=== PATIENT | male | born 1975 | race Two or more races ===

== ENCOUNTER → 2020-06-02 10:40 | Outpatient (BNVA) | payer OTHER, SELFPAY | PROVIDERS: Visit Provider Physician Assistant Medical | DX: K42.0 Umbilical hernia with obstruction, without gangrene (principal) | CPT/HCPCS: 99202 ==

== ENCOUNTER → 2020-06-16 15:07 | Outpatient (BNVA) | payer OTHER, SELFPAY | PROVIDERS: Visit Provider Surgery ==

== ENCOUNTER → 2020-06-23 09:59 | Outpatient (BNVA) | payer OTHER, SELFPAY | PROVIDERS: Visit Provider Surgery | DX: K42.9 Umbilical hernia without obstruction or gangrene (principal) | CPT/HCPCS: 99212 ==

== ENCOUNTER 2020-07-09 07:42 | Day surgery (SDC) | payer OTHER, SELFPAY ==
[2020-07-02 10:22] VITALS: BMI 41.3
--- NOTE | 2020-07-07 14:27 | HO.ANESPROP2 ---
HPI - Anesthesia Eval Consult details Narrative: 45yo M for Hernia Repair Umbilical with mesh PMFSH Active Problems Active Problems: All Active Problems (Updated 07/02/20 @ 10:22 by Ciarra Trinh) Umbilical hernia (Acute) Past Medical History Medical History (Updated 07/02/20 @ 10:22 by Ciarra Trinh) Heartburn PACHECO (obstructive sleep apnea) Sickle cell trait Umbilical hernia Surgical History Surgical History (Updated 07/02/20 @ 10:22 by Ciarra Trinh) History of hernia surgery History of ventral hernia repair Social History Social History Alcohol intake: current Alcohol intake frequency: holidays/special occasions only Patient Tobacco Use Status: Never used Tobacco Meds Allergies Allergy/AdvReac Type Severity Reaction Status Date / Time Penicillins [PENICILLINS] Allergy Severe ANAPHYLAXIS Verified 07/09/20 08:50 Exam Exam Date and Time: July 07, 2020 1427 Height,Weight and Vital Signs: Height 5 ft 9 in Weight 127.006 kg Assessment and Plan Assessment Anesthesia Assessment: Chart Reviewed
[2020-07-09] VITALS (7 sets, daily range): BP systolic 122–147; BP diastolic 80–100; PULSE 85–96; RESP 14–23; TEMP 36.8–37.3; O2SAT 92–100
[2020-07-09] MEDS: Lactated Ringers 1,000 ML 100 ML IVCONT (09:12)
[2020-07-09] MEDS: vancomycin HCL 1,000 MG in 0.9 % Sodium Chloride 250 ML 270 MG IV (09:12)
--- NOTE | 2020-07-09 09:57 | MHC.SHP ---
Pre-Procedural Eval Section B Chief Complaint: umbilical hernia without obstruction Allergies: Allergies Allergy/AdvReac Type Severity Reaction Status Date / Time Penicillins [PENICILLINS] Allergy Severe ANAPHYLAXIS Verified 07/09/20 08:50 Plan I have reviewed the history and physical and performed a pertinent physical examination on my patient. No changes have occurred unless specified.
--- NOTE | 2020-07-09 11:08 | W.PM.OPN ---
Operative Note Operative Note Date of Service: 07/09/20 Narrative: Preop diagnosis: Umbilical incisional hernia Postop diagnosis: The same Procedure: Repair of sickle incisional hernia with Ventralex mesh Surgeon: Karri Mullins MD Warehouse Operations Manager: None [age] year old male who had undergone laparotomy for an incarcerated supraumbilical hernia last September,. He had developed a hernia on the umbilicus. This had been increasing in size and he wanted to proceed with repair. He understood the technique of repair with mesh. He was aware of the risks, benefits, and alternatives. He was brought to the operating room placed supine on table under general anesthesia via laryngeal mask airway. The abdomen was prepped and draped in the usual sterile fashion. A surgical time-out was done. The patient received cefazolin 2 g IV preoperatively. The hernia was palpable on the area of umbilicus a little to the right. I made an incision longitudinally just adjacent to the umbilicus on this area to the right of the midline. This was made using a blade 15. This was carried down through the full-thickness of the skin and subcutaneous fat. I proceeded to then gently dissect through the subcutaneous fat until I was able to clearly visualize the hernia sac. I sharply dissected the hernia sac off of the rest of the subcutaneous fat and the umbilical dimple. The umbilicus was gently from this hernia and I proceeded to continue to dissect sharply all the way to the fascia. The patient had a lot of tissue surrounding the hernia tethering this to the fascial edge. I carefully dissected this with the Metzenbaum scissors as well as with electrocautery. I was able to eventually grasped 1 edge of the defect with Lexx clamp. We therefore were able to follow the fascial edge using this leading edge and gently the entire hernia contents from the fascial edge. I was able to then reduce this hernia and its contents. The hernia defect was about 2 cm in size. The distal margins appeared to be clear and there were no surrounding bowel loops. I reinforced this defect with a a small size Ventralex mesh. I flattened the mesh underneath the fascia and there was note of good overlap. I secured the Prolene straps of the mesh to the fascial layer with Prolene 2 sutures. I trimmed the Prolene straps flush on the fascial level. I closed the fascial defect with a [id number] Maxon 1 stitch. I reviewed the exit her a pair. I reapposed the thick subcutaneous layer with Dexon 3-0 interrupted sutures. Skin closure was achieved with Dexon 4-0 subcuticular stitch. The incision was infiltrated with Marcaine 0.5% for postop analgesia. Patient and dressings were applied The patient tolerated the procedure well. There were no complications noted. Initial and final counts of sponges and instruments were correct. Estimated blood loss was about 2 cc. The patient was extubated without difficulty and transferred to the recovery room with stable vital signs.
--- NOTE | 2020-07-09 11:16 | P.BOP_ITS ---
Brief Operative Note Date of Service: 07/09/20 Pre-op diagnosis: Umbilical incisional hernia Post-op diagnosis: same Procedure: Repair of umbilical incisional hernia with mesh Implants: Mesh Surgeon: Karri Mullins MD Was an De Icer Installer used for this Procedure?: No Estimated blood loss (mL): 2 Pathology: none sent Condition: stable Disposition: PACU
== END 2020-07-09 12:55 | disposition home or self-care (01) ==
PROVIDERS: PCP Nurse Practitioner Family; Visit Provider Surgery
PROC: (CPT 49585; principal; 2020-07-09 09:30)
DX: K42.9 Umbilical hernia without obstruction or gangrene (principal); D57.3 Sickle-cell trait; G47.33 Obstructive sleep apnea (adult) (pediatric); Z88.0 Allergy status to penicillin
CPT/HCPCS: 49585; C1781; J1100; J1885; J2250; J2405; J3010; J3370

== ENCOUNTER → 2020-07-21 14:38 | Outpatient (BNVA) | payer OTHER, SELFPAY | PROVIDERS: PCP Nurse Practitioner Family; Referring Provider Nurse Practitioner Family; Visit Provider Surgery | DX: Z48.815 Encounter for surgical aftercare following surgery on the digestive system (principal); Z87.19 Personal history of other diseases of the digestive system | CPT/HCPCS: 99212 ==

== ENCOUNTER 2022-04-18 09:31 | Emergency (ER) | payer OTHER, SELFPAY ==
--- NOTE | ~2022-04-18 | XR_ITS ---
EXAMINATION: CR X-RAY KNEE, TIBIA/FIBULA, ANKLE AND FOOT LEFT CLINICAL INFORMATION: Pain. COMPARISON: None TECHNIQUE: 2 views of the left knee, 2 views of the left tibia/fibula, 3 views of the left ankle and 3 views of the left foot were obtained. FINDINGS: There is no acute fracture or dislocation. No joint effusion is seen. The tibia and fibula are intact. The ankle joint and mortise are intact. There are small plantar and very small retrocalcaneal spurs. The tarsal bones are normally aligned. There is a mild hallux valgus deformity. The metatarsals and phalanges are intact. The soft tissues are unremarkable. XR/XR tibia fibula LT 2V IMPRESSION: 1. No acute abnormality in the left knee, tibia/fibula, ankle or foot. 2. Mild hallux valgus deformity. 3. Small degenerative calcaneal spurs.
--- NOTE | ~2022-04-18 | XR_ITS ---
EXAMINATION: CR X-RAY KNEE, TIBIA/FIBULA, ANKLE AND FOOT LEFT CLINICAL INFORMATION: Pain. COMPARISON: None TECHNIQUE: 2 views of the left knee, 2 views of the left tibia/fibula, 3 views of the left ankle and 3 views of the left foot were obtained. FINDINGS: There is no acute fracture or dislocation. No joint effusion is seen. The tibia and fibula are intact. The ankle joint and mortise are intact. There are small plantar and very small retrocalcaneal spurs. The tarsal bones are normally aligned. There is a mild hallux valgus deformity. The metatarsals and phalanges are intact. The soft tissues are unremarkable. XR/XR ankle LT min 3V IMPRESSION: 1. No acute abnormality in the left knee, tibia/fibula, ankle or foot. 2. Mild hallux valgus deformity. 3. Small degenerative calcaneal spurs.
--- NOTE | ~2022-04-18 | XR_ITS ---
EXAMINATION: CR X-RAY KNEE, TIBIA/FIBULA, ANKLE AND FOOT LEFT CLINICAL INFORMATION: Pain. COMPARISON: None TECHNIQUE: 2 views of the left knee, 2 views of the left tibia/fibula, 3 views of the left ankle and 3 views of the left foot were obtained. FINDINGS: There is no acute fracture or dislocation. No joint effusion is seen. The tibia and fibula are intact. The ankle joint and mortise are intact. There are small plantar and very small retrocalcaneal spurs. The tarsal bones are normally aligned. There is a mild hallux valgus deformity. The metatarsals and phalanges are intact. The soft tissues are unremarkable. XR/XR knee LT 4V IMPRESSION: 1. No acute abnormality in the left knee, tibia/fibula, ankle or foot. 2. Mild hallux valgus deformity. 3. Small degenerative calcaneal spurs.
--- NOTE | ~2022-04-18 | XR_ITS ---
EXAMINATION: CR X-RAY KNEE, TIBIA/FIBULA, ANKLE AND FOOT LEFT CLINICAL INFORMATION: Pain. COMPARISON: None TECHNIQUE: 2 views of the left knee, 2 views of the left tibia/fibula, 3 views of the left ankle and 3 views of the left foot were obtained. FINDINGS: There is no acute fracture or dislocation. No joint effusion is seen. The tibia and fibula are intact. The ankle joint and mortise are intact. There are small plantar and very small retrocalcaneal spurs. The tarsal bones are normally aligned. There is a mild hallux valgus deformity. The metatarsals and phalanges are intact. The soft tissues are unremarkable. XR/XR foot LT min 3V IMPRESSION: 1. No acute abnormality in the left knee, tibia/fibula, ankle or foot. 2. Mild hallux valgus deformity. 3. Small degenerative calcaneal spurs.
[2022-04-18 09:39] VITALS: BP 166/111; PULSE 100; RESP 16; TEMP 36.4; O2SAT 98; BMI 43.0
[2022-04-18 09:44] VITALS: BP 149/101
--- NOTE | 2022-04-18 10:21 | ED_ITS ---
HPI - Extremity Injury (Lower) General Chief Complaint: Extremity Injury, Lower Stated Complaint: Left whitman pain Time Seen by Provider: 04/18/22 10:05 Source: patient Mode of arrival: ambulatory Limitations: no limitations History of Present Illness HPI Narrative: Pt is a 47 y/o male with newer diagnosis of HTN, cc several months of lower left leg pain that feels like whitman splints. He states he was seen at the ID yesterday and they did an ultrasound to rule out DVT and recommended he be seen in the ED for further evaluation. He states the pain originally started with walking and relieved with rest, now has gotten progressively worse to the point he cannot stand on the leg for more than 1-5 mins without experiencing pain. He is morbidly obese and started walking regularly in 2020 after having hernia antonella shiraz and his walks are an hour to 90 minutes occasionally to work. He was starting to lose weight and now cannot be as active due to the pain. It is sharp on the anterior lower left leg and sometimes radiates laterally, stopping when at rest for a minute or two. Occasionally he has felt a brief cold patel to the shortly after resting. He denies sob or chest pain with exertion, fevers, chills, temperature difference in the extremities, swelling, redness, injury, falls, lower back pain, hip pain, ankle pain or foot pain. MD complaint: other (left leg pain ) Onset (ago): month(s) ( several ) Relieving factors: immobilization (wraps around calf) Exacerbating factors: weight bearing and movement Related Data Previous Rx's Medication Instructions Recorded ibuprofen 600 mg tablet 600 mg PO Q6H PRN pain #30 tabs 07/09/20 oxycodone-acetaminophen 5 mg-325 1 - 2 tab PO Q4-6H PRN pain #30 07/09/20 mg tablet (Percocet) tabs cyclobenzaprine 10 mg tablet 10 mg PO Q8H #14 tabs 04/18/22 naproxen 500 mg tablet 500 mg PO BID PRN pain #14 tabs 04/18/22 oxycodone 5 mg tablet 5 mg PO Q6H PRN pain #14 tabs 04/18/22 Allergies Allergy/AdvReac Type Severity Reaction Status Date / Time Penicillins [PENICILLINS] Allergy Severe ANAPHYLAXIS Verified 07/09/20 08:50 Review of Systems Review of Systems: Constitutional : No Weight loss, No Fever, No Chills, No Night Sweats, No Fatigue, No Malaise ENT/Mouth : No Hearing loss, No Ear Pain, No Nasal Congestion, No Sinus Pain, No Hoarseness, No sore throat, No Rhinorrhea, No Swallowing Difficulty Eyes: No Eye Pain, No Swelling, No Redness, No Foreign Body, No Discharge, No Vision Changes Cardiovascular : No Chest Pain, No SOB, No Dyspnea on Exertion, No Orthopnea, No Edema, No Palpitations Respiratory : No Cough, No Sputum, No Wheezing, No Smoke Exposure, No Dyspnea Gastrointestinal : No Nausea, No Vomiting, No Diarrhea, No Constipation, No abdominal Pain, No Hematochezia, No Melena Genitourinary : no irregular bleeding, No Dysuria, No Urinary Frequency, No Hematuria, No Urinary Incontinence, No Urgency, No Flank Pain, No Urinary Flow Changes, No Hesitancy Musculoskeletal : + left whitman pain, No joint pain, No Myalgias, No Joint Swelling Skin : No Skin Lesions, No rash Neuro : No Weakness, No Numbness, No Paresthesias, No Loss of Consciousness, No Dizziness, No Headache Psych : No Anxiety/Panic, No Depression, No SI/HI/AH/VH, No Social Issues, Heme/Lymph: No Bruising, No Bleeding,No Lymphadenopathy Endocrine : No Polyuria, No Polydipsia, No Temperature Intolerance Yes all other systems are reviewed and are negative [facility] Past Medical History Attestation statement: The following information was validated with the patient. Source: old records reviewed and nursing notes reviewed Medical History Heartburn PACHECO (obstructive sleep apnea) Sickle cell trait Umbilical hernia Surgical History History of hernia surgery History of ventral hernia repair Social History Social History Alcohol intake: current Alcohol intake frequency: holidays/special occasions only Patient Tobacco Use Status: Never used Tobacco Advance Directives: No Advance Directives Information Provided: Yes Physical Exam Vital Signs: Vital Signs: Last Vital Signs Temp 97.6 F 04/18/22 09:39 Pulse 100 04/18/22 09:39 Resp 16 04/18/22 09:39 BP 149/101 H 03/14/23 09:44 Pulse Ox 98 04/18/22 09:39 O2 Del Method 04/18/22 09:39 BMI result Body Mass Index 43.0 Vital signs reviewed. Blood pressure normal. Pulse normal. Respiration normal. Oxygen normal. Temperature normal. Appearance: Alert. Oriented X3. No acute distress. Head: Normal external exam. Normocephalic. Atraumatic. Eyes: PERRLA. EOMI. Conjunctiva and sclera normal. Eyelids normal. ENT: EAC normal. TM's Normal. Pharynx normal. Uvula midline. Moist mucous membranes. No lesions/ulcerations or masses noted on the tongue. Normal voice. No trismus noted. No drooling noted. No muffled voice noted. Neck: Normal inspection. Neck supple. FROM. No adenopathy. Thyroid Normal. No meningeal signs. CVS: Normal heart rate and rhythm. Heart sound normal. Pulses normal throughout. No murmurs/rales/gallops. Respiratory: No respiratory distress. Painless inspiration. Breath sounds normal. No wheezes/rales/rhonchi noted. Chest nontender. No accessory muscle usage noted or decreased air movement noted. Abdomen: Soft and nontender. Back: Full range of motion noted. Nontender. Skin: Skin warm and dry. Normal skin color. Normal skin turgor. No rashes/lesions/lacerations noted. Extremities: No lower extremity edema noted. patient with tenderness palpation to the anterior lateral aspect of the whitman. No rashes are noted. equal tem perature bilat, + distal pulses. No calf tenderness noted. Otherwise all other extremities exhibit normal range of motion nontender. Neuro: Oriented X 3. No motor deficit. No sensory deficit. Reflexes normal. Normal steady gait. No focal neuro deficits noted. CN's II-XII intact bilaterally? Vascular: + radial pulses. Normal cap refill. No cyanosis noted to upper extremity nails Medical Decision Making Medical Decision Making MDM Narrative: This 47 y/o male patient presents with whitman pain, suspicious for soft tissue injury or stress fracture of the tibia. Able to flex and extend proximal and distal joints without pain. Already had labs yesterday and a negative DVT study. Considered, but doubt, arterial thrombosis, septic arthritis, other acute unstable fracture, or significant neurovascular compromise, given history and exam No e/o compartment syndrome, septic arthritis, other acute fracture. Range of motion is normal. Plan: Will get plain films, if negative patient will be discharged with symptomatic treatment and instructions to follow-up with PCP/[facility] and orthopedic as needed. Pt has recent diagnosis of hypertension and was started on lisinopril one week ago. He has no evidence of ACS, denies SOB, chest pain, jaw pain, neck pain, back pain. He was hypertensive upon arrival and had not taken today's dose. Therefore patient was given his 5 mg prescribed lisinopril. Instructed to take his medications as prescribed. Independent Interpretation I performed an independent interpretation of an: Plain X-Ray (X-ray of left knee/lower leg and tibia/fibula reviewed by myself agree with radiologist's report) Radiology Impression Discussion of test interpretation with radiology: I have reviewed the radiologist's reading. Radiologist Impression: EXAMINATION: CR X-RAY KNEE, TIBIA/FIBULA, ANKLE AND FOOT LEFT CLINICAL INFORMATION: Pain.? COMPARISON: None? TECHNIQUE: 2 views of the left knee, 2 views of the left tibia/fibula, 3 views of the left ankle and 3 views of the left foot were obtained. FINDINGS: There is no acute fracture or dislocation. No joint effusion is seen. The tibia and fibula are intact. The ankle joint and mortise are intact. There are small plantar and very small retrocalcaneal spurs. The tarsal bones are normally aligned. There is a mild hallux valgus deformity. The metatarsals and phalanges are intact. The soft tissues are unremarkable. XR/XR tibia fibula LT 2V IMPRESSION: 1.? No acute abnormality in the left knee, tibia/fibula, ankle or foot. 2.? Mild hallux valgus deformity. 3.? Small degenerative calcaneal spurs. Prescription Management I considered prescription management with: Pain Medication Will DC home with pain medications and symptomatic treatment instructions return if any new or worsening symptoms follow up with primary care provider. Chronic Conditions Patient?s care impacted by: Hypertension Discharge Plan Discharge Clinical Impression: Pain in left whitman, Anterior whitman splints Patient Disposition: Home, Self-Care Instructions: Whitman Splints (ED) Prescriptions: New naproxen 500 mg tablet 500 mg PO BID PRN (Reason: pain) Qty: 14 0RF cyclobenzaprine 10 mg tablet 10 mg PO Q8H Qty: 14 0RF oxycodone 5 mg tablet 5 mg PO Q6H PRN (Reason: pain) Qty: 14 0RF Rx Instructions: Partial Fill upon patient request. No Action oxycodone-acetaminophen [Percocet] 5-325 mg tablet 1 - 2 tab PO Q4-6H PRN (Reason: pain) Qty: 30 0RF ibuprofen 600 mg tablet 600 mg PO Q6H PRN (Reason: pain) Qty: 30 0RF Referrals: [facility] [Provider Group] (Call to make a follow-up appointment as needed) Moreno Higginbotham OPERATIONAL COMMUNICATION CHIEF [Primary Care Provider] - 1 day Stand Alone Forms: Work/School Release
--- OUTSIDE RECORDS SUMMARY | 2022-04-18 10:36 | XMS_ITS | Encounter Summary ---
:1975 Author Organization Department [facility] Address [address] [place] [id number] Support Name Relationship Address Phone RIKA STILL Unavailable [address] [place] [address] TESSY RIKA Unavailable [address] Unavailable [place] [address] Selected Encounter This section includes the information on record at [place] for the Encounter. Date/Time Encounter Type Encounter Reason Provider Source Description Dec 05, 2021 Outpatient SLEEP MEDICINE ICD-10-CM G47.33 CURIOSO-UY,CY 07:22 AM Encounter Obstructive sleep NTHIA apnea (adult) (pediatric) with Provider Comments: Obstructive Sleep Apnea (Adult) (Pediatric) IHE Encounter Template Text not used by [place] Assessments - Encounter Diagnoses This section includes the primary and secondary diagnoses documented for the Encounter. Date/Time Primary/Secondary Diagnosis Name Provider Source Diagnosis Dec 05, 2021 PRIMARY Obstructive sleep CURIOSO-UY,JANA [facility] 07:33 AM apnea (adult) THIA (pediatric) Plan of Treatment: Future Appointments (+ 6 months) and Future Tests (+/- 45 days) The Plan of Treatment section includes future care activities for the patient from all [place] treatmentfacilities. This section includes future appointments and future orders which are active, pending orscheduled.Future Appointments This section includes appointments that were scheduled to occur 6 months from the date of the Encounter, up to a maximum of 20 appointments. The data comes from all [place] treatment facilities. Appointment Date/Time Appointment Type Appointment Facili ty Name Mar 24, 2022 11:30 AM AMBULATORY - MEDICINE [facility] Calvin M[facility]A [facility] Apr 17, 2022 10:30 AM AMBULATORY - NONE [facility] RADHA AMARO [facility] Advance Directives: All historical and current Section Date Range: From patient's date of to the date document was created. This section includes ALL of a patient's completed or amended [facility] Advance and Rescinded Directives. The entries below indicate that a directive exists for the patient, but an actual copy is not included with this document. The data comes from all [place] facilities. Date Advance Directives Provider Source Jan 26, 2020 ADVANCE DIRECTIVE DISCUSSION RIKA BIRD [facility] Encounter Notes: All associated encounter notes This section contains the clinical notes associated to the Encounter. Date/Time Encounter Note(s) Provider Source Dec 05, 2021 07:22 AM SLEEP MEDICINE CONSULT: MARNIE NAIR [facility] TITLE: SLEEP DISORDER E-CONSULT NOTE (WHA V) STANDARD TITLE: SLEEP MEDICINE CONSULT DATE OF NOTE: DEC 05, 2021@07:22 ENTRY DATE: DEC 05, 2021@07:22:42 AUTHOR: MARNIE NAIR COSIGNER: URGENCY: STATUS: COMPLETED Reason For Request: with severe PACHECO (AHI 51) was issued Apap 5 - [id number] in 2019. He changed his own settings to Apap 5.4 - 7cm and i s now having an AHI 33. He states he did this because he was getting air in his stomach and his nose was bleeding. His settings were changed to Apap 5 - 10 for now. REPLY: 2 weeks data of download data reviewed (see florence oates). Data showed slightly high residual AHI 8.4/hr bu t much improved from his baseline study (AHI 51/hr). I suggest to reset his APAP to 8-15 cm H20 with close clinical f/u and repeat download with new setting. Additional humidification and trial of nasal ayr or nasogel to aid with buccal/nasal dryness. No Delgado 11/20/2021 - 12/03/2021 : 1975 Age: 46 years [employer] Compliance Report Compliance Payor Standard Usage 11/20/2021 - 12/03/2021 Usage days 14/14 days (100%) >= 4 hours 9 days (64%) < 4 hours 5 days (36%) Usage hours 62 hours 41 minutes Average usage (total days) 4 hours 29 minutes Average usage (days used) 4 hours 29 minutes Median usage (days used) 5 hours 9 minutes Total used hours (value since last reset - 12/03) 1,768 hours [employer] 10 AutoSet Serial number [id number] Mode AutoSet Min Pressure 5 cmH2O Max Pressure 10 cmH2O EPR Fulltime EPR level 3 Response Standard Therapy Pressure - cmH2O Median: 7.9 95th percentile: 9. 5 Maximum: 9.8 Leaks - L/min Median: 11.4 95th percentile: 38.7 Maximum: 61.5 Events per hour AI: 5.5 HI: 2.9 AHI: 8.4 Apnea Index Central: 0.5 Obstructive: 4.2 Unknow n: 0.7 RERA Index 0.5 Jose-Foss respiration (average duration per night) 0 minutes (0%) Usage - hours Printed on 12/05/2021 - [employer] version 4 .38.0-3.0 Page 1 of 1 No Delgado 11/20/2021 - 12/03/2021 : 1975 Age: 46 years [employer] Therapy Report AirSense 10 AutoSet SN: [id number] Mode AutoSet Set EPR Fulltime, 3.0 Set Max Pressure 10.0 Set Min Pressure 5.0 No Delgado 11/20/2021 - 12/03/2021 : 1975 Age: 46 years [employer] Compliance Report Compliance Payor Standard Usage 11/20/2021 - 12/03/2021 Usage days 14/14 days (100%) >= 4 hours 9 days (64%) < 4 hours 5 days (36%) Usage hours 62 hours 41 minutes Average usage (total days) 4 hours 29 minutes Average usage (days used) 4 hours 29 minutes Median usage (days used) 5 hours 9 minutes Total used hours (value since last reset - 12/03) 1,768 hours [employer]Sense 10 AutoSet Serial number [id number] Mode AutoSet Min Pressure 5 cmH2O Max Pressure 10 cmH2O EPR Fulltime EPR level 3 Response Standard Therapy Pressure - cmH2O Median: 7.9 95th percentile: 9. 5 Maximum: 9.8 Leaks - L/min Median: 11.4 95th percentile: 38.7 Maximum: 61.5 Events per hour AI: 5.5 HI: 2.9 AHI: 8.4 Apnea Index Central: 0.5 Obstructive: 4.2 Unknow n: 0.7 RERA Index 0.5 Jose-Foss respiration (average durat ion per night) 0 minutes (0%) Usage - hours Printed on 12/05/2021 - [employer] version 4 .38.0-3.0 Page 1 of / MARNIE NAIR MD ATTENDING Signed: 12/05/2021 07:33
--- OUTSIDE RECORDS SUMMARY | 2022-04-18 10:36 | XMS_ITS | Continuity of Care Document ---
:1975 Author Organization [facility] Care Team Providers Name Role Phone [facility] Unavailable Unavailable Problems Combined list of problems from Department of Defense and Veterans Affairs facilities. It does not include entries that were removed or entered in error. Problem Status Onset Problem Type Date of Comments Source Date Resolution Sleep Apnea (SCT Active 07/11/19 Condition [facility] [id number][facility] [place] [facility] visit for: Inactive Condition DoD screening exam pulmonary tuberculosis Elevated blood Active Condition [facility] [place] [facility] problem Active Condition [facility] [place] [facility] HTN - Hypertension Active Condition V A [facility] (SCT [id number]) [facility] Pain of left lower Active Condition [facility] leg [place] [facility] Sickle cell trait Active Condition [facility] [place] [facility] Diagnosis: Active Diagnosis [facility] ICD-10-CM M79.662 [place] Pain in left lower H [facility] legwith Provider Comments: Pain of left lower leg (SNOMED CT [id number]) Diagnosis: Active Diagnosis [place] ICD-10-CM G47.30 Sleep apnea, unspecifiedwith Provider Comments: Sleep Apnea (SCT 10965760) Diagnosis: Active Diagnosis [place] ICD-10-CM G47.33 [facility] Obstructive sleep apnea (adult) (pediatric)with Provider Comments: Obstructive Sleep Apnea (Adult) (Pediatric) Medications Combined list of outpatient medications from Department of Defense and Veterans Affairs facilities. Medications provided include 1) outpatient medications from the last 15 months, and 2) patient-reported medications. Medication Details Route Status Patient Prescription Prescription Last Ordering Order Source Instructions Expires Number Dispense Provider Date Date LISINOPRIL TAKE ONE ORAL ACTIVE 03/25/2023 [id number] SULLIMarilou AN, 5MG TAB TABLET 3 RUDI Lyndsey 2022 CNTRL BY MOUTH W[facility]N ONCE [place] DAILY TO [facility] BLOOD PRESSURE Allergies, Adverse Reactions, Alerts Combined list of allergies from Department of Defense and Veterans Affairs facilities. It does not include entries that were removed or entered in error. Substance Category Reaction Severity Reaction Status Date Comments S ource type Reported BICILLIN C-R Drug active N orthampto allergy 0 n [facility] (disorder) PENICILLIN Propensity active [facility] to adverse 0 [place] reactions [place] to drug S [facility] (finding) PENICILLINS Drug active [place] allergy 8 [place] (disorder) Immunizations Combined list of available immunizations from the Department of Defense and Veterans Affairs facilities. Immunization Series Date Administered Site Reaction Lot CVX Drug St atus Comments Source Given By Number Code Frog Shaker INFLUENZA, complet Site: [place] INJECTABLE, 2019 ed Right CN TRL QUADRIVALENT, Deltoi d [facility] PRESERVATIVE [facility] TDAP complet Site: [place] 2019 ed Left [facility] Deltoid [place] [facility] tuberculin 1 Transcribed complet tuberculi DoD skin test; 2005 (TRS) ed n skin purified test; protein purified derivative protein solution, derivativ intradermal e solution, intraderm al Results Combined list of recent chemistry, hematology and other laboratory results from Department of Defense and Veterans Affairs, ranging from 15 months to all on record, depending upon the facility. Order Results Value Reference Date Interpretation Specimen Commen ts Source Name Range VITAMIN D 25-HYDROXYV 14 20 - 50 03/24 L Specimen T ype: SERUM [facility] (25-[place]) ITAMIN D3 No comment ent ered. WSTRN [MASS/VOLUM Ordering Pr ovider: RUDI HSUCHSIMON E] IN SERUM Report Rele ased Date/Time: Mar 24, 2022 11:53 AM TS HCS OR PLASMA Reporting Lab : [facility] [address] [facility] [address] Performing Lab: [facility] [address] [facility] [address] HEMOGLOBI HEMOGLOBIN 4.9 4.0 - 5.6 03/24 Specimen Type: BLOOD [place] CNTRL N A1C A1C/HEMOGLO /2023 Comment: Va lues obtained from A1C measurements can vary. For atypical A1C assays, a reported value of 7.0 could actually be between 6.72 and 7.28 if measured by a reference method. A reported value of WSTRN PANEL BIN.TOTAL 9.0 could actu ally be between 8.73 and 9.27. Ref: http://www.ngsp.org/CAPdata.asp [place] IN BLOOD BY Ordering Pr ovider: RUDI HSU [facility] HPLC Report Released Date/Time: Mar 24, 2022 11:53 AM Reporting Lab: [place] [facility] [place] [address] [address] Performing Lab: [place] CNTR WSTR[place] [address] [address] TSH THYROTROPIN 2.79 0.35 - 03/24 Specimen Typ e: SERUM [place] CN[facility] [UNITS/VOLU 5.00 No comment e ntered. WSTRN ME] IN Ordering Provid er: RUDI HSU SERUM OR Report Release d Date/Time: Mar 24, 2022 11:53 AM [facility] PLASMA Reporting Lab[facility] W[facility] [address] [address] Performing Lab: [facility] [address] BASIC UREA 16 7 - 25 03/24 Specimen Type: S ZAY [facility] METABOLIC NITROGEN /2022 No comment en tered. WSTRN PANEL [MASS/VOLUM Ordering Pr ovider: RUDI HSU (non-fast E] IN SERUM Report Re leased Date/Time: Mar 24, 2022 11:53 AM [facility] ing) OR PLASMA Reporting Lab : [place] [facility] [place] [address] [address] Performing Lab: [place] [facility] [address] [address] BASIC GLUCOSE 91 65 - 100 03/24 Specimen Type: SERUM [facility] METABOLIC [MASS/VOLUM /2022 No comment entered. WSTRN PANEL E] IN SERUM Ordering Pr ovider: RUDI HSU (non-fast OR PLASMA Report Rele ased Date/Time: Mar 24, 2022 11:53 AM TS [facility] ing) Reporting Lab: [place] CNTRL TRN [address] [address] Performing Lab: [facility] [address] BASIC SODIUM 140 135 - 145 03/24 Specimen Type: SERUM [facility] METABOLIC [MOLES/VOLU /2022 No comment entered. WSTRN PANEL ME] IN Ordering Provid er: RUDI HSU (non-fast SERUM OR Report Relea sed Date/Time: Mar 24, 2022 11:53 AM TS [facility] ing) PLASMA Reporting Lab: [facility] [address] [address] Per[facility]: [facility] [address] [address] BASIC POTASSIUM 4.1 3.5 - 5.0 03/24 Specimen Typ e: SERUM [facility] METABOLIC [MOLES/VOLU No comment entered. WSTRN PANEL ME] IN Ordering Provid er: RUDI HSU (non-fast SERUM OR Report Relea sed Date/Time: Mar 24, 2022 11:53 AM TS [facility] ing) PLASMA Reporting Lab: [facility] [address] [address] Performing Lab: [facility] [address] [address] BASIC CHLORIDE 107 100 - 110 03/24 Specimen Type : SERUM [facility] METABOLIC [MOLES/VOLU No comment entered. WSTRN PANEL ME] IN Ordering Provid er: RUDI HSU (non-fast SERUM OR Report Relea sed Date/Time: Mar 24, 2022 11:53 AM TS [facility] ing) PLASMA Reporting Lab: [facility] [address] [address] Performing Lab: [facility] [address] [address] BASIC CARBON 24 20 - 30 03/24 Specimen Type: S ZAY [facility] METABOLIC DIOXIDE, /2022 No comment en tered. WSTRN PANEL TOTAL Ordering Provid er: RUDI HSU (non-fast [MOLES/VOLU Report Re leased Date/Time: Mar 24, 2022 11:53 AM TS [facility] ing) ME] IN Reporting Lab: [facility] [place] [facility] SERUM OR [address] [facility] [address] PLASMA Performing Lab: [facility] [place] [facility] [address] [facility] [address] BASIC CREATININE 1.10 0.50 - 03/24 Specimen Type : SERUM [facility] METABOLIC [MASS/VOLUM 1.40 No comment entered. WSTRN PANEL E] IN SERUM Ordering Pr ovider: RUDI HSU (non-fast OR PLASMA Report Rele ased Date/Time: Mar 24, 2022 11:53 AM TS [facility] ing) Reporting Lab: [facility] [place] [facility] [address] [facility] [address] Performing Lab: [facility] [facility] [address] [facility] [address] BASIC GLOMERULAR 82 60 03/24 Specimen Type : SERUM [facility] METABOLIC FILTRATION /2022 No comment entered. WSTRN PANEL RATE/1.73 Ordering Prov ider: RUDI HSU (non-fast SQ Report Releas ed Date/Time: Mar 24, 2022 11:53 AM TS [facility] ing) Calvin.PREDICTED Reporting L ab: [facility] [facility] [VOLUME [address] [facility] [address] RATE/AREA] Performing L ab: [facility] [place] [facility] IN SERUM, [address] [facility] [address] PLASMA OR BLOOD BY CREATININE- BASED FORMULA (CKD-EPI) LIVER PROTEIN 7.9 6.0 - 8.3 03/24 Specimen Type: SERUM [facility] FUNCTION [MASS/VOLUM /2022 No comment entered. WSTRN E] IN SERUM Ordering Pr ovider: RUDI HSU OR PLASMA Report Releas ed Date/Time: Mar 24, 2022 11:53 AM TS [facility] Reporting Lab: [facility] [place] [facility] [address] [facility] [address] Performing Lab: [facility] [facility] [address] [facility] [address] LIVER ALBUMIN 4.0 3.5 - 5.0 03/24 Specimen Type: SERUM [facility] FUNCTION [MASS/VOLUM /2022 No comment entered. WSTRN E] IN SERUM Ordering Pr ovider: RUDI HSU OR PLASMA Report Releas ed Date/Time: Mar 24, 2022 11:53 AM [facility] Reporting Lab: [facility] [place] [facility] [address] [facility] [address] Performing Lab: [facility] [place] [facility] [address] [facility] [address] LIVER ALKALINE 79 40 - 150 03/24 Specimen Type: SERUM [facility] FUNCTION No comment entered. WSTRN [ENZYMATIC Ordering Pro vider: RUDI HSU ACTIVITY/VO Report Rele ased Date/Time: Mar 24, 2022 11:53 AM [facility] LUME] IN Reporting Lab: [facility] SERUM OR [address] [facility] [address] PLASMA Performing Lab: [facility] [facility] [address] [facility] [address] LIVER ASPARTATE 18 5 - 34 03/24 Specimen Type: SERUM [facility] FUNCTION AMINOTRANS No comment entered. WSTRN ERASE Ordering Provid er: RUDI HSU [ENZYMATIC Report Relea sed Date/Time: Mar 24, 2022 11:53 AM [facility] ACTIVITY/VO Reporting L ab: [facility] [facility] LUME] IN [address] [facility] [address] SERUM OR Performing Lab : [facility] [place] [facility] PLASMA [address] [facility] [address] LIVER ALANINE 28 6 - 55 03/24 Specimen Type: S ZAY [facility] FUNCTION AMINOTRANSF No comment entered. WSTRN ERASE Ordering Provid er: RUDI HSU [ENZYMATIC Report Relea sed Date/Time: Mar 24, 2022 11:53 AM TS HCS ACTIVITY/VO Reporting L ab: [facility] [place] [facility] LUME] IN [address] [facility] [address] SERUM OR Performing Lab : [facility] [place] [facility] PLASMA [address] [facility] [address] LIVER BILIRUBIN.T 0.7 0.2 - 1.2 03/24 Specimen T ype: SERUM [facility] FUNCTION OTAL /2022 No comment ente red. WSTRN [MASS/VOLUM Ordering Pr ovider: RUDI HSU E] IN SERUM Report Rele ased Date/Time: Mar 24, 2022 11:53 AM TS HCS OR PLASMA Reporting Lab : [facility] [place] [address] [address] Performing Lab: [place] [facility] [place] [address] [address] LIPID CHOLESTEROL 198 7 - 199 03/24 Specimen Typ e: SERUM [facility] PANEL, [MASS/VOLUM /2022 No comment e ntered. WSTRN NON E] IN SERUM Ordering Pr ovider: RUDI HSU FASTING OR PLASMA Report Releas ed Date/Time: Mar 24, 2022 11:53 AM TS HCS Reporting Lab: [facility] [place] [address] [address] Performing Lab: [facility] [address] [address] LIPID TRIGLYCERID 132 0 - 150 03/24 Specimen Typ e: SERUM [facility] PANEL, E /2022 No comment enter ed. WSTRN NON [MASS/VOLUM Ordering Pr ovider: RUDI HSU FASTING E] IN SERUM Report Rele ased Date/Time: Mar 24, 2022 11:53 AM TS HCS OR PLASMA Reporting Lab : [facility] [place] [address] [address] Performing Lab: [facility] [place] [address] [address] LIPID CHOLESTEROL 135 0 - 129 03/24 H Specimen Typ e: SERUM [facility] PANEL, IN LDL /2022 No comment enter ed. WSTRN NON [MASS/VOLUM Ordering Pr ovider: RUDI HSU FASTING E] IN SERUM Report Rele ased Date/Time: Mar 24, 2022 11:53 AM TS HCS OR PLASMA Reporting Lab : [facility] [place] [facility] BY [address] [facility] [address] CALCULATION Performing Lab: [facility] [place] [facility] [address] [place] [address] LIPID CHOLESTEROL 5.4 03/24 Specimen Typ e: SERUM [facility] PANEL, .TOTAL/CHOL /2022 No comment e ntered. WSTRN NON ESTEROL IN Ordering Pro vider: RUDI HSU FASTING HDL [MASS Report Releas ed Date/Time: Mar 24, 2022 11:53 AM TS HCS RATIO] IN Reporting Lab : [facility] [place] [facility] SERUM OR [address] [place] [address] PLASMA Performing Lab: [facility] [place] [address] [address] LIPID CHOLESTEROL 37 40 - 60 03/24 L Specimen Typ e: SERUM [facility] PANEL, IN HDL /2022 No comment enter ed. WSTRN NON [MASS/VOLUM Ordering Pr ovider: RUDI HSU FASTING E] IN SERUM Report Rele ased Date/Time: Mar 24, 2022 11:53 AM TS HCS OR PLASMA Reporting Lab : [facility] [place] [address] [address] Performing Lab: [facility] [place] [address] [address] CBC LEUKOCYTES 9.84 4.50 - 03/24 Specimen Type : BLOOD [facility] [#/VOLUME] 11. No comment en tered. WSTRN IN BLOOD BY Ordering Pr ovider: RUDI HUS AUTOMATED Report Releas ed Date/Time: Mar 24, 2022 11:53 AM TS [facility] COUNT Reporting Lab: [facility] [place] [address] [address] Performing Lab: [facility] [place] [facility] [address] [facility] [address] CBC ERYTHROCYTE 4.71 4.23 - 03/24 Specimen Typ e: BLOOD [facility] S 5.66 /2022 No comment enter ed. WSTRN [#/VOLUME] Ordering Pro vider: RUDI HSU IN BLOOD BY Report Rele ased Date/Time: Mar 24, 2022 11:53 AM TS [facility]CS AUTOMATED Reporting Lab : [facility] [place] [facility] COUNT [address] [facility] [address] Performing Lab: [facility] [place] [facility] [address] [facility] [address] CBC HEMOGLOBIN 14.3 12.8 - 17 03/24 Specimen Ty pe: BLOOD [facility] [MASS/VOLUM /2022 No comment e ntered. WSTRN E] IN BLOOD Ordering Pr ovider: RUDI HSU Report Released Date/Time: Mar 24, 2022 11:53 AM TS HCS Reporting Lab: [facility] [place] [facility] [address] [facility] [address] Performing Lab: [facility] [place] [facility] [address] [facility] [address] CBC HEMATOCRIT 42.9 39.2 - 03/24 Specimen Type : BLOOD [facility] [VOLUME 50.4 No comment enter ed. WSTRN FRACTION] Ordering Prov ider: RUDI HSU OF BLOOD BY Report Rele ased Date/Time: Mar 24, 2022 11:53 AM TS HCS AUTOMATED Reporting Lab : [facility] [place] [facility] COUNT [address] [facility] [address] Performing Lab: [facility] [place] [facility] [address] [facility] [address] CBC MCV 91.1 82 - 99 03/24 Specimen Type: B LOOD [facility] [ENTITIC No comment ente red. WSTRN VOLUME] BY Ordering Pro vider: RUDI HSU AUTOMATED Report Releas ed Date/Time: Mar 24, 2022 11:53 AM TS [facility] COUNT Reporting Lab: [facility] [place] [facility] [address] [facility] [address] Performing Lab: [facility] [place] [facility] [address] [facility] [address] CBC MCHC 33.3 30.8 - 03/24 Specimen Type: B LOOD [facility] [MASS/VOLUM 35.1 /2022 No comment e ntered. WSTRN E] BY Ordering Provid er: RUDI HSU AUTOMATED Report Releas ed Date/Time: Mar 24, 2022 11:53 AM TS [facility]CS COUNT Reporting Lab: [facility] [place] [facility] [address] [facility] [address] Performing Lab: [facility] [place] [facility] [address] [facility] [address] CBC PLATELETS 220 140 - 360 03/24 Specimen Typ e: BLOOD [facility] [#/VOLUME] /2022 No comment en tered. WSTRN IN BLOOD BY Ordering Pr ovider: RUDI HSU AUTOMATED Report Releas ed Date/Time: Mar 24, 2022 11:53 AM TS HCS COUNT Reporting Lab: [facility] [place] [facility] [address] [facility] [address] Performing Lab: [facility] [place] [facility] [address] [facility] [address] CBC ERYTHROCYTE 12.0 12.0 - 03/24 Specimen Typ e: BLOOD [facility] DISTRIBUTIO 16.0 No comment e ntered. WSTRN N WIDTH Ordering Provid er: RUDI HSU [RATIO] BY Report Relea sed Date/Time: Mar 24, 2022 11:53 AM TS HCS AUTOMATED Reporting Lab : [facility] [place] [facility] COUNT [address] [facility] [address] Performing Lab: [facility] [place] [facility] [address] [facility] [address] CBC MCH 30.4 26.2 - 03/24 Specimen Type: B LOOD [facility] [ENTITIC 32.6 No comment ente red. WSTRN MASS] BY Ordering Provi terell: HSU,RUDI J [place] AUTOMATED Report Releas ed Date/Time: Mar 24, 2022 11:53 AM TS [facility]CS COUNT Reporting Lab: [facility] [place] [facility] [address] [facility] [address] Performing Lab: [facility] [place] [facility] [address] [facility] [address] Vital Signs Combined list of inpatient and outpatient Vital Signs from Department of Defense and Veterans Affairs, ranging from 12 months to all on record, depending upon the facility. Vital Sign Value Date Comments Source PULSE OXIMETRY 99% 03/24/2022 11:22:37 [facility] [place] [facility] WEIGHT 292 03/24/2022 11:22:37 [facility] [place] [facility] BMI 42kg/m2 03/24/2022 11:22:37 [facility] [place] [facility] PAIN 7 03/24/2022 11:22:37 [facility] [place] [facility] HEIGHT 70 03/24/2022 11:22:37 [facility] [place] [facility] TEMPERATURE 98.7 03/24/2022 11:22:37 [facility] [place] [facility] PULSE 78 03/24/2022 11:22:37 [facility] [place] [facility] RESPIRATION 20 03/24/2022 11:22:37 [facility] [place] [facility] Encounters Combined list of: 1) Encounters from Department of Veterans Affairs facilities going back up to the last 18 months. 2) Encounters from the Department of Defense facilities going back up to 280 months. Location Location Encounter Encounter Reason Attending ADM DC Stat us Disposition Source Details Type Number For Provider Date Date Visit OUTPATIENT [id number] FACUNDO WISDOM, 10/26 Released w/o Chris SANDOVAL S /2005 Limitations [facility] or matt Mobley(S ubase Immuniz ations) Outpatient 49040-7.63 11/18 [facility] En[facility] [id number] [facility] [place] [facility] [facility] REPL WATER 22242-5.63 Diagnos KEVEN LATHAM 11/19 [facility] CHAMBER, [id number] is: N A CNTRL PAP DEV ICD-10- WSTRN CM [place] G47.30 [facility] Sleep H[facility] apnea, unspeci fied
with Provide r Comment s: Sleep Apnea ([facility] [id number] 6) POS AIRWAY 48302-6.63 Diagnos KEVEN LATHAM 11/18 [facility] PRESSURE [id number] is: N A CNTRL CPAP ICD-10- WSTRN CM [place] G47.30 [facility] Sleep [facility] apnea, unspeci fied
with Provide r Comment s: Sleep Apnea (SCT 4028304 6) Outpatient 27342-5.68 Diagnos CURIOSO-UY 12/05 [facility] Encounter [id number] is: ,MARNIE /2022 IC [place] ICD-10- HCS CM G47.33 Obstruc tive sleep apnea (adult) (pediat chad)
with Provide r Comment s: Obstruc tive Sleep Apnea (Adult) (Pediat chad) POS AIRWAY 33685-5.63 KEVEN Dale 12/06 [facility] PRESSURE [id number] is: N CNTRL CPAP ICD-10- WSTRN CM [place] G47.30 [facility]S Sleep HCS apnea, unspeci fied
with Provide r Comment s: Sleep Apnea ([facility] [id number] 6) COLLJ & 50099-6.63 KEVEN Dale 03/13 [facility] [id number] is: N IELD DATA EA 30 47 ICD-10- D CM G47.30 Sleep apnea, unspeci fied
with Provide r Comment s: Sleep Apnea (SCT 1418436 6) Outpatient 89670-7.63 JOHANNA, 03/13 [facility] Encounter [id number] [facility]OV[facility] [place] [facility] 12354-3.63 03/15 [facility] Encounter [id number] [facility] [place] [facility] [facility] [place] 91788-5.63 03/24 [facility] Encounter [id number] [facility] [place] [facility] [facility] OFFICE O/P 41835-3.63 Avi HSU,April 03/24 [facility] EST LOW [id number] is: INESSA Solorio CNTR L 20-29 MIN ICD-10- WSTRN CM [place] M79.662 SETS Pain in HCS left lower leg<br/ >with Provide r Comment s: Pain of left lower leg (SNOMED CT 3903366 [id number] 1) Outpatient 09512-6.63 04/17 [facility] Encounter [id number] [facility] [place] [facility] [facility] Procedures Combined list of: 1) Procedures from Department of Veterans Affairs facilities going back up to the last 18 months, not all [place] non-surgical procedures are included; 2) All procedures from the Department of Defense facilities. Procedure Procedure Type Code Date Perfomer Comments Sourc e Skin Test Anergy Skin Test Anergy 90508 10/26/2005 LORI WISDOM [facility] Tuberculin Tuberculin S Intradermal Intradermal SKIN TEST; 10/25/2005 [facility] TUBERCULOSIS, INTRADERMAL SKIN TEST; 10/23/2005 [facility] TUBERCULOSIS, INTRADERMAL Social History Combined list of available smoking, tobacco, and other social history [facility]. Social History Type Response Date Comment Source Tobacco smoking VA-TOBACCO FORMER 03/24/2022 [facility] status [facility] [place] [facility] History of tobacco VA-TOBACCO QUIT 15 03/24/2022 [facility] use YRS OR MORE [place] [facility] History of tobacco VA-TOBACCO FORMER 07/12/2020 [facility] C [facility] use [facility] [place] [facility] History of tobacco VA-TOBACCO QUIT 15 02/19/2019 [facility] use YRS OR MORE [place] [facility] This section is an [facility] empty social history section. Plan of Care List of future care activities from Department of Veterans Affairs facilities. Additional future care activities may be listed in the Assessment and Plan section. Date/Time Care Activity Care Activity Detail Facility 07/31/2022 AMBULATORY - MEDICINE AMBULATORY - MEDICINE [place] C [facility] [place] [facility] Advance Directives List of completed, amended, or rescinded Advance Directives on record at Department of Veterans Affairs facilities. An actual copy of the Directive is not included. Date Advance Directive Provider Source 01/26/2020 ADVANCE DIRECTIVE DISCUSSION RIKA BIRD
--- OUTSIDE RECORDS SUMMARY | 2022-04-18 10:36 | XMS_ITS | Encounter Summary ---
:1975 Author Organization [facility] rs Address [address] [place] [address] Support Name Relationship Address Phone RIKA STILL Unavailable [address] Unavailable BRIANNE ARCEO [address] TESSY RIKA Unavailable [address] Unavailable BRIANNE ARCEO [address] Selected Encounter This section includes the information on record at [place] for the Encounter. Date/Time Encounter Type Encounter Description Reason Provider Source Apr 17, 2022 10:53 Outpatient Encounter PRIMARY CARE/MEDICINE AM IHE Encounter Template Text not used by CO Plan of Treatment: Future Appointments (+ 6 months) and Future Tests (+/- 45 days) The Plan of Treatment section includes future care activities for the patient from all [place] treatmentfacilities. This section includes future appointments and future orders which are active, pending orscheduled.Future Appointments This section includes appointments that were scheduled to occur 6 months from the date of the Encounter, up to a maximum of 20 appointments. The data comes from all [place] treatment facilities. Appointment Date/Time Appointment Type Appointment Facili ty Name Jul 31, 2022 11:00 AM AMBULATORY - MEDICINE [facility] Lab Results: +/- 30 days of the encounter This section includes the Chemistry and Hematology Lab Results on record with CO for the patient. Radiology Reports and Pathology Reports are provided separately, in subsequent sections.Lab Results This section contains the Chemistry/Hematology Results that were resulted 30 days before or 30 daysafter the date of the Encounter. Date/Time Source Result Type Result - Unit Interpretation Reference Range Comment Mar 24, 2022 [facility] VITAMIN D (25-[place]) Specimen Type : SERUM 12:01 PM [facility] No comment enter ed. Ordering Provid er: RUDI HSU Report Released Date/Time: Mar 24, 2022 11:53 AM Reporting Lab: [place] [facility] [place] [facility] [address] [facility] [address] Performing Lab: [facility] [place] [facility] [address] [facility] [address] VITAMIN D (25-[place]) 14 L 20-50 Mar 24, 2022 [facility] HEMOGLOBIN A1C Specimen Type: BLOOD 12:01 PM [place] [facility] PANEL Comment: Values obtained from A1C measurements can vary. For atypical A1C assays, a reported value of 7.0 could actually be between 6.72 and 7.28 if measured by a reference method. A reported value of 9.0 could actual ly be between 8.73 and 9.27. Ref: http://www.ngsp.org/CAPdata.asp Ordering Provid er: RUDI HSU Report Released Date/Time: Mar 24, 2022 11:53 AM Reporting Lab: [facility] [place] [facility] [address] [facility] [address] Performing Lab: [facility] [place] [facility] [address] [facility] [address] HEMOGLOBIN A1C 4.9 4.0-5.6 Mar 24, 2022 12:01 PM [facility] [place] [facility] Specimen Type: SERUM H[facility] No comment enter ed. Ordering Provid er: RUDI HSU Report Released Date/Time: Mar 24, 2022 11:53 AM Reporting Lab: [facility] [place] [facility] [address] [facility] [address] Performing Lab: [place] [facility] [place] [facility] [address] [facility] [address] TSH 2.79 0.35-5.00 Mar 24, 2022 [facility] BASIC METABOLIC PANEL Specimen Type: SERUM 12:01 PM [place] [facility] (non-fasting) No comment enter ed. Ordering Provid er: RUDI HSU Report Released Date/Time: Mar 24, 2022 11:53 AM Reporting Lab: [facility] [place] [facility] [address] [facility] [address] Performing Lab: [facility]ET[facility] [place] [facility] [address] [facility] [address] UREA NITROGEN 16 7-25 GLUCOSE 91 65-100 SODIUM 140 135-145 POTASSIUM 4.1 3.5-5.0 CHLORIDE 107 100-110 CO2 24 20-30 CREATININE, Serum 1.10 0.50-1.40 eGFR(CKD-EPI 2020) 82 >60 Mar 24, 2022 12:01 [place] [facility] LIVER FUNCTION Specimen Typ e: SERUM PM [place] [facility] No comment enter ed. Ordering Provid er: RUDI HSU Report Released Date/Time: Mar 24, 2022 11:53 AM Reporting Lab: [facility] [address] [facility] [address] Performing Lab: [facility] [address] [facility] [address] PROTEIN,TOTAL 7.9 6.0-8.3 ALBUMIN 4.0 3.5-5.0 ALKALINE PHOSPHATASE 79 40-150 AST 18 5-34 ALT 28 <6-55 BILIRUBIN, TOTAL 0.7 0.2-1.2 Mar 24, 2022 [facility] WSTRN LIPID PANEL, NON Specimen Type: SERUM 12:01 PM [facility] FA[facility] No comment enter ed. Ordering Provid er: RUDI HSU Report Released Date/Time: Mar 24, 2022 11:53 AM Reporting Lab: [facility] MARY[facility]ETRN [facility] [address] [facility] [address] Performing Lab: [facility]TR[facility] [address] [facility] [address] CHOLESTEROL 198 <7-199 TRIGLYCERIDE 132 0-150 LDL calculated 135 H 0-129 CHOL/HDL 5.4 HDL CHOLESTEROL 37 L 40-60 Mar 24, 2022 12:01 PM CO [facility] [place] CBC Specimen Type: BLOOD HCS No comment enter ed. Ordering Provid er: RUDI HSU Report Released Date/Time: Mar 24, 2022 11:53 AM Reporting Lab: [facility] [place] [facility] [address] [facility] [address] Performing Lab: [place] [facility] [place] [facility] [address] [facility] [place] [address] WBC 9.84 4.50-11.00 RBC 4.71 4.23-5.66 HGB 14.3 12.8-17 HCT 42.9 39.2-50.4 MCV 91.1 82-99 MCHC 33.3 30.8-35.1 PLT 220 140-360 RDW-CV 12.0 12.0-16.0 MCH 30.4 26.2-32.6 Social History: Smoking Status (Most current) and Tobacco Use (All prior to encounter date) This section includes the most current, and the historical, smoking and tobacco-related health factors from the CO facility where the Encounter took place.Current Smoking Status This section includes the most current smoking, or tobacco-related health factor, from the [place] facility where the Encounter took place. Date/Time Current Smoking Status Comment Facility Mar 24, 2022 11:30 AM VA-TOBACCO FORMER [facility]ER [facility] [place] [facility] Tobacco Use History This section includes a history of the smoking, or tobacco- related health factors, that were collected on or before the date of the Encounter. The data comes from the [place] facility where the Encounter took place. Date/Time Smoking Status/Tobacco Use Comment [facility] Mar 24, 2022 11:30 AM VA-TOBACCO QUIT 15 YRS OR CO CN[facility] [place] [facility] Jul 12, 2020 08:00 AM VA-TOBACCO FORMER USER CO [facility] [place] [facility] Jul 12, 2020 08:00 AM VA-TOBACCO QUIT 15 YRS OR [facility] [place] [facility] Feb 19, 2019 08:26 AM VA-TOBACCO FORMER USER CO [facility] [place] [facility] Feb 19, 2019 08:26 AM VA-TOBACCO QUIT 15 YRS OR CO CNTRL [facility] [place] [facility] Advance Directives: All historical and current Section Date Range: From patient's date of to the date document was created. This section includes ALL of a patient's completed or amended VA Advance and Rescinded Directives. The entries below indicate that a directive exists for the patient, but an actual copy is not included with this document. The data comes from all CO facilities. Date Advance Directives Provider Source Jan 26, 2020 ADVANCE DIRECTIVE DISCUSSION RIKA BIRD [facility] Radiology Reports: +/- 30 days of the encounter Radiology Reports For cases when an order for radiology services may have been completed prior to the date of the Encounter, the report list includes the Radiology Reports that were completed up to 30 days before date of the Encounter. For cases when an order for radiology services may have been completed after the date of the Encounter, the report list also includes the Radiology Reports that were completed up to 30days after date of the Encounter. The data comes from all [place] treatment facilities. Date/Time Radiology Report Provider Source Apr 17, 2022 10:12 AM DUPLEX SCAN OF EXTREMITY VEIN, UNILATE RAL: ZACK SOLER JR [facility]ITALTRJoycelyn BURNETTTYLER [id number] -1975 [facility] Ex Date: APR 17, 2022@10:12 Req Phys: RUDI HSU Loc: CWM/NO/PAC T 7 (Req'g Loc) Img Loc: ULTRASOUND Service: Unknown (Case 46 COMPLETE) DUPLEX SCAN OF EXTREMITY VEIN , UN(US Detailed) CPT:83157 Proc Modifiers : LEFT Reason for Study: pain left leg Clinical History: pain Report Status: Verified Date Reported: APR 17, 2022 Date Verified: APR 17, 2022 Supervisor Print Line E-Sig:/ES/ZACK SOLER JR Report: Study: Left lower extremity DVT ultrasound. Comparison: None. Technique: Grayscale and color-flow sonography were used to evaluate the deep veins of the lower left extre mity. The visualized veins of the calf are evaluated. Findings: Normal color flow is identified in th e common femoral, superficial femoral and popliteal veins. No soniya p venous thrombosis is identified in the common femoral, superficial femoral, and popliteal veins. The visualized ca lf veins are patent and normal. No popliteal cyst is identif ied. Impression: No deep venous thrombosis. No popliteal cyst id entified. Primary Diagnostic Code: No immediate attention required Primary Interpreting Staff: ZACK SOLER JR, Radiologist (Supervisor Print Line) /EAD Encounter Notes: All associated encounter notes This section contains the clinical notes associated to the Encounter. Date/Time Encounter Note(s) Provider Source Apr 17, 2022 10:54 AM PHYSICIAN NOTE: YOLETTE JAVIER CO CNTRL W STRN LOCAL TITLE: [facility] ST[facility] TITLE: PHYSICIAN NOTE DATE OF NOTE: APR 17, 2022@10:54 ENTRY DATE: APR 17, 2022@10:54:05 AUTHOR: YOLETTE JAVIER EXP COSIGNER: URGENCY: STATUS: COMPLETED NOTE Has ADDENDA Patient Name: NO BURNETT VITALS: Patient temperature: 98.7 F [37.1 C] (03/24/2022 11:22) Blood pressure: 146/96 (03/24/2022 12:23) Patient height: 70 in [177.8 cm] (03/24/2022 11: 22) Patient weight: 292 lb [132.45 kg] (03/24/2022 1 1:22) Patient BMI: BMI: 42.0 Patient pulse: 78 (03/24/2022 11:22) Patient respiration: 20 (03/24/2022 11:22) Patient Pulse Oximetry: 99% (03/24/2022 11:22) Pain Ratin (03/24/2022 11:22) Active VA Medications: Active Outpatient Medicat ions (including Supplies): Active Outpatient Medications Status 1) LISINOPRIL 5MG TAB TAKE ONE TABLET BY MOUTH O NCE ACTIVE DAILY TO CONTROL BLOOD PRESSURE Remote Medications: No Active Remote Medications for this patient Please notify patient that his Doppler ultrasoun d negative for DVT /josé luis/ YOLETTE JAVIER MD STAFF PHYSICIAN Signed: 04/17/2022 10:54 Receipt Acknowledged By: 04/17/2022 14:28 /josé luis/ Liana DE JESUS RN C NL Primary Care RN 04/17/2022 ADDENDUM STATUS: COMPLETED Attempted to contact Vet. Left VM with RN direct ext. Will await return call. /boris DE JESUS RN CNL Primary Care RN Signed: 04/17/2022 14:28 04/18/2022 ADDENDUM STATUS: COMPLETED Talked with Vet who reports worsening pain in le ft lower leg despite negative DVT. Vet describes as intense throbbing pain whi ch turns to stabbing. Reports feeling of cold liquid running down leg. Due to increase in severity of symptoms recommend ED evaluation. Vet in [facility] nt. [place] act number provided. Vet will go to ED today. /es/ Liana Quinn MSN RN CNL Primary Care RN Signed: 04/18/2022 09:27
--- OUTSIDE RECORDS SUMMARY | 2022-04-18 10:37 | XMS_ITS | Encounter Summary ---
:1975 Author Organization [facility] rs Address [address] [place] [address] Support Name Relationship Address Phone TESSY RIKA Unavailable [address] Unavailable BRIANNE ARCEO TESSYRIKA Unavailable [address] Unavailable BRIANNE ARCEO [address] Selected Encounter This section includes the information on record at [place] for the Encounter. Date/Time Encounter Type Encounter Description Reason Provider Source Mar 24, 2022 08:01 Outpatient Encounter ADMIN PAT ACTIVTIES AM (MASNONCT) IHE Encounter Template Text not used by MA Plan of Treatment: Future Appointments (+ 6 months) and Future Tests (+/- 45 days) The Plan of Treatment section includes future care activities for the patient from all [place] treatmentfacilities. This section includes future appointments and future orders which are active, pending orscheduled.Future Appointments This section includes appointments that were scheduled to occur 6 months from the date of the Encounter, up to a maximum of 20 appointments. The data comes from all [place] treatment facilities. Appointment Date/Time Appointment Type Appointment Facili ty Name Apr 17, 2022 10:30 AM AMBULATORY - NONE [facility] Jul 31, 2022 11:00 AM [facility] Lab Results: +/- 30 days of the encounter This section includes the Chemistry and Hematology Lab Results on record with [place] for the patient. Radiology Reports and Pathology Reports are provided separately, in subsequent sections.Lab Results This section contains the Chemistry/Hematology Results that were resulted 30 days before or 30 daysafter the date of the Encounter. Date/Time Source Result Type Result - Unit Interpretation Reference Range Comment Mar 24, 2022 [facility] VITAMIN D (25-OH) Specimen Type : SERUM 12:01 PM [place] [facility] No comment enter ed. Ordering Provid er: RUDI HSU Report Released Date/Time: Mar 24, 2022 11:53 AM Reporting Lab: [facility] [place] [facility] [address] [facility] [address] Performing Lab: [place] [facility] [place] [facility] [address] [facility] [address] VITAMIN D (25-OH) 14 L 20-50 Mar 24, 2022 [facility] HEMOGLOBIN A1C Specimen Type: BLOOD 12:01 PM [place] [facility] PANEL Comment: Values obtained from A1C measurements can vary. For atypical A1C assays, a reported value of 7.0 could actually be between 6.72 and 7.28 if measured by a reference method. A reported value of 9.0 could actual ly be between 8.73 and 9.27. Ref: http://www.ngsp.org/CAPdata.asp Ordering Provid er: RUDI HSU Report Released Date/Time: Mar 24, 2022 11:53 AM Reporting Lab: [place] [facility] [place] [facility] [address] [facility] [address] Performing Lab: [place] [facility] [place] [facility] [address] [facility] [address] HEMOGLOBIN A1C 4.9 4.0-5.6 Mar 24, 2022 12:01 PM [facility] [place] [facility] Specimen Type: SERUM HCS No comment enter ed. Ordering Provid er: RUDI HSU Report Released Date/Time: Mar 24, 2022 11:53 AM Reporting Lab: [facility] [place] [facility] [address] [facility] [address] Performing Lab: [place] [facility] [place] [facility] [address] [facility] [address] TSH 2.79 0.35-5.00 Mar 24, 2022 [place] CN[facility] BASIC METABOLIC PANEL Specimen Type: SERUM 12:01 PM [place] [facility] (non-fasting) No comment enter ed. Ordering Provid er: RUDI HSU Report Released Date/Time: Mar 24, 2022 11:53 AM Reporting Lab: [facility] [place] [facility] [address] [facility] [address] Performing Lab: [facility] [place] [facility] [address] [facility] [address] UREA NITROGEN 16 7-25 GLUCOSE 91 65-100 SODIUM 140 135-145 POTASSIUM 4.1 3.5-5.0 CHLORIDE 107 100-110 CO2 24 20-30 CREATININE, Serum 1.10 0.50-1.40 eGFR(CKD-EPI 2020) 82 >60 Mar 24, 2022 12:01 [facility] LIVER FUNCTION Specimen Typ e: SERUM PM [place] [facility] No comment enter ed. Ordering Provid er: RUDI HSU Report Released Date/Time: Mar 24, 2022 11:53 AM Reporting Lab: [facility] [address] [facility] [address] Performing Lab: [facility] [address] [facility] [address] PROTEIN,TOTAL 7.9 6.0-8.3 ALBUMIN 4.0 3.5-5.0 ALKALINE PHOSPHATASE 79 40-150 AST 18 5-34 ALT 28 <6-55 BILIRUBIN, TOTAL 0.7 0.2-1.2 Mar 24, 2022 [place] CNTRL [facility] LIPID PANEL, NON Specimen Type: SERUM 12:01 PM [facility] No comment enter ed. Ordering Provid er: RUDI HSU Report Released Date/Time: Mar 24, 2022 11:53 AM Reporting Lab: [facility] [place] [facility] [address] [facility] [address] Performing Lab: [facility]ENTERTRN [facility] [address] [facility] [address] CHOLESTEROL 198 <7-199 TRIGLYCERIDE 132 0-150 LDL calculated 135 H 0-129 CHOL/HDL 5.4 HDL CHOLESTEROL 37 L 40-60 Mar 24, 2022 12:01 PM [place] [facility]L [facility] [place] CBC Specimen Type: BLOOD HCS No comment enter ed. Ordering Provid er: RUDI HSU Report Released Date/Time: Mar 24, 2022 11:53 AM Reporting Lab: [place] [facility] [place] [facility] [address] [facility] [address] Performing Lab: [place] [facility] [place] [facility] [address] [facility] [address] WBC 9.84 4.50-11.00 RBC 4.71 4.23-5.66 HGB 14.3 12.8-17 HCT 42.9 39.2-50.4 MCV 91.1 82-99 MCHC 33.3 30.8-35.1 PLT 220 140-360 RDW-CV 12.0 12.0-16.0 MCH 30.4 26.2-32.6 Vital Signs: All taken on the encounter date This section contains inpatient and outpatient Vital Signs collected on the date of the Encounter. Date/Time Temperature Pulse Blood Respiratory SP02 Pain Height Weight Wander dy Source Pressure Rate Mass Index Mar 24, 146/96 [place] 2022 12:23 mm[Hg] CNTRL PM [place] [facility] Mar 24, 148/108 [place] 2022 11:28 mm[Hg] CNTRL AM [place] [facility] Mar 24, 98.7 F 78 20 /min 99 % 7 70 in 292 lb 42 [place] 2022 11:22 /min CNTRL AM [place] [facility] Social History: Smoking Status (Most current) and Tobacco Use (All prior to encounter date) This section includes the most current, and the historical, smoking and tobacco-related health factors from the [place] facility where the Encounter took place.Current Smoking Status This section includes the most current smoking, or tobacco-related health factor, from the [place] facility where the Encounter took place. Date/Time Current Smoking Status Comment Facility Mar 24, 2022 11:30 AM VA-TOBACCO FORMER USER [place] CNTRL [place] [facility] Tobacco Use History This section includes a history of the smoking, or tobacco- related health factors, that were collected on or before the date of the Encounter. The data comes from the [place] facility where the Encounter took place. Date/Time Smoking Status/Tobacco Use Comment [facility] Mar 24, 2022 11:30 AM VA-TOBACCO QUIT 15 YRS OR [place] CNTRL [place] [facility] Jul 12, 2020 08:00 AM VA-TOBACCO FORMER USER [place] CNTRL [place] [facility] Jul 12, 2020 08:00 AM VA-TOBACCO QUIT 15 YRS OR VA CN[facility]L [place] [facility] Feb 19, 2019 08:26 AM VA-TOBACCO FORMER USER [place] [facility] [place] [facility] Feb 19, 2019 08:26 AM VA-TOBACCO QUIT 15 YRS OR VA CN[facility] [facility] Advance Directives: All historical and current Section Date Range: From patient's date of to the date document was created. This section includes ALL of a patient's completed or amended [place] Advance and Rescinded Directives. The entries below indicate that a directive exists for the patient, but an actual copy is not included with this document. The data comes from all [place] facilities. Date Advance Directives Provider Source Jan 26, 2020 ADVANCE DIRECTIVE DISCUSSION RIKA BIRD Radiology Reports: +/- 30 days of the [...] the Encounter. The data comes from all [place] treatment facilities. Date/Time Radiology Report Provider Source Apr 17, 2022 10:12 AM DUPLEX SCAN OF EXTREMITY VEIN, UNILATE RAL: ZACK SOLER JR [facility]TRN LEXTYLER [phone] -1975 [place] [facility] Exm Date: APR 17, 2022@10:12 Req Phys: RUDI HSU Loc: CWM/NO/PAC T 7 (Req'g Loc) Img Loc: ULTRASOUND Service: Unknown (Case 46 COMPLETE) DUPLEX SCAN OF EXTREMITY VEIN , UN(US Detailed) CPT:56394 Proc Modifiers : LEFT Reason for Study: pain left leg Clinical History: pain Report Status: Verified Date Reported: APR 17, 2022 Date Verified: APR 17, 2022 [employer] Advanced Operator Maintainer E-Sig:/ES/ZACK SOLER JR Report: Study: Left lower [...] Primary Interpreting Staff: ZACK SOLER JR, Radiologist ([employer] Advanced Operator Maintainer) /EAIgor Encounter Notes: All associated encounter notes This section contains the clinical notes associated to the Encounter. Date/Time Encounter Note(s) Provider Source Mar 24, 2022 08:01 AM ADMINISTRATIVE NOTE: TATYANA PÉREZ CN TRL WSTRN LOCAL TITLE: [facility]: SCHEDULING ADMINISTRATION [facility] STANDARD TITLE: ADMINISTRATIVE NOTE DATE OF NOTE: MAR 24, 2022@08:01 ENTRY DATE: MAR 24, 2022@08:01:51 AUTHOR: TATYANA PÉREZ EXP COSIGNER: URGENCY: STATUS: COMPLETED 's demographics and appointments verified . /josé luis/ TATYANA PÉREZ CCC LEAD MSA Signed: 03/24/2022 08:02
--- OUTSIDE RECORDS SUMMARY | 2022-04-18 10:37 | XMS_ITS | Encounter Summary ---
:1975 Author Organization [facility] rs Address [address] [place] [address] Support Name Relationship Address Phone KATERYNA STILLZ Unavailable [address] Unavailable BRIANNE ARCEO [address] TESSYRIKA Unavailable [address] Unavailable BRIANNE ARCEO [address] Selected Encounter This section includes the information on record at [place] for the Encounter. Date/Time Encounter Type Encounter Reason Provider Source Description Mar 13, 2022 10:49 Outpatient PRIMARY RUSLAN SPENCER AM Encounter CARE/MEDICINE A IHE Encounter Template Text not used by [...] 24, 2022 11:30 AM AMBULATORY - MEDICINE [facility] Calvin [facility] Apr 17, 2022 10:30 AM AMBULATORY - NONE [facility] Jul 31, 2022 11:00 AM AMBULATORY - MEDICINE [facility] Lab Results: +/- 30 days of [...] Interpretation Reference Range Comment Mar 24, 2022 [facility] VITAMIN D (25-OH) Specimen Type : SERUM 12:01 PM [place] [facility] No comment enter ed. Ordering Provid er: RUDI HIGGINBOTHAM Report Released Date/Time: Mar 24, 2022 11:53 AM Reporting Lab: [facility] [place] [facility] [address] [address] Performing Lab: [facility] [place] [facility] [address] [address] VITAMIN D (25-OH) 14 L 20-50 Mar 24, 2022 [facility] HEMOGLOBIN A1C Specimen Type: BLOOD 12:01 PM [facility] PANEL Comment: Values obtained from A1C measurements can vary. For atypical A1C assays, a reported value of 7.0 could actually be between 6.72 and 7.28 if measured by a reference method. A reported value of 9.0 could actual ly be between 8.73 and 9.27. Ref: http://www.ngsp.org/CAPdata.asp Ordering Provid er: RUDI HIGGINBOTHAM Report Released Date/Time: Mar 24, 2022 11:53 AM Reporting Lab: [facility] [place] [facility] [address] [address] Performing Lab: [facility] [place] [facility] [address] [address] HEMOGLOBIN A1C 4.9 4.0-5.6 Mar 24, 2022 12:01 PM [facility] [place] TSH Specimen Type: SERUM HCS No comment enter ed. Ordering Provid er: RUDI HIGGINBOTHAM Report Released Date/Time: Mar 24, 2022 11:53 AM Reporting Lab: [facility] [place] [facility] [address] [address] Performing Lab: [facility] [place] [facility] [address] [address] TSH 2.79 0.35-5.00 Mar 24, 2022 [facility] BASIC METABOLIC PANEL Specimen Type: SERUM 12:01 PM [place] [facility] (non-fasting) No comment enter ed. Ordering Provid er: RUDI HIGGINBOTHAM Report Released Date/Time: Mar 24, 2022 11:53 AM Reporting Lab: [place] [facility] [place] [facility] [address] [address] Performing Lab: [place] [facility] [place] [facility] [address] [address] UREA NITROGEN 16 7-25 GLUCOSE 91 65-100 SODIUM 140 135-145 POTASSIUM 4.1 3.5-5.0 CHLORIDE 107 100-110 CO2 24 20-30 CREATININE, Serum 1.10 0.50-1.40 eGFR(CKD-EPI 2020) 82 >60 Mar 24, 2022 12:01 [place] [facility] LIVER FUNCTION Specimen Typ e: SERUM PM [place] [facility] No comment enter ed. Ordering Provid er: RUDI HIGGINBOTHAM Report Released Date/Time: Mar 24, 2022 11:53 AM Reporting Lab: [facility] [place] [facility] [address] [address] Performing Lab: [facility] [place] [facility] [address] [address] PROTEIN,TOTAL 7.9 6.0-8.3 ALBUMIN 4.0 3.5-5.0 ALKALINE PHOSPHATASE 79 40-150 AST 18 5-34 ALT 28 <6-55 BILIRUBIN, TOTAL 0.7 0.2-1.2 Mar 24, 2022 [place] [facility] LIPID PANEL, NON Specimen Type: SERUM 12:01 PM [place] [facility] FASTING No comment enter ed. Ordering Provid er: RUDI HIGGINBOTHAM Report Released Date/Time: Mar 24, 2022 11:53 AM Reporting Lab: [facility] [place] [facility] [address] [address] Performing Lab: [place] [facility]TR [facility] [place] [facility] [address] [address] CHOLESTEROL 198 <7-199 TRIGLYCERIDE 132 0-150 LDL calculated 135 H 0-129 CHOL/HDL 5.4 HDL CHOLESTEROL 37 L 40-60 Mar 24, 2022 12:01 PM [place] [facility] [place] CBC Specimen Type: BLOOD HCS No comment enter ed. Ordering Provid er: RUDI HIGGINBOTHAM Report Released Date/Time: Mar 24, 2022 11:53 AM Reporting Lab: [facility]TRN [facility] [address] [address] Performing Lab: [facility]TRN [facility] [address] [address] WBC 9.84 4.50-11.00 RBC 4.71 4.23-5.66 HGB [...] place. Date/Time Current Smoking Status Comment Facility Jul 12, 2020 08:00 AM VA-TOBACCO FORMER USER [facility] Tobacco Use History This section includes a history of the smoking, or tobacco- related health factors, that were collected on or before the date of the Encounter. The data comes from the [place] facility where the Encounter took place. Date/Time Smoking Status/Tobacco Use Comment [facility] Jul 12, 2020 08:00 AM CO-TOBACCO QUIT 15 YRS OR CO [facility] [place] [facility] Feb 19, 2019 08:26 AM VA-TOBACCO FORMER USER [place] [facility]L [facility] [facility] Feb 19, 2019 08:26 AM VA-TOBACCO QUIT 15 YRS OR [place] [facility] [facility] Advance Directives: All historical and current [...] 26, 2020 ADVANCE DIRECTIVE DISCUSSION RIKA BIRD [facility] Encounter Notes: All associated encounter notes This section contains the clinical notes associated to the Encounter. Date/Time Encounter Note(s) Provider Source Mar 13, 2022 10:49 AM PRIMARY CARE SECURE MESSAGING: Calvin SPENCER SABRINA [place] [facility] LOCAL TITLE: PRIMARY CARE SECURE MESSAGING [facility] STANDARD TITLE: PRIMARY CARE SECURE MESSAGING DATE OF NOTE: MAR 13, 2022@10:49 ENTRY DATE: MAR 13, 2022@10:49:27 AUTHOR: LIANA SPENCER EXP COSIGNER: URGENCY: STATUS: COMPLETED PRIMARY CARE SECURE MESSAGING Has ADDENDA * ------Original Message Sent: 03/13/2022 10:31 AM ET From: NO BURNETT To: April HIGGINBOTHAM_PRIMARY CARE_[facility] Subject: General:Painful parsons splints Good morning Doctor Neftaly I am very sorry to bother you about this. For th e past few months I have had extremely painful parsons splints on my left leg. I am very concerned about this because I have tried icing it and stretching but it's not going away. I hope this isn't something that is forever bec ause I don't want it to affect my job. Just thinking about it is stressful. Any help/ad vice would be greatly appreciated. Very Respectfully No ------Original Message Sent: 03/13/2022 10:49 AM ET From: LIANA SPENCER To: NO BURNETT Subject: General:Painful parsons splints Good Morning Mr. Burnett, It appears you are overdue for a visit with Dr. Higginbotham, this would be a great topic to bring up in a visit with him. I w ill have Jimmy our [facility] contact you to schedule a visit. Respectfully, Liana Spencer RN /es/ Liana Spencer MSN RN CNL Primary Care RN Signed: 03/13/2022 10:49 Receipt Acknowledged By: 03/13/2022 11:33 /josé luis/ FERCHO LEWIS ADVANCED KELLY MACHINE OPERATOR 03/13/2022 ADDENDUM STATUS: COMPLETED spoke to and scheduled appointment. /josé luis/ FERCHO LEWIS ADVANCED KELLY MACHINE OPERATOR Signed: 03/13/2022 11:33
--- OUTSIDE RECORDS SUMMARY | 2022-04-18 10:37 | XMS_ITS | Encounter Summary ---
:1975 Author Organization Department [facility] rs Address [address] [place] [address] Support Name Relationship Address Phone TESSY RIKA Unavailable [address] Unavailable BRIANNE ARCEO [address] RIKA STILL Unavailable [address] Unavailable BRIANNE ARCEO [address] Selected Encounter This section includes the information on record at [place] for the Encounter. Date/Time Encounter Type Encounter Reason Provider Source Description Nov 18, 2021 POS AIRWAY TELEPHONE/MEDICIN ICD-10-CM G47.30 KEVEN LATHAM 11:07 AM PRESSURE CPAP E Sleep apnea, unspecified with Provider Comments: Sleep Apnea ([facility] [id number]) IHE Encounter Template Text not used by [place] Assessments - Encounter Diagnoses This section includes the primary and secondary diagnoses documented for the Encounter. Date/Time Primary/Secondary Diagnosis Name Provider Source Diagnosis Nov 18, 2021 PRIMARY Sleep apnea, JOSE LATHAM [facility] 11:07 AM unspecified [facility] Plan of Treatment: Future Appointments (+ 6 months) and Future Tests (+/- 45 days) The Plan of Treatment section includes future care activities for the patient from all [place] treatmentfacilities. This section includes future appointments and future orders which are active, pending orscheduled.Future Appointments This section includes appointments that were scheduled to occur 6 months from the date of the Encounter, up to a maximum of 20 appointments. The data comes from all [place] treatment facilities. Appointment Date/Time Appointment Type Appointment Facili ty Name Mar 24, 2022 11:30 AM AMBULATORY - MEDICINE [facility] Apr 17, 2022 10:30 AM AMBULATORY - NONE [facility] RAD[facility] Social History: Smoking Status (Most current) and Tobacco Use (All prior to encounter date) This section includes the most current, and the historical, smoking and tobacco-related health factors from the [place] facility where the Encounter took place.Current Smoking Status This section includes the most current smoking, or tobacco-related health factor, from the [place] facility where the Encounter took place. Date/Time Current Smoking Status Comment Facility Jul 12, 2020 08:00 AM VA-TOBACCO FORMER USER [facility] Tobacco Use History This section includes a history of the smoking, or tobacco- related health factors, that were collected on or before the date of the Encounter. The data comes from the [place] facility where the Encounter took place. Date/Time Smoking Status/Tobacco Use Comment [facility] Jul 12, 2020 08:00 AM VA-TOBACCO QUIT 15 YRS OR [place] [facility]L [facility] [facility] Feb 19, 2019 08:26 AM VA-TOBACCO FORMER USER [place] [facility] [place] [facility] Feb 19, 2019 08:26 AM VA-TOBACCO QUIT 15 YRS OR [place] [facility] [facility] Advance Directives: All historical and current Section Date Range: From patient's date of to the date document was created. This section includes ALL of a patient's completed or amended [place] Advance and Rescinded Directives. The entries below indicate that a directive exists for the patient, but an actual copy is not included with this document. The data comes from all [facility]. Date Advance Directives Provider Source Jan 26, 2020 ADVANCE DIRECTIVE DISCUSSION RIKA BIRD [facility] Encounter Notes: All associated encounter notes This section contains the clinical notes associated to the Encounter. Date/Time Encounter Note(s) Provider Source Nov 18, 2021 11:16 AM RESPIRATORY THERAPY NOTE: JOSE LATHAM LOCAL TITLE: RESPIRATORY THERAPY NOTE(BLANK) STANDARD TITLE: RESPIRATORY THERAPY NOTE DATE OF NOTE: NOV 18, 2021@11:16 ENTRY DATE: NOV 18, 2021@11:16:19 AUTHOR: JOSE LATHAM EXP COSIGNER: URGENCY: STATUS: COMPLETED Telephone Coding and Documentation: Diagnosis: Sleep Apnea Time spent with Patient via telephone: 30 minute s. [place] contacted for Cpap renewal and complianc e for cpap renewal and compliance and reviewed data. He changed his own settings to Apap 5.4 - 7cm and he is having an AHI 33. He states he did thi s because he was getting air in his stomach and his nose was bleeding. We cecile ked about possible consequences of severe sleep apnea if untreated. He agrees to begin using it again and his settings were changed to Apap 5 - [id number] and an Econsult will be sent to job boss. He will be followed in 2 weeks. [employer] COMPLIANCE [employer] Patient APAP compliance data reviewed via the [employer] program for the last 30 days. SETTINGS: Apap 5.4 - 7cmh20 TOTAL DAYS USED 32 DAYS USED > 4hrs 12 AVG USAGE 3hours AVG PRESSURE 7cmH20 LEAK 22 AHI: 33 Central 0 These results indicate [place] is not compliant. [place]'s APAP Prescription will be renewed for 1 year. If pt has any questions or concerns regarding Ap ap, he/she can contact Respiratory at [phone] extension [phone]. /es/ JOSE LATHAM, CREAM BEATER RESPIRATORY THERAPIST Signed: 11/18/2021 11:45
--- OUTSIDE RECORDS SUMMARY | 2022-04-18 10:37 | XMS_ITS | Encounter Summary ---
:1975 Author Organization [facility] Address [address] [place] [address] Support Name Relationship Address Phone RIKA STILL Unavailable [address] [place] [address] TESSY RIKA Unavailable [address] Unavailable [facility] [place] [address] Selected Encounter This section includes the information on record at [place] for the Encounter. Date/Time Encounter Type Encounter Reason Provider Source Description Mar 13, 2022 [employer] TELEPHONE/MEDICIN ICD-10-CM G47.30 JOSE BERNAL 10:13 AM DATA EA 30 D E Sleep apnea, unspecified with Provider Comments: Sleep Apnea ([facility] [id number]) IHE Encounter Template Text not used by [place] Assessments - Encounter Diagnoses This section includes the primary and secondary diagnoses documented for the Encounter. Date/Time Primary/Secondary Diagnosis Name Provider Source Diagnosis Mar 13, 2022 PRIMARY Sleep apnea, JOSE LATHAM [place] 10:13 AM unspecified Plan of Treatment: Future Appointments (+ 6 [...] 24, 2022 11:30 AM [facility] Apr 17, 2022 10:30 AM AMBULATORY - NONE [facility] GARCIA [facility] Jul 31, 2022 11:00 AM AM[facility]ULATORY - [facility]IC[facility] Simpson [facility] Lab Results: +/- 30 days [...] Interpretation Reference Range Comment Mar 24, 2022 [place] [facility] VITAMIN D (25-OH) Specimen Type : SERUM 12:01 PM [place] [facility] No comment enter ed. Ordering Provid er: RUDI HSU Report Released Date/Time: Mar 24, 2022 11:53 AM Reporting Lab: [place] [facility] [place] [facility] [address] [facility] [address] [address] Performing Lab: [facility] [place] [facility] [address] [facility] [address] VITAMIN D (25-OH) 14 L 20-50 Mar 24, 2022 [place] [facility] HEMOGLOBIN A1C Specimen Type: BLOOD 12:01 PM [place] [facility] PANEL Comment: Values obtained from [...] Lab: [place] [facility] [place] [facility] [address] [facility] [address] Performing Lab: [place] [facility] [place] [facility] [address] [facility] [address] HEMOGLOBIN A1C 4.9 4.0-5.6 Mar 24, 2022 12:01 PM [place] [facility] [place] TSH Specimen Type: SERUM [facility] No comment enter ed. Ordering Provid er: RUDI HSU Report Released Date/Time: Mar 24, 2022 11:53 AM Reporting Lab: [facility] [place] [facility] [address] [facility] [address] Performing Lab: [facility] [place] [facility] [address] [facility] [address] TSH 2.79 0.35-5.00 Mar 24, 2022 [place] [facility] BASIC METABOLIC PANEL Specimen Type: SERUM 12:01 PM [place] [facility] (non-fasting) No comment enter ed. Ordering Provid er: RUDI HSU Report Released Date/Time: Mar 24, 2022 11:53 AM Reporting Lab: [facility] [place] [facility] [address] [facility] [address] Performing Lab: [facility]MAR[facility] SYSTEM[facility] [place] [facility] [address] [facility] [address] UREA NITROGEN 16 7-25 GLUCOSE 91 65-100 SODIUM 140 135-145 POTASSIUM 4.1 3.5-5.0 CHLORIDE 107 100-110 CO2 24 20-30 CREATININE, Serum 1.10 0.50-1.40 eGFR(CKD-EPI 2020) 82 >60 Mar 24, 2022 12:01 [place] [facility] LIVER FUNCTION Specimen Typ e: SERUM PM [place] [facility] No comment enter ed. Ordering Provid er: RUDI HSU Report Released Date/Time: Mar 24, 2022 11:53 AM Reporting Lab: [facility] [address] [facility] [address] Performing Lab: [facility]ITAL[facility] [address] [facility] [address] PROTEIN,TOTAL 7.9 6.0-8.3 ALBUMIN 4.0 3.5-5.0 ALKALINE PHOSPHATASE 79 40-150 AST 18 5-34 ALT 28 <6-55 BILIRUBIN, TOTAL 0.7 0.2-1.2 Mar 24, 2022 [place] [facility] LIPID PANEL, NON Specimen Type: SERUM 12:01 PM [place] [facility] FASTING No comment enter ed. Ordering Provid er: RUDI HSU Report Released Date/Time: Mar 24, 2022 11:53 AM Reporting Lab: [facility]MAR[facility] SYSTEMTRN [facility]ITALUSETS [facility] [address] [facility] [address] Performing Lab: [facility]MAR[facility] SYSTEMTRN [facility] [address] [facility] [address] CHOLESTEROL 198 <7-199 TRIGLYCERIDE 132 0-150 LDL calculated 135 H 0-129 CHOL/HDL 5.4 HDL CHOLESTEROL 37 L 40-60 Mar 24, 2022 12:01 PM [place] SHARAD JENNIFERJoycelyn [facility] CBC Specimen Type: BLOOD HCS No comment enter ed. Ordering Provid er: RUDI HSU Report Released Date/Time: Mar 24, 2022 11:53 AM Reporting Lab: [facility] [address] [facility] [address] Performing Lab: [facility] [address] [facility] [address] WBC 9.84 4.50-11.00 RBC 4.71 4.23-5.66 HGB 14.3 12.8-17 HCT 42.9 39.2-50.4 MCV 91.1 82-99 MCHC 33.3 30.8-35.1 PLT 220 140-360 RDW-CV 12.0 12.0-16.0 MCH 30.4 26.2-32.6 Advance Directives: All historical and current Section [...] 26, 2020 ADVANCE DIRECTIVE DISCUSSION RIKA BIRD [facility] Encounter Notes: All associated encounter notes This section contains the clinical notes associated to the Encounter. Date/Time Encounter Note(s) Provider Source Mar 13, 2022 10:13 AM RESPIRATORY THERAPY NOTE: JOSE LATHAM [place] LOCAL TITLE: RESPIRATORY THERAPY NOTE(BLANK) STANDARD TITLE: RESPIRATORY THERAPY NOTE DATE OF NOTE: MAR 13, 2022@10:13 ENTRY DATE: MAR 13, 2022@10:13:36 AUTHOR: JOSE LATHAM EXP COSIGNER: URGENCY: STATUS: COMPLETED RESPIRATORY THERAPY NOTE(BLANK) Has ADDENDA Telephone Coding and Documentation: Diagnosis: Sleep Apnea Time spent with Patient via telephone: 15 minute s. [place] has complaint his cpap machine keep show ing he has a large leak. We reviewed instructions for proper application and adjustin the F30i full face mask. He does prefer this mask and he was ordere d new ones as well as other supplies. The [facility] aircraft pneudraulic systems mechanic recommended danya nge to 8 - [id number] was done in December but [place] changed his settings frandy k. He still has an AHI 9 with a very large leak but he feels he gets a good ni ghts sleep. [employer] COMPLIANCE PROGRAM Patient APAP compliance data reviewed via the [employer] program for the last 90 days. SETTINGS: Apap 5 - [id number] TOTAL DAYS USED 21 DAYS USED > 4hrs 16 AVG USAGE 5 hours AVG PRESSURE [id number] LEAK 40 AHI: 9 Central 0 These results indicate [place] is compliant. [place]'s APAP Prescription will be renewed for 1 year. If pt has any questions or concerns regarding Ap ap, he/she can contact Respiratory at [phone] extension [phone]. /es/ JOSE LATHAM CRT RESPIRATORY THERAPIST Signed: 03/13/2022 10:22 03/13/2022 ADDENDUM STATUS: COMPLETED [place] has complaint of parsons splints and woul d like to speak with his PCP about it. /es/ JOSE LATHAM CRT RESPIRATORY THERAPIST Signed: 03/13/2022 10:54 Receipt Acknowledged By: * AWAITING SIGNATURE * RUDI HSU
--- OUTSIDE RECORDS SUMMARY | 2022-04-18 10:37 | XMS_ITS | Encounter Summary ---
:1975 Author Organization Department [facility] rs Address [address] [place] [id number] Support Name Relationship Address Phone TESSY RIKA Unavailable [address] Unavailable BRIANNE ARCEO [address] RIKA STILL Unavailable [address] Unavailable BRIANNE [place] [address] Selected Encounter This section includes the information on record at [place] for the Encounter. Date/Time Encounter Type Encounter Reason Provider Source Description Dec 06, 2021 POS AIRWAY TELEPHONE/MEDICIN ICD-10-CM G47.30 KEVEN LATHAM 02:29 PM PRESSURE CPAP E Sleep apnea, unspecified with Provider Comments: Sleep Apnea ([facility] [id number]) IHE Encounter Template Text not used by [place] Assessments - Encounter Diagnoses This section includes the primary and secondary diagnoses documented for the Encounter. Date/Time Primary/Secondary Diagnosis Name Provider Source Diagnosis Dec 06, 2021 PRIMARY Sleep apnea, JOSE LATHAM [facility] 02:29 PM unspecified [facility] Plan of Treatment: Future Appointments (+ 6 months) and Future Tests (+/- 45 days) The Plan of Treatment section includes future care activities for the patient from all [place] treatmentfacilities. This section includes future appointments and future orders which are active, pending orscheduled.Future Appointments This section includes appointments that were scheduled to occur 6 months from the date of the Encounter, up to a maximum of 20 appointments. The data comes from all [place] treatment facilities. Appointment Date/Time Appointment Type Appointment Facili ty Name Mar 24, 2022 11:30 AM AMBULATORY - MEDICINE [facility] Apr 17, 2022 10:30 AM AMBULATORY - NONE [facility] Social History: Smoking Status (Most current) and Tobacco Use (All prior to encounter date) This section includes the most current, and the historical, smoking and tobacco-related health factors from the [place] facility where the Encounter took place.Current Smoking Status This section includes the most current smoking, or tobacco-related health factor, from the [place] facility where the Encounter took place. Date/Time Current Smoking Status Comment Facility Jul 12, 2020 08:00 AM VA-TOBACCO FORMER USER [place] [facility] Tobacco Use History This section includes a history of the smoking, or tobacco- related health factors, that were collected on or before the date of the Encounter. The data comes from the [place] facility where the Encounter took place. Date/Time Smoking Status/Tobacco Use Comment [facility] Jul 12, 2020 08:00 AM VA-TOBACCO QUIT 15 YRS OR [place] [facility] [place] [facility] Feb 19, 2019 08:26 AM VA-TOBACCO FORMER USER [place] [facility] [place] [facility] Feb 19, 2019 08:26 AM VA-TOBACCO QUIT 15 YRS OR [place] [facility] [place] [facility] Advance Directives: All historical and current Section Date Range: From patient's date of to the date document was created. This section includes ALL of a patient's completed or amended [place] Advance and Rescinded Directives. The entries below indicate that a directive exists for the patient, but an actual copy is not included with this document. The data comes from all [facility]. Date Advance Directives Provider Source Jan 26, 2020 ADVANCE DIRECTIVE DISCUSSION RIKA BIRD [facility] Encounter Notes: All associated encounter notes This section contains the clinical notes associated to the Encounter. Date/Time Encounter Note(s) Provider Source Dec 06, 2021 02:30 PM RESPIRATORY THERAPY NOTE: JOSE LATHAM LOCAL TITLE: RESPIRATORY THERAPY NOTE(BLANK) STANDARD TITLE: RESPIRATORY THERAPY NOTE DATE OF NOTE: DEC 06, 2021@14:30 ENTRY DATE: DEC 06, 2021@14:30:45 AUTHOR: JOES LATHAM EXP COSIGNER: URGENCY: STATUS: COMPLETED RESPIRATORY THERAPY NOTE(BLANK) Has ADDENDA [place], dx with sleep apnea , had complaint his stomach was feeling filled with air after cpap use so An Econsult was sent to lmonologist: [place] with severe PACHECO (AHI 51) was issued Apap 5 - [id number] in 2019. He changed his own settings [...] or nasogel to aid with buccal/nasal dryness. Settings will be reset as re commended and a follow up review will be done in two to three weeks. /josé luis/ JOSE LATHAM CRT RESPIRATORY THERAPIST Signed: 12/06/2021 14:37 12/19/2021 ADDENDUM STATUS: COMPLETED Data check since settings change of 8 - [id number]. His settings are now on Apap 5 - [id number] as he may have changed his settings again. [employer]PL[employer] Patient APAP compliance data reviewed via the [employer] program for the last 30 days. SETTINGS: Apap 5 - [id number] TOTAL DAYS USED 12 DAYS USED > 4hrs 10 AVG USAGE 5 hours AVG PRESSURE [id number] LEAK 35 AHI: 5.7 Central 0.4 These results indicate is compliant. [place]'s APAP Prescription will be renewed for 1 year. If pt has any questions or concerns regarding Ap ap, he/she can contact Respiratory at [phone] extension [phone]. /josé luis/ JOSE LATHAM CRT RESPIRATORY THERAPIST Signed: 12/19/2021 15:50
--- OUTSIDE RECORDS SUMMARY | 2022-04-18 10:37 | XMS_ITS ---
:1975 Author Organization Department [facility] rs Address [address] [place] [id number] Support Name Relationship Address Phone TESSY RIKA Unavailable [address] Unavailable BRIANNE ARCEO RIKA STILL Unavailable [address] [place] [address] Selected Encounter This section includes the information on record at OR for the Encounter. Date/Time Encounter Type Encounter Reason Provider Source Description Mar 24, 2022 OFFICE O/P EST PRIMARY ICD-10-CM STEPHANIE HIGGINBOTHAM 11:30 AM LOW 20-29 MIN CARE/MEDICINE M79.662 Pain AM J in left lower leg with Provider Comments: Pain of left lower leg (SNOMED CT [id number] 1) IHE Encounter Template Text not used by [facility] Assessments - Encounter Diagnoses This section includes the primary and secondary diagnoses documented for the Encounter. Date/Time Primary/Secondary Diagnosis Name Provider Source Diagnosis Mar 24, 2022 PRIMARY Pain in left lower HIGGINBOTHAM,WILL OR CNTR WSTRN 12:25 PM leg YOBANY J [place] [facility] Mar 24, 2022 SECONDARY Essential HIGGINBOTHAM,WILL OR CNTRL WSTRN 12:25 PM (primary) YOBANY J [place] [facility] hypertension Plan of Treatment: Future Appointments (+ 6 months) and Future Tests (+/- 45 days) The Plan of Treatment section includes future care activities for the patient from all OR treatmentfacilities. This section includes future appointments and future orders which are active, pending orscheduled.Future Appointments This section includes appointments that were scheduled to occur 6 months from the date of the Encounter, up to a maximum of 20 appointments. The data comes from all OR treatment facilities. Appointment Date/Time Appointment Type Appointment Facili ty Name Apr 17, 2022 10:30 AM AMBULATORY - NONE OR CNTRL [facility]N [facility] Jul 31, 2022 11:00 AM [facility] [place] [facility] Lab Results: +/- 30 days of the encounter This section includes the Chemistry and Hematology Lab Results on record with OR for the patient. Radiology Reports and Pathology Reports are provided separately, in subsequent sections.Lab Results This section contains the Chemistry/Hematology Results that were resulted 30 days before or 30 daysafter the date of the Encounter. Date/Time Source Result Type Result - Unit Interpretation Reference Range Comment Mar 24, 2022 OR CNTRL TRN VITAMIN D (25-OH) Specimen Type : SERUM 12:01 PM [place] [facility] No comment enter ed. Ordering Provid er: RUDI HIGGINBOTHAM Report Released Date/Time: Mar 24, 2022 11:53 AM Reporting Lab: [facility] [address] [facility] [address] Performing Lab: [facility] [address] [facility] [address] VITAMIN D (25-OH) 14 L 20-50 Mar 24, 2022 [facility] HEMOGLOBIN A1C Specimen Type: BLOOD 12:01 PM [facility] PANEL Comment: Values obtained from A1C measurements can vary. For atypical A1C assays, a reported value of 7.0 could actually be between 6.72 and 7.28 if measured by a reference method. A reported value of 9.0 could actual ly be between 8.73 and 9.27. Ref: http://www.ngsp.org/CAPdata.asp Ordering Provid er: RUDI HIGGINBOTHAM Report Released Date/Time: Mar 24, 2022 11:53 AM Reporting Lab: [facility] [place] [facility] [address] [facility] [address] Performing Lab: [facility] [address] [facility] [address] HEMOGLOBIN A1C 4.9 4.0-5.6 Mar 24, 2022 12:01 PM [facility] [place] TSH Specimen Type: SERUM [facility] No comment enter ed. Ordering Provid er: RUDI HIGGINBOTHAM Report Released Date/Time: Mar 24, 2022 11:53 AM Reporting Lab: [facility] [place] [facility] [address] [facility] [address] Performing Lab: OR CNTRL W[facility]N [place] [facility] [address] [facility] [address] TSH 2.79 0.35-5.00 Mar 24, 2022 OR CNTRL WSTRN BASIC METABOLIC PANEL Specimen Type: SERUM 12:01 PM [place] [facility] (non-fasting) No comment enter ed. Ordering Provid er: RUDI HIGGINBOTHAM Report Released Date/Time: Mar 24, 2022 11:53 AM Reporting Lab: [facility] [place] [facility] [address] [facility] [address] Performing Lab: [facility] TRN [place] [facility] [address] [facility] [address] UREA NITROGEN 16 7-25 GLUCOSE 91 65-100 SODIUM 140 135-145 POTASSIUM 4.1 3.5-5.0 CHLORIDE 107 100-110 CO2 24 20-30 CREATININE, Serum 1.10 0.50-1.40 eGFR(CKD-EPI 2020) 82 >60 Mar 24, 2022 12:01 [facility] LIVER FUNCTION Specimen Typ e: SERUM PM [place] [facility] No comment enter ed. Ordering Provid er: RUDI HIGGINBOTHAM Report Released Date/Time: Mar 24, 2022 11:53 AM Reporting Lab: [facility]ITALTR[facility] [place] [facility] [address] [facility] [address] Performing Lab: [facility]ITALTR[facility] [place] [facility] [address] [facility] [address] PROTEIN,TOTAL 7.9 6.0-8.3 ALBUMIN 4.0 3.5-5.0 ALKALINE PHOSPHATASE 79 40-150 AST 18 5-34 ALT 28 <6-55 BILIRUBIN, TOTAL 0.7 0.2-1.2 Mar 24, 2022 OR CNTRL WSTRN LIPID PANEL, NON Specimen Type: SERUM 12:01 PM [place] [facility] No comment enter ed. Ordering Provid er: RUDI HIGGINBOTHAM Report Released Date/Time: Mar 24, 2022 11:53 AM Reporting Lab: [facility]L [facility] [place] [facility] [address] [facility] [address] Performing Lab: OR CNTR WSTRN [place] [facility] [address] [facility] [address] CHOLESTEROL 198 <7-199 TRIGLYCERIDE 132 0-150 LDL calculated 135 H 0-129 CHOL/HDL 5.4 HDL CHOLESTEROL 37 L 40-60 Mar 24, 2022 12:01 PM OR CNTR WSTRN [place] CBC Specimen Type: BLOOD [facility] No comment enter ed. Ordering Provid er: RUDI HIGGINBOTHAM Report Released Date/Time: Mar 24, 2022 11:53 AM Reporting Lab: [place] CNTR [place]STRN [place] [facility] [address] [facility] [address] Performing Lab: [facility] [place] [facility] [address] [facility] [address] WBC 9.84 4.50-11.00 RBC 4.71 4.23-5.66 HGB [...] Pressure Rate Mass Index Mar 24, 146/96 2022 12:23 mm[Hg] CNTRL PM [place] [facility] Mar 24, 148/108 2022 11:28 mm[Hg] CNTRL AM [place] [facility] Mar 24, 98.7 F 78 20 /min 99 % 7 70 in 292 lb 42 2022 11:22 /min CNTRL AM [place] [facility] Social History: Smoking Status (Most current) and Tobacco Use (All prior to encounter date) This section includes the most current, and the historical, smoking and tobacco-related health factors from the OR facility where the Encounter took place.Current Smoking Status This section includes the most current smoking, or tobacco-related health factor, from the OR facility where the Encounter took place. Date/Time Current Smoking Status Comment Facility Mar 24, 2022 11:30 AM VA-TOBACCO FORMER USER OR CNTRL WSTRN [place] [facility] Tobacco Use History This section includes a history of the smoking, or tobacco- related health factors, that were collected on or before the date of the Encounter. The data comes from the OR facility where the Encounter took place. Date/Time Smoking Status/Tobacco Use Comment [facility] Mar 24, 2022 11:30 AM VA-TOBACCO QUIT 15 YRS OR OR CNTRL [place]STR[place] [facility] Jul 12, 2020 08:00 AM VA-TOBACCO FORMER USER OR CNTRL WSTR[place] [facility] Jul 12, 2020 08:00 AM VA-TOBACCO QUIT 15 YRS OR OR CNTRL [place] [facility] Feb 19, 2019 08:26 AM VA-TOBACCO FORMER USER OR CNTRL WSTRN [place] [facility] Feb 19, 2019 08:26 AM VA-TOBACCO QUIT 15 YRS OR OR CNTRL [place] [facility] Advance Directives: All historical and current Section Date Range: From patient's date of to the date document was created. This section includes ALL of a patient's completed or amended OR Advance and Rescinded Directives. The entries below indicate that a directive exists for the patient, but an actual copy is not included with this document. The data comes from all [facility]. Date Advance Directives Provider Source Jan 26, [...] the Encounter. The data comes from all OR treatment facilities. Date/Time Radiology Report Provider Source Apr 17, 2022 10:12 AM DUPLEX SCAN OF EXTREMITY VEIN, UNILATE RAL: ZACK SOLER [employer] [facility] [id number] [id number] Calvin CARRILLO [facility] Exm Date: APR 17, 2022@10:12 Req Phys: RUDI HIGGINBOTHAM Pat Loc: CWM/NO/PAC T 7 (Req'g Loc) Img Loc: ULTRASOUND Service: Unknown (Case [id number] COMPLETE) DUPLEX SCAN OF EXTREMITY VEIN , UN(US Detailed) CPT:39829 Proc Modifiers : LEFT Reason for Study: pain left leg Clinical History: pain Report Status: Verified Date Reported: APR 17, 2022 Date Verified: APR 17, 2022 Quality Assurance Intern E-Sig:/ES/ZACK SOLER JR Report: Study: Left lower [...] Primary Interpreting Staff: ZACK SOLER JR, Radiologist (Quality Assurance Intern) /EAD Encounter Notes: All associated encounter notes This section contains the clinical notes associated to the Encounter. Date/Time Encounter Note(s) Provider Source Mar 24, 2022 02:02 PRIMARY CARE NURSE PRACTITIONER OUTPATIE NT NOTE: RUDI HIGGINBOTHAM OR CNTRL WSTRN LOCAL TITLE: NURSE PRACTITIONER OUTPATIENT NOTE [facility] STANDARD TITLE: PRIMARY CARE NURSE PRACTITIONER OUTPATIENT NOTE DATE OF NOTE: MAR 24, 2022@14:02 ENTRY DATE: MAR 24, 2022@14:02:12 AUTHOR: RUDI HIGGINBOTHAM EXP COSIGNER: URGENCY: STATUS: COMPLETED [facility] [address] [place] [address] [facility] Toll Free Number Primary Care Telephone Assistance can be reached at extension [phone] [facility] scheduling can be reac hed at extension [phone] [facility] scheduling can be luis e ched at ext [phone] MAR 24, 2022 NO BURNETT [address], [address] Dear NO BURNETT, Thank you for coming in for your tests. Your rec ent test results are as follows: LAB CHEMISTRY & HEMATOLOGY Collection DT Specimen Test Name Result Units Re f Range 03/24/2022 12:01 BLOOD !! HEMOGLOBIN A1C 4.9 % 4 .0 - 5.6 03/24/2022 12:01 BLOOD WBC 9.84 K/cmm 4.50 - 11.00 RBC 4.71 M/cmm 4.23 - 5.66 HGB 14.3 g/dL 12.8 - 17 HCT 42.9 % 39.2 - 50.4 MCV 91.1 fl 82 - 99 MCH 30.4 pg 26.2 - 32.6 MCHC 33.3 g/dL 30.8 - 35.1 RDW-CV 12.0 % 12.0 - 16.0 PLT 220 K/cmm 140 - 360 03/24/2022 12:01 SERUM TSH 2.79 uIU/mL 0.35 - 5.00 CREATININE, Serum 1.10 mg/dL 0.50 - 1.40 VITAMIN D (25-OH) 14 L ng/mL 20 - 50 eGFR(CKD-EPI 2020 82 mL/min Ref: >=60 SODIUM 140 mmol/L 135 - 145 POTASSIUM 4.1 mmol/L 3.5 - 5.0 CHLORIDE 107 mmol/L 100 - 110 CO2 24 mEq/L 20 - 30 UREA NITROGEN 16 mg/dL 7 - 25 GLUCOSE 91 mg/dL 65 - 100 PROTEIN,TOTAL 7.9 g/dL 6.0 - 8.3 ALBUMIN 4.0 g/dL 3.5 - 5.0 ALK CAM[place] 79 U/L 40 - 150 AST 18 U/L 5 - 34 BILIRUBIN, TOTAL 0.7 mg/dL 0.2 - 1.2 CHOLESTEROL 198 mg/dL <7 - 199 TRIGLYCERIDE 132 mg/dL 0 - 150 LDL calculated 135 H mg/dL 0 - 129 CHOL/HDL 5.4 ALT 28 U/L <6 - 55 HDL CHOLESTEROL 37 L mg/dL 40 - 60 I have reviewed your results. You vitamin d leve l is low. I suggest a supplement. You can get this over the counter of through the VA. Thank you for allowing me to be a part of your [facility] care team. Please call if you have any questions or concern s. Sincerely, Dr. Rudi Higginbotham DNP, CERTIFIED MEDICAL TRANSCRIPTIONIST-BC, CNL Nurse Practitioner Primary Care PACT Meet /josé lius/ Rudi Higginbotham DNP, ESTUARDO-VINCE, CHARLAL Primary Care Nurse Practitioner Signed: 03/24/2022 14:03 Receipt Acknowledged By: * AWAITING SIGNATURE * LANDON SALAS Mar 24, 2022 11:56 PRIMARY CARE NURSE PRACTITIONER OUTPATIE NT NOTE: RUDI HIGGINBOTHAM OR CNTRL WSTRN [facility] TITLE: NURSE PRACTITIONER OUTPATIENT NOTE [place] [facility] STANDARD TITLE: PRIMARY CARE NURSE PRACTITIONER OUTPATIENT NOTE DATE OF NOTE: MAR 24, 2022@11:56 ENTRY DATE: MAR 24, 2022@11:56:20 AUTHOR: RUDI HIGGINBOTHAM EXP COSIGNER: URGENCY: STATUS: COMPLETED Chief complaint: 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 HPI: Pleasant male [place] h ere to follow up, last seen in 2019. His cc is pain in his left lower leg, onset about 4-5 mos ago. Does not recall any injury. Pain is intermittent triggered w/standing, resolves w ith rest. On exam, +CMS, negative Homans. There is some erythema, anterior left lower leg, no edema. He tells me the erythema is a r eaction to an icey patch, and that it is resolving. I will refer for u/s r/o dvt. If this is ok, i s uggested podiatry consult. Allergies: PENICILLIN The following VA and Non-VA meds were re conciled with patient. The patient was educated on the use of the medications including indication and side effects. Active and Recently Outpatient Medicatio ns (excluding Supplies): Pending Outpatient Medications Status 1) LISINOPRIL 5MG TAB TAKE ONE TABLET BY MOUTH O NCE PENDING DAILY TO CONTROL BLOOD PRESSURE eview of Systems: Constitutional: (-)for Fevers, chills, weakness, nights sweats On examination: 98.7 F [37.1 C] (03/24/2022 11:22)148/108 (03/24 11:28)78 (03/24/2022 11:22)20 (03/24/2022 11:22)7 (03/24/2022 11:22)B VA: 42.0292 lb [132.45 kg] (03/24/2022 11:22) is alert and oriented X3 Cardiovasc: 2plus carotids w ithout bruits, no JVD Heart Reguler rate and rhythm NL S1S2 no S3 or murmur Respiration: Normal respiratory effort, lungs cl ear ABD: Benign normal active bowel sounds no HSM no rebound or referred pain Assessment/plan: Active problems - Computerized Problem List is t he source for the followin HTN - Hypertension (SCT [id number]) - + fam his tory. discussed lsinopril, educated on use. I will send him a BP ma jackelinee for home monitoring. Labs today. 2. Sleep Apnea (SCT [id number]) - uses cpap 3. Lower left leg pain - see above Review of medial record = 5mins Time spent with Patient including shared decisio n making = 20mins Post visit documentation = 5mins Total time = 30 mins Follow up visit in July. Shirley lives in [facility] and is considering xfering care to [facility]. Alert to PACT RN - Labs as necessary to address clinical status. HTN Assess for Elevated BP>=140/90: Repeat blood pressure: 146/96 The patient's medication regimen was adjusted t o improve blood pressure control. Medication Reconciliation: Outpatient: Has the patient been taking medications as docu mented in the EMLR? YES: The patient has been taking medications as documented in the EMLR. Essential Medication List for Review used to co mplete this medication reconciliation. INCLUDED IN THIS LIST: Alphabetical list of act francois outpatient prescriptions dispensed from this VA (local) an d dispensed from another VA or DoD facility (remote) as well as inpatien t orders (local, pending and active), local clinic medications, locally documented non-VA medications, and local prescriptions that have or been discontinued in the past 90 days. - All changes in medications, including all non -VA/Herbal/OTC medications were entered into CPRS. - If there were any medications the patient cesar uld no longer take, they were discontinued. - The patient/caregiver was instructed to updat e this list, discard old lists, and take this list to the next appointme nt, whether with a VA or non-VA provider. Sexual Orientation: The patient thinks of their sexual orientation as: Straight or Heterosexual /es/ Rudi Higginbotham DNP, CERTIFIED MEDICAL TRANSCRIPTIONIST-BC, CNL Primary Care Nurse Practitioner Signed: 03/24/2022 12:24 Mar 24, 2022 11:25 PREVENTIVE MEDICINE NURSING NOTE: JACOB CLEANING CNTRL WSTRN AM LOCAL TITLE: CLINICAL REMINDERS/NURSING [place] [facility] STANDARD TITLE: PREVENTIVE MEDICINE NURSING NOTE DATE OF NOTE: MAR 24, 2022@11:25 ENTRY DATE: MAR 24, 2022@11:26:02 AUTHOR: JACOB CLEANING EXP COSIGNER: URGENCY: STATUS: COMPLETED Advance Directive Screen: Patient does not have a completed advance direc tive on file at any facility, VA or outside. S/he is not interested in completing one at this time. The patient received education about Advance Di rectives and written notification of his/her rights. Suicide Screen: C-SSRS Screening [place]-Suicide Severity Rating Scale (C-SSRS Screener) 1. Over the past month, have you wished you wer e or wished you could go to sleep and not wake up? No 2. Over the past month, have you had any actual thoughts of killing yourself? No 3. Over the past month, have you been thinking about how you might do this? Response not required due to responses to other questions. 4. Over the past month, have you had these thou ghts and had some intention of acting on them? Response not required due to responses to other questions. 5. Over the past month, have you started to wor k out or worked out the details of how to kill yourself? Response not required due to responses to other questions. 6. If yes, at any time in the past month did yo u intend to carry out this plan? Response not required due to responses to other questions. 7. In your lifetime, have you ever done anythin g, started to do anything, or prepared to do anything to end you r life (for example, collected pills, obtained a gun, gave away valu mick, went to the roof but didn't jump)? No 8. If YES, was this within the past 3 months? Response not required due to responses to other questions. Depression Screening: Perform PHQ-2 A PHQ-2 screen was performed. The score was 0 w hich is a negative screen for depression. Over the past two weeks, how often have you bee n bothered by the following problems? 1. Little interest or pleasure in doing things Not at all 2. Feeling down, depressed, or hopeless Not at all Homelessness/Food Insecurity Screen: In the past 2 months, have you been living in s table housing that you own, rent, or stay in as part of a household? Y es - Living in stable housing. Are you worried or concerned that in the next 2 months you may NOT have stable housing that you own, rent, or stay in a s part of a household? No - Not worried about housing near future The [place] reports the following: Within the past 12 months, you worried whether your food would run out before you got money to buy more. Never true Within the past 12 months, the food you bought just didn't last and you didn't have money to get more. Never true Relationship Health & Safety Screen: Screening is not completed at this time due to: Other: Reason: Marriage is going very well Tobacco Use Screening: The patient is a former tobacco user. The patient quit fifteen or more years ago. Alcohol Use Screen (AUDIT-C): Alcohol Screen: SCREEN FOR ALCOHOL (AUDIT-C) An alcohol screening test (AUDIT-C) was negativ e (score=0). 1. How often did you have a drink containing al cohol in the past year? Never 2. How many drinks containing alcohol did you h ave on a typical day when you were drinking in the past year? Response not required due to responses to other questions. 3. How often did you have six or more drinks on one occasion in the past year? Response not required due to responses to other questions. /es/ Jacob Cleaning Health Team Foreman CLIENT DEVELOPMENT CONSULTANT,PRIMARY CARE Signed: 03/24/2022 11:29
--- OUTSIDE RECORDS SUMMARY | 2022-04-18 10:37 | XMS_ITS ---
:1975 Author Organization [facility] rs Address [address] [place] [address] Support Name Relationship Address Phone KATERYNA STILLZ Unavailable [address] Unavailable BRIANNE ARCEO [address] TESSY RIKA Unavailable [address] Unavailable BRIANNE ARCEO [id number] Selected Encounter This section includes the information on record at [place] for the Encounter. Date/Time Encounter Type Encounter Description Reason Provider Source Mar 15, 2022 02:00 Outpatient Encounter PRIMARY CARE/MEDICINE PM IHE Encounter Template Text not used by [place] Plan of Treatment: Future Appointments (+ 6 [...] 24, 2022 11:30 AM [facility] Apr 17, 2022 10:30 AM AMBULATORY - NONE [place] [facility] Jul 31, 2022 11:00 AM [facility] Lab Results: +/- 30 days of the encounter This section includes the Chemistry and Hematology Lab Results on record with [place] for the patient. Radiology Reports and Pathology [...] Lab: [facility] [place] [facility] [address] [facility] [address] Performing Lab: [facility] [place] [facility] [address] [facility] [address] VITAMIN D (25-OH) 14 L 20-50 Mar 24, 2022 [facility] HEMOGLOBIN A1C Specimen Type: BLOOD [...] Mar 24, 2022 11:53 AM Reporting Lab: [facility] [place] [facility] [address] [facility] [address] Performing Lab: [facility] [place] [facility] [address] [facility] [address] HEMOGLOBIN A1C 4.9 4.0-5.6 Mar 24, 2022 12:01 PM [facility] [place] TSH Specimen Type: SERUM HCS No comment enter ed. Ordering Provid er: RUDI HSU Report Released Date/Time: Mar 24, 2022 11:53 AM Reporting Lab: [facility] [place] [facility] [address] [facility] [address] Performing Lab: [facility] [place] [facility] [address] [facility] [address] TSH 2.79 0.35-5.00 Mar 24, 2022 [facility] BASIC METABOLIC PANEL Specimen Type: SERUM 12:01 PM [place] [facility] (non-fasting) No comment enter ed. Ordering Provid er: RUDI HSU Report Released Date/Time: Mar 24, 2022 11:53 AM Reporting Lab: [facility] [place] [facility] [address] [facility] [address] Performing Lab: [facility] [place] [facility] [address] [facility] [address] UREA NITROGEN 16 7-25 GLUCOSE 91 65-100 SODIUM 140 135-145 POTASSIUM 4.1 3.5-5.0 CHLORIDE 107 100-110 CO2 24 20-30 CREATININE, Serum 1.10 0.50-1.40 eGFR(CKD-EPI 2020) 82 >60 Mar 24, 2022 12:01 [facility] LIVER FUNCTION Specimen Typ e: SERUM PM [place] [facility] No comment enter ed. Ordering Provid er: RUDI HSU Report Released Date/Time: Mar 24, 2022 11:53 AM Reporting Lab: [facility] [address] [facility] [address] Performing Lab: [facility] [address] [facility] [address] PROTEIN,TOTAL 7.9 6.0-8.3 ALBUMIN 4.0 3.5-5.0 ALKALINE PHOSPHATASE 79 40-150 AST 18 5-34 ALT 28 <6-55 BILIRUBIN, TOTAL 0.7 0.2-1.2 Mar 24, 2022 [facility] LIPID PANEL, NON Specimen Type: SERUM 12:01 PM [place] [facility] FASTING No comment enter ed. Ordering Provid er: RUDI HSU Report Released Date/Time: Mar 24, 2022 11:53 AM Reporting Lab: [facility] [place] [facility] [address] [facility] [address] Performing Lab: [facility] [place] [facility] [address] [facility] [address] CHOLESTEROL 198 <7-199 TRIGLYCERIDE 132 0-150 LDL calculated 135 H 0-129 CHOL/HDL 5.4 HDL CHOLESTEROL 37 L 40-60 Mar 24, 2022 12:01 PM [facility] [place] CBC Specimen Type: BLOOD H[facility] No comment enter ed. Ordering Provid er: RUDI HSU Report Released Date/Time: Mar 24, 2022 11:53 AM Reporting Lab: [facility] [place] [facility] [address] [facility] [address] Performing Lab: [facility] [place] [facility] [address] [facility] [address] WBC 9.84 4.50-11.00 RBC 4.71 4.23-5.66 HGB [...] 12, 2020 08:00 AM VA-TOBACCO [facility] [place] [facility] Tobacco Use History This section includes a history of the smoking, or tobacco- related health factors, that were collected on or before the date of the Encounter. The data comes from the [place] facility where the Encounter took place. Date/Time Smoking Status/Tobacco Use Comment [facility] Jul 12, 2020 08:00 AM VA-TOBACCO QUIT 15 YRS OR [facility] [place] [facility] Feb 19, 2019 08:26 AM VA-TOBACCO FORMER USER [facility] [place] [facility] Feb 19, 2019 08:26 AM VA-TOBACCO QUIT 15 YRS OR [facility] [place] [facility] Advance Directives: All historical and current Section Date Range: From patient's date of to the date document was created. This section includes ALL of a patient's completed or amended VA Advance and Rescinded Directives. The entries below indicate that a directive exists for the patient, but an actual copy is not included with this document. The data comes from all [place] facilities. Date Advance Directives Provider Source Jan 26, 2020 ADVANCE DIRECTIVE DISCUSSION RIKA BIRD Encounter Notes: All associated encounter notes This section contains the clinical notes associated to the Encounter. Date/Time Encounter Note(s) Provider Source Mar 15, 2022 02:04 PM NURSING NOTE: JACOB CLEANING [facility] LOCAL TITLE: NURSING/TELEPHONE HCS STANDARD TITLE: NURSING NOTE DATE OF NOTE: MAR 15, 2022@14:04 ENTRY DATE: MAR 15, 2022@14:04:24 AUTHOR: JACOB CLEANING EXP COSIGNER: URGENCY: STATUS: COMPLETED vet was called, a message was left on the answer ing machine, inform vet he has an appt with PCP on 03-24@1130,also labs have been ordered,any questions vet mayuse the call back # from message. /josé luis/ Jacob Celaning, Health Dedicated Local Truck Driver MID TEACHER,PRIMARY CARE Signed: 03/15/2022 14:05
== END 2022-04-18 12:04 | disposition home or self-care (01) ==
PROVIDERS: Emergency Provider Emergency Medicine; PCP Nurse Practitioner Family
DX: M79.662 Pain in left lower leg (principal); S86.892A Other injury of other muscle(s) and tendon(s) at lower leg level, left leg, initial encounter; X58.XXXA Exposure to other specified factors, initial encounter; E66.9 Obesity, unspecified; Z68.41 Body mass index [BMI] 40.0-44.9, adult; Y93.9 Activity, unspecified; Y92.9 Unspecified place or not applicable; Y99.9 Unspecified external cause status
CPT/HCPCS: 73564; 73590; 73610; 73630; 99282; 99283

== ENCOUNTER → 2022-05-15 09:35 | Outpatient (BNVA) | payer OTHER, SELFPAY | PROVIDERS: PCP Nurse Practitioner Family; Visit Provider Physician Assistant | DX: S86.892A Other injury of other muscle(s) and tendon(s) at lower leg level, left leg, initial encounter (principal); M89.8X6 Other specified disorders of bone, lower leg | CPT/HCPCS: 99202 ==

== ENCOUNTER 2022-06-09 08:18 | Outpatient (REF) | payer OTHER, SELFPAY ==
--- NOTE | ~2022-06-09 | MR_ITS ---
EXAMINATION: MR LOWER LEG WITHOUT CONTRAST, LEFT CLINICAL INFORMATION: Left lower leg pain. COMPARISON: Left tibia/fibular radiographs dated 04/18/2022. TECHNIQUE: Multisequence MR imaging of the left lower leg was obtained without contrast on a high-field strength scanner. FINDINGS: BONE: Minimally increased T2 signal along the periphery of the proximal tibial diaphysis with minimal adjacent increased T2 signal within the marrow cavity. Findings could represent a grade 1/2 stress reaction as per Fredericson's classification system. No additional abnormal marrow signal. No concerning lytic or blastic osseous lesion. MUSCLES/TENDONS: Intact. SOFT TISSUES: Minimal lateral subcutaneous edema at the lower leg. No soft tissue mass or fluid collection. MR/MR lower leg LT wo con IMPRESSION: 1. Minimally increased T2 signal along the periphery of the proximal tibial diaphysis with minimal adjacent increased T2 signal within the marrow cavity. Findings could represent a grade 1/2 stress reaction as per Fredericson's classification system. 2. Minimal lateral subcutaneous edema.
== END 2022-06-09 08:19 | disposition home or self-care (01) ==
LOC: HO.MRI 08:18
PROVIDERS: Visit Provider Physician Assistant
DX: M89.8X6 Other specified disorders of bone, lower leg (principal); S86.892A Other injury of other muscle(s) and tendon(s) at lower leg level, left leg, initial encounter; X58.XXXA Exposure to other specified factors, initial encounter; Y93.9 Activity, unspecified; Y92.9 Unspecified place or not applicable; Y99.9 Unspecified external cause status
CPT/HCPCS: 73718

== ENCOUNTER → 2022-07-14 12:44 | Outpatient (BNVA) | payer OTHER, SELFPAY | PROVIDERS: PCP Nurse Practitioner Family; Visit Provider Physician Assistant | DX: S86.892A Other injury of other muscle(s) and tendon(s) at lower leg level, left leg, initial encounter (principal) | CPT/HCPCS: 99212 ==

== ENCOUNTER 2022-08-25 08:08 | Outpatient (AMB) | payer OTHER, SELFPAY ==
[2022-08-25 08:21] VITALS: BMI 43.0
--- NOTE | 2022-08-25 08:21 | A.OFFVIS_ITS ---
Intake Vital Signs 08/25/22 08:21 Height 5 ft 9 in Weight 291 lb BMI 43.0 Intake Visit Reasons: OV- Lt tibia/whitman splint Intake Note: Tom dhillon 47 year old male presents today for a follow up of left tibia/whitman splint. Patient reports little improvement, continues to have pain with activity and occasionally at rest. He has not started PT due to his pain. Allergies Penicillins [PENICILLINS] Allergy (Severe, Verified 08/25/22 08:27) ANAPHYLAXIS HPI OV- Lt tibia/whitman splint HPI Details 47-year-old male who returns to the office today for a follow-up of left whitman splint. He states he has mild improvement but he does have pain with activity and occasionally when at rest. He has not yet started with physical therapy due to his pain. [facility] Medical History Heartburn PACHECO (obstructive sleep apnea) Sickle cell trait Umbilical hernia Surgical History History of hernia surgery History of ventral hernia repair Social History Alcohol intake: current Alcohol intake frequency: holidays/special occasions only Patient Tobacco Use Status: Never used Tobacco Current occupational status: employed Current occupation: [employer]/ right hand Review of Systems Const All systems reviewed & are unremarkable except as noted in HPI and below Physical Exam Vital Signs: BMI result Body Mass Index 43.0 Const General: cooperative, healthy appearing, comfortable, no acute distress, well developed and alert Orientation/consciousness: patient oriented x3 HEENT Head: Yes normal to inspection, Yes normocephalic and Yes atraumatic Eyes General: appearance normal, both eyes and all related structures Resp Effort & Inspection: normal respiratory effort and able to speak in complete sentences Cardio Rate: regular rate Peripheral pulses: Peripheral pulses 2+ throughout GI Palpation (GI): Soft to palpation Skin Lesions: no lesions Rashes: no rashes Neuro General: patient oriented x3 Extrem Other: Left whitman normal to inspection. He has tenderness over the anterior distal 3rd of tibia and along the anterior tibialis. Mild discomfort with plantar flexion and dorsi flexion. Full ankle ROM without pain. NVI. Assessment & Plan Assessment & Plan (1) Whitman splint of left lower extremity: Code(s): S86.892A - Other injury of other muscle(s) and tendon(s) at lower leg level, left leg, initial encounter Plan Since he continues to have some discomfort with ambulation while wearing the boot, he will remain out of work. I did put another referral to physical therapy and he is going to call them to get these exercises to help with his recovery. If he has any questions or concerns, patient will contact the office, otherwise follow-up in 8 weeks for reevaluation and he will remain out of work till then. Patient Instructions: Scribed for Jesu Yeung PA-C, by Severiano Macias biomedical manager, on 08/25/2022 at 8:45 AM LESLI. Jesu Warren PA-C, have personally reviewed and agree with the information entered by the scribe. Coding Level of Care Code Est Pt Level 3 (51078) Diagnoses Whitman splint of left lower extremity S86.892A
== END 2022-08-25 09:31 | disposition home or self-care (01) ==
PROVIDERS: PCP Nurse Practitioner Family; Visit Provider Physician Assistant
DX: S86.892A Other injury of other muscle(s) and tendon(s) at lower leg level, left leg, initial encounter (principal)
CPT/HCPCS: 99213

== ENCOUNTER → 2022-08-25 08:08 | Outpatient (BNVA) | payer OTHER, SELFPAY | PROVIDERS: PCP Nurse Practitioner Family; Visit Provider Physician Assistant | DX: S86.892A Other injury of other muscle(s) and tendon(s) at lower leg level, left leg, initial encounter (principal) | CPT/HCPCS: 99212 ==

== ENCOUNTER 2022-10-19 09:04 | Outpatient (AMB) | payer OTHER, SELFPAY ==
--- NOTE | 2022-10-19 09:22 | A.OFFVIS_ITS ---
Intake Vital Signs 10/19/22 09:26 Height 5 ft 9 in Weight 291 lb BMI 43.0 Intake Visit Reasons: ov- left tibia'whitman splint Intake Note: Tom a 47 year old male who presents today for a follow up of left tibia whitman splint. Patient reports that he has been attending PT twice a week that has helped a lot. He remains out of work and would like to discuss work status. Allergies Penicillins [PENICILLINS] Allergy (Severe, Verified 10/19/22 09:27) ANAPHYLAXIS HPI ov- left tibia'whitman splint HPI Details 47-year-old male who returns to the [facility] today for a follow-up of left tibia whitman splint. He states he has improvement in his pain since his last visit. He continues to attend physical therapy twice a week with benefits but he does experience a dull pain after 30 minutes of therapy. He is still out of work and would like to discuss his work status. [facility] Medical History Heartburn PACHECO (obstructive sleep apnea) Sickle cell trait Umbilical hernia Surgical History History of ventral hernia repair History of hernia surgery Social History Alcohol intake: current Alcohol intake frequency: holidays/special occasions only Patient Tobacco Use Status: Never used Tobacco Current occupational status: employed Current occupation: [employer]/ right hand Review of Systems Const All systems reviewed & are unremarkable except as noted in HPI and below Physical Exam Vital Signs: BMI result Body Mass Index 43.0 Const General: cooperative, healthy appearing, comfortable, no acute distress, well developed and alert Orientation/consciousness: patient oriented x3 HEENT Head: Yes normal to inspection, Yes normocephalic and Yes atraumatic Eyes General: appearance normal, both eyes and all related structures Resp Effort & Inspection: normal respiratory effort and able to speak in complete sentences Cardio Rate: regular rate Peripheral pulses: Peripheral pulses 2+ throughout GI Palpation (GI): Soft to palpation Skin Lesions: no lesions Rashes: no rashes Neuro General: patient oriented x3 Extrem Other: Left whitman normal to inspection. He has no tenderness over the anterior distal 3rd of tibia and along the anterior tibialis. Mild discomfort with plantar flexion and dorsi flexion. Full ankle ROM without pain. NVI. Assessment & Plan Assessment & Plan (1) Whitman splint of left lower extremity: Code(s): S86.892A - Other injury of other muscle(s) and tendon(s) at lower leg level, left leg, initial encounter Qualifiers: Encounter type: subsequent encounter Qualified Code(s): S86.892D - O ther injury of other muscle(s) and tendon(s) at lower leg level, left leg, subsequent encounter Plan He is going to continue working on his home exercises and he will return to work on 10/23 without restrictions. Patient Instructions: Scribed for Jesu Yeung PA-C, by Severiano Macias director of medical services, on 10/19/2022 at 9:45 AM EST. IJesu PA-C, have personally reviewed and agree with the information entered by the scribe. Coding Level of Care Code Est Pt Level 3 (50430) Diagnoses Left medial tibial stress syndrome, subsequent encounter S86.892D Encounter type: subsequent encounter
[2022-10-19 09:26] VITALS: BMI 43.0
== END 2022-10-19 09:57 | disposition home or self-care (01) ==
PROVIDERS: PCP Family Medicine; Visit Provider Physician Assistant
DX: S86.892D Other injury of other muscle(s) and tendon(s) at lower leg level, left leg, subsequent encounter (principal)
CPT/HCPCS: 99213

== ENCOUNTER → 2022-10-19 09:04 | Outpatient (BNVA) | payer OTHER, SELFPAY | PROVIDERS: PCP Family Medicine; Visit Provider Physician Assistant | DX: S86.892D Other injury of other muscle(s) and tendon(s) at lower leg level, left leg, subsequent encounter (principal) | CPT/HCPCS: 99212 ==

== ENCOUNTER 2023-12-20 12:00 | Emergency (ER) | payer OTHER, SELFPAY ==
--- NOTE | ~2023-12-20 | CT_ITS ---
EXAMINATION: CT ABDOMEN AND PELVIS WITH CONTRAST CLINICAL INFORMATION: Small bowel obstruction COMPARISON: KUB 12/20/2023 TECHNIQUE: Multidetector volumetric imaging was performed from the superior aspect of the liver through the pubic symphysis with intravenous contrast. A total of 85 mL of Omnipaque 350 was utilized for the study. Sagittal and coronal reformatted images were obtained on the technologist's workstation. This CT examination was performed using dose optimization techniques as appropriate, variously including the following: *Automated exposure control *Adjustment of mA and/or kV according to patient size (this includes techniques or standardized protocols for targeted exams where dose is matched to indication/reason for exam; i.e. extremities or head) *Use of iterative reconstruction technique DLP: 1019 mGy-cm FINDINGS: LUNG BASES: The visualized lung bases are unremarkable. PERITONEUM: Free intraperitoneal air is present GASTROINTESTINAL TRACT: There is an obstructing inguinal hernia present containing a single loop of small bowel. The entering loop is markedly dilated measuring at least 7 cm in diameter with associated pneumatosis. The small bowel proximal to this is also dilated with pneumatosis. The exiting bowel is nondilated with decompression of small bowel after the hernia. The colon is unremarkable and decompressed. The appendix is normal. ABDOMINAL WALL: Obstructing umbilical hernia as described above. No other hernias are seen. LIVER, GALLBLADDER, AND BILIARY TREE: The liver is normal in size, shape, and attenuation. 2 tiny air bubbles are seen just beneath the right hemidiaphragm at the periphery of the liver likely representing portal venous gas. No concerning solid focal hepatic lesion or biliary ductal dilatation is present. The gallbladder is unremarkable with no evidence of radiopaque gallstones, gallbladder wall thickening, or obvious pericholecystic inflammatory changes. PANCREAS: Unremarkable. SPLEEN: Unremarkable. ADRENAL GLANDS: Unremarkable. KIDNEYS AND URETERS: The kidneys are normal in size, shape, and attenuation. 2 hypodensities are present the left kidney the largest at the lower pole measuring water density consistent with a benign cyst (3:47). The other tiny lesion is likely a cyst as well (3:36). No further follow up or imaging needed. No hydronephrosis, hydroureter, or calculi seen. No perinephric stranding. BLADDER: Unremarkable. LYMPH NODES: Normal. VASCULAR: No aortic aneurysm. IVC normal in caliber. Portal venous gas is present PELVIC VISCERA: The prostate and seminal vesicles are unremarkable. No free intraperitoneal fluid OSSEOUS STRUCTURES: Unremarkable. Degenerative changes at L5-S1. CT/CT abdomen pelvis w IV con IMPRESSION: 1. Obstructing umbilical hernia containing a single loop of small bowel with associated pneumatosis and portal venous gas. 2. Incidental note made of benign left renal cysts and degenerative changes at L5-S1. Fleischner guidelines were followed. This critical result was discussed with Pricilla Colorado. MELVIN at 6:34 PM on the day of the exam and it was ascertained that the content and urgency of the report was understood at the time of direct communication. Electronically signed by: Mynor Berrios MD 12/20/2023 06:43 PM [facility]ES[facility] GAONA
--- NOTE | ~2023-12-20 | XR_ITS ---
EXAMINATION: XR ABDOMEN KUB CLINICAL INDICATION: Constipation. COMPARISON: None available. TECHNIQUE: AP view of the abdomen. FINDINGS: Gas filled prominent proximal small bowel loops in the left upper quadrant abdomen. The large intestine is not distended. XR/XR KUB IMPRESSION: Concerning ileus versus partial/intermittent small bowel obstruction. Electronically signed by: Keyur Zuluaga MD 12/20/2023 03:05 PM EST
--- NOTE | 2023-12-20 12:24 | ED.ABDPAIN ---
HPI - Abdominal Pain General Chief Complaint: Abdominal Pain Stated Complaint: abd pain-constipation Time Seen by Provider: 12/20/23 15:48 Source: patient Limitations: no limitations History of Present Illness ED Provider: Juliet Colorado PA-C HPI narrative: 48-year-old male with a history of morbid obesity, s/p umbilical hernia repair x3, the 1[place], the subsequent 2 hernia repairs occurred at [facility] July [address] Mullins, hypertension, presents with the abdominal pain x4 days. Pain is diffuse, unable to describe. Associated abdominal distention and constipation. Denies nausea, vomiting or inability to pass flatus. Related Data Home Medications ?Medication ?Instructions ?Recorded ?Confirmed lisinopril 10 mg tablet 10 mg PO DAILY 10/19/22 Allergies Allergy/AdvReac Type Severity Reaction Status Date / Time Penicillins [PENICILLINS] Allergy Severe ANAPHYLAXIS Verified 12/20/23 12:26 Review of Systems Review of Systems Yes all other systems are reviewed and are negative Constitutional: Denies fatigue and Denies fever(s) Cardiovascular: Denies chest pain and Denies dyspnea Respiratory: Denies dyspnea Gastrointestinal: Reports abdominal pain, Reports constipation, Denies nausea and Denies vomiting Endocrine: Denies fatigue PMFSH Past Medical History Attestation statement: The following information was validated with the patient. Medical History Heartburn PACHECO (obstructive sleep apnea) Sickle cell trait Umbilical hernia Surgical History History of ventral hernia repair History of hernia surgery Social History Social History Alcohol intake: current Alcohol intake frequency: holidays/special occasions only Patient Tobacco Use Status: Never used Tobacco Smoked in Last 30 Days: No Use of substances other than those prescribed or required for medical reasons: No Advance Directives: No Advance Directives Information Provided: Yes Current occupational status: employed Current occupation: [employer]/ right hand Physical Exam ED Vital Signs: Vital Signs - 24 hr 12/20/23 12:25 12/20/23 19:04 Temperature 97.4 F 97.9 F Pulse Rate 90 68 Respiratory Rate 20 16 Blood Pressure 142/91 H 149/94 H Pulse Oximetry 95 97 Oxygen Delivery Method Room Air Room Air BMI result Body Mass Index 41.3 Const Other: Alert, overall well in appearance Orientation/consciousness: patient oriented x3 Resp Other: Nonlabored respirations Cardio Other: Normal peripheral perfusion GI Other: Abdomen is soft, distended, obese, mild tenderness across central abdomen. I can palpate the umbilical hernia it is soft, reducible, I can also palpate bowel gas within the hernia, the patient is not guarding, there are no peritoneal signs. Skin Other: Warm dry no rash Neuro General: patient oriented x3, no focal motor deficits and CN's II-XI intact bilaterally Psych Other: Calm cooperative Course Course Course Narrative: This is a Rapid Medical Exam performed in triage by Chantal Castaneda PA-C. Full HPI, ROS and PE to be performed by primary ED provider. 48yo M presenting to the ED c/o trapped gas and constipation x last BM on Sunday. Was seen at , had XR that showed constipation & took Mag Citate w/ some relief. +decreased appetite x mos. Admits started Ozempic about 3 weeks ago prior to symptoms starting however stopped PE: Abdomen is soft, nontender Plan: labs, UA Consultations Consultation #1: paged Dr. Jalloh, he declines the case, he states the complexity of the patient's current surgical situation is not appropriate for [facility], he feels he requires a higher level of care, I will reach out to [facility]. Adding a lactic acid and starting empiric antibiotics Time: 18:38 Consultation #2: paged Dr. Mullins, he is the patient's surgeon, he also declines, he states I should be deferring to the on-call provider; to note Dr. Mullins is on-call for the vascular surgery today. Time: 19:09 Medical Decision Making Medical Decision Making MDM Narrative: 48-year-old male with a history of morbid obesity, s/p umbilical hernia repair x3, the 1st surgical [place], the subsequent 2 hernia repairs occurred at [facility] July [address] Mullins, hypertension, presents with the abdominal pain x4 days. Pain is diffuse, unable to describe. Associated abdominal distention and constipation. Denies nausea, vomiting or inability to pass flatus. Problem: Age, obesity, known hernia History: Per patient I have considered the following differential diagnoses: Bowel obstruction, incarcerated hernia, strangulated hernia, constipation, fecal impaction Plan: Patient is assessment began from triage, a screening KUB was obtained, there was concern for ileus versus early bowel obstruction. We will obtain a CT scan with oral contrast. The patient declines pain medication at this time, we will start IV fluid hydration. I have independently reviewed the following tests: labs: No leukocytosis, not anemic, no electrolyte abnormality, lactate 0.7 KUB: XR/XR KUB IMPRESSION: Concerning ileus versus partial/intermittent small bowel obstruction. Electronically signed by: Keyur Zuluaga MD 12/20/2023 03:[address] abd pelvis: CT/CT abdomen pelvis w IV con IMPRESSION: 1. Obstructing umbilical hernia containing a single loop of small bowel with associated pneumatosis and portal venous gas. 2. Incidental note made of benign left renal cysts and degenerative changes at L5-S1. Fleischner guidelines were followed. This critical result was discussed with Pricilla CHARLES at 6:34 PM on the day of the exam and it was ascertained that the content and urgency of the report was understood at the time of direct communication. Electronically signed by: Mynor Berrios MD 12/20/2023 06:43 PM EST RP Lab Data 12/20/23 13:17 12/20/23 13:17 Labs: Lab Results 12/20/23 12/20/23 Range/Units 13:17 18:32 WBC 8.3 (4.8-10.8) X10*3/uL RBC 4.50 L (4.60-5.80) X10*6/uL Hgb 14.0 (14.0-18.0) g/dl Hct 41.0 L (42.0-52.0) % MCV 91.1 (80.0-98.0) fL MCH 31.1 (27.0-33.0) pg MCHC 34.1 (31.0-36.0) g/dl RDW 12.7 (11.0-16.0) % Plt Count 217 (160-400) X10*3/uL MPV 10.9 (9.4-12.4) fL Immature Gran % (Auto) 0.4 (0.0-0.4) % Neut % (Auto) 65.2 (45-73) % Lymph % (Auto) 18.8 L (20-40) % [place] % (Auto) 10.5 (2-11) % Eos % (Auto) 4.5 H (0-4) % Baso % (Auto) 0.6 (0-2) % Lymph # (Auto) 1.6 (1.2-4.9) X10*3/uL [place] # (Auto) 0.9 (0.1-1.2) X10*3/uL Eos # (Auto) 0.4 (0.0-0.4) X10*3/uL Baso # (Auto) 0.1 (0.0-0.2) X10*3/uL Abs Immat Gran (auto) 0.03 (0.00-0.03) X10*3/uL Absolute Neuts (auto) 5.4 (2.0-8.3) x10*3/uL Absolute Nucleated RBC 0.000 (0.0-0.012) X10*3/uL Nucleated RBC % (auto) 0.0 (0.0-0.2) /100WBC Sodium 140 (135-145) mmol/L Potassium 4.0 (3.3-5.1) mmol/L Chloride 107 (96-108) mmol/L Carbon Dioxide 26 (22-29) mmol/L Anion Gap 11 L (12-20) BUN 14 (9-16) mg/dL Creatinine 1.11 (0.5-1.4) mg/dL Estim Creat Clear Calc 104.9 Estimated GFR > 60 Random Glucose 112 (60-115) mg/dL Lactic Acid 0.7 (0.5-2.0) mmol/L Calcium 8.4 (8.4-10.2) mg/dL Magnesium 2.0 (1.6-2.6) mg/dL Total Bilirubin 0.8 (0.0-1.0) mg/dL Direct Bilirubin 0.2 (0.0-0.5) mg/dL AST 31 (5-37) U/L ALT 39 (0-40) U/L Alkaline Phosphatase 95 (39-117) U/L Total Protein 7.6 (6.5-8.0) g/dL Albumin 3.9 (3.5-5.0) g/dL Lipase 14 (8-78) U/L Urine Color Yellow Urine Appearance Clear Urine pH 7.5 (5.0-9.0) Ur Specific [place] 1.015 (1.005-1.025) Urine Protein Negative (Neg-Trace) mg/dL Urine Glucose (UA) Negative (Negative) mg/dL Urine Ketones Negative (Negative) mg/dL Urine Blood Negative (Negative) Urine Nitrite Negative (Negative) Ur Leukocyte Esterase Negative (Negative) Medications Administered Generic Name Dose Route Start Last Admin Trade Name Freq PRN Reason Stop Dose Admin Metronidazole 500 mg in 100 mls @ 100 mls/hr 12/20/23 19:16 12/20/23 19:19 Flagyl IV 12/20/23 20:15 100 mls/hr ONCE ONE Administration Discontinued Medications Generic Name Dose Route Start Last Admin Trade Name Freq PRN Reason Stop Dose Admin Diatrizoate Meglum/Diatrizoate Sod 30 ml 12/20/23 18:11 12/20/23 18:11 Diatrizoate Meglumine, Sodium 30 Ml Solution PO 12/20/23 18:12 30 ml ONCE ONE Administration Sodium Chloride 1,000 mls @ 999 mls/hr 12/20/23 16:00 12/20/23 18:13 Ns IV 12/20/23 17:00 Infused .Q1H1M MIKE Infusion Iohexol 100 ml 12/20/23 18:10 12/20/23 18:11 Iohexol 350 Mg/Ml 100 Ml Infus..Btl IV 12/20/23 18:11 85 ml ONCE ONE Administration Morphine Sulfate 8 mg 12/20/23 15:49 12/20/23 16:13 Morphine Sulfate 10 Mg/Ml Cartridge IVPUSH 12/20/23 15:50 Not Given ONCE ONE Protocol Ondansetron HCl 4 mg 12/20/23 15:49 12/20/23 16:41 Ondansetron Hcl 4 Mg/2 Ml Vial IVPUSH 12/20/23 15:50 4 mg ONCE ONE Administration Discharge Plan Discharge Clinical Impression: Bowel obstruction, Pneumatosis of intestines Patient Disposition: Xfer Other Prescriptions: No Action lisinopril 10 mg tablet 10 mg PO DAILY Print Language: Yoruba
[2023-12-20 12:25] VITALS: BP 142/91; PULSE 90; RESP 20; TEMP 36.3; O2SAT 95; BMI 41.3
[2023-12-20 13:30] LABS: MANUAL DIFF FLAG NO
[2023-12-20 13:33] LABS: Basophils Absolute Auto 0.1 X10*3/uL (0.0-0.2); Basophils Percent Auto 0.6 % (0-2); Eosinophils Absolute Auto 0.4 X10*3/uL (0.0-0.4); Eosinophils Percent Auto 4.5 % (0-4); Imm Gran Abs Auto 0.03 X10*3/uL (0.00-0.03); Imm Gran Pct Auto 0.4 % (0.0-0.4); Lymphocytes Absolute Auto 1.6 X10*3/uL (1.2-4.9); Lymphocytes Percent Auto 18.8 % (20-40); Mean Corpuscular HGB Conc 34.1 g/dl (31.0-36.0); Mean Corpuscular Hemoglobin 31.1 pg (27.0-33.0); Mean Corpuscular Volume 91.1 fL (80.0-98.0); Mean Platelet Volume 10.9 fL (9.4-12.4); Monocytes Absolute Auto 0.9 X10*3/uL (0.1-1.2); Monocytes Percent Auto 10.5 % (2-11); Neutrophils Absolute Auto 5.4 x10*3/uL (2.0-8.3); Neutrophils Percent Auto 65.2 % (45-73); Platelet Count 217 X10*3/uL (160-400); Red Cell Distribution Width 12.7 % (11.0-16.0); White Blood Count 8.3 X10*3/uL (4.8-10.8)
[2023-12-20 13:37] LABS: Appearance Urine Clear; Color Urine Yellow; Glucose Urine UA Negative (Negative); Leukocyte Esterase Urine Negative (Negative); Nitrite Urine Negative (Negative); PH 7.5 (5.0-9.0); Specific Gravity - Urine 1.015 (1.005-1.025); Urine Blood Negative (Negative); Urine Ketones Negative (Negative); Urine Protein Negative (Neg-Trace)
[2023-12-20 13:49] LABS: Albumin Level 3.9 g/dL (3.5-5.0); Alkaline Phosphatase 95 U/L (39-117); Anion Gap 11 (12-20); Aspartate Amino Transferase 31 U/L (5-37); Bilirubin Direct 0.2 mg/dL (0.0-0.5); Bilirubin Total 0.8 mg/dL (0.0-1.0); Blood Urea Nitrogen 14 mg/dL (9-16); Calcium 8.4 mg/dL (8.4-10.2); Carbon Dioxide 26 mmol/L (22-29); Chloride 107 mmol/L (96-108); Creatinine Clr Calc Pharmacy 104.9; Estimated Glomerular Filt Rate > 60; Glucose Random 112 mg/dL (60-115); Lipase 14 U/L (8-78); Sodium 140 mmol/L (135-145); Total Protein 7.6 g/dL (6.5-8.0)
[2023-12-20 14:01] LABS: Alanine Aminotransferase 39 U/L (0-40)
--- NOTE | 2023-12-20 16:10 | PC.NURSE ---
Unable to obtain IV access. Another RN attempting at this time.
[2023-12-20] MEDS: ondansetron HCL 4 MG/2 ML VIAL IVPUSH (16:41)
[2023-12-20] MEDS: 0.9 % Sodium Chloride 1,000 ML 999 ML IV (16:41)
[2023-12-20] MEDS: iohexoL 350 MG/ML 100 ML INFUS..BTL IV (18:11)
[2023-12-20] MEDS: Diatrizoate Meglumine, Sodium 30 ML SOLUTION PO (18:11)
[2023-12-20 19:00] LABS: Lactic Acid 0.7 mmol/L (0.5-2.0)
[2023-12-20 19:04] VITALS: BP 149/94; PULSE 68; RESP 16; TEMP 36.6; O2SAT 97
--- NOTE | 2023-12-20 19:17 | PC.NURSE ---
Ordered antibiotics state in administration instructions to be given only 60 minutes prior to OR. MELVIN Rajan notified. PA states to hold off and she will change orders.
[2023-12-20] MEDS: metroNIDAZOLE/NS 500 MG/100 ML PIGGYBACK 100 MG IV (19:19)
[2023-12-20] MEDS: levoFLOXacin/D5W 750 MG/150 ML PIGGYBACK 100 MG IV (19:54)
[2023-12-20 20:11] VITALS: BP 125/90; PULSE 71; RESP 16; TEMP 36.4; O2SAT 97
[2023-12-20 20:28] VITALS: BP 125/90; PULSE 71; RESP 16; TEMP 36.4; O2SAT 97
== END 2023-12-20 20:34 | disposition other institution (70) ==
PROVIDERS: Physician Assistant; Physician Assistant Medical; Emergency Provider Emergency Medicine
DX: K56.609 Unspecified intestinal obstruction, unspecified as to partial versus complete obstruction (principal); K59.00 Constipation, unspecified; K63.89 Other specified diseases of intestine; R10.2 Pelvic and perineal pain; R11.0 Nausea; Z79.899 Other long term (current) drug therapy
CPT/HCPCS: 36415; 74018; 74177; 80048; 80076; 81003; 83605; 83690; 83735; 85025; 96361; 96374; 96375; 99285; J1836; J1956; J2405; Q9967

== ENCOUNTER → 2023-12-20 12:28 | Outpatient (BNV) | payer OTHER, SELFPAY | PROVIDERS: Emergency Provider Emergency Medicine; Visit Provider Radiology Diagnostic Radiology | DX: K59.00 Constipation, unspecified (principal) | CPT/HCPCS: 74018 ==

== ENCOUNTER 2024-01-24 11:41 | Outpatient (AMB) | payer OTHER, SELFPAY ==
--- OUTSIDE RECORDS SUMMARY | 2024-01-24 11:42 | XMS_ITS | Encounter Summary ---
Author Name [facility] [place] [facility] Address [address] [place] [address] Care Team Providers Care Project Management Professional Name Role Phone RENNY PEREZ Primary Care Provider Unavailabl e Selected Encounter This section includes the information on record at [place] for the Encounter. Date/Time Encounter Type Encounter Description Reason Pro vider Source 2023 09:30 AM Outpatient Encounter PRIMARY CARE/MEDICINE E Encounter Template Text not used by [place] Plan of Treatment: Future Appointments (+ 6 months) and Future Tests (+/- 45 days) The Plan of Treatment section includes future care activities for the patient from all [place] treatmentfacilities. This section includes future appointments and future orders which are active, pending or scheduled. Future Appointments This section includes appointments that were scheduled to occur 6 months from the date of the Encounter, up to a maximum of 20 appointments. The data comes from all [place] treatment facilities. Appointment Date/Time Appointment Type Appointme nt Facility Name Apr 17, 2023 09:30 AM AMBULATORY - MED[facility]INE [facility] Apr 19, 2023 09:00 AM AMBULATORY - NONE [facility] Apr 24, 2023 10:00 AM AMBULATORY - PSYCHIATRY [facility] Apr 26, 2023 09:00 AM AMBULATORY - NONE [facility] May 01, 2023 09:00 AM AM[facility]ORY [facility] May 03, 2023 09:00 AM AMBULATORY - NONE [facility] May 08, 2023 11:00 AM AMBULATORY - PSYCHIATRY [facility] May 10, 2023 09:00 AM AMBULATORY - NONE [facility] May 22, 2023 09:30 AM AMBULATORY - MEDICINE [facility] May 24, 2023 09:00 AM AMBULATORY - NONE [facility] Jun 04, 2023 09:30 AM [facility]ORY - MEDICINE [facility] June 07, 2023 09:00 AM AMBULATORY - NONE [facility] June 13, 2023 10:00 AM [facility] [place] [facility] June 14, 2023 09:00 AM AMBULATORY - NONE [facility] June 21, 2023 09:00 AM AMBULATORY - NONE [facility] June 28, 2023 09:00 AM AMBULATORY - NONE [facility] Jul 19, 2023 09:00 AM AMBULATORY - NONE [facility] Jul 26, 2023 09:00 AM AMBULATORY - NONE [facility] Aug 02, 2023 09:00 AM AMBULATORY - NONE [facility] Sep 03, 2023 09:00 [facility] Advance Directives: All historical and current Section Date Range: From patient's date of to the date document was created. This section includes ALL of a patient's completed or amended [place] Advance and Rescinded Directives. The entries below indicate that a directive exists for the patient, but an actual copy is not included with this document. The data comes from all [place] facilities. Date Advance Directives Provider Source Jan 26, 2020 ADVANCE DIRECTIVE DISCUSSION RIKA BIRD Encounter Notes: All associated encounter notes This section contains the clinical notes associated to the Encounter. Date/Time Encounter Note(s) Provider Source Mar 01, 2023 01:08 PM ADMINISTRATIVE NOT E: LOCAL TITLE: ADMINISTRATIVE NOTE STANDARD TITLE: ADMINISTRATIVE NOTE DATE OF NOTE: MAR 01, 2023@13:08 ENTRY DATE: MAR 01, 2023@13:08:34 AUTHOR: GREY MCFARLANE EXP COSIGNER: URGENCY: STATUS: COMPLETED This is a reminder call for your upcoming PCP appt with SAVAGE KEYES and the need for a lab appointment for bloodwork prior to your upcoming appt. Fasting blood work NON fasting blood work (X)NO BLOODWORK needed for appt Bloodwork already completed Action taken: [X] Called , left voice message Feb [ ] Called , unable to leave voice mail [ ] Spoke to /career development coordinator to remind them of upcoming appt/bloodwork Upcoming Appointments: 2023 09:30 CWM/SO/PACT 2 /es/ GREY PICKERING Signed: 03/01/2023 13:08 GREY MCFARLANE MIMS
--- OUTSIDE RECORDS SUMMARY | 2024-01-24 11:42 | XMS_ITS | Encounter Summary ---
Author Name [facility] Organization [facility] Address [address] [place] [id number] Care Team Providers Care Aircraft Armorer Name Role Phone RENNY PEREZ Primary Care Provider Unavailabl e Selected Encounter This section includes the information on record at [place] for the Encounter. Date/Time Encounter Type Encounter Description Reason Pro vider Source 2023 09:24 AM Outpatient Encounter PRIMARY CARE/MEDICINE I[facility] Encounter Template Text not used by [place] Plan of Treatment: Future Appointments (+ 6 months) and Future Tests (+/- 45 days) The Plan of Treatment section includes future care activities for the patient from all [place] treatmentfacilities. This section includes future appointments and future orders which are active, pending or scheduled. Future Appointments This section includes appointments that were scheduled to occur 6 months from the date of the Encounter, up to a maximum of 20 appointments. The data comes from all [place] treatment facilities. Appointment Date/Time Appointment Type Appointme nt Facility Name Apr 17, 2023 09:30 AM AMBULATORY - MEDICINE [facility] Apr 19, 2023 09:00 AM AMBULATORY - NONE [facility] Apr 24, 2023 10:00 AM AMBULATORY - PSYCHIATRY [facility] Apr 26, 2023 09:00 AM AMBULATORY - NONE [facility] May 01, 2023 09:00 AM AMBULATORY - PS[facility]CHIATRY [facility] May 03, 2023 09:00 AM AMBULATORY - NONE [facility] May 08, 2023 11:00 AM AMBULATORY - PSYCHIATRY [facility] May 10, 2023 09:00 AM AMBULATORY - NONE [facility] May 22, 2023 09:30 AM AMBULATORY - MEDICINE [facility] May 24, 2023 09:00 AM AMBULATORY - NONE [facility] Jun 04, 2023 09:30 AM [facility]ORY - MEDICINE [facility] June 07, 2023 09:00 AM AMBULATORY - NONE [facility] June 13, 2023 10:00 AM [facility] June 14, 2023 09:00 AM [...] 03, 2023 09:00 AM [facility] - [facility]IC[facility] Social History: Smoking Status (Most current) and Tobacco Use (All prior to encounter date) This section includes the most current, and the historical, smoking and tobacco- related health factors from the [place] facility where the Encounter took place. Current Smoking Status This section includes the most current smoking, or tobacco-related health factor, from the [place] facility where the Encounter took place. Date/Time Current Smoking Status Comment Lewis wise 2023 09:24 AM VA-TOBACCO NEVER USED [place] [facility] Tobacco Use History This section includes a history of the smoking, or tobacco-related health factors, that were collected on or before the date of the Encounter. The data comes from the [place] facility where the Encounter took place. Date/Time Smoking Status/Tobacco Use Comment F acility Mar 24, 2022 11:30 AM VA-TOBACCO FORMER USER [facility] Mar 24, 2022 11:30 AM VA-TOBACCO QUIT 15 YRS OR MORE [facility] Jul 12, 2020 08:00 AM VA-TOBACCO FORMER USER [facility] Jul 12, 2020 08:00 AM VA-TOBACCO QUIT 15 YRS OR MORE [facility] Feb 19, 2019 08:26 AM VA-TOBACCO FORMER USER [facility] Feb 19, 2019 08:26 AM VA-TOBACCO QUIT 15 YRS OR MORE [facility] Advance Directives: All historical and current Section Date Range: From patient's date of to the date document was created. This section includes ALL of a patient's completed or amended VA Advance and Rescinded Directives. The entries below indicate that a directive exists for the patient, but an actual copy is not included with this document. The data comes from all [place] facilities. Date Advance Directives Provider Source Jan 26, 2020 ADVANCE DIRECTIVE DISCUSSION RIKA BIRDFIELD Encounter Notes: All associated encounter notes This section contains the clinical notes associated to the Encounter. Date/Time Encounter Note(s) Provider Source 2023 09:24 AM TELEHEALTH NOTE: LOCAL TITLE: [place] [facility] CONNE[facility] PRIMARY CARE STANDARD TITLE: TELEHEALTH NOTE DATE OF NOTE: 2023@09:24 ENTRY DATE: 2023@09:24:50 AUTHOR: KRISTIN SMALL COSIGNER: URGENCY: STATUS: COMPLETED [facility] Connect (VVC) Standard Documentation VVC Clinician Resources Only: E911 (Emergency Call Relay Center): [phone] National [facility] Crisis Line - 988 then press #1. [facility] Suicide Coordinator - [phone], Ext. [phone]; Back-up Ext. [phone] [place] Police, Afshan CLARK - [phone] Introduction: Visit is being conducted by [place] [employer] [facility]. [place] identified with 2 identifiers: [X] Full Name [X] Date of [ ] VA ID Card Emergency Plan: [place] confirmed and/or provided the following information in case of emergency or technology failure. PATIENT PHONE - PHONE NUMBER [CELLULAR] - Is patient phone number correct, if not, enter below: 's phone number: [phone] [address] 's present location and address for appointment: [address] [place] [address] [place]'s emergency contact name and phone number: n/a [place] reported that location is private and safe: Yes Informed Consent: informed of the risks and benefits of Telehealth video care. has the right to refuse video services. If refuses video visit, a migu-st-maff visit will be scheduled. verbalized consent for this video visit: Yes [place] provided consent for any other persons present for visit: Yes If yes, who and relationship to patient: Secure visit: Visit was locked for security and privacy:Yes Vital Signs Visualized during video visit: Additional comment: Tobacco Pack Year History: Patient never smoked cigarettes or smoked FEWER THAN 100 cigarettes/lifetime Suicide Screen: C-SSRS Screening [place] Suicide Severity Rating Scale (C-SSRS) screener 1. Over the past month, have you wished you were or wished you could go to sleep and not wake up? No 2. Over the past month, have you had any actual thoughts of killing yourself? No 3. Over the past month, have you been thinking about how you might do this? Response not required due to responses to other questions. 4. Over the past month, have you had these thoughts and had some intention of acting on them? Response not required due to responses to other questions. 5. Over the past month, have you started to work out or worked out the details of how to kill yourself? Response not required due to responses to other questions. 6. If yes, at any time in the past month did you intend to carry out this plan? Response not required due to responses to other questions. 7. In your lifetime, have you ever done anything, started to do anything, or prepared to do anything to end your life (for example, collected pills, obtained a gun, gave away valuables, went to the roof but didn't jump)? No 8. If YES, was this within the past 3 months? Response not required due to responses to other questions. Depression Screening: Perform PHQ-2 A PHQ-2 screen was performed. The score was 0 which is a negative screen for depression. Over the past two weeks, how often have you been bothered by the following problems? 1. Little interest or pleasure in doing things Not at all 2. Feeling down, depressed, or hopeless Not at all Hepatitis B Serology/Immunization: see orders Tobacco Use Screening: The patient has never used tobacco. Influenza Immunization: Virtual/Telehealth Visit - Patient educated on the need for receiving influenza immunization either at [facility] or outside facility. Alcohol Use Screen (AUDIT-C): Alcohol Screen: SCREEN FOR ALCOHOL (AUDIT-C) An alcohol screening test (AUDIT-C) was negative (score=0). 1. How often did you have a drink containing alcohol in the past year? Consider a drink to be a 12 ounce can or bottle of regular beer, 8 ounces of malt liquor, a 5 ounce glass of table wine, or a 1.5 ounce shot of liquor (like scotch, gin, or vodka). Never 2. How many drinks containing alcohol did you have on a typical day when you were drinking in the past year? Response not required due to responses to other questions. 3. How often did you have six or more drinks on one occasion in the past year? Response not required due to responses to other questions. COVID-19 Immunization: Virtual/Telehealth Visit - Patient educated on the need for receiving COVID-19 (SARS-CoV-2) immunization either at [facility] or outside facility. Herpes Zoster (Shingles) Vaccine: Virtual/Telehealth Visit - Patient educated on the need for receiving Herpes Zoster (Shingles) immunization either at [facility] or outside facility. Sexual Orientation: The patient thinks of their sexual orientation as: Straight or Heterosexual /josé luis/ KRISTIN SMALL LPN LPN Signed: 2023 09:36 KRISTIN SMALLFIELD
--- OUTSIDE RECORDS SUMMARY | 2024-01-24 11:42 | XMS_ITS | Encounter Summary ---
Author Name [facility] Organization [facility] Address [address] [place] [address] Care Team Providers Care Jewel Hole Cornerer Name Role Phone RENNY PEREZ Primary Care Provider Unavailabl e Selected Encounter This section includes the information on record at [place] for the Encounter. Date/Time Encounter Type Encounter Description Reason Pro vider Source IHE Encounter Template Text not used by [place] Advance Directives: All historical and current Section [...]
--- OUTSIDE RECORDS SUMMARY | 2024-01-24 11:42 | XMS_ITS | Continuity of Care Document ---
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 ) obesity due to excess calorie s
LEIA PABON ADELINE R 06/06 [facility] TH V IVNTJ GRP EA ADDL [id number] [id number] Diagnos is: ICD-10- CM E66.01 Morbid (severe ) obesity due to excess calorie s
LEIA PABON ADELINE R 06/13 [facility] [place] [facility] BEHAVE COUNS 2-10 [id number] [id number] Diagnos is: ICD-10- CM E66.01 Morbid (severe ) obesity due to excess calorie s
MARTÍN SANDERSON ALYSA 06/20 [facility] [place] [facility] BEHAVE COUNS 2-10 [id number] [id number] 51 Diagnos is: ICD-10- CM E66.01 Morbid (severe ) obesity due to excess calorie s
COOPER ACOSTA GINNY 06/27 [facility] [place] [facility] HL[facility] V IVNTJ GRP 1ST 30 [id number] [id number] 53 Diagnos is: ICD-10- CM E66.01 Morbid (severe ) obesity due to excess calorie s
LEIA PABON R 07/18 [facility] [place] [facility] BEHAVE COUNS 2-10 [id number] [id number] Diagnos is: ICD-10- CM E66.01 Morbid (severe ) obesity due to excess calorie s
COOPER ACOSTA GINNY 07/25 [facility] HLTH BHV IVNTJ GRP EA ADDL [id number] [id number] Diagnos is: ICD-10- CM E66.9 Obesity , unspeci fied
LEIA PABON R 08/01 [facility] Outpatient Encounter [id number] 1.09/02 [facility] [place] [facility] OFFICE O/P EST MOD 30 MIN [id number] [id number] Diagnos is: ICD-10- CM I10 Essenti al (primar y) hyperte nsion<b r/> CRISTOFER PEREZ A 09/02 [facility] ELECTROCAR DIOGRAM REPORT [id number] Diagnos is: ICD-10- CM Z13.6 Encount er for screeni ng for cardiov ascular disorde rs
Calvin HELLER 09/02 [facility] Outpatient Encounter [id number] 09/09 [facility] [place] MTMS BY PHARM ADDL 15 MIN [id number] [id number] Diagnos is: ICD-10- CM E66.9 Obesity , unspeci fied
JULIA GARCIA IE 10/21 [place] [facility] QNHP OL DIG ASSMT&MGMT 12-25 [id number] [id number] Diagnos is: ICD-10- CM E66.9 Obesity , unspeci fied
AMBREEN,ALB ERT BRITTANEY 10/21 [facility] ([facility] [place] [facility] Outpatient Encounter [id number] 1.10/21 [facility] [place] [place] OFF/OP EST JUNE X REQ PHY/QHP [id number] [id number] Diagnos is: ICD-10- CM Z23 [facility] er for immuniz ation<b r/> FRED MICHEL 10/22 [facility] IELD [facility] MTMS BY PHARM ADDL 15 MIN 01562-9.63 1BY. 18 Diagnos is: ICD-10- CM E66.9 Obesity , unspeci fied
JOSE,JULIA IE 11/[place] [facility] [place] [facility] Outpatient Encounter [id number] 12/03 [facility] [place] [facility] [place] [facility] Outpatient Encounter [id number] 12/13 [facility] [facility] Procedures Combined list of: 1) Procedures from Department of Veterans Affairs facilities going back up to thelast 18 months, not all [place] non-surgical procedures are included; 2) All procedures from the Department of Defense facilities. Procedure Procedure Type Code Date Perfomer Comments Sourc e Skin Test Anergy Tuberculin Intradermal Skin Test Anergy Tuberculin Intradermal 26050 10/26/2005 LORI WISDOM DoD SKIN TEST; TUBERCULOSIS, INTRADERMAL 10/25/2005 [facility] SKIN TEST; TUBERCULOSIS, INTRADERMAL 10/23/2005 DoD Social History Combined list of available smoking, tobacco, and other social history from Department of Defense and Veterans Affairs facilities. Social History Type Response Date Comment Sourc e Tobacco smoking status [facility] VA-TOBACCO NEVER USED 2023 [facility] History of tobacco use AR-TOBACCO FORMER USER 03/24/2022 [facility] History of tobacco use AR-TOBACCO QUIT 15 YRS OR MORE 07[facility]12[facility] History of tobacco use AR-TOBACCO QUIT 15 YRS OR MORE 02/19/2019 [facility] This section is an empty social history section. [facility] Plan of Care List of future care activities from Department of Veterans Affairs facilities. Additional future care activities may be listed in the Assessment and Plan section. Date/Time Care Activity Care Activity Detail Facili ty 01/24/2024 AMBULATORY - MEDICINE AMBULATORY - MEDICI [facility] 02/07/2024 AMBULATORY - MEDICINE AM[facility]ULATORY - MEDICI [facility] Advance Directives List of completed, amended, or rescinded Advance Directives on record at Department of Veterans [facility] facilities. An actual copy of the Directive is not included. Date Advance Directive Provider Source 01/26/2020 [facility] DIRECTIVE DISCUSSION RIKA BIRD
--- NOTE | 2024-01-24 11:44 | A.OFFVIS_ITS ---
Vital Signs 3 01/24/24 11:47 Height 5 ft 9 in Weight 279 lb 15.793 oz BMI 41.3 BP 132/83 Blood Pressure Location Lt brachial Position Sitting Pulse 85 Intake Visit Reasons: Happy consult Intake Note: Patient in office today for colonoscopy screening. CC: Patient reports he had a hernia repair surgery last month at [facility]. He has never had a colonoscopy done. Denies other GI symptoms today. Educational Technology Coordinator Required: No Accompanied by: Self / Same As Patient Allergies Penicillins [PENICILLINS] Allergy (Severe, Verified 01/24/24 11:50) ANAPHYLAXIS HPI HPI Happy consult: Details: 48-year-old male here for preprocedural meeting to discuss a screening colonoscopy. He is referred by the [facility]. PMX PACHECO Sickle cell trait Hypertension * SURGICAL HISTORY Ventral hernia repair * ALLERGIES Penicillin * [employer] LABS: Laboratory Tests 12/20/23 13:17 WBC 8.3 Hgb 14.0 Hct 41.0 L MCV 91.1 MCH 31.1 Plt Count 217 Estimated GFR > 60 Total Bilirubin 0.8 Direct Bilirubin 0.2 AST 31 ALT 39 Alkaline Phosphatase 95 TODAY'S VISIT This is his first colonoscopy. He had a severe episode of obstipation after being on Wegovy and had to be rushed to surgery at [facility] r/t this and possible mesh adhesions s/o hernia repair. The mesh was removed. He obviously went of of Wegovy. There are no prior problems with anesthesia or sedation. He denies any cardiac or respiratory problems. No ID problems There is no known FHX of CRC or polyps. [facility] Medical History (Updated 01/24/24 @ 11:56 by SHARON Irving) Heartburn PACHECO (obstructive sleep apnea) Sickle cell trait Umbilical hernia Surgical History History of ventral hernia repair History of hernia surgery Social History Alcohol intake: current Alcohol intake frequency: holidays/special occasions only Patient Tobacco Use Status: Never used Tobacco Current occupational status: employed Current occupation: [employer]/ right hand Review of Systems Const Denies fatigue, Denies fever(s), Denies night sweats, Denies poor appetite and Denies weight loss ENT Reports Normal hearing present, Denies dental pain, Denies dysphagia, Denies hearing loss, Denies mouth pain, Denies odynophagia, Denies throat swelling, Denies tongue swelling and Reports other (Dentition adequate) Card Reports no additional complaints Resp Reports no additional complaints GI Details: Denies abdominal pain, Denies melena, Denies bloating, Denies hematochezia, Denies constipation, Denies GI cramping, Denies dysphagia, Denies excessive flatus, Denies early satiety, Denies heartburn, Denies diarrhea, Denies nausea, Denies odynophagia, Denies vomiting and Denies hematemesis Skin/Breast Denies pruritus, Denies lesions, Denies rash and Denies jaundice Neuro Reports Normal hearing present and Denies Abnormal speech present Endo Denies fatigue Aller/Immun Denies throat swelling and Denies tongue swelling Physical Exam Vital Signs: Last Vital Signs Pulse 85 01/24/24 11:47 BP 132/83 01/24/24 11:47 BMI result Body Mass Index 41.3 Const General: cooperative, no acute distress, well developed and well groomed Nutritional Appearance: well nourished and obese Orientation/consciousness: oriented to person, oriented to place and oriented to time Limitations: No language barrier HEENT Head: Yes normocephalic and Yes atraumatic Eyes General: appearance normal, both eyes and all related structures Pupils: Equal, round and reactive pupils present Neck Neck: Yes normal visual inspection and Yes no lymphadenopathy Thyroid: Thyroid normal Resp Effort & Inspection: normal respiratory effort and able to speak in complete sentences Auscultation: clear to auscultation bilaterally Cardio Rate: regular rate Rhythm: regular rhythm Heart sounds: Normal, physiologic split S2 sound present Peripheral pulses: radial pulses present and posterior tibial pulses present GI Inspection: No distended, Yes Abdominal panniculus present, Yes obesity and Yes scar Palpation (GI): Soft to palpation, nontender, no guarding, not rigid and No hepatosplenomegaly present Percussion: Yes normal to percussion Auscultation: normal bowel sounds Rectal Exam - Male: Yes deferred Abdomen image: 2 1. surgical scars 2. 3. Skin General skin exam: no rashes or lesions noted, turgor normal, skin not dry, no jaundice, No spider nevi and no striae Rashes: no rashes Nails: normal Neuro General: oriented to person, oriented to place and oriented to time Cranial nerves: Yes Equal, round and reactive pupils present and Yes Normal hearing present Speech: No Abnormal speech present Extrem General: Yes normal to inspection, No clubbing, No cyanosis and No edema Psych Appearance: grossly normal and well kempt Mental Status: mental status grossly normal Speech and movement: Normal speech and movement present Affect: normal affect Attitude: cooperative Thought process: Normal thought process present and not confabulating Thought content: Normal thought content present Insight: Good insight present (Psych) Judgement: Good judgement present (Psych) Assessment & Plan Assessment & Plan (1) Pre-op examination: Code(s): Z01.818 - Encounter for other preprocedural examination Category: Medical (2) PACHECO (obstructive sleep apnea): Comment: 2020- tested Code(s): G47.33 - Obstructive sleep apnea (adult) (pediatric) Category: Medical Plan This is his first colonoscopy. He had a severe episode of obstipation after being on Wegovy and had to be rushed to surgery at [facility] r/t this and possible mesh adhesions s/o hernia repair. The mesh was removed. He obviously went of of Wegovy. There are no prior problems with anesthesia or sedation. He denies any cardiac or respiratory problems. He has a PACHECO that is well controlled. No ID problems There is no known FHX of CRC or polyps. Orders: Orders 2 Colonoscopy - GI Use Only Today Z01.818 - Encounter for other preprocedural examination Medications: New 2 bisacodyl (Dulcolax (bisacodyl)) 10 mg (2 x 5 mg) PO BEDTIME 4 tabs 0RF 2 days Coding Level of Care Code New Pt Level 3 (38820) Diagnoses Pre-op examination Z01.818 PACHECO (obstructive sleep apnea) G47.33
--- OUTSIDE RECORDS SUMMARY | 2024-01-24 11:44 | XMS_ITS | Encounter Summary ---
Author Name [facility] [place] Address [address] [place] [address] Care Team Providers Care Garbage Collection Supervisor Name Role Phone RENNY PEREZ Primary Care Provider Unavailabl e Selected Encounter This section includes the information on record at [place] for the Encounter. Date/Time Encounter Type Encounter Description Reason Pro vider Source Apr 06, 2023 10:31 AM Outpatient Encounter PRIMARY CARE/MEDICINE IHE Encounter Template Text not used by [place] [...] 17, 2023 09:30 AM AMBULATORY - MEDICINE [facility] Apr 19, 2023 09:00 AM AMBULATORY - NONE [facility] Apr 24, 2023 10:00 AM AMBULATORY - PSYCHIATRY [facility] Apr 26, 2023 09:00 AM AMBULATORY - NONE [facility] May 01, 2023 09:00 AM AMBULATORY - PSYCHIATRY [facility] May 03, 2023 09:00 AM AMBULATORY - NONE [facility] May 08, 2023 11:00 AM AMBULATORY - PS[facility]CHIATRY [facility] May 10, 2023 09:00 AM AMBULATORY - NONE [facility] May 22, 2023 09:30 AM AMBULATORY - MEDICINE [facility] May 24, 2023 09:00 AM AMBULATORY - NONE [facility] Jun 04, 2023 09:30 AM AMBULATORY - MEDICINE [facility] June 07, 2023 09:00 AM AMBULATORY - NONE [facility] June 13, 2023 10:00 AM AMBULATORY - PSYCHIATRY [facility] June 14, 2023 09:00 AM AMBULATORY - [...] 2023 09:00 AM AM[facility]ULATORY - MEDICINE [facility] Lab Results: +/- 30 days of the encounter This section includes the Chemistry and Hematology Lab Results on record with [place] for the patient. Radiology Reports and Pathology Reports are provided separately, in subsequent sections. Lab Results This section contains the Chemistry/Hematology Results that were resulted 30 days before or 30 daysafter the date of the Encounter. Date/Time Source Result Type Result - Unit Interpretation Reference Range Comment Apr 10, 2023 08:10 AM [facility] HEPATITIS B SURFACE ANTIBODY (HBsAb)-WH Specimen Type: SERUM No comment entered. Ordering Provider: SAVAGE KEYES Report Released Date/Time: 2023 10:10 AM Reporting Lab: [address] [address] Performing Lab: [address] [address] HBsAb Non Reactive Non Reactive Apr 10, 2023 08:10 AM [facility] LIPID PANEL, NON FASTING Specimen Type: SERUM No comment entered. Ordering Provider: SAVAGE KEYSE Report Released Date/Time: 2023 10:10 AM Reporting Lab: [address] [address] Performing Lab: [facility] [address] [address] CHOLESTEROL 191 mg/dL TRIGLYCERIDE 136 mg/dL 0-150 LDL calculated 130 mg/dL H 0-129 CHOL/HDL 5.6 HDL CHOLESTEROL 34 mg/dL L 40-60 Apr 10, 2023 08:10 AM [place] TSH Specimen Type: SERUM No comment entered. Ordering Provider: SAVAGE KEYES Report Released Date/Time: 2023 10:10 AM Reporting Lab: [facility] [address] [address] Performing Lab: [facility] [address] [address] TSH 1.38 u[IU]/mL 0.35-5.00 Apr 10, 2023 08:10 AM [facility] HEMOGLOBIN A1C PANEL Specimen Type: BLOOD Comment: Values obtained from A1C measurements can vary. For atypical A1C assays, a reported value of 7.0 could actually be between 6.72 and 7.28 if measured by a reference method. A reported value of 9.0 could actually be between 8.73 and 9.27. Ref: http://www.ngs p.org/CAPdata. asp Ordering Provider: SAVAGE KEYES Report Released Date/Time: 2023 10:10 AM Reporting Lab: [facility] [address] [address] Performing Lab: [address] [address] HEMOGLOBIN A1C 5.0 4.0-5.6 Apr 10, 2023 08:10 AM [place] VITAMIN D (25-OH) Specimen Type: SERUM No comment entered. Ordering Provider: SAVAGE KEYES Report Released Date/Time: 2023 10:10 AM Reporting Lab: [facility] [address] [address] Performing Lab: [address] [address] VITAMIN D (25-OH) 21 ng/mL 20-50 Apr 10, 2023 08:10 AM [facility] CBC Specimen Type: BLOOD No comment entered. Ordering Provider: SAVAGE KEYES Report Released Date/Time: 2023 10:10 AM Reporting Lab: [facility] [address] [facility] [address] Performing Lab: [address] [address] WBC 7.74 10*3/uL 4.50-11.00 RBC 4.53 10*6/uL 4.23-5.66 HGB 13.8 g/dL 12.8-17 HCT 41.2 39.2-50.4 MCV 90.9 fL 82-99 MCHC 33.5 g/dL 30.8-35.1 PLT 221 10*3/uL 140-360 RDW-CV 12.1 12.0-16.0 MCH 30.5 pg 26.2-32.6 Apr 10, 2023 08:10 AM [place] LIVER FUNCTION Specimen Type: SERUM No comment entered. Ordering Provider: SAVAGE KEYES Report Released Date/Time: 2023 10:10 AM Reporting Lab: [address] [address] Performing Lab: [address] [address] PROTEIN,TOTAL 7.5 g/dL 6.0-8.3 ALBUMIN 3.8 g/dL 3.5-5.0 ALKALINE PHOSPHATASE 70 U/L 40-150 AST 15 U/L 5-34 ALT 18 U/L BILIRUBIN, TOTAL 0.6 mg/dL 0.2-1.2 Apr 10, 2023 08:10 AM [place] PSA Specimen Type: SERUM No comment entered. Ordering Provider: SAVAGE KEYES Report Released Date/Time: 2023 10:19 AM Reporting Lab: [facility] [address] [address] Performing Lab: [address] [address] PSA 0.83 ng/mL 0.00-4.00 Apr 10, 2023 08:10 AM [place] BASIC METABOLIC PANEL (non-fasting) Spe cimen Type: SERUM No comment entered. Ordering Provider: SAVAGE KEYES Report Released Date/Time: 2023 10:10 AM Reporting Lab: [facility] [address] [facility] [address] Performing Lab: [place] [facility] [address] [facility] [address] UREA NITROGEN 17 mg/dL 7-25 GLUCOSE 84 mg/dL 65-100 SODIUM 137 mmol/L 135-145 POTASSIUM 4.1 mmol/L 3.5-5.0 CHLORIDE 104 mmol/L 100-110 CO2 24 meq/L 20-30 CREATININE, Serum 1.15 mg/dL 0.50-1.40 eGFR(CKD-EPI 2020) 78 mL/min >60 Social History: Smoking Status (Most current) and Tobacco Use (All prior to encounter date) This section includes the most current, and the historical, smoking and tobacco- related health factors from the [place] facility where the Encounter took place. Current Smoking Status This section includes the most current smoking, or tobacco-related health factor, from the [place] facility where the Encounter took place. Date/Time Current Smoking Status Comment Lewis wise 2023 09:24 AM VA-TOBACCO NEVER USED [facility] Tobacco Use History This section includes a history of the smoking, or tobacco-related health factors, that were collected on or before the date of the Encounter. The data comes from the [place] facility where the Encounter took place. Date/Time Smoking Status/Tobacco Use Comment F acility Mar 24, 2022 11:30 AM VA-TOBACCO FORMER USER [place] [facility] [place] [facility] Mar 24, 2022 11:30 AM VA-TOBACCO QUIT 15 YRS OR MORE [facility] [place] [facility] Jul 12, 2020 08:00 AM VA-TOBACCO FORMER USER [place] [facility] [place] [facility] Jul 12, 2020 08:00 AM VA-TOBACCO QUIT 15 YRS OR MORE [facility] [place] [facility] Feb 19, 2019 08:26 AM VA-TOBACCO FORMER USER [place] [facility] [place] [facility] Feb 19, 2019 08:26 AM VA-TOBACCO QUIT [address]RS OR [address] [facility] Advance Directives: All historical [...] 26, 2020 ADVANCE DIRECTIVE DISCUSSION RIKA BIRD [place] Encounter Notes: All associated encounter notes This section contains the clinical notes associated to the Encounter. Date/Time Encounter Note(s) Provider Source Apr 06, 2023 10:40 AM PRIMARY CARE SECUR E MESSAGING: LOCAL TITLE: PRIMARY CARE SECURE MESSAGING STANDARD TITLE: PRIMARY CARE SECURE MESSAGING DATE OF NOTE: APR 06, 2023@10:40 ENTRY DATE: APR 06, 2023@10:40:52 AUTHOR: GREY MCFARLANE EXP COSIGNER: URGENCY: STATUS: COMPLETED ------Original Message -------- Sent: 04/06/2023 10:40 AM ET From: GREY MCFARLANE To: NO DELGADO Subject: Appointment:Blood work, blood pressure Good morning Mr. Delgado, The orders for bloodwork are in the computer. Appts at the lab are not required. The lab is open from 730 am to 1430 pm Sun thru Sunday. You can come in when it is convenient for you. I did just send you a letter to call the office, so when you receive it just disregard it. You need to schedule a nurse visit anytime after you get your labs done. You can just go to the senior front end web developer after your labs and someone can schedule for you. Dr. Keyes wants you to schedule a follow up to see her the end of May, beginning of June. Please feel free to reach out to me if you have any questions. Have a nice weekend Chad / Children'S Minister /josé luis/ GREY PICKERING Signed: 04/06/2023 10:40 Receipt Acknowledged By: 04/13/2023 12:21 /es/ KRISTIN SMALL LPN LPN 04/06/2023 11:04 /es/ Michelle Stiles RN Registered Nurse (RN) for SUHAIL [place]Y [place] [facility] Apr 06, 2023 10:31 AM PRIMARY CARE SECUR E MESSAGING: [facility] TITLE: PRIMARY CARE SECURE MESSAGING STANDARD TITLE: PRIMARY CARE SECURE MESSAGING DATE OF NOTE: APR 06, 2023@10:31 ENTRY DATE: APR 06, 2023@10:31:01 AUTHOR: GREY MCFARLANE EXP COSIGNER: URGENCY: STATUS: COMPLETED ------Original Message -------- Sent: 04/06/2023 10:21 AM ET From: NO DELGADO To: Marilou KEYES_PRIMARY CARE_[facility] Subject: Appointment:Blood work, blood pressure I am sorry. I was under the impression that I was supposed to wait for someone to call me for the blood work. Between that and stress with my wifes immigration stuff and a bunch of extremely stressful things happening I completely forgot to use the secure messaging. My apologies. I tried calling back the person that called me but nobody is picking up so I'm using this as an alternative to reach out to make an appointment. /josé luis/ GREY MCFARLANE AMSA Signed: 04/06/2023 10:31 Receipt Acknowledged By: 04/13/2023 12:19 /es/ KRISTIN SMALL LPN LPN 04/06/2023 11:04 /es/ Michelle Stiles RN Registered Nurse (RN) for GREY LANDEROS [facility]
--- OUTSIDE RECORDS SUMMARY | 2024-01-24 11:44 | XMS_ITS | Encounter Summary ---
Author Name [place] Address [address] [place] [address] Care Team Providers Care Waiter/Waitress Bar Name Role Phone RENNY PEREZ Primary Care Provider Unavailabl e Selected Encounter This section includes the information on record at [place] for the Encounter. Date/Time Encounter Type Encounter Description Reason Pro vider Source Apr 05, 2023 03:17 PM Outpatient Encounter PRIMARY CARE/MEDICINE IHE Encounter Template Text not used by [place] Plan of Treatment: Future Appointments (+ 6 months) and Future Tests (+/- 45 days) The Plan of Treatment section includes future care activities for the patient from all [place] treatmentfacilities. This section includes future appointments and future orders which are active, pending or scheduled. Future Appointments This section includes appointments that were scheduled to occur 6 months from the date of the Encounter, up to a maximum of 20 appointments. The data comes from all [place] treatment facilities. Appointment Date/Time Appointment Type Appointme nt Facility Name Apr 17, 2023 09:30 AM AMBULATORY - MEDICINE [facility] Apr 19, 2023 09:00 AM AMBULATORY - NONE [facility] Apr 24, 2023 10:00 AM AMBULATORY - PSYCHIATRY [facility] Apr 26, 2023 09:00 AM AMBULATORY - NONE [facility] May 01, 2023 09:00 AM AMBULATORY - PS[facility]CHIATRY [facility] May 03, 2023 09:00 AM AMBULATORY - NONE [facility] May 08, 2023 11:00 AM AMBULATORY - PSYCHIATRY [facility] May 10, 2023 09:00 AM AMBULATORY - NONE [facility] May 22, 2023 09:30 AM AMBULATORY - MEDICINE [facility] May 24, 2023 09:00 AM AMBULATORY - NONE [facility] Jun 04, 2023 09:30 AM AMBULATORY - MEDICINE [facility] June 07, 2023 09:00 AM AMBULATORY - NONE [facility] June 13, 2023 10:00 AM [facility] June 14, 2023 09:00 AM AMBULATORY - [...] 2023 09:00 AM [facility]ULATORY [facility] Lab Results: +/- 30 days of the encounter This section includes the Chemistry and Hematology Lab Results on record with [place] for the patient. Radiology Reports and Pathology Reports are provided separately, in subsequent sections. Lab Results This section contains the Chemistry/Hematology Results that were resulted 30 days before or 30 daysafter the date of the Encounter. Date/Time Source Result Type Result - Unit Interpretation Reference Range Comment Apr 10, 2023 08:10 AM [place] HEPATITIS B SURFACE ANTIBODY (HBsAb)-[facility] Specimen Type: SERUM No comment entered. Ordering Provider: SAVAGE KEYES Report Released Date/Time: 2023 10:10 AM Reporting Lab: [facility] [address] [address] Performing Lab: [address] [address] HBsAb Non Reactive Non Reactive Apr 10, 2023 08:10 AM [place] TSH Specimen Type: SERUM No comment entered. Ordering Provider: SAVAGE KEYES Report Released Date/Time: 2023 10:10 AM Reporting Lab: [address] [address] Performing Lab: [address] [place] [address] TSH 1.38 u[IU]/mL 0.35-5.00 Apr 10, 2023 08:10 AM [place] LIPID PANEL, NON FASTING Specimen Type: SERUM No comment entered. Ordering Provider: SAVAGE KEYES Report Released Date/Time: 2023 10:10 AM Reporting Lab: [address] [address] Performing Lab: [address] [address] CHOLESTEROL 191 mg/dL TRIGLYCERIDE 136 mg/dL 0-150 LDL calculated 130 mg/dL H 0-129 CHOL/HDL 5.6 HDL CHOLESTEROL 34 mg/dL L 40-60 Apr 10, 2023 08:10 AM [place] VITAMIN D (25-OH) Specimen Type: SERUM No comment entered. Ordering Provider: SAVAGE KEYES Report Released Date/Time: 2023 10:10 AM Reporting Lab: [address] [address] Performing Lab: [address] [address] VITAMIN D (25-OH) 21 ng/mL 20-50 Apr 10, 2023 08:10 AM [place] HEMOGLOBIN A1C PANEL Specimen Type: BLOOD Comment: [...] Released Date/Time: 2023 10:10 AM Reporting Lab: [address] [address] Performing Lab: [place] [id number] HEMOGLOBIN A1C 5.0 4.0-5.6 Apr 10, 2023 08:10 AM [place] LIVER FUNCTION Specimen Type: SERUM No comment entered. Ordering Provider: SAVAGE KEYES Report Released Date/Time: 2023 10:10 AM Reporting Lab: [address] [address] Performing Lab: [address] [address] PROTEIN,TOTAL 7.5 g/dL 6.0-8.3 ALBUMIN 3.8 g/dL 3.5-5.0 ALKALINE PHOSPHATASE 70 U/L 40-150 AST 15 U/L 5-34 ALT 18 U/L BILIRUBIN, TOTAL 0.6 mg/dL 0.2-1.2 Apr 10, 2023 08:10 AM [place] CBC Specimen Type: BLOOD No comment entered. Ordering Provider: SAVAGE KEYES Report Released Date/Time: 2023 10:10 AM Reporting Lab: [address] [address] Performing Lab: [address] [address] WBC 7.74 10*3/uL 4.50-11.00 RBC 4.53 10*6/uL 4.23-5.66 HGB 13.8 g/dL 12.8-17 HCT 41.2 39.2-50.4 MCV 90.9 fL 82-99 MCHC 33.5 g/dL 30.8-35.1 PLT 221 10*3/uL 140-360 RDW-CV 12.1 12.0-16.0 MCH 30.5 pg 26.2-32.6 Apr 10, 2023 08:10 AM [facility] PSA Specimen Type: SERUM No comment entered. Ordering Provider: SAVAGE KEYES Report Released Date/Time: 2023 10:19 AM Reporting Lab: [address] [address] Performing Lab: [address] [address] PSA 0.83 ng/mL 0.00-4.00 Apr 10, 2023 08:10 AM [place] BASIC METABOLIC PANEL (non-fasting) Spe cimen Type: SERUM No comment entered. Ordering Provider: SAVAGE KEYES Report Released Date/Time: 2023 10:10 AM Reporting [facility]: [facility] [address] [facility] [address] Performing Lab: [place] [facility] [address] [facility] [address] UREA NITROGEN 17 mg/dL 7-25 GLUCOSE 84 [...] and tobacco- related health factors from the [place] facility where the Encounter took place. Current Smoking Status This section includes the most current smoking, or tobacco-related health factor, from the [place] facility where the Encounter took place. Date/Time Current Smoking Status Comment Lewis ity 2023 09:24 AM VA-TOBACCO NEVER USED [facility] Tobacco Use History This section includes a history of the smoking, or tobacco-related health factors, that were collected on or before the date of the Encounter. The data comes from the [place] facility where the Encounter took place. Date/Time Smoking Status/Tobacco Use Comment F acility Mar 24, 2022 11:30 AM VA-TOBACCO FORMER USER [place] [facility] [place] [facility] Mar 24, 2022 11:30 AM VA-TOBACCO QUIT 15 YRS OR MORE [place] [facility] [place] [facility] Jul 12, 2020 08:00 AM VA-TOBACCO FORMER USER [place] [facility] [place] [facility] Jul 12, 2020 08:00 AM VA-TOBACCO QUIT 15 YRS OR MORE [place] [facility] [place] [facility] Feb 19, 2019 08:26 AM VA-TOBACCO FORMER USER [place] [facility] [place] [facility] Feb 19, 2019 08:26 AM VA-TOBACCO QUIT 15 YRS OR MORE [facility] Advance Directives: All historical and current Section Date Range: From patient's date of to the date document was created. This section includes ALL of a patient's completed or amended [place] Advance and Rescinded Directives. The entries below indicate that a directive exists for the patient, but an actual copy is not included with this document. The data comes from all [place] facilities. Date Advance Directives Provider Source Jan 26, 2020 ADVANCE DIRECTIVE DISCUSSION RIKA BIRD [place] Encounter Notes: All associated encounter notes This section contains the clinical notes associated to the Encounter. Date/Time Encounter Note(s) Provider Source Apr 05, 2023 03:19 PM LETTERS: LOCAL TITLE: PATIENT LETTER (T) STANDARD TITLE: LETTERS DATE OF NOTE: APR 05, 2023@15:19 ENTRY DATE: APR 05, 2023@15:19:56 AUTHOR: GREY MCFARLANE COSIGNER: URGENCY: STATUS: COMPLETED [facility] Toll Free Number Primary Care Telephone Assistance can be reached at extension [phone] [facility] scheduling can be reached at extension [phone] [facility] scheduling can be reached at ext [phone] [place] [address], [address] Date: 04/05/2023 Dear Kimball: LEX Thank you for choosing [facility] as your primary choice for health care. As a partner in your health care, we are attempting to contact you because we have been unsuccessful in reaching you by phone. WE ARE ATTEMPTING TO REACH YOU TO SCHEDULE A NURSING APPOINTMENT SOON, AND A FOLLOW UP WITH YOUR PROVIDER FOR THE END OF MAY. We want to assure you that we are doing everything possible to schedule veterans for their appointments. Please call us at [phone] to speak with a staff member who can assist you with SCHEDULING your appointment. Thank you for your service and we look forward to hearing from you soon. Sincerely; [facility] staff Primary Care Provider : SAVAGE KEYES M.D. [address] [place] [address] [phone] Sincerely, Your Primary Care Team [facility] [address] [address] [place] [address] [phone] [facility] [address] [place] [address] [place] [address] [phone] [facility] [address] [facility] [place] [address] [place] [address] GREY MCFARLANE JERONIMO Apr 05, 2023 03:17 PM ADMINISTRATIVE NOT E: LOCAL TITLE: ADMINISTRATIVE NOTE STANDARD TITLE: ADMINISTRATIVE NOTE DATE OF NOTE: APR 05, 2023@15:17 ENTRY DATE: APR 05, 2023@15:17:56 AUTHOR: GREY MCFARLANE EXP COSIGNER: URGENCY: STATUS: COMPLETED AMSA unable to reach the . Left message on voicemail to contact PC. Per RTC's, needs to schedule a nurse visit now, and a follow up with the Provider for the end of May. Letter sent to the . /josé luis/ GREY PICKERING Signed: 04/05/2023 15:19 GREY MCFARLANE JERONIMO
--- OUTSIDE RECORDS SUMMARY | 2024-01-24 11:45 | XMS_ITS | Encounter Summary ---
Author Name [facility] [place] [facility] [place] [facility] [place] Address [address] [place] [id number] Care Team Providers Care Cellar Supervisor Name Role Phone RENNY PEREZ Primary Care Provider Dung e Selected Encounter This section includes the information on record at [place] for the Encounter. Date/Time Encounter Type Encounter Description Reason Provider Source Apr 26, 2023 09:00 AM GROUP BEHAVE COUNS 2-10 WEIGHT MGMT & MOVE! PROG - GRP ICD-10-CM E66.01 Morbid (severe) obesity due to excess calories JUAN M ACOSTA Encounter Template Text not used by [place] Assessments - Encounter Diagnoses This section includes the primary and secondary diagnoses documented for the Encounter. Date/Time Primary/Secondary Diagnosis Diagnosis Name Provider Source Apr 27, 2023 02:30 PM PRIMARY Morbid (severe) obesity due to excess calories JUAN M ACOSTA CBELDER Apr 27, 2023 02:30 PM SECONDARY Body mass index [BMI] 40.0-44.9, adult JUAN M ACOSTA CBELDER Plan of Treatment: Future Appointments (+ 6 months) and Future Tests (+/- 45 days) The Plan of Treatment section includes future care activities for the patient from all [place] treatmentfacilities. This section includes future appointments and future orders which are active, pending or scheduled. Future Appointments This section includes appointments that were scheduled to occur 6 months from the date of the Encounter, up to a maximum of 20 appointments. The data comes from all [place] treatment facilities. Appointment Date/Time Appointment Type Appointme nt Facility Name May 01, 2023 09:00 AM AMBULATORY - PS[facility]ATRY [facility] May 03, 2023 09:00 AM AMBULATORY - NONE [facility] May 08, 2023 11:00 AM AMBULATORY - PSYCHIATRY [facility] May 10, 2023 09:00 AM AMBULATORY - NONE [facility] May 22, 2023 09:30 AM [facility] May 24, 2023 09:00 AM AMBULATORY - NONE [facility] Jun 04, 2023 09:30 AM [facility] June 07, 2023 09:00 AM AMBULATORY - NONE [facility] June 13, 2023 10:00 [facility] June 14, 2023 09:00 AM [...] 2023 09:00 AM [facility] Oct 22, 2023 10:00 AM [facility] Oct 23, 2023 09:30 AM [facility] Lab Results: +/- 30 days of the encounter This section includes the Chemistry and Hematology Lab Results on record with [place] for the patient. Radiology Reports and Pathology Reports are provided separately, in subsequent sections. Lab Results This section contains the Chemistry/Hematology Results that were resulted 30 days before or 30 daysafter the date of the Encounter. Date/Time Source Result Type Result - Unit Interpretation Reference Range Comment Apr 10, 2023 08:10 AM [place] HEPATITIS B SURFACE ANTIBODY (HBsAb)- Specimen Type: SERUM No comment entered. Ordering Provider: SAVAGE KEYES Report Released Date/Time: 2023 10:10 AM Reporting Lab: [facility] [address] [address] Performing Lab: [facility] [place] [address] HBsAb Non Reactive Non Reactive Apr 10, 2023 08:10 AM [place] TSH Specimen Type: SERUM No comment entered. Ordering Provider: SAVAGE KEYES Report Released Date/Time: 2023 10:10 AM Reporting Lab: [address] [address] Performing Lab: [address] [address] TSH 1.38 u[IU]/mL 0.35-5.00 Apr 10, 2023 08:10 AM [place] LIPID PANEL, NON FASTING Specimen Type: SERUM No comment entered. Ordering Provider: SAVAGE KEYES Report Released Date/Time: 2023 10:10 AM Reporting Lab: [address] [address] Performing Lab: [address] [address] CHOLESTEROL 191 mg/dL TRIGLYCERIDE 136 mg/dL 0-150 LDL calculated 130 mg/dL H 0-129 CHOL/HDL 5.6 HDL CHOLESTEROL 34 mg/dL L 40-60 Apr 10, 2023 08:10 AM [place] HEMOGLOBIN A1C PANEL Specimen Type: BLOOD Comment: [...] Released Date/Time: 2023 10:10 AM Reporting Lab: [address] [address] Performing Lab: [address] [address] HEMOGLOBIN A1C 5.0 4.0-5.6 Apr 10, 2023 08:10 AM [place] VITAMIN D (25-OH) Specimen Type: SERUM No comment entered. Ordering Provider: SAVAGE KEYES Report Released Date/Time: 2023 10:10 AM Reporting Lab: [facility] [address] [address] Performing Lab: [address] [address] VITAMIN D (25-OH) 21 ng/mL 20-50 Apr 10, 2023 08:10 AM [place] LIVER FUNCTION Specimen Type: SERUM No comment entered. Ordering Provider: SAVAGE KEYES Report Released Date/Time: 2023 10:10 AM Reporting Lab: [facility] [address] [address] Performing Lab: [address] [address] PROTEIN,TOTAL 7.5 g/dL 6.0-8.3 ALBUMIN 3.8 g/dL 3.5-5.0 ALKALINE PHOSPHATASE 70 U/L 40-150 AST 15 U/L 5-34 ALT 18 U/L BILIRUBIN, TOTAL 0.6 mg/dL 0.2-1.2 Apr 10, 2023 08:10 AM [place] CBC Specimen Type: BLOOD No comment entered. Ordering Provider: SAVAGE KEYES Report Released Date/Time: 2023 10:10 AM Reporting Lab: [place] SHARAD NANCY [address] [address] Performing Lab: [facility] [address] [address] WBC 7.74 10*3/uL 4.50-11.00 RBC 4.53 10*6/uL 4.23-5.66 HGB 13.8 g/dL 12.8-17 HCT 41.2 39.2-50.4 MCV 90.9 fL 82-99 MCHC 33.5 g/dL 30.8-35.1 PLT 221 10*3/uL 140-360 RDW-CV 12.1 12.0-16.0 MCH 30.5 pg 26.2-32.6 Apr 10, 2023 08:10 AM [place] PSA Specimen Type: SERUM No comment entered. Ordering Provider: SAVAGE KEYES Report Released Date/Time: 2023 10:19 AM Reporting Lab: [facility] [address] [address] Performing Lab: [facility] [address] [facility] [address] PSA 0.83 ng/mL 0.00-4.00 Apr 10, 2023 08:10 AM [place] BASIC METABOLIC PANEL (non-fasting) Spe cimen Type: SERUM No comment entered. Ordering Provider: SAVAGE KEYES Report Released Date/Time: 2023 10:10 AM Reporting Lab: [facility] [address] [address] Performing Lab: [address] [address] UREA NITROGEN 17 mg/dL 7-25 GLUCOSE 84 mg/dL 65-100 SODIUM 137 mmol/L 135-145 POTASSIUM 4.1 mmol/L 3.5-5.0 CHLORIDE 104 mmol/L 100-110 CO2 24 meq/L 20-30 CREATININE, Serum 1.15 mg/dL 0.50-1.40 eGFR(CKD-EPI 2020) 78 mL/min >60 Vital Signs: All taken on the encounter date This section contains inpatient and outpatient Vital Signs collected on the date of the Encounter. Date/Time Temperature Pulse Blood Pressure Respiratory Rate SP02 Pain Height Weight Body Mass Index Source Apr 26, 2023 09:00 AM 290.7 [facility] Advance Directives: All historical and current Section Date Range: From patient's date of to the date document was created. This section includes ALL of a patient's completed or amended [place] Advance and Rescinded Directives. The entries below indicate that a directive exists for the patient, but an actual copy is not included with this document. The data comes from all [place] facilities. Date Advance Directives Provider Source Jan 26, 2020 ADVANCE DIRECTIVE DISCUSSION RIKA BIRD [place] Encounter Notes: All associated encounter notes This section contains the clinical notes associated to the Encounter. Date/Time Encounter Note(s) Provider Source Apr 26, 2023 09:00 AM MOVE NOTE: LOCAL TITLE: WEIGHT MANAGEMENT/MOVE! OUTPATIENT GROUP NOTE STANDARD TITLE: MOVE NOTE DATE OF NOTE: APR 26, 2023@09:00 ENTRY DATE: APR 27, 2023@15:01:45 AUTHOR: KARLA,FRED GINNY EXP COSIGNER: URGENCY: STATUS: COMPLETED Veterans participated in MOVE! Group Counseling via [facility] on: 04/26/2023 The [place] was provided with information on [facility] and has given verbal consent to use group [facility] services for their healthcare. The copy of the Group Telehealth Agreement has been mailed to the [place]. The 's location/emergency contact number were confirmed. The Emergency Call Relay Center (E911) was available. The visit was locked for security and privacy. identified with 2 identifiers: [x] Full Name [x] Address Veterans attended the 60-minute MOVE! group session on this date via [facility] or by phone. MOVE! is a program designed to provide education about weight management skills to overweight and obese veterans. Group members submitted their stated weights to the group facilitators. The group facilitators began the session by reviewing the previous weeks topic (Orientation). Participants were asked to share their respective progress toward achieving their respective goals and to share their experiences with keeping a food and physical activity log over the past week. Positive feedback was given to the Veterans for their efforts. Session #2 (Tracking What You Do) was then conducted using the MOVE! Workbook and additional handouts. Education was provided on Stoplight foods. Intake of Red light foods (foods high in fat/sugar and low in nutrients) were discouraged, Yellow light foods were encouraged in moderation and Green light foods (foods low in calories but high in nutrients) were highly encouraged. The importance of self- monitoring or tracking dietary intake and physical activity throughout the MOVE! Program was covered. The MOVE! Food and Physical Activity Log was reviewed, and Veterans learned how to complete the various sections. Finally, the use of rewards to celebrate successes was discussed. The objective accomplished at todays session were: 1. Describe the purpose of tracking. 2. Assist Veterans in tracking what they eat and drink. 3. Assist Veterans in tracking their activity. 4. Introduce basic dietary recommendations for weight loss and health Additional Materials Provided by Mail Prior to Class: Stoplight (Red, Yellow, Green Light) Foods Participants were asked to set one healthy eating and physical activity goal to work on this week, continue recording weight daily, to log all food and beverages consumed daily, and to also log all physical activities daily. They were instructed to continue to bring their completed Food and Physical Activity Logs to every session. The next [facility] MOVE! group meeting will be held on 05/03/2023. Today's Weight: 290.7 lb Weight Loss of -1.0 lb from last visit Dx: Morbid Obesity E66.01, Z68.41 /es/ FRED ACOSTA, RD, LDN Staff Dietitian Signed: 04/27/2023 15:08 Receipt Acknowledged By: 04/27/2023 15:17 /es/ NATI PABON, PHD PSYCHOLOGIST KARLA,FRED [facility]
--- OUTSIDE RECORDS SUMMARY | 2024-01-24 11:45 | XMS_ITS | Encounter Summary ---
Author Name [facility] [place] [facility] [place] Address [address] [place] [id number] Care Team Providers Care Culinary Director Name Role Phone RENNY PEREZ Primary Care Provider Unavailabl e Selected Encounter This section includes the information on record at [place] for the Encounter. Date/Time Encounter Type Encounter Description Reason Provider Source May 22, 2023 09:30 AM OFF/OP EST JUNE X REQ PHY/QHP PRIMARY CARE/MEDICINE ICD-10-CM Z23 Encounter for immunization COOPER MICHEL Encounter Template Text not used by [place] Assessments - Encounter Diagnoses This section includes the primary and secondary diagnoses documented for the Encounter. Date/Time Primary/Secondary Diagnosis Diagnosis Name Provider Source May 22, 2023 09:30 AM PRIMARY Encounter for immunization MARY MICHEL Plan of Treatment: Future Appointments (+ 6 [...] [place] treatment facilities. Appointment Date/Time Appointment Type Appointme nt Facility Name May 24, 2023 09:00 AM AMBULATORY - NONE [facility] Jun 04, 2023 09:30 AM [facility] June 07, 2023 09:00 AM [facility]ATORY - NONE [facility] June 13, 2023 10:00 AM [facility] [place] [facility] June 14, 2023 09:00 AM [...] 2023 09:00 AM [facility]IC[facility] [place] Oct 22, 2023 10:00 AM [facility] [place] [facility] Oct 23, 2023 09:30 AM [facility] Immunizations: All administered on the encounter date This section contains immunizations associated to the Encounter. Immunization Series Date Issued Reaction Comments ZOSTER RECOMBINANT 1 May 22, 2023 HEP B, ADULT 2 May 22, 2023 Advance Directives: All historical and current Section [...] the Encounter. Date/Time Encounter Note(s) Provider Source May 22, 2023 09:25 AM PREVENTIVE MEDICIN E NURSING NOTE: LOCAL TITLE: CLINICAL REMINDERS/NURSING STANDARD TITLE: PREVENTIVE MEDICINE NURSING NOTE DATE OF NOTE: MAY 22, 2023@09:25 ENTRY DATE: MAY 22, 2023@09:25:37 AUTHOR: ROXANNE MICHEL EXP COSIGNER: URGENCY: STATUS: COMPLETED Hepatitis B Immunization: Hepatitis B vaccine (3 dose or 4 dose series) Administered: HEP B, ADULT Date Administered: May 22, 2023 09:26 Series: Series 2 Insurance Representative: [employer] Lot: [id number] Exp Date: Jan 13, 2025 [facility]: [phone] Admin Route/Site: INTRAMUSCULAR/LEFT DELTOID Dosage: 1mL Vaccine Information Statement(s): HEPATITIS B VACCINE VIS June 16, 2022 ([place]AN) Order By: Policy Administered By: Roxanne Michel Vaccine Information Sheet (VIS) was given to the patient/caregiver, education regarding adverse reactions was discussed, as well as barriers to learning, if any, were acknowledged. COVID-19 Immunization: Refused Moderna Monovalent COVID-19 vaccine Immunization: COVID-19 (MODERNA), MRNA, LNP-S, PF, 50 MCG/0.5 ML (AGES 12+ YEARS) Refusal Reason: PATIENT DECISION Patient refuses all immunization(s) in the COVID-19 group Date Documented: 05/22/23 09:29 Herpes Zoster (Shingles) Vaccine: Administered: ZOSTER RECOMBINANT Date Administered: May 22, 2023 09:29 Series: Series 1 Insurance Representative: [employer] Lot: [id number] Exp Date: May 23, 2025 [facility]: [phone] Admin Route/Site: INTRAMUSCULAR/LEFT DELTOID Dosage: 0.5mL Vaccine Information Statement(s): RECOMBINANT ZOSTER VACCINE VIS Mar 11, 2021 ([place]AN) Order By: Policy Administered By: Roxanne Michel Vaccine Information Sheet (VIS) was given to the patient/caregiver, education regarding adverse reactions was discussed, as well as barriers to learning, if any, were acknowledged. /josé luis/ ROXANNE MICHEL RN REGISTERED NURSE Signed: 05/22/2023 09:30 ROXANNE MICHEL LIBBY
--- OUTSIDE RECORDS SUMMARY | 2024-01-24 11:45 | XMS_ITS | Encounter Summary ---
Author Name [facility] Address [address] [place] [address] Care Team Providers Care Dam Attendant Name Role Phone RENNY PEREZ Primary Care Provider Unavailabl e Selected Encounter This section includes the information on record at [place] for the Encounter. Date/Time Encounter Type Encounter Description Reason Provider Source May 01, 2023 09:00 AM PSYTX W PT 30 MINUTES PCMHI INDIV ICD-10-CM F43.23 Adjustment disorder with mixed anxiety and depressed mood PRISCILLA SANTOS Octavio Encounter Template Text not used by [place] Assessments - Encounter Diagnoses This section includes the primary and secondary diagnoses documented for the Encounter. Date/Time Primary/Secondary Diagnosis Diagnosis Name Provider Source May 01, 2023 02:06 PM PRIMARY Adjustment disorder with mixed anxiety and depressed mood PRISCILLA SANTOS JERONIMO Plan of Treatment: Future Appointments (+ 6 [...] [place] treatment facilities. Appointment Date/Time Appointment Type Appointme nt Facility Name May 03, 2023 09:00 AM AMBULATORY - NONE [facility] May 08, 2023 11:00 AM AMBULATORY - PSYCHIATRY [facility] May 10, 2023 09:00 AM AMBULATORY - NONE [facility] May 22, 2023 09:30 AM AMBULATORY - MEDICINE [facility] May 24, 2023 09:00 AM AMBULATORY - NONE [facility] Jun 04, 2023 09:30 AM [facility]ORY - [facility]ICINE [facility] June 07, 2023 09:00 AM AMBULATORY - NONE [facility] June 13, 2023 10:00 AM [facility] June 14, 2023 09:00 AM AMBULATORY [...] 2023 09:00 AM AMBULATORY - MEDICINE [facility] Oct 22, 2023 10:00 AM [facility] Oct 23, 2023 09:30 AM AMBULATORY - MEDICINE [facility] Lab Results: +/- 30 days of [...] Range Comment Apr 10, 2023 08:10 AM [facility] HEPATITIS B SURFACE ANTIBODY (HBsAb)-WH Specimen Type: SERUM No comment entered. Ordering Provider: SAVAGE KEYES Report Released Date/Time: 2023 10:10 AM Reporting Lab: [facility] [address] [facility] [address] Performing Lab: [address] [address] HBsAb Non Reactive Non Reactive Apr 10, 2023 08:10 AM [facility] TSH Specimen Type: SERUM No comment entered. Ordering Provider: SAVAGE KEYES Report Released Date/Time: 2023 10:10 AM Reporting [facility]: [facility] [address] [facility] [address] Performing Lab: [facility] [address] TSH 1.38 u[IU]/mL 0.35-5.00 Apr 10, 2023 08:10 AM [facility] LIPID PANEL, NON FASTING Specimen Type: SERUM No comment entered. Ordering Provider: SAVAGE KEYES Report Released Date/Time: 2023 10:10 AM Reporting [facility] [address] [address] Performing Lab: [address] [address] CHOLESTEROL 191 mg/dL TRIGLYCERIDE 136 mg/dL 0-150 LDL calculated 130 mg/dL H 0-129 CHOL/HDL 5.6 HDL CHOLESTEROL 34 mg/dL L 40-60 Apr 10, 2023 08:10 AM [facility] HEMOGLOBIN A1C PANEL Specimen Type: BLOOD Comment: [...] Released Date/Time: 2023 10:10 AM Reporting Lab: [address] [address] Performing Lab: [address] [address] HEMOGLOBIN A1C 5.0 4.0-5.6 Apr 10, 2023 08:10 AM [facility] VITAMIN D (25-OH) Specimen Type: SERUM No comment entered. Ordering Provider: SAVAGE KEYES Report Released Date/Time: 2023 10:10 AM Reporting [facility] [address] [address] Performing Lab: [address] [address] VITAMIN D (25-OH) 21 ng/mL 20-50 Apr 10, 2023 08:10 AM [facility] LIVER FUNCTION Specimen Type: SERUM No comment entered. Ordering Provider: SAVAGE KEYES Report Released Date/Time: 2023 10:10 AM Reporting Lab: [address] [address] Performing Lab: [address] [address] PROTEIN,TOTAL 7.5 g/dL 6.0-8.3 ALBUMIN 3.8 g/dL 3.5-5.0 ALKALINE PHOSPHATASE 70 U/L 40-150 AST 15 U/L 5-34 ALT 18 U/L BILIRUBIN, TOTAL 0.6 mg/dL 0.2-1.2 Apr 10, 2023 08:10 AM [facility] CBC Specimen Type: BLOOD No comment entered. Ordering Provider: SAVAGE KEYES Report Released Date/Time: 2023 10:10 AM Reporting Lab: [address] [address] Performing Lab: [address] [address] WBC 7.74 10*3/uL 4.50-11.00 RBC 4.53 10*6/uL 4.23-5.66 HGB 13.8 g/dL 12.8-17 HCT 41.2 39.2-50.4 MCV 90.9 fL 82-99 MCHC 33.5 g/dL 30.8-35.1 PLT 221 10*3/uL 140-360 RDW-CV 12.1 12.0-16.0 MCH 30.5 pg 26.2-32.6 Apr 10, 2023 08:10 AM [facility] PSA Specimen Type: SERUM No comment entered. Ordering Provider: SAVAGE KEYES Report Released Date/Time: 2023 10:19 AM Reporting Lab: [address] [address] Performing Lab: [address] [address] PSA 0.83 ng/mL 0.00-4.00 Apr 10, 2023 08:10 AM [facility] BASIC METABOLIC PANEL (non-fasting) Spe cimen Type: SERUM No comment entered. Ordering Provider: SAVAGE KEYES Report Released Date/Time: 2023 10:10 AM Reporting Lab: [facility] [address] [facility] [address] Performing Lab: [facility] [address] [facility] [address] UREA NITROGEN 17 mg/dL 7-25 GLUCOSE 84 mg/dL 65-100 SODIUM 137 mmol/L 135-145 POTASSIUM 4.1 mmol/L 3.5-5.0 CHLORIDE 104 mmol/L 100-110 CO2 24 meq/L 20-30 CREATININE, Serum 1.15 mg/dL 0.50-1.40 eGFR(CKD-EPI 2020) 78 mL/min >60 Advance Directives: All historical and current Section Date Range: From patient's date of to the date document was created. This section includes ALL of a patient's completed or amended [place] Advance and Rescinded Directives. The entries below indicate that a directive exists for the patient, but an actual copy is not included with this document. The data comes from all [place] facilities. Date Advance Directives Provider Source Jan 26, 2020 ADVANCE DIRECTIVE DISCUSSION RIKA BIRD [facility] Encounter Notes: All associated encounter notes This section contains the clinical notes associated to the Encounter. Date/Time Encounter Note(s) Provider Source May 01, 2023 09:00 AM TELEHEALTH NOTE: LOCAL TITLE: [place] VIDEO CONNECT [facility] NOTE STANDARD TITLE: TELEHEALTH NOTE DATE OF NOTE: MAY 01, 2023@09:00 ENTRY DATE: MAY 01, 2023@14:03:56 AUTHOR: PRISCILLA SANTOS EXP COSIGNER: URGENCY: STATUS: COMPLETED VISIT DURATION: 30 min VISIT TYPE: Individual, VVC, follow-up visit PCP: SAVAGE KEYES DIAGNOSIS: Adjustment disorder with mixed anxiety and depressed mood REASON FOR FOLLOW UP: Adjustment and coping VET'S STATEMENT OF GOAL AND CONCERNS: The reports that his is on track to move from [facility] to the in June. The [place] expresses feeling down and empty and he is unsure why. He expresses hope that he will be less depressed once his joins him in the [place]. In planning her travel, he finds himself considering the worst that could happen and trying to finds solutions, i.e. meeting her at another airport to accompany her on the flight to [place]. The reports that since previous visit, he has been remembering more traumatic memories from his childhood with his mother. INTERVENTION: Provided empathy, reflective listening, solution-focused interventions Undersigned responded to 's request for a letter in support of having an Emotional Support Animal so he can have his cat in his apartment (rules changed under the [employer]). Undersigned explained that after reviewing the [place] policy, I would be unable to write such a letter because the [place] does not currently have a documented disability. He expressed understanding. DIAGNOSTIC IMPRESSIONS/PLAN: [place] is a 48-year-old man referred by his PCP to [facility] psychologist for depression. The has been living with the stress of living separately from his for the past 4 years. He will be reuniting with her when she moves from [facility] in June 2023. He also has a history of childhood trauma that he wishes to address in therapy. Community care consult for psychotherapy is pending. Providing bridge visits in [facility] to facilitate positive coping and adjustment. CURRENT IMPRESSION OF LETHALITY RISK / PLAN FOR RISK MANAGEMENT: [place] presents at low risk of harm to self or others at this time. INTERDICIPLINARY TREATMENT PLANNING INVOLVING: PACT PLAN FOR FOLLOW-UP: Return to [facility] in 1 week, VVC. VA Video Connect ([facility]) Standard Documentation [facility] Clinician Resources Only: E911 (Emergency Call Relay Center): [phone] National Veterans Crisis Line - 988 then press #1. EDUARDO Suicide Coordinator [phone], Ext. [phone]; Back-up Ext. [phone] [place] Police, Afshan CLARK [phone] Introduction: Visit is being conducted by [facility]. [place] identified with 2 identifiers: [X] Full Name [X] Date of [ ] VA ID Card Emergency Plan: confirmed and/or provided the following information in case of emergency or technology failure. PATIENT PHONE - PHONE NUMBER [CELLULAR] - Is patient phone number correct, if not, enter below: 's phone number: [place] [facility] [address], [address] [place]'s present location and address for appointment: Home address [place]'s emergency contact name and phone number: None provided reported that location is private and safe: Yes Informed Consent: informed of the risks and benefits of Telehealth video care. [place] has the right to refuse video services. If refuses video visit, a [id number] visit will be scheduled. verbalized consent for this video visit: Yes provided consent for any other persons present for visit: No If yes, who and relationship to patient: Secure visit: Visit was locked for security and privacy:Yes /josé luis/ PRISCILLA SANTOS PSYD CLINICAL PSYCHOLOGIST Signed: 05/10/2023 12:25 PRISCILLA SANTOS
--- OUTSIDE RECORDS SUMMARY | 2024-01-24 11:45 | XMS_ITS ---
Author Name [facility] [place] Organization [place] Address [address] [place] [address] Care Team Providers Care Cooler Servicer Name Role Phone RENNY PEREZ Primary Care Provider Unavailabl e Selected Encounter This section includes the information on record at [place] for the Encounter. Date/Time Encounter Type Encounter Description Reason Pro vider Source May 15, 2023 11:27 AM [facility] En[facility] Template Text not used by [place] Plan of Treatment: Future Appointments (+ 6 months) and Future Tests (+/- 45 days) The Plan of Treatment section includes future care activities for the patient from all [place] treatmentfacilities. This section includes future appointments and future orders which are active, pending or scheduled. Future Appointments This section includes appointments that were scheduled to occur 6 months from the date of the Encounter, up to a maximum of 20 appointments. The data comes from all [place] treatment facilities. Appointment Date/Time Appointment Type Appointme nt Facility Name May 22, 2023 09:30 AM AMBULATORY - MEDICINE [facility] May 24, 2023 09:00 AM AMBULATORY - NONE [facility] Jun 04, 2023 09:30 AM AMBULATORY - MEDICINE [facility] June 07, 2023 09:00 AM AMBULATORY - NONE [facility] June 13, 2023 10:00 AM [facility] June 14, 2023 09:00 AM AMBULATORY [...] - MEDICINE [facility] [place] [facility] Oct 23, 2023 09:30 AM AMBULATORY - MEDICINE [facility] [place] [facility] Social History: Smoking Status (Most current) and Tobacco Use (All prior to encounter date) This section includes the most current, and the historical, smoking and tobacco- related health factors from the [place] facility where the Encounter took place. Current Smoking Status This section includes the most current smoking, or tobacco-related health factor, from the [place] facility where the Encounter took place. Date/Time Current Smoking Status Comment Facil ity 2023 09:24 AM VA-TOBACCO NEVER USED [place] [facility] [place] [facility] Tobacco Use History This section includes a history of the smoking, or tobacco-related health factors, that were collected on or before the date of the Encounter. The data comes from the [place] facility where the Encounter took place. Date/Time Smoking Status/Tobacco Use Comment F acility Mar 24, 2022 11:30 AM VA-TOBACCO FORMER USER [facility] [place] [facility] Mar 24, 2022 11:30 AM VA-TOBACCO QUIT 15 YRS OR MORE [facility] [place] [facility] Jul 12, 2020 08:00 AM VA-TOBACCO FORMER USER [facility] [place] [facility] Jul 12, 2020 08:00 AM VA-TOBACCO QUIT 15 YRS OR MORE [facility] [place] [facility] Feb 19, 2019 08:26 AM VA-TOBACCO FORMER USER [facility] [place] [facility] Feb 19, 2019 08:26 AM VA-TOBACCO QUIT 15 YRS OR MORE [facility] [place] [facility] Advance Directives: All historical and current Section Date Range: From patient's date of to the date document was created. This section includes ALL of a patient's completed or amended [place] Advance and Rescinded Directives. The entries below indicate that a directive exists for the patient, but an actual copy is not included with this document. The data comes from all [place] facilities. Date Advance Directives Provider Source Jan 26, 2020 ADVANCE DIRECTIVE DISCUSSION RIKA BIRD LIVON[place] Encounter Notes: All associated encounter notes This section contains the clinical notes associated to the Encounter. Date/Time Encounter Note(s) Provider Source May 15, 2023 11:29 AM LETTERS: LOCAL TITLE: PATIENT LETTER (T) STANDARD TITLE: LETTERS DATE OF NOTE: MAY 15, 2023@11:29 ENTRY DATE: MAY 15, 2023@11:29:33 AUTHOR: GREY MCFARLANE COSIGNER: URGENCY: STATUS: COMPLETED [facility] Toll Free Number Primary Care Telephone Assistance can be reached at extension [phone] [facility] scheduling can be reached at extension [phone] [facility] scheduling can be reached at ext [phone] [place] [address], [address] Date: 05/15/2023 Dear [place]: LEX Thank you for choosing [facility] as your primary choice for health care. As a partner in your health care, we are attempting to contact you because we have been unsuccessful in reaching you by phone. WE ARE ATTEMPTING TO REACH YOU TO RESCHEDULE YOUR APPOINTMENT THAT WAS CANCELLED BY THE CLINIC. We want to assure you that we are doing everything possible to schedule veterans for their appointments. Please call us at [phone] to speak with a staff member who can assist you with RESCHEDULING your appointment. Thank you for your service and we look forward to hearing from you soon. Sincerely; The [facility] staff Primary Care Provider : PRISCILLA SANTOS [address] [place] [address] [phone] Dear , Sincerely, Your Primary Care Team [facility] [address] [address] [place] [address] [facility] [address] [place] [address] [place] [address] [facility] [address] [facility] [place] [address] [place] [address] GREY MCFARLANE May 15, 2023 11:27 AM ADMINISTRATIVE NOT E: LOCAL TITLE: ADMINISTRATIVE NOTE STANDARD TITLE: ADMINISTRATIVE NOTE DATE OF NOTE: MAY 15, 2023@11:27 ENTRY DATE: MAY 15, 2023@11:28 AUTHOR: GREY MCFARLANE EXP COSIGNER: URGENCY: STATUS: COMPLETED AMSA unable to reach the [place]. Left message on voicemail to contact PC to reschedule appointment from 05/15/23 that was cancelled by the clinic. Letter sent to the . /josé luis/ GREY MCFARLANE AMSA Signed: 05/15/2023 11:28 GREY MCFARLANE
--- OUTSIDE RECORDS SUMMARY | 2024-01-24 11:45 | XMS_ITS | Encounter Summary ---
Author Name [facility] [place] [place] Organization [place] Address [address] [place] [address] Care Team Providers Care Student Affairs Dean Name Role Phone RENNY PEREZ Primary Care Provider Dung e Selected Encounter This section includes the information on record at [place] for the Encounter. Date/Time Encounter Type Encounter Description Reason Provider Source May 10, 2023 09:00 AM GROUP BEHAVE COUNS 2-10 WEIGHT MGMT & MOVE! PROG - GRP ICD-10-CM E66.01 Morbid (severe) obesity due to excess calories JUAN M ACOSTA Encounter Template Text not used by [place] Assessments - Encounter Diagnoses This section includes the primary and secondary diagnoses documented for the Encounter. Date/Time Primary/Secondary Diagnosis Diagnosis Name Provider Source May 14, 2023 06:44 AM PRIMARY Morbid (severe) obesity due to excess calories JUAN M ACOSTA CBELDER May 14, 2023 06:44 AM SECONDARY Body mass index [BMI] 40.0-44.9, adult JUAN M ACOSTA CBELDER Plan of Treatment: Future Appointments (+ 6 months) and Future Tests (+/- 45 days) The Plan of Treatment section includes future care activities for the patient from all [place] treatmentfacilities. This section includes future appointments and future orders which are active, pending or scheduled. Future Appointments This section includes appointments that were scheduled to occur 6 months from the date of the Encounter, up to a maximum of 20 appointments. The data comes from all [place] treatment facilities. Appointment Date/Time Appointment Type Appointme nt Facility Name May 22, 2023 09:30 AM AMBULATORY - MEDICINE [facility] May 24, 2023 09:00 AM AMBULATORY - NONE [facility] Jun 04, 2023 09:30 AM AMBULATORY - MEDICINE [facility] June 07, 2023 09:00 AM [facility]ATORY - NONE [facility] June 13, 2023 10:00 AM AMBULATORY - PS[facility]IAT[facility] [place] [facility] June 14, 2023 09:00 AM [...] 2023 09:00 AM AM[facility]ULATORY - MEDICINE [facility] Oct 22, 2023 10:00 AM AMBULATORY - MEDICINE [facility] [place] [facility] Oct 23, 2023 09:30 AM AMBULATORY - MEDICINE [facility] [place] [facility] Vital Signs: All taken on the encounter date This section contains inpatient and outpatient Vital Signs collected on the date of the Encounter. Date/Time Temperature Pulse Blood Pressure Respiratory Rate SP02 Pain Height Weight Body Mass Index Source May 10, 2023 09:00 AM 285.7 41 [facility] Advance Directives: All historical and current Section Date Range: From patient's date of to the date document was created. This section includes ALL of a patient's completed or amended [place] Advance and Rescinded Directives. The entries below indicate that a directive exists for the patient, but an actual copy is not included with this document. The data comes from all [place] facilities. Date Advance Directives Provider Source Jan 26, 2020 ADVANCE DIRECTIVE DISCUSSION RIKA BIRD Encounter Notes: All associated encounter notes This section contains the clinical notes associated to the Encounter. Date/Time Encounter Note(s) Provider Source May 10, 2023 09:00 AM MOVE NOTE: LOCAL TITLE: WEIGHT MANAGEMENT/MOVE! OUTPATIENT GROUP NOTE STANDARD TITLE: MOVE NOTE DATE OF NOTE: MAY 10, 2023@09:00 ENTRY DATE: MAY 14, 2023@09:23:18 AUTHOR: FRED ACOSTA EXP COSIGNER: URGENCY: STATUS: COMPLETED Veterans participated in MOVE! Group Counseling via [facility] on: 05/10/2023 The [place] was provided with information on [facility] and has given verbal consent to use group [facility] services for their healthcare. The copy of the Group Telehealth Agreement has been mailed to the [place]. The [place]'s location/emergency contact number were confirmed. The Emergency Call Relay Center ([phone]) was available. The visit was locked for security and privacy. identified with 2 identifiers: [x] Full Name [x] Address Veterans attended the 60-minute MOVE! group session on this date via [facility] or by phone. MOVE! is a program designed to provide education about weight management skills to overweight and obese veterans. Veterans submitted their stated weights to staff. The group facilitators began the session by reviewing the previous weeks topic (Tip the Balance). Participants were asked to share their respective progress toward achieving their respective goals and to share their experiences with keeping a food and physical activity log over the past week. Positive feedback was given to the Veterans for their efforts. Session #4 (Eat Wisely) was then conducted using the MOVE! Workbook. Facilitators explained the basics of healthy eating and portion control. Veterans were educated on how to create a healthy using workbook examples. The healthy plate food groups were reviewed with examples of foods that Veterans should get more of and foods to limit. Veterans learned some common serving sizes and the recommended servings of each food group based on the USDA Healthy [place]-Style Eating Pattern. The objectives accomplished at todays session were: 1. Demonstrated how to create a healthy plate. 2. Discussed the items in each food group. 3. Demonstrated common serving sizes. Participants were asked to set one healthy eating and physical activity goal to work on this week, continue recording weight daily, to log all food and beverages consumed daily, and to also log all physical activities daily. They were instructed to have their completed Food and Physical Activity Logs available every session. Total veterans in group: [address] [facility] MOVE! group meeting will be held on 05/17/23 Today's Weight: 285.7 lb Weight Loss of -1.3 lb from last visit Dx: Morbid Obesity E66.01, Z68.41 /es/ FRED ACOSTA, RD, LDN Staff Dietitian Signed: 05/14/2023 09:[address] [facility]
--- OUTSIDE RECORDS SUMMARY | 2024-01-24 11:45 | XMS_ITS | Encounter Summary ---
Author Name [facility] [place] [facility] [place] Address [address] [place] [address] Care Team Providers Care Theology Professor Name Role Phone RENNY PEREZ Primary Care Provider Unavailabl e Selected Encounter This section includes the information on record at [place] for the Encounter. Date/Time Encounter Type Encounter Description Reason Provider Source Sep 03, 2023 09:32 AM ELECTROCARDIOGRAM REPORT EKG ICD-10-CM Z13.6 Encounter for screening for cardiovascular disorders [place] MARYAM HELLER Encounter Template Text not used by [place] Assessments - Encounter Diagnoses This section includes the primary and secondary diagnoses documented for the Encounter. Date/Time Primary/Secondary Diagnosis Diagnosis Name Provider Source Sep 04, 2023 11:06 AM PRIMARY Encounter for screening for cardiovascular disorders CHRISTOPH GANDHI [facility] Plan of Treatment: Future Appointments (+ 6 months) and Future Tests (+/- 45 days) The Plan of Treatment section includes future care activities for the patient from all [place] treatmentfacilities. This section includes future appointments and future orders which are active, pending or scheduled. Future Appointments This section includes appointments that were scheduled to occur 6 months from the date of the Encounter, up to a maximum of 20 appointments. The data comes from all [place] treatment facilities. Appointment Date/Time Appointment Type Appointme nt Facility Name Oct 22, 2023 10:00 AM [place] [facility] [place] [facility] Oct 23, 2023 09:30 AM [place] [facility] [place] [facility] Nov 26, 2023 10:00 AM [place] [facility] [place] [facility] Jan 24, 2024 12:00 PM AMBULATORY - MEDICINE [facility] Feb 07, 2024 08:30 AM AMBULATORY - MEDICINE [facility] Active, Pending, and Scheduled Orders This section includes a listing of several types of active, pending, and scheduled orders, including clinic medications orders, diagnostic test orders, procedure orders and consult orders; where the start date of the order is 45 days before the date of the Encounter or 45 days after the date of theEncounter. The data comes from all [place] treatment facilities. Test Date/Time Test Type Test Details Facility Name Aug 20, 2023 12:00 AM Laboratory - Chemi stry Order VITAMIN D (25-OH) BLOOD (SST-SERUM) [facility] Sep 03, 2023 09:31 AM Consult Order COMMUNITY CARE-COLONOSCOPY Cons Migratory Game Bird Biologist's Choice TROY Advance Directives: All historical and current Section Date Range: From patient's date of to the date document was created. This section includes ALL of a patient's completed or amended [place] Advance and Rescinded Directives. The entries below indicate that a directive exists for the patient, but an actual copy is not included with this document. The data comes from all [place] facilities. Date Advance Directives Provider Source Jan 26, 2020 ADVANCE DIRECTIVE DISCUSSION RIKA BIRD [place] Encounter Notes: All associated encounter notes This section contains the clinical notes associated to the Encounter. Date/Time Encounter Note(s) Provider Source Sep 04, 2023 11:05 AM CARDIOLOGY PROCEDU RE NOTE: LOCAL TITLE: EKG OUTPATIENT RESULT STANDARD TITLE: CARDIOLOGY PROCEDURE NOTE DATE OF NOTE: SEP 04, 2023@11:05 ENTRY DATE: SEP 04, 2023@11:05:49 AUTHOR: CHRISTOPH GANDHI EXP COSIGNER: URGENCY: STATUS: COMPLETED An EKG was done on: Aug Please see [facility] for the EKG result. /josé luis/ CHRISTOPH GANDHI FINE ARTIST Signed: 09/04/2023 11:06 CHRISTOPH GANDHI [facility]
--- OUTSIDE RECORDS SUMMARY | 2024-01-24 11:45 | XMS_ITS | Encounter Summary ---
Author Name [facility] [place] [facility] [place] Address [address] [place] [id number] Care Team Providers Care Project Production Engineer Name Role Phone RENNY PEREZ Primary Care Provider Unavailabl e Selected Encounter This section includes the information on record at [place] for the Encounter. Date/Time Encounter Type Encounter Description Reason Provider Source May 08, 2023 11:00 AM PSYTX W PT 30 MINUTES PCMHI INDIV ICD-10-CM F43.23 Adjustment disorder with mixed anxiety and depressed mood PRISCILLA SANTOS Octavio Encounter Template Text not used by [place] Assessments - Encounter Diagnoses This section includes the primary and secondary diagnoses documented for the Encounter. Date/Time Primary/Secondary Diagnosis Diagnosis Name Provider Source May 14, 2023 08:46 AM PRIMARY Adjustment disorder with mixed anxiety and [...] Appointment Type Appointme nt Facility Name May 10, 2023 09:00 AM [facility]ATORY - NONE [facility] May 22, 2023 09:30 AM [facility] MEDICINE [facility] May 24, 2023 09:00 AM AMBULATORY - NONE [facility] Jun 04, 2023 09:30 AM AM[facility]ORY - MEDICINE [facility] [place] June 07, 2023 09:00 AM [facility]ORY - NONE [facility] June 13, 2023 10:00 AM AMBULATORY - PS[place]ATRY [facility] [place] [facility] June 14, 2023 09:00 AM AMBULATORY [...] 22, 2023 10:00 AM AM[place]ULATORY [place]ICINE [place] [facility] [place] [facility] Oct 23, 2023 09:30 AM [facility] Lab Results: +/- 30 days [...] Range Comment Apr 10, 2023 08:10 AM [facility] HEPATITIS B SURFACE ANTIBODY (HBsAb)-WH Specimen Type: SERUM No comment entered. Ordering Provider: SAVAGE KEYES Report Released Date/Time: 2023 10:10 AM Reporting Lab: [address] [address] Performing Lab: [address] [address] HBsAb Non Reactive Non Reactive Apr 10, 2023 08:10 AM [facility] LIPID PANEL, NON FASTING Specimen Type: SERUM No comment entered. Ordering Provider: SAVAGE KEYES Report Released Date/Time: 2023 10:10 AM Reporting Lab: [address] [address] Performing Lab: [facility] [address] [facility] [address] CHOLESTEROL 191 mg/dL TRIGLYCERIDE 136 mg/dL 0-150 LDL calculated 130 mg/dL H 0-129 CHOL/HDL 5.6 HDL CHOLESTEROL 34 mg/dL L 40-60 Apr 10, 2023 08:10 AM [facility] TSH Specimen Type: SERUM No comment entered. Ordering Provider: SAVAGE KEYES Report Released Date/Time: 2023 10:10 AM Reporting Lab: [facility] [address] [facility] [address] Performing Lab: [address] [address] TSH 1.38 u[IU]/mL 0.35-5.00 Apr 10, 2023 08:10 AM [facility] HEMOGLOBIN A1C PANEL Specimen Type: BLOOD Comment: [...] Released Date/Time: 2023 10:10 AM Reporting Lab: [address] [address] Performing Lab: [address] [address] HEMOGLOBIN A1C 5.0 4.0-5.6 Apr 10, 2023 08:10 AM [facility] VITAMIN D (25-OH) Specimen Type: SERUM No comment entered. Ordering Provider: SAVAGE KEYES Report Released Date/Time: 2023 10:10 AM Reporting Lab: [address] [address] Performing Lab: [address] [address] VITAMIN D (25-OH) 21 ng/mL 20-50 Apr 10, 2023 08:10 AM [facility] LIVER FUNCTION Specimen Type: SERUM No comment entered. Ordering Provider: SAVAGE KEYES Report Released Date/Time: 2023 10:10 AM Reporting Lab: [address] [address] Performing Lab: [address] [address] PROTEIN,TOTAL 7.5 g/dL 6.0-8.3 ALBUMIN 3.8 g/dL 3.5-5.0 ALKALINE PHOSPHATASE 70 U/L 40-150 AST 15 U/L 5-34 ALT 18 U/L BILIRUBIN, TOTAL 0.6 mg/dL 0.2-1.2 Apr 10, 2023 08:10 AM [facility] CBC Specimen Type: BLOOD No comment entered. Ordering Provider: SAVAGE KEYES Report Released Date/Time: 2023 10:10 AM Reporting Lab: [address] [address] Performing Lab: [address] [address] WBC 7.74 10*3/uL 4.50-11.00 RBC 4.53 10*6/uL 4.23-5.66 HGB 13.8 g/dL 12.8-17 HCT 41.2 39.2-50.4 MCV 90.9 fL 82-99 MCHC 33.5 g/dL 30.8-35.1 PLT 221 10*3/uL 140-360 RDW-CV 12.1 12.0-16.0 MCH 30.5 pg 26.2-32.6 Apr 10, 2023 08:10 AM [facility] PSA Specimen Type: SERUM No comment entered. Ordering Provider: SAVAGE KEYES Report Released Date/Time: 2023 10:19 AM Reporting Lab: [address] [address] Performing Lab: [address] [address] PSA 0.83 ng/mL 0.00-4.00 Apr 10, 2023 08:10 AM [facility] BASIC METABOLIC PANEL (non-fasting) Spe cimen Type: SERUM No comment entered. Ordering Provider: SAVAGE KEYES Report Released Date/Time: 2023 10:10 AM Reporting Lab: [facility] [address] [facility] [address] Performing Lab: [facility] [address] [facility] [address] UREA NITROGEN 17 mg/dL 7-25 GLUCOSE 84 [...] Encounter. Date/Time Encounter Note(s) Provider Source May 08, 2023 11:00 AM TELEHEALTH NOTE: LOCAL TITLE: [place] VIDEO CONNECT PCMHI NOTE STANDARD TITLE: TELEHEALTH NOTE DATE OF NOTE: MAY 08, 2023@11:00 ENTRY DATE: MAY 09, 2023@08:30:16 AUTHOR: PRISCILLA SANTOS EXP COSIGNER: URGENCY: STATUS: COMPLETED VISIT DURATION: 30 min VISIT TYPE: Individual, [id number], follow-up visit PCP: DR. KEYES DIAGNOSIS: Adjustment disorder with mixed anxiety and depressed mood REASON FOR FOLLOW UP: Stress and adjustment VET'S STATEMENT OF GOAL AND CONCERNS: The reports he has a new problem with falling asleep. He states he was off from work this weekend and was up for 36 hours straight. He felt tired but his mind was clear. He slept approximately 4 hours on Sunday. The reports his father has a history of severe insomnia and he is concerned it may be hereditary. The reports he is doing okay overall. He tried the 5 senses exercise discussed at previous visit. He states he has not been overthinking things and that grounding himself has helped him problem solve with his about her travel. His primary source of anxiety at this point is their cat's travel from [place] to the [place] on an airplane. INTERVENTION: Probled solved insomnia. Encouraged [place] not to over-think the impact of poor sleep over one weekend and to view it as an anomaly to his typically pattern. Reviewed progress with mindfulness exercise Emotional support provided Solution focused interventions DIAGNOSTIC IMPRESSIONS/PLAN: is a 48-year-old man referred by his PCP to [facility] psychologist for depression. The [place] has been living with the stress of living separately from his for the past 4 years. He will be reuniting with her when she moves from [place] in June 2023. He also has a history of childhood trauma that he wishes to address in therapy. The [place] is progressing in therapy and reports benefit from mindfulness exercise. Community care consult for psychotherapy is pending. Providing bridge visits in [facility] to facilitate positive coping and adjustment. CURRENT IMPRESSION OF LETHALITY RISK / PLAN FOR RISK MANAGEMENT: [place] presents at low risk of harm to self or others at this time. INTERDICIPLINARY TREATMENT PLANNING INVOLVING: PACT PLAN FOR FOLLOW-UP: Return to [facility] in 1 week, [facility]. [place] obopay Connect ([facility]) Standard Documentation [facility] Clinician Resources Only: E911 (Emergency Call Relay Center): [phone] National Veterans Crisis Line - 988 then press #1. EDUARDO Suicide Coordinator [phone], Ext. [phone]; Back-up Ext. [phone] [place] Police, Afshan CLARK [phone] Introduction: Visit is being conducted by [employer]. [place] identified with 2 identifiers: [X] Full Name [X] Date of [ ] VA ID Card Emergency Plan: confirmed and/or provided the following information in case of emergency or technology failure. PATIENT PHONE - PHONE NUMBER [CELLULAR] - Is patient phone number correct, if not, enter below: [place]'s phone number: NO BURNETT [address], [address] [place]'s present location and address for appointment: Home address [place]'s emergency contact name and phone number: None provided reported that location is private and safe: Yes Informed Consent: informed of the risks and benefits of Telehealth video care. [place] has the right to refuse video services. If refuses video visit, a [id number] visit will be scheduled. verbalized consent for this video visit: Yes provided consent for any other persons present for visit: No If yes, who and relationship to patient: Secure visit: Visit was locked for security and privacy:Yes /josé luis/ PRISCILLA SANTOS PSYD CLINICAL PSYCHOLOGIST Signed: 05/14/2023 08:46 PRISCILLA SANTOS
--- OUTSIDE RECORDS SUMMARY | 2024-01-24 11:45 | XMS_ITS | Encounter Summary ---
Author Name [facility] [place] [place] [facility] [place] Organization [facility] [place] Address [address] [place] [id number] Care Team Providers Care Button Cutter Name Role Phone RENNY PEREZ Primary Care Provider Dung e Selected Encounter This section includes the information on record at [place] for the Encounter. Date/Time Encounter Type Encounter Description Reason Provider Source May 03, 2023 09:00 AM GROUP BEHAVE COUNS 2-10 WEIGHT MGMT & MOVE! PROG - GRP ICD-10-CM E66.01 Morbid (severe) obesity due to excess calories JUAN M ACOSTA Encounter Template Text not used by [place] Assessments - Encounter Diagnoses This section includes the primary and secondary diagnoses documented for the Encounter. Date/Time Primary/Secondary Diagnosis Diagnosis Name Provider Source May 06, 2023 12:17 AM PRIMARY Morbid (severe) obesity due to excess calories JUAN M ACOSTA CBELDER May 06, 2023 12:17 AM SECONDARY Body mass index [BMI] 40.0-44.9, adult JUAN M ACOSTA CBELDER Plan of Treatment: Future Appointments (+ 6 months) and Future Tests (+/- 45 days) The Plan of Treatment section includes future care activities for the patient from all [place] treatmentfacilities. This section includes future appointments and future orders which are active, pending or scheduled. Future Appointments This section includes appointments that were scheduled to occur 6 months from the date of the Encounter, up to a maximum of 20 appointments. The data comes from all [place] treatment facilities. Appointment Date/Time Appointment Type Appointme nt Facility Name May 08, 2023 11:00 AM AMBULATORY - PS[facility]CH[facility]ATRY [facility] May 10, 2023 09:00 AM AMBULATORY - NONE [facility] May 22, 2023 09:30 AM [facility]IC[facility] May 24, 2023 09:00 AM AMBULATORY - NONE [facility] Jun 04, 2023 09:30 AM AMBULATORY - MEDICINE [facility] June 07, 2023 09:00 AM AM[facility]ATORY - NONE [facility] June 13, 2023 10:00 AM [facility] June 14, 2023 09:00 AM AMBULATORY - [...] 22, 2023 10:00 AM AMBULATORY - MEDICINE [place] [facility] Oct 23, 2023 09:30 AM [facility] Lab Results: +/- 30 days of the encounter This section includes the Chemistry and Hematology Lab Results on record with [place] for the patient. Radiology Reports and Pathology Reports are provided separately, in subsequent sections. Lab Results This section contains the Chemistry/Hematology Results that were resulted 30 days before or 30 daysafter the date of the Encounter. Date/Time Source Result Type Result - Unit Interpretation Reference Range Comment Apr 10, 2023 08:10 AM [facility] HEPATITIS B SURFACE ANTIBODY (HBsAb)-WH Specimen Type: SERUM No comment entered. Ordering Provider: SAVAGE KEYES Report Released Date/Time: 2023 10:10 AM Reporting Lab: [facility] [address] [facility] [address] Performing Lab: [address] [address] HBsAb Non Reactive Non Reactive Apr 10, 2023 08:10 AM [facility] TSH Specimen Type: SERUM No comment entered. Ordering Provider: SAVAGE KEYES Report Released Date/Time: 2023 10:10 AM Reporting Lab: [address] [address] Performing Lab: [address] [address] TSH 1.38 u[IU]/mL 0.35-5.00 Apr 10, 2023 08:10 AM [facility] LIPID PANEL, NON FASTING Specimen Type: SERUM No comment entered. Ordering Provider: SAVAGE KEYES Report Released Date/Time: 2023 10:10 AM Reporting Lab: [address] [address] Performing Lab: [address] [address] CHOLESTEROL 191 mg/dL TRIGLYCERIDE 136 mg/dL 0-150 LDL calculated 130 mg/dL H 0-129 CHOL/HDL 5.6 HDL CHOLESTEROL 34 mg/dL L 40-60 Apr 10, 2023 08:10 AM [facility] HEMOGLOBIN A1C PANEL Specimen Type: BLOOD Comment: [...] Released Date/Time: 2023 10:10 AM Reporting Lab: [address] [address] Performing Lab: [address] [address] HEMOGLOBIN A1C 5.0 4.0-5.6 Apr 10, 2023 08:10 AM [facility] VITAMIN D (25-OH) Specimen Type: SERUM No comment entered. Ordering Provider: SAVAGE KEYES Report Released Date/Time: 2023 10:10 AM Reporting Lab: [address] [address] Performing Lab: [address] [address] VITAMIN D (25-OH) 21 ng/mL 20-50 Apr 10, 2023 08:10 AM [place] LIVER FUNCTION Specimen Type: SERUM No comment entered. Ordering Provider: SAVAGE KEYES Report Released Date/Time: 2023 10:10 AM Reporting Lab: [address] [address] Performing Lab: [address] [address] PROTEIN,TOTAL 7.5 g/dL 6.0-8.3 ALBUMIN 3.8 g/dL 3.5-5.0 ALKALINE PHOSPHATASE 70 U/L 40-150 AST 15 U/L 5-34 ALT 18 U/L BILIRUBIN, TOTAL 0.6 mg/dL 0.2-1.2 Apr 10, 2023 08:10 AM [place] CBC Specimen Type: BLOOD No comment entered. Ordering Provider: SAVAGE KEYES Report Released Date/Time: 2023 10:10 AM Reporting Lab: [address] [address] Performing Lab: [address] [address] WBC 7.74 10*3/uL 4.50-11.00 RBC 4.53 10*6/uL 4.23-5.66 HGB 13.8 g/dL 12.8-17 HCT 41.2 39.2-50.4 MCV 90.9 fL 82-99 MCHC 33.5 g/dL 30.8-35.1 PLT 221 10*3/uL 140-360 RDW-CV 12.1 12.0-16.0 MCH 30.5 pg 26.2-32.6 Apr 10, 2023 08:10 AM [place] PSA Specimen Type: SERUM No comment entered. Ordering Provider: SAVAGE KEYES Report Released Date/Time: 2023 10:19 AM Reporting Lab: [address] [address] Performing Lab: [facility] [address] [address] PSA 0.83 ng/mL 0.00-4.00 Apr 10, 2023 08:10 AM [place] BASIC METABOLIC PANEL (non-fasting) Spe cimen Type: SERUM No comment entered. Ordering Provider: SAVAGE KEYES Report Released Date/Time: 2023 10:10 AM Reporting Lab: [address] [address] Performing Lab: [address] [address] UREA NITROGEN 17 mg/dL 7-25 GLUCOSE 84 [...] Height Weight Body Mass Index Source May 03, 2023 09:00 AM [facility] Advance Directives: All historical and current Section Date Range: From patient's date of to the date document was created. This section includes ALL of a patient's completed or amended [place] Advance and Rescinded Directives. The entries below indicate that a directive exists for the patient, but an actual copy is not included with this document. The data comes from all [place] facilities. Date Advance Directives Provider Source Jan 26, 2020 ADVANCE DIRECTIVE DISCUSSION RIKA BIRD [place] Encounter Notes: All associated encounter notes This section contains the clinical notes associated to the Encounter. Date/Time Encounter Note(s) Provider Source May 03, 2023 09:00 AM MOVE NOTE: LOCAL TITLE: WEIGHT MANAGEMENT/MOVE! OUTPATIENT GROUP NOTE STANDARD TITLE: MOVE NOTE DATE OF NOTE: MAY 03, 2023@09:00 ENTRY DATE: MAY 06, 2023@00:25:54 AUTHOR: FRED ACOSTA COSIGNER: URGENCY: STATUS: COMPLETED Veterans participated in MOVE! Group Counseling via [facility] on: 05/03/23 The was provided with information on [facility] and has given verbal consent to use group [facility] services for their healthcare. The copy of the Group Telehealth Agreement has been mailed to the [place]. The 's location/emergency contact number were confirmed. The Emergency Call Relay Center (E911) was available. The visit was locked for security and privacy. identified with 2 identifiers: [x] Full Name [x] Address Veterans attended the 60-minute MOVE! group session on this date via [facility] or over the phone. MOVE! is a program designed to provide education about weight management skills to overweight and obese veterans. Group members submitted their stated weights to staff. The group facilitators began the session by reviewing the previous weeks topic (Tracking What You Do). Participants were asked to share their respective progress toward achieving their respective goals and to share their experiences with keeping a food and physical activity log over the past week. Positive feedback was given to the Veterans for their efforts. Session #3 (Tip the Balance) was then conducted using the MOVE! Workbook. Facilitators explained the energy/caloric balance and how it is related to weight control. Veterans learned about creating an energy deficit to achieve weight loss and identify a daily caloric consumption target. Strategies were provided on how to consume fewer calories and burn more calories to achieve the recommended daily 500 calorie energy deficit. Stop light food handouts were review again during this session. Objectives Achieved at Todays Session: 1. Described the link between calories and weight. 2. Helped Veterans identify their eating patterns. 3. Demonstrated how Veterans can burn more calories than they take in. Participants were asked to continue recording weight daily, to log all food and beverages consumed daily, and to also log all physical activities daily. They were instructed to continue to have their completed Food and Physical Activity Logs available every session. The next [facility] MOVE! group meeting will be held on 05/10/23 Today's Weight: 287 lb Weight Loss of -3.7 lb from last visit Dx: Morbid Obesity E66.01, Z68.41 /es/ FRED ACOSTA RD, LDN Staff Dietitian Signed: 05/06/2023 00:32 Receipt Acknowledged By: 05/07/2023 16:53 /es/ NATI PABON, PHD PSYCHOLOGIST FRED ACOSTAALON [facility]
--- OUTSIDE RECORDS SUMMARY | 2024-01-24 11:45 | XMS_ITS | Encounter Summary ---
Author Name [facility] [place] Organization [facility] Address [address] [place] [id number] Care Team Providers Care Lamination Technician Name Role Phone RENNY PEREZ Primary Care Provider Unavailabl e Selected Encounter This section includes the information on record at [place] for the Encounter. Date/Time Encounter Type Encounter Description Reason Provider Source May 24, 2023 09:00 AM [facility] IVNTJ GRP EA ADDL WEIGHT MGMT & MOVE! PROG - GRP ICD-10-CM E66.01 Morbid (severe) obesity due to excess calories NATI PABON Octavio Encounter Template Text not used by [place] Assessments - Encounter Diagnoses This section includes the primary and secondary diagnoses documented for the Encounter. Date/Time Primary/Secondary Diagnosis Diagnosis Name Provider Source May 25, 2023 01:26 PM PRIMARY Morbid (severe) obesity due to excess calories NATI PABON [facility] Plan of Treatment: Future Appointments (+ 6 months) and Future Tests (+/- 45 days) The Plan of Treatment section includes future care activities for the patient from all [place] treatmentfacilities. This section includes future appointments and future orders which are active, pending or scheduled. Future Appointments This section includes appointments that were scheduled to occur 6 months from the date of the Encounter, up to a maximum of 20 appointments. The data comes from all [place] treatment facilities. Appointment Date/Time Appointment Type Appointme nt Facility Name Jun 04, 2023 09:30 AM AMBULATORY - MEDICINE [facility] June 07, 2023 09:00 AM AMB[facility]ATORY - NONE [facility] June 13, 2023 10:00 AM [facility] June 14, 2023 09:00 AM [...] - MEDICINE [facility] [place] [facility] Oct 23, 2023 09:30 AM [facility]UL[facility] [place] [facility] Vital Signs: All taken on the encounter date This section contains inpatient and outpatient Vital Signs collected on the date of the Encounter. Date/Time Temperature Pulse Blood Pressure Respiratory Rate SP02 Pain Height Weight Body Mass Index Source May 24, 2023 09:00 AM 286.6 41 [facility] Advance Directives: All historical and current Section Date Range: From patient's date of to the date document was created. This section includes ALL of a patient's completed or amended [place] Advance and Rescinded Directives. The entries below indicate that a directive exists for the patient, but an actual copy is not included with this document. The data comes from all [place] facilities. Date Advance Directives Provider Source Jan 26, 2020 ADVANCE DIRECTIVE DISCUSSION RIKA BIRD Encounter Notes: All associated encounter notes This section contains the clinical notes associated to the Encounter. Date/Time Encounter Note(s) Provider Source May 24, 2023 09:00 AM MOVE NOTE: LOCAL TITLE: WEIGHT MANAGEMENT/MOVE! OUTPATIENT GROUP NOTE STANDARD TITLE: MOVE NOTE DATE OF NOTE: MAY 24, 2023@09:00 ENTRY DATE: MAY 25, 2023@13:18:09 AUTHOR: NATI PABON COSIGNER: URGENCY: STATUS: COMPLETED Veterans participated in MOVE! Group Counseling via [facility] on: 05/24/23 The was provided with information on [facility] and has given verbal consent to use group [facility]VC services for their healthcare. The copy of the Group Telehealth Agreement has been mailed to the [place]. The [place]'s location/emergency contact number were confirmed. The Emergency Call Relay Center (E911) was available. The visit was locked for security and privacy. identified with 2 identifiers: [x] Full Name [x] Address Veterans attended the 60-minute MOVE! group session on this date via [facility] or by phone. MOVE! is a program designed to provide education about weight management skills to overweight and obese veterans. Veterans submitted their stated weights to staff. The group facilitators began the session by reviewing the previous weeks topic (Get Fit For Life). Participants were asked to share their respective progress toward achieving their respective goals and to share their experiences with keeping a food and physical activity log over the past week. Positive feedback was given to the Veterans for their efforts. Session #6 (Take Charge of Your Weight) was then conducted using the MOVE! Workbook. Facilitators discussed how thoughts, feelings, and behavior work together to help or hinder weight-loss progress. Veterans recognized their unhelpful thoughts and learned steps to rethink them. Finally, participants were encouraged to explore how their emotions may be influencing unhealthy behaviors like overeating and inactivity. The objectives accomplished at todays session were: 1. Discussed the relationship between thoughts, feelings, and behavior. 2. Helped Veterans recognize unhelpful thoughts and how to rethink them. 3. Discussed how feelings (both physical and emotional) influence eating. Participants were asked to set one healthy eating and physical activity goal to work on this week, continue recording weight daily, to log all food and beverages consumed daily, and to also log all physical activities daily. They were instructed to continue to bring their completed Food and Physical Activity Logs to every session. The next [facility] MOVE! group meeting will be held on 05/31/23 . Individual data: Today's Weight: 286 lb Weight Gain of + .3 lb from last visit Dx: Morbid Obesity E66.01, Z68.41 /es/ NATI PABON, PHD PSYCHOLOGIST Signed: 05/25/2023 13:54 Receipt Acknowledged By: 05/25/2023 15:24 /es/ FRED ACOSTA, RD, LDN Staff Dietitian NATI PABON [facility]
--- OUTSIDE RECORDS SUMMARY | 2024-01-24 11:45 | XMS_ITS | Encounter Summary ---
Author Name [facility] [place] ([place] Organization [facility] [place] Address [address] [place] [id number] Care Team Providers Care Consumer Affairs Specialist Name Role Phone RENNY PEREZ Primary Care Provider Unavailabl e Selected Encounter This section includes the information on record at [place] for the Encounter. Date/Time Encounter Type Encounter Description Reason Provider Source Jun 04, 2023 09:30 AM OFFICE O/P EST MOD 30 MIN PRIMARY CARE/MEDICINE ICD-10-CM E55.9 Vitamin D deficiency, unspecified SAVAGE KEYES Octavio Encounter Template Text not used by [place] Assessments - Encounter Diagnoses This section includes the primary and secondary diagnoses documented for the Encounter. Date/Time Primary/Secondary Diagnosis Diagnosis Name Provider Source Jun 04, 2023 12:02 PM PRIMARY Vitamin D deficiency, unspecified SAVAGE KEYES JERONIMO Jun 04, 2023 12:02 PM SECONDARY Essential (primary) hypertension SAVAGE KEYES JERONIMO Jun 04, 2023 12:02 PM SECONDARY Hyperlipidemia, unspecified KEYESSAVAGE GODFREY JERONIMO Jun 04, 2023 12:02 PM SECONDARY Obesity, unspecified KEYESSAVAGE SULPHUR Jun 04, 2023 12:02 PM SECONDARY Sleep apnea, unspecified SAVAGE KEYES Plan of Treatment: Future Appointments (+ 6 months) and Future Tests (+/- 45 days) The Plan of Treatment section includes future care activities for the patient from all [facility] treatment[facility]ilities. This section includes future appointments and future orders which are active, pending or scheduled. Future Appointments This section includes appointments that were scheduled to occur 6 months from the date of the Encounter, up to a maximum of 20 appointments. The data comes from all [place] treatment facilities. Appointment Date/Time Appointment Type Appointme nt Facility Name June 07, 2023 09:00 AM AMBULATORY - NONE [facility] June 13, 2023 10:00 AM AMBULATORY - [facility]RY [facility] [place] [facility] June 14, 2023 09:00 AM AMBULATORY [...] 22, 2023 10:00 AM AMBULATORY - MEDICINE [facility] [place] [facility] Oct 23, 2023 09:30 AM [facility] [place] [facility] Nov 26, 2023 10:00 AM AMBULATORY - MEDICINE [facility] [place] [facility] Vital Signs: All taken on the encounter date This section contains inpatient and outpatient Vital Signs collected on the date of the Encounter. Date/Time Temperature Pulse Blood Pressure Respiratory Rate SP02 Pain Height Weight Body Mass Index Source Jun 04, 2023 09:30 AM 143/97 [facility] Jun 04, 2023 09:28 AM 98 87 143/97 17 95 0 70 [phone] 41 [facility] Advance Directives: All historical and current Section Date Range: From patient's date of to the date document was created. This section includes ALL of a patient's completed or amended [place] Advance and Rescinded Directives. The entries below indicate that a directive exists for the patient, but an actual copy is not included with this document. The data comes from all [place] facilities. Date Advance Directives Provider Source Jan 26, 2020 ADVANCE DIRECTIVE DISCUSSION RIKA BIRD [place]UL[place]UR Encounter Notes: All associated encounter notes This section contains the clinical notes associated to the Encounter. Date/Time Encounter Note(s) Provider Source Jun 04, 2023 09:55 AM PHYSICIAN NOTE: LOCAL TITLE: MD NOTE STANDARD TITLE: PHYSICIAN NOTE DATE OF NOTE: JUN 04, 2023@09:55 ENTRY DATE: JUN 04, 2023@09:55:18 AUTHOR: SAVAGE KEYES COSIGNER: URGENCY: STATUS: COMPLETED PRIMARY CARE VISIT NO BURNET[place], is a 48 yo RACE UNKNOWN MALE TYPE OF VISIT: Face to face CHART REVIEWED, PATIENT EXAMINED. HPI: will coming July from [facility] BP machine potentially broken reviewing bp's here show persistantly elevated denies cardiopulm sx doing MOVE! has lost weight going to the gym cholesterol okay currently PACHECO - using CPAP nightly Most Recent labs reviewed and all medications were reconciled during this visit. Service Connection/Rated Disabilities: Service Connected Disabilities with % Eligibility: NSC VERIFIED SOCIAL HISTORY: MARITAL STATUS - , will be coming from [facility] Tobacco use/history - nonsmoker Alcohol use/history - rare Drug use/history - HISTORY: PERIOD OF SERVICE - [employer] FROM Apr TO Oct COMBAT SERVICE INDICATED: No VITAL SIGNS: Temperature 98 F [36.7 C] (06/04/2023 09:28) Blood Pressure 143/97 (06/04/2023 09:30) Pulse 87 (06/04/2023 09:28) Respiration 17 (06/04/2023 09:28) Pain 0 (06/04/2023 09:28) BMI BMI: 41.3 Weight 287 lb [130.18 kg] (06/04/2023 09:28) Pulse Oximetry 95% (06/04/2023 09:28) ASSISTIVE DEVICES: REVIEW OF SYSTEMS: All systems are reviewed and are otherwise negative, unless specified in the HPI. PHYSICAL EXAMINATION: General: Well-appearing, in no obvious distress. Mental Status: Alert and oriented x 3. Head: Normocephalic, atraumatic. Eyes: PERRL. EOMI. Anicteric sclerae. ENT: Moist oral mucosa. dentition Neck: Supple. FROM. No JVD. No LAD. No bruit. Thyroid unremarkable. Lungs: CTAB. Normal chest excursion. Eupneic respirations. CV: Heart tones S1, S2. RRR. No M/G/R. No peripheral edema GI: Abdomen is soft and nontender. No palpable mass or organomegaly. Ext: No cyanosis or clubbing. No gross deformities. Neuro: CN II through XII grossly intact. Normal speech. Normal gait. Integument: Skin warm and dry. No rashes or lesions on visible areas. Psych: Normal mood and affect. Normal judgment. Cooperative with exam, follows commands. ALLERGIES: [facility] PREVENTIVE MEDICINE GOALS Info Only: VA Video Connect Capable DUE NOW Medication Reconciliation DUE NOW HTN Assess for Elevated BP>=140/90 DUE NOW ASSESSMENT/PLAN: Active problems - Computerized Problem List is the source for the followin. Vitamin D Deficiency ([facility] [id number])- start daily vitamin d rx recheck lab in 3 months 2. Hyperlipidemia ([facility] [id number])- currently controlled with diet Cholesterol currently controlled with a Cardiac Risk score 6.5%. Lifestyle modifications (diet/exercise/tobacco cessation,etc.),continue to work on these. 3. Sickle cell trait-stable 4. HTN - Hypertension ([facility] [id number])- Not controlled Increase Lisinopril to 20mg daily educated today regarding goal BP with comorbidities like DM, CAD, etc. [place] instructed to Contact office if BP persistantly > 140/90. HOME BP check nursing visit to check home bp machine may need to decrease Lisinopril dose of wt loss continues 5. Obesity: congrats on wt loss and MOVE! program continue wt loss monitor BP, may need to adjust med 6. Sleep Apnea ([facility] [id number])-continue CPAP Total time I spent on this visit was 30 minutes and included a review of chart, labs, notes, physical exam and discussion/education of patient. LAB ORDERS FOR NEXT VISIT: NURSING: PLEASE ORDER APPROPRIATE CHRONIC DISEASE LAB ORDERS FOLLOW UP: Return to clinic as noted below and/or sooner PRN UPCOMING APPOINTMENTS: 10/18/2023 09:30 CWM/SO/PACT 2 NURSE All medications were reconciled during this visit. No barriers noted; patient understands and agrees to current treatment plan. If patient has any questions, concerns or changes in current health status he/she will call or come in to the [facility]. PACT TEAM INSTRUCTIONS: Medication Reconciliation: Outpatient: Has the patient been taking medications as documented in the EMLR? YES: The patient has been taking medications as documented in the EMLR. Essential Medication List for Review used to complete this medication reconciliation. INCLUDED IN THIS LIST: Alphabetical list of active outpatient prescriptions dispensed from this [place] (local) and dispensed from another [place] or [facility] facility (remote) as well as inpatient orders (local, pending and active), local clinic medications, locally documented non-VA medications, and local prescriptions that have or been discontinued in the past 90 days. - All changes in medications, including all non-VA/Herbal/OTC medications were entered into CPRS. - If there were any medications the patient should no longer take, they were discontinued. - The patient/caregiver was instructed to update this list, discard old lists, and take this list to the next appointment, whether with a VA or non-VA provider. HTN Assess for Elevated BP>=140/90: The patient's medication regimen was adjusted to improve blood pressure control. Comment: Lisinopril increased to 20mg /es/ SAVAGE KEYES MD PHYSICIAN Signed: 06/04/2023 12:02 SAAVGE KEYES Jun 04, 2023 09:29 AM PREVENTIVE MEDICIN E NURSING NOTE: LOCAL TITLE: CLINICAL REMINDERS/NURSING STANDARD TITLE: PREVENTIVE MEDICINE NURSING NOTE DATE OF NOTE: JUN 04, 2023@09:29 ENTRY DATE: JUN 04, 2023@09:29:08 AUTHOR: KHOI MORENO EXP COSIGNER: URGENCY: STATUS: COMPLETED BMI>30/>24.99 High Risk: At this visit, the health risks of obesity were reviewed and discussed with the , and the benefits of a weight management treatment program, such as MOVE! was discussed and offered to the [place]. is already participating in or prefers referral to another weight management treatment program outside of this [facility]. The MeD Rec will be completed by the PCP. HTN Assess for Elevated BP>=140/90: Repeat blood pressure: 143/97 /es/ KHOI MORENO LPN LICENSED PRACTICAL NURSE Signed: 06/04/2023 09:30 KHOI MORENO SULPHUR May 29, 2023 03:02 PM ADMINISTRATIVE NOT E: LOCAL TITLE: ADMINISTRATIVE NOTE STANDARD TITLE: ADMINISTRATIVE NOTE DATE OF NOTE: MAY 29, 2023@15:02 ENTRY DATE: MAY 29, 2023@15:02:17 AUTHOR: GREY MCFARLANE EXP COSIGNER: URGENCY: STATUS: COMPLETED [facility] [address] [place] [id number] [phone] * NO BURNETT [address] [place] [id number] Date: MAY 29, 2023 re: This is a reminder of your upcoming PCP appt with SAVAGE KEYES. Appointment Date: May@09:30 Appointment Type: In-person visit Fasting blood work NON fasting blood work LM ON VOICEMAIL TO CONFIRM APPT Sincerely, Office Staff for: SAVAGE KEYES Primary Care Provider [facility] [address] [place] [phone] T [phone] F [phone] Upcoming Appointments: 06/04/2023 09:30 CWM/SO/PACT 2 10/18/2023 09:30 CWM/SO/PACT 2 NURSE APPOINTMENT ABBREVIATION SCHULTZ (SPOPC OR SO = [facility]) (GOPC OR GO = [address]) (NHM or NO = [facility]) (VVC - Video Call) (Tel-X Telephone Visit) (TH - Telehealth) /josé luis/ GREY PICKERING Signed: 05/29/2023 15:04 GREY MCFARLANE
--- OUTSIDE RECORDS SUMMARY | 2024-01-24 11:45 | XMS_ITS | Encounter Summary ---
Author Name [facility] [place] [facility] [place] [facility] [place] Address [address] [place] [id number] Care Team Providers Care Healthcare Project Manager Name Role Phone RENNY PEREZ Primary Care Provider Unavailabl e Selected Encounter This section includes the information on record at [place] for the Encounter. Date/Time Encounter Type Encounter Description Reason Provider Source Apr 17, 2023 09:30 AM OFF/OP EST JUNE X REQ PHY/QHP PRIMARY CARE/MEDICINE ICD-10-CM I10 Essential (primary) hypertension Anthony PAZ Octavio Encounter Template Text not used by [place] Assessments - Encounter Diagnoses This section includes the primary and secondary diagnoses documented for the Encounter. Date/Time Primary/Secondary Diagnosis Diagnosis Name Provider Source Apr 17, 2023 10:32 AM PRIMARY Essential (primary) hypertension [facility] Apr 17, 2023 10:32 AM SECONDARY Encounter for immunization [facility] Plan of Treatment: Future Appointments (+ 6 months) and Future Tests (+/- 45 days) The Plan of Treatment section includes future care activities for the patient from all [place] treatmentfacilities. This section includes future appointments and future orders which are active, pending or scheduled. Future Appointments This section includes appointments that were scheduled to occur 6 months from the date of the Encounter, up to a maximum of 20 appointments. The data comes from all [place] treatment facilities. Appointment Date/Time Appointment Type Appointme nt Facility Name Apr 19, 2023 09:00 AM [facility]ONE [facility] Apr 24, 2023 10:00 AM AMBULATORY - PS[facility]CHIATRY [facility] Apr 26, 2023 09:00 AM [facility]ORY - NONE [facility] May 01, 2023 09:00 AM AMBULATORY - PSYCHIATRY [facility] May 03, 2023 09:00 AM AMBULATORY - NONE [facility] May 08, 2023 11:00 AM AMBULATORY - PSYCHIATRY [facility] May 10, 2023 09:00 AM [facility]ATORY - NONE [facility] May 22, 2023 09:30 AM [facility] May 24, 2023 09:00 AM AMBULATORY - NONE [facility] Jun 04, 2023 09:30 AM [facility] June 07, 2023 09:00 AM [facility]ATORY - NONE [facility] June 13, 2023 10:00 AM AMBULATORY - PS[facility]ATRY [facility] June 14, 2023 09:00 AM [...] 03, 2023 09:00 AM [facility] Lab Results: +/- 30 days of the encounter This section includes the Chemistry and Hematology Lab Results on record with [place] for the patient. Radiology Reports and Pathology Reports are provided separately, in subsequent sections. Lab Results This section contains the Chemistry/Hematology Results that were resulted 30 days before or 30 daysafter the date of the Encounter. Date/Time Source Result Type Result - Unit Interpretation Reference Range Comment Apr 10, 2023 08:10 AM [place] HEPATITIS B SURFACE ANTIBODY (HBsAb)- Specimen Type: SERUM No comment entered. Ordering Provider: SAVAGE KEYES Report Released Date/Time: 2023 10:10 AM Reporting Lab: [facility] [address] [facility] [address] Performing Lab: [address] [address] HBsAb Non Reactive Non Reactive Apr 10, 2023 08:10 AM [place] TSH Specimen Type: SERUM No comment entered. Ordering Provider: SAVAGE KEYES Report Released Date/Time: 2023 10:10 AM Reporting Lab: [address] [address] Performing Lab: [address] [address] TSH 1.38 u[IU]/mL 0.35-5.00 Apr 10, 2023 08:10 AM [place] LIPID PANEL, NON FASTING Specimen Type: SERUM No comment entered. Ordering Provider: SAVAGE KEYES Report Released Date/Time: 2023 10:10 AM Reporting Lab: [address] [address] Performing Lab: [address] [address] CHOLESTEROL 191 mg/dL TRIGLYCERIDE 136 mg/dL 0-150 LDL calculated 130 mg/dL H 0-129 CHOL/HDL 5.6 HDL CHOLESTEROL 34 mg/dL L 40-60 Apr 10, 2023 08:10 AM [place] HEMOGLOBIN A1C PANEL Specimen Type: BLOOD Comment: [...] Released Date/Time: 2023 10:10 AM Reporting Lab: [address] [address] Performing Lab: [address] [address] HEMOGLOBIN A1C 5.0 4.0-5.6 Apr 10, 2023 08:10 AM [place] VITAMIN D (25-OH) Specimen Type: SERUM No comment entered. Ordering Provider: SAVAGE KEYES Report Released Date/Time: 2023 10:10 AM Reporting Lab: [facility] [address] [address] Performing Lab: [address] [address] VITAMIN D (25-OH) 21 ng/mL 20-50 Apr 10, 2023 08:10 AM [place] CBC Specimen Type: BLOOD No comment entered. Ordering Provider: SAVAGE KEYES Report Released Date/Time: 2023 10:10 AM Reporting Lab: [address] [address] Performing Lab: [address] [address] WBC 7.74 10*3/uL 4.50-11.00 RBC 4.53 10*6/uL 4.23-5.66 HGB 13.8 g/dL 12.8-17 HCT 41.2 39.2-50.4 MCV 90.9 fL 82-99 MCHC 33.5 g/dL 30.8-35.1 PLT 221 10*3/uL 140-360 RDW-CV 12.1 12.0-16.0 MCH 30.5 pg 26.2-32.6 Apr 10, 2023 08:10 AM [place] LIVER FUNCTION Specimen Type: SERUM No comment entered. Ordering Provider: SAVAGE KEYES Report Released Date/Time: 2023 10:10 AM Reporting Lab: [address] [address] Performing Lab: [address] [address] PROTEIN,TOTAL 7.5 g/dL 6.0-8.3 ALBUMIN 3.8 g/dL 3.5-5.0 ALKALINE PHOSPHATASE 70 U/L 40-150 AST 15 U/L 5-34 ALT 18 U/L BILIRUBIN, TOTAL 0.6 mg/dL 0.2-1.2 Apr 10, 2023 08:10 AM [place] PSA Specimen Type: SERUM No comment entered. Ordering Provider: SAVAGE KEYES Report Released Date/Time: 2023 10:19 AM Reporting Lab: [address] [address] [facility] [address] [facility] [address] PSA 0.83 ng/mL 0.00-4.00 Apr 10, 2023 08:10 AM [place] BASIC METABOLIC PANEL (non-fasting) Spe cimen Type: SERUM No comment entered. Ordering Provider: SAVAGE KEYES Report Released Date/Time: 2023 10:10 AM Reporting Lab: [facility] [address] [facility] [address] Performing Lab: [address] [address] UREA NITROGEN 17 mg/dL 7-25 GLUCOSE 84 [...] Height Weight Body Mass Index Source Apr 17, 2023 09:30 AM 72 110/80 97 [place] Apr 17, 2023 09:00 AM 79 120/90 95 293 42 [facility] [place] Immunizations: All administered on the encounter date This section contains immunizations associated to the Encounter. Immunization Series Date Issued Reaction Comments HEP B, ADULT 1 Apr 17, 2023 INFLUENZA, INJECTABLE, QUADR IVALENT, PRESERVATIVE FREE Apr 17, 2023 Advance Directives: All historical and current Section Date Range: From patient's date of to the date document was created. This section includes ALL of a patient's completed or amended [place] Advance and Rescinded Directives. The entries below indicate that a directive exists for the patient, but an actual copy is not included with this document. The data comes from all [place] facilities. Date Advance Directives Provider Source Jan 26, 2020 ADVANCE DIRECTIVE DISCUSSION RIKA BIRD [place] Encounter Notes: All associated encounter notes This section contains the clinical notes associated to the Encounter. Date/Time Encounter Note(s) Provider Source Apr 17, 2023 10:32 AM PREVENTIVE MEDICIN E NURSING NOTE: LOCAL TITLE: CLINICAL REMINDERS/NURSING STANDARD TITLE: PREVENTIVE MEDICINE NURSING NOTE DATE OF NOTE: APR 17, 2023@10:32 ENTRY DATE: APR 17, 2023@10:33:06 AUTHOR: MYNOR PAZ EXP COSIGNER: URGENCY: STATUS: COMPLETED Hepatitis B Serology/Immunization: Hepatitis B vaccine (3 dose or 4 dose series) Administered: HEP B, ADULT Date Administered: Apr 17, 2023 09:30 Series: Series 1 Medical Record Librarian: Netcipia Lot: [id number] Exp Date: Jan 13, 2025 ND: [id number] Admin Route/Site: INTRAMUSCULAR/RIGHT DELTOID Dosage: 1 mL Vaccine Information Statement(s): HEPATITIS B VACCINE VIS June 16, 2022 (NIUEAN) Order By: Policy Administered By: Mynor Paz Vaccine Information Sheet (VIS) was given to the patient/caregiver, education regarding adverse reactions was discussed, as well as barriers to learning, if any, were acknowledged. Influenza Immunization: The patient was given the influenza VIS which lists the benefits and side effects of the vaccine and which reviews the risks of not receiving the flu vaccine. The VIS was reviewed with the patient and they were given an opportunity to ask questions. The patient was provided education on how to decrease the risk of influenza infection including social distancing and use of good hand hygiene. The patient denied any prior severe reaction to the flu vaccine or its components. The patient gave verbal consent to receive the vaccine. Influenza, Quadrivalent preservative free (Fluzone - syringe) Administered: INFLUENZA, INJECTABLE, QUADRIVALENT, PRESERVATIVE FREE Date Administered: Apr 17, 2023 09:30 Medical Record Librarian: SANOFI PASTEUR Lot: [id number] Exp Date: Aug 05, 2023 ND: [id number] Admin Route/Site: INTRAMUSCULAR/LEFT DELTOID Dosage: 0.5mL Vaccine Information Statement(s): INFLUENZA(FLU) VACC(INACTIVATED OR RECOMBINANT)VIS Sep 10, 2020 (NIUEAN) Order By: Policy Administered By: Mynor Paz Homelessness/Food Insecurity Screen: In the past 2 months, have you been living in stable housing that you own, rent, or stay in as part of a household? Yes - Living in stable housing. Are you worried or concerned that in the next 2 months you may NOT have stable housing that you own, rent, or stay in as part of a household? No - Not worried about housing near future The reports the following: Within the past 12 months, you worried whether your food would run out before you got money to buy more. Never true Within the past 12 months, the food you bought just didn't last and you didn't have money to get more. Never true Advance Directive Screen MH AD: Patient has an up-to-date Advance Directive at an outside, non-va facility and was asked to forward a copy to his/her clinician. RHS Screen: RHS Screen Session Format: Face to Face Environmental Check Upon inquiry, the individual reports that the environment is safe to proceed. Informed Consent to Screen and Document The individual consents to proceed with screening. The individual consents to documentation of responses. PRIMARY SCREEN: In the past 12 months, how often did a current or former intimate partner (e.g., boyfriend, girlfriend, , , sexual partner): 1. Scream or curse at you Never 2. Insult or talk down to you Never 3. Threaten you with harm Never 4. Physically hurt you Never 5. Force or pressure you to have sexual contact against your will, or when you were unable to say no Never ?? The HITS tool (items 1-4 above) is [place] copyright protected by Juliocesar Solorzano MD, and the user has full rights to use it throughout the [place] system. PRIMARY SCREEN RESULT: The Primary Screen is NEGATIVE. The individual answered never to all forms of IPV above (i.e., answered never to all 5 items) The individual accepts education and/or resources: Other: EDUCATION: The individual indicated readiness to learn. Education offered during this session as noted above. The individual indicated understanding by asking relevant questions and making appropriate comments. No barriers to learning were observed or identified. COVID-19 Immunization: Refused Moderna Monovalent COVID-19 vaccine Immunization: COVID-19 (MODERNA), MRNA, LNP-S, PF, 50 MCG/0.5 ML (AGES 12+ YEARS) Refusal Reason: PATIENT DECISION Patient refuses all immunization(s) in the COVID-19 group Date Documented: 04/17/23 10:46 Other reminders deferred for next visist. /josé luis/ MYNOR PAZ RN REGISTERED NURSE Signed: 04/17/2023 10:48 MYNOR PAZ Apr 17, 2023 10:00 AM NURSING NOTE: LOCAL TITLE: PRIMARY CARE NURSE NOTE STANDARD TITLE: NURSING NOTE DATE OF NOTE: APR 17, 2023@10:00 ENTRY DATE: APR 17, 2023@10:00:23 AUTHOR: MYNOR PAZ EXP COSIGNER: URGENCY: STATUS: COMPLETED Patient identity was verified using two identifiers, per [place] Policy: Full Name, Full SSN NO BURNETT is a 48 year old who presents to the clinic for BP Check per SAVAGE KEYES for diagnosis of: Hypertension Visit Type: Scheduled Patient Education: Does patient require Patient Education Teaching Assessment? No Patient Education provided? Yes Learner: Patient Readiness to Learn: Patient is receptive to learning Teaching Method: Explanation, Handouts Learner's Response to Education: Able to explain education in own words Blood Pressure Check: S: Evaluation of blood pressure O: Blood Pressure Readings BP monitor reading #1 Systolic/diastolic: 120/90, Pulse: 79 BP monitor reading #2, after resting for 30 minutes: Systolic/diastolic: 110/80, Pulse: 72 Home BP monitor readings: did not present any home BP readings at this visit. Abnormal Blood Pressure Symptom Review: Patient reports: Lightheadedness: No Dizziness: No Recent Fall: No Chest Pain: No SOB: No Vision Changes: No Headache: No Edema: No Cough: No Other: A: Blood Pressure Medication Review: Changes since last appointment? No Patient-reported adherence to regimen? Yes BP medicine taken today? 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 Active and Recently Outpatient Medications (including Supplies): Active Outpatient Medications Status ========= 1) LISINOPRIL 10MG TAB TAKE ONE TABLET BY MOUTH ONCE ACTIVE DAILY TO CONTROL BLOOD PRESSURE Nursing reviewed medications and no changes at this time. Comments: Knowledge Assessment: fair. states BP monitor gives him an error message whenever he tries to use the machine. was advised to bring his Home BP monitor with cuff with him to his next PCP visit. Will re-educate at that time. Patient received education on the following topics today: HTN/Stroke & his personal risk factors Diet: low salt diet Alcohol Intake: Discussed. denies alcohol intake. Tobacco: Discussed. denies smoking. Exercise: Discussed. states he is more active. Other habits: Life style modifications encouraged: Reduce sodium intake Barriers to learning: None If other, list here: Strategy/motivation for lifestyle change: is currently enrolled in the Move program. Referral to [facility] peer partner: No Patient verbalized understanding: Yes Patient agreed with plan: Yes PCP notified: No P: Return to clinic/ Return to PCP clinic Clinician plan: advised to continue to take Lisinopril 10 mg daily as prescribed. will return to the clinic for a PCP appointment on 05/22/23. Time spent spent in patient care and education 45 - 60 minutes. /josé luis/ MYNOR PAZ RN REGISTERED NURSE Signed: 04/17/2023 10:32 MYNOR PAZ
--- OUTSIDE RECORDS SUMMARY | 2024-01-24 11:45 | XMS_ITS | Encounter Summary ---
Author Name [facility] [place] [facility] [place] Organization [facility] [place] Address [address] [place] [address] Care Team Providers Care Bale Breaker Operator Name Role Phone RENNY PEREZ Primary Care Provider Dung e Selected Encounter This section includes the information on record at [place] for the Encounter. Date/Time Encounter Type Encounter Description Reason Provider Source Apr 19, 2023 09:00 AM GROUP BEHAVE COUNS 2-10 WEIGHT MGMT & MOVE! PROG - GRP ICD-10-CM E66.01 Morbid (severe) obesity due to excess calories JUAN M ACOSTA Encounter Template Text not used by [place] Assessments - Encounter Diagnoses This section includes the primary and secondary diagnoses documented for the Encounter. Date/Time Primary/Secondary Diagnosis Diagnosis Name Provider Source Apr 20, 2023 03:08 PM PRIMARY Morbid (severe) obesity due to excess calories JUAN M ACOSTA CBELDER Apr 20, 2023 03:08 PM SECONDARY Body mass index [BMI] 40.0-44.9, [...] Appointment Type Appointme nt Facility Name Apr 24, 2023 10:00 AM AMBULATORY - [facility]IATRY [facility] Apr 26, 2023 09:00 AM AMBULATORY - NONE [facility] May 01, 2023 09:00 AM AMBULATORY - PS[facility]IATRY [facility] May 03, 2023 09:00 AM AMB[facility]ATORY - NONE [facility] May 08, 2023 11:00 AM AMBULATORY - [facility]IATRY [facility] May 10, 2023 09:00 AM [facility]ATORY - NONE [facility] May 22, 2023 09:30 AM [facility] May 24, 2023 09:00 AM AMB[facility]ATORY - NONE [facility] Jun 04, 2023 09:30 AM [facility] June 07, 2023 09:00 AM [facility]ATORY - NONE [facility] June 13, 2023 10:00 AM AMBULATORY - PSYCHIATRY [facility] June 14, 2023 09:00 AM AMBULATORY [...] 03, 2023 09:00 [facility] Lab Results: +/- 30 days of [...] Range Comment Apr 10, 2023 08:10 AM [place] HEPATITIS B SURFACE ANTIBODY (HBsAb)- Specimen Type: SERUM No comment entered. Ordering Provider: SAVAGE KEYES Report Released Date/Time: 2023 10:10 AM Reporting Lab: [facility] [address] [facility] [address] Performing Lab: [address] [address] HBsAb Non Reactive Non Reactive Apr 10, 2023 08:10 AM [place] TSH Specimen Type: SERUM No comment entered. Ordering Provider: SAVAGE KEYES Report Released Date/Time: 2023 10:10 AM Reporting Lab: [address] [address] Performing Lab: [address] [address] TSH 1.38 u[IU]/mL 0.35-5.00 Apr 10, 2023 08:10 AM [place] LIPID PANEL, NON FASTING Specimen Type: SERUM No comment entered. Ordering Provider: SAVAGE KEYES Report Released Date/Time: 2023 10:10 AM Reporting Lab: [address] [address] Performing Lab: [address] [address] CHOLESTEROL 191 mg/dL TRIGLYCERIDE 136 mg/dL 0-150 LDL calculated 130 mg/dL H 0-129 CHOL/HDL 5.6 HDL CHOLESTEROL 34 mg/dL L 40-60 Apr 10, 2023 08:10 AM [place] HEMOGLOBIN A1C PANEL Specimen Type: BLOOD Comment: [...] Date/Time: 2023 10:10 AM Reporting Lab: [address] [address] Performing Lab: [address] [address] HEMOGLOBIN A1C 5.0 4.0-5.6 Apr 10, 2023 08:10 AM [place] VITAMIN D (25-OH) Specimen Type: SERUM No comment entered. Ordering Provider: SAVAGE KEYES Report Released Date/Time: 2023 10:10 AM Reporting Lab: [facility] [address] Performing Lab: [address] [address] VITAMIN D (25-OH) 21 ng/mL 20-50 Apr 10, 2023 08:10 AM [place] LIVER FUNCTION Specimen Type: SERUM No comment entered. Ordering Provider: SAVAGE KEYES Report Released Date/Time: 2023 10:10 AM Reporting Lab: [address] [address] Performing Lab: [address] [address] PROTEIN,TOTAL 7.5 g/dL 6.0-8.3 ALBUMIN 3.8 g/dL 3.5-5.0 ALKALINE PHOSPHATASE 70 U/L 40-150 AST 15 U/L 5-34 ALT 18 U/L BILIRUBIN, TOTAL 0.6 mg/dL 0.2-1.2 Apr 10, 2023 08:10 AM [place] CBC Specimen Type: BLOOD No comment entered. Ordering Provider: SAVAGE KEYES Report Released Date/Time: 2023 10:10 AM Reporting Lab: [address] [address] Performing Lab: [address] [address] WBC 7.74 10*3/uL 4.50-11.00 RBC 4.53 10*6/uL 4.23-5.66 HGB 13.8 g/dL 12.8-17 HCT 41.2 39.2-50.4 MCV 90.9 fL 82-99 MCHC 33.5 g/dL 30.8-35.1 PLT 221 10*3/uL 140-360 RDW-CV 12.1 12.0-16.0 MCH 30.5 pg 26.2-32.6 Apr 10, 2023 08:10 AM [place] PSA Specimen Type: SERUM No comment entered. Ordering Provider: SAVAGE KEYES Report Released Date/Time: 2023 10:19 AM Reporting Lab: [address] [address] Performing Lab: [facility] [address] [facility] [address] PSA 0.83 ng/mL 0.00-4.00 Apr 10, 2023 08:10 AM [place] BASIC METABOLIC PANEL (non-fasting) Spe cimen Type: SERUM No comment entered. Ordering Provider: SAVAGE KEYES Report Released Date/Time: 2023 10:10 AM Reporting Lab: [facility] [address] [facility] [address] Performing Lab: [facility] [address] [facility] [address] UREA NITROGEN 17 mg/dL 7-25 GLUCOSE 84 [...] Height Weight Body Mass Index Source Apr 19, 2023 09:00 AM 291.7 42 [facility] Advance Directives: All [...] 26, 2020 ADVANCE DIRECTIVE DISCUSSION RIKA BIRD [place] Encounter Notes: All associated encounter notes This section contains the clinical notes associated to the Encounter. Date/Time Encounter Note(s) Provider Source Apr 19, 2023 09:00 AM MOVE CONSULT: LOCAL TITLE: CONSULT REPORT/MOVE! STANDARD TITLE: MOVE CONSULT DATE OF NOTE: APR 19, 2023@09:00 ENTRY DATE: APR 20, 2023@16:26:35 AUTHOR: FRED ACOSTA COSIGNER: URGENCY: STATUS: COMPLETED Veterans participated in MOVE! Group Counseling via [facility] on: 04/19/23 The [place] was provided with information on [facility] and has given verbal consent to use group [facility] services for their healthcare. The copy of the Group Telehealth Agreement has been mailed to the . The [place]'s location/emergency contact number were confirmed. The Emergency Call Relay Center ([phone]) was available. The visit was locked for security and privacy. [place] identified with 2 identifiers: [x] Full Name [x] Address Veterans attended the first 60-minute MOVE! group session on this date via [facility] or by phone. MOVE! is a program designed to provide education about weight management skills to overweight and obese veterans. Group members submitted their stated weighted to group facilitators. It was explained that the weights are collected for demonstrating patterns to each individual over time. Group facilitators then introduced themselves. Session #1 (Welcome to MOVE!) was conducted at today's MOVE! group meeting using the MOVE! Workbook. The group facilitators explained the MOVE! Program along with the program guidelines, reviewed motivation and reasons for weight loss, and explored ambivalence for change using Motivational Interviewing techniques. Steps to behavior change were reviewed along with the keys to weight management success. Finally, the importance of goal setting was explained, and opportunities were provided to set program goals. The objectives accomplished at today's session were: 1. Discussed motivation and reasons for losing weight. 2. Described the behavior-change process. 3. Assisted Veterans in setting weight-loss goals. The group participants were provided with the MOVE! [place] Workbook by mail prior to today's session and were instructed to have it available during each subsequent [facility] MOVE! group meeting. The MOVE! Food and Physical Activity Log was also mailed to the prior to today's session. Participants were asked to begin recording weight daily, to log all food and beverages consumed daily, and to also log all physical activities daily. They were instructed to have their Food and Physical Activity Log to available during each session. Additional Materials Provided by mail: MOVE Participant Guidelines handout My Weight Sheet Chart [facility] Group Consent The next [facility] MOVE! group meeting will be held on 04/25 Weight: 291.7 lb Dx: Morbid Obesity E66.01, Z68.41 /es/ FRED ACOSTA RD, LDN Staff Dietitian Signed: 04/20/2023 16:27 [facility]
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
--- OUTSIDE RECORDS SUMMARY | 2024-01-24 11:46 | XMS_ITS | Encounter Summary ---
Author Name [facility] [place] [place] Organization [facility] [place] Address [address] [place] [address] Care Team Providers Care Entry Level Marketing Representative Name Role Phone RENNY PEREZ Primary Care Provider Unavailabl e Selected Encounter This section includes the information on record at [place] for the Encounter. Date/Time Encounter Type Encounter Description Reason Provider Source June 07, 2023 09:00 AM [facility] GRP EA ADDL WEIGHT MGMT & MOVE! PROG - GRP ICD-10-CM E66.01 Morbid (severe) obesity due to excess calories NATI PABON Octavio Encounter Template Text not used by [place] Assessments - Encounter Diagnoses This section includes the primary and secondary diagnoses documented for the Encounter. Date/Time Primary/Secondary Diagnosis Diagnosis Name Provider Source June 07, 2023 12:06 PM PRIMARY Morbid (severe) obesity due to excess calories NAT[facility] PABON [facility] Plan of Treatment: Future Appointments (+ 6 months) and Future Tests (+/- 45 days) The Plan of Treatment section includes future care activities for the patient from all [place] treatmentfacilities. This section includes future appointments and future orders which are active, pending or scheduled. Future Appointments This section includes appointments that were scheduled to occur 6 months from the date of the Encounter, up to a maximum of 20 appointments. The data comes from all [place] treatment facilities. Appointment Date/Time Appointment Type Appointme nt Facility Name June 13, 2023 10:00 AM AMBULATORY [facility] June 14, 2023 09:00 AM [...] 22, 2023 10:00 AM AM[place]ULATORY [place] MEDICINE [place] [facility] [place] [facility] Oct 23, 2023 09:30 AM AMBULATORY - MEDICINE [place] [facility] [place] [facility] Nov 26, 2023 10:00 AM AMBULATORY - MEDICINE [facility] Advance Directives: All historical and current Section Date Range: From patient's date of to the date document was created. This section includes ALL of a patient's completed or amended [place] Advance and Rescinded Directives. The entries below indicate that a directive exists for the patient, but an actual copy is not included with this document. The data comes from all [place] facilities. Date Advance Directives Provider Source Jan 26, 2020 ADVANCE DIRECTIVE DISCUSSION RIKA BIRD Encounter Notes: All associated encounter notes This section contains the clinical notes associated to the Encounter. Date/Time Encounter Note(s) Provider Source June 07, 2023 09:00 AM MOVE NOTE: LOCAL TITLE: WEIGHT MANAGEMENT/MOVE! OUTPATIENT GROUP NOTE STANDARD TITLE: MOVE NOTE DATE OF NOTE: JUNE 07, 2023@09:00 ENTRY DATE: JUNE 07, 2023@11:55:12 AUTHOR: NATI PABON COSIGNER: URGENCY: STATUS: COMPLETED Veterans participated in MOVE! Group Counseling via VVC on: 06/07/23. The was provided with information on VVC and has given verbal consent to use group VVC services for their healthcare. The copy of the Group Telehealth Agreement has been mailed to the . The [place]'s location/emergency contact number were confirmed. The Emergency Call Relay Center (E911) was available. The visit was locked for security and privacy. [place] identified with 2 identifiers: [x] Full Name [x] Address Veterans attended the 60-minute MOVE! group session on this date via [facility] or by phone. MOVE! is a program designed to provide education about weight management skills to overweight and obese veterans. Veterans submitted their stated weights to staff. The group facilitators began the session by reviewing the previous weeks topic (Menu Planning, Shopping, and Cooking). Participants were asked to share their respective progress toward achieving their respective goals and to share their experiences with keeping a food and physical activity log over the past week. Positive feedback was given to the Veterans for their efforts. Session #8 (Managing Weight-Loss Challenges) was then conducted using the MOVE! Workbook. Facilitators discussed common weight management challenges participants may encounter. Steps to problem solving weight management challenges were reviewed and applied to [place]-specific situations. Finally, challenges related to weight plateaus were discussed with strategies to overcome them. The objectives accomplished at todays session were: 1. Reviewed common weight-loss challenges. 2. Outlined the steps to problem solving. 3. Discussed what a plateau is and how to manage one. Participants were asked to set one healthy eating and physical activity goal to work on this week, continue recording weight daily, to log all food and beverages consumed daily, and to also log all physical activities daily. They were instructed to continue to bring their completed Food and Physical Activity Logs to every session. The next [facility] MOVE! group meeting will be held on: 06/14/23 Individual data: Today's Weight: 281 lb Weight Loss of -5.0 lb from last visit Dx: Morbid Obesity E66.01, Z68.41 /es/ NATI PABON, PHD PSYCHOLOGIST Signed: 06/07/2023 12:23 Receipt Acknowledged By: 06/18/2023 12:26 /es/ FRED ACOSTA RD, LDN Staff Dietitian NATI PABON OC
--- OUTSIDE RECORDS SUMMARY | 2024-01-24 11:46 | XMS_ITS | Encounter Summary ---
Author Name [facility] [place] Organization [place] Address [address] [place] [id number] Care Team Providers Care Voice Pathologist Name Role Phone RENNY PEREZ Primary Care Provider Unavailabl e Selected Encounter This section includes the information on record at [place] for the Encounter. Date/Time Encounter Type Encounter Description Reason Provider Source June 14, 2023 09:00 AM [facility] IVNTJ GRP EA ADDL WEIGHT MGMT & MOVE! PROG - GRP ICD-10-CM E66.01 Morbid (severe) obesity due to excess calories NATI PABON Octavio Encounter Template Text not used by [place] Assessments - Encounter Diagnoses This section includes the primary and secondary diagnoses documented for the Encounter. Date/Time Primary/Secondary Diagnosis Diagnosis Name Provider Source June 15, 2023 09:11 AM PRIMARY Morbid (severe) obesity due to [...] Appointment Type Appointme nt Facility Name June 21, 2023 09:00 AM AMBULATORY - [...] MEDICINE [facility] [place] [facility] Oct 23, 2023 09:30 AM AMBULATORY - MEDICINE [facility] [place] [facility] Nov 26, 2023 10:00 AM AMBULATORY - MEDICINE [place] [facility] [place] [facility] Vital Signs: All taken on the encounter date This section contains inpatient and outpatient Vital Signs collected on the date of the Encounter. Date/Time Temperature Pulse Blood Pressure Respiratory Rate SP02 Pain Height Weight Body Mass Index Source June 14, 2023 09:46 AM 281.5 40 [facility] Advance Directives: All historical and current Section Date Range: From patient's date of to the date document was created. This section includes ALL of a patient's completed or amended [place] Advance and Rescinded Directives. The entries below [...] Encounter. Date/Time Encounter Note(s) Provider Source June 14, 2023 09:00 AM MOVE NOTE: LOCAL TITLE: WEIGHT MANAGEMENT/MOVE! OUTPATIENT GROUP NOTE STANDARD TITLE: MOVE NOTE DATE OF NOTE: JUNE 14, 2023@09:00 ENTRY DATE: JUNE 15, 2023@08:59:38 AUTHOR: NATI PABON COSIGNER: URGENCY: STATUS: COMPLETED Veterans participated in MOVE! Group Counseling via VVC on: 06/14/23 The was provided with information on VVC and has given verbal consent to use group VVC services for their healthcare. The copy of the Group Telehealth Agreement has been mailed to the [place]. The [place]'s location/emergency contact number were confirmed. The Emergency Call Relay Center (E911) was available. The visit was locked for security and privacy. identified with 2 identifiers: [x] Full Name [x] Address [X] Veterans attended the 60-minute MOVE! group session on this date via [facility] or by phone. MOVE! is a program designed to provide education about weight management skills to overweight and obese veterans. Veterans submitted their stated weights to staff. The group facilitators began the session by reviewing the previous weeks topic (Managing Weight-Loss Challenges). Participants were asked to share their respective progress toward achieving their respective goals and to share their experiences with keeping a food and physical activity log over the past week. Positive feedback was given to the Veterans for their efforts. Session #10 (Conquer Triggers and Cues) was then conducted using the MOVE! Workbook. Facilitators discussed how triggers and cues may be associated with certain responses that can become problem habits like overeating and inactivity. Veterans identified their personal triggers, and healthy ways to respond to triggers and cues were provided. The difference between hunger and cravings was explained, and strategies to manage cravings was discussed. Finally, Veterans were taught how to manage their environmental cues to set themselves up for success. The objectives accomplished at todays session were: 1. Assisted Veterans with identifying their cues and triggers. 2. Reviewed ways Veterans can manage their environments. 3. Assisted Veterans with developing ways to change cues and habits by breaking the chain. Participants were asked to set one healthy eating and physical activity goal to work on this week, continue recording weight daily, to log all food and beverages consumed daily, and to also log all physical activities daily. They were instructed to continue to bring their completed Food and Physical Activity Logs to every session. The next [facility] MOVE! group meeting will be held on 06/21/23. Individual data: Today's Weight: 281.5 lb Weight Gain of + .5 lb from last visit Dx: Morbid Obesity E66.01, Z68.41 /es/ NATI PABON, PHD PSYCHOLOGIST Signed: 06/15/2023 09:28 Receipt Acknowledged By: 06/18/2023 12:27 /josé luis/ FRED ACOSTA RD, LDN Staff Dietitian NATI PABON OC
[2024-01-24 11:47] VITALS: BP 132/83; PULSE 85; BMI 41.3
--- OUTSIDE RECORDS SUMMARY | 2024-01-24 11:47 | XMS_ITS | Encounter Summary ---
Author Name [facility] [place] [facility] [place] Organization [place] Address [address] [place] [id number] Care Team Providers Care Form Tamper Name Role Phone RENNY PEREZ Primary Care Provider Dung e Selected Encounter This section includes the information on record at [place] for the Encounter. Date/Time Encounter Type Encounter Description Reason Provider Source June 28, 2023 09:00 AM GROUP BEHAVE COUNS 2-10 WEIGHT MGMT & MOVE! PROG - GRP ICD-10-CM E66.01 Morbid (severe) obesity due to excess calories JUAN M ACOSTA Encounter Template Text not used by [place] Assessments - Encounter Diagnoses This section includes the primary and secondary diagnoses documented for the Encounter. Date/Time Primary/Secondary Diagnosis Diagnosis Name Provider Source June 28, 2023 02:23 PM PRIMARY Morbid (severe) obesity due to excess calories JUAN M ACOSTA CBELDER June 28, 2023 02:23 PM SECONDARY Body mass index [BMI] 40.0-44.9, adult JUAN M ACOSTA CBELDER Plan of Treatment: Future Appointments (+ 6 months) and Future Tests (+/- 45 days) The Plan of Treatment section includes future care activities for the patient from all [place] treatmentfacilities. This section includes future appointments and future orders which are active, pending or scheduled. Future Appointments This section includes appointments that were scheduled to occur 6 months from the date of the Encounter, up to a maximum of 20 appointments. The data comes from all [place] treatment facilities. Appointment Date/Time Appointment Type Appointme nt Facility Name Jul 19, 2023 09:00 AM AMBULATORY - [...] [facility]ICINE [facility] Vital Signs: All taken on the encounter date This section contains inpatient and outpatient Vital Signs collected on the date of the Encounter. Date/Time Temperature Pulse Blood Pressure Respiratory Rate SP02 Pain Height Weight Body Mass Index Source June 28, 2023 02:45 PM 280.5 40 [facility] Advance Directives: All historical and current Section Date Range: From patient's date of to the date document was created. This section includes ALL of a patient's completed or amended [place] Advance and Rescinded Directives. The entries below indicate that a directive exists for the patient, but an actual copy is not included with this document. The data comes from all [place] facilities. Date Advance Directives Provider Source Jan 26, 2020 ADVANCE DIRECTIVE DISCUSSION RIKA BIRD Encounter Notes: All associated encounter notes This section contains the clinical notes associated to the Encounter. Date/Time Encounter Note(s) Provider Source June 28, 2023 09:00 AM MOVE NOTE: LOCAL TITLE: WEIGHT MANAGEMENT/MOVE! OUTPATIENT GROUP NOTE STANDARD TITLE: MOVE NOTE DATE OF NOTE: JUNE 28, 2023@09:00 ENTRY DATE: JUNE 28, 2023@14:23:34 AUTHOR: FRED ACOSTA COSIGNER: URGENCY: STATUS: COMPLETED Veterans participated in MOVE! Group Counseling via VVC on: 06/28/2023 Number of veterans present: 7 veterans, 1 collateral The [facility] was provided with information on VVC and has given verbal consent to use group VVC services for their healthcare. The copy of the Group Telehealth Agreement has been mailed to the . The [place]'s location/emergency contact number were confirmed. The Emergency [facility] (E911) was available. The visit was locked for security and privacy. identified with 2 identifiers: [x] Full Name [x] Address Veterans attended the 60-minute MOVE! group session on this date via [facility] or by phone. MOVE! is a program designed to provide education about weight management skills to overweight and obese veterans. Veterans submitted their stated weights to staff. The group facilitators began the session by reviewing the previous weeks topic (Conquer Triggers and Cues). Participants were asked to share their respective progress toward achieving their respective goals and to share their experiences with keeping a food and physical activity log over the past week. Positive feedback was given to the Veterans for their efforts. Session #11 (Finesse Your Food) was then conducted using the MOVE! Workbook. Facilitators discussed the importance of macronutrients (carbohydrates, protein, and fat) in a healthful diet, along with each macronutrients role in their body. The topic of fiber, how it relates to satiety, and fiber-rich food sources was discussed. Recipe substitutions, snack options and seasoning suggestions were provided. Finally, the use of fad diets for long-term weight management was discouraged. The objectives accomplished at todays session were: 1. Helped Veterans recognize and understand the three macronutrients in a healthy diet. 2. Identified at least one healthy substitution to improve food choices. 3. Helped Veterans learn how to recognize a fad diet. Participants were asked to set one healthy eating and physical activity goal to work on this week, continue recording weight daily, to log all food and beverages consumed daily, and to also log all physical activities daily. They were instructed to continue to bring their completed Food and Physical Activity Logs to every session. The next [facility] MOVE! group meeting will be held on 07/05/23 Today's Weight: 280.5 lb Weight Loss of -1.3 lb from last visit Dx: Morbid Obesity E66.01, Z68.41 /es/ FRED ACOSTA, RD, LDN Staff Dietitian Signed: 06/28/2023 14:31 Receipt Acknowledged By: 06/29/2023 08:35 /es/ NATI PABON, PHD PSYCHOLOGIST KARLA,[facility]
--- OUTSIDE RECORDS SUMMARY | 2024-01-24 11:47 | XMS_ITS | Encounter Summary ---
Author Name [facility] [place] [facility] [place] Organization [place] Address [address] [place] [address] Care Team Providers Care Boiler Plant Operator Name Role Phone RENNY PEREZ Primary Care Provider Unavailabl e Selected Encounter This section includes the information on record at [place] for the Encounter. Date/Time Encounter Type Encounter Description Reason Pro vider Source Sep 10, 2023 10:44 AM Outpatient Encounter PRIMARY CARE/MEDICINE IHE Encounter Template Text not used by [place] Plan of Treatment: Future Appointments (+ 6 months) and Future Tests (+/- 45 days) The Plan of Treatment section includes future care activities for the patient from all [place] treatmentfacilities. This section includes future appointments and future orders which are active, pending or scheduled. Future Appointments This section includes appointments that were scheduled to occur 6 months from the date of the Encounter, up to a maximum of 20 appointments. The data comes from all [place] treatment facilities. Appointment Date/Time Appointment Type Appointme nt Facility Name Oct 22, 2023 10:00 AM AMBULATORY - [place]ICINE [place] [facility] [place] [facility] Oct 23, 2023 09:30 AM AMBULATORY - MEDICINE [place] [facility] [place] [facility] Nov 26, 2023 10:00 AM AMBULATORY - MEDICINE [place] [facility] [place] [facility] Jan 24, 2024 12:00 PM AMBULATORY - MEDICINE [place] [facility] [place] [facility] Feb 07, 2024 08:30 AM AMBULATORY - MEDICINE [facility] Active, Pending, and Scheduled Orders This section includes a listing of several types of active, pending, and scheduled orders, including clinic medications orders, diagnostic test orders, procedure orders and consult orders; where the start date of the order is 45 days before the date of the Encounter or 45 days after the date of theEncounter. The data comes from all [place] treatment facilities. Test Date/Time Test Type Test Details Facility Name Aug 20, 2023 12:00 AM Laboratory - Chemi stry Order VITAMIN D (25-OH) BLOOD (SST-SERUM) [facility] Sep 03, 2023 09:31 AM Consult Order COMMUNITY CARE-COLONOSCOPY Cons Diversional Therapist[facility] Social History: Smoking Status (Most current) and Tobacco Use (All prior to encounter date) This section includes the most current, and the historical, smoking and tobacco- related health factors from the [place] facility where the Encounter took place. Current Smoking Status This section includes the most current smoking, or tobacco-related health factor, from the [place] facility where the Encounter took place. Date/Time Current Smoking Status Comment Lewis wise 2023 09:24 AM VA-TOBACCO [facility]ED [facility] Tobacco Use History This section includes a history of the smoking, or tobacco-related health factors, that were collected on or before the date of the Encounter. The data comes from the [place] facility where the Encounter took place. Date/Time Smoking Status/Tobacco Use Comment F acility Mar 24, 2022 11:30 AM VA-TOBACCO FORMER USER [place] [facility] [place] [facility] Mar 24, 2022 11:30 AM VA-TOBACCO QUIT 15 YRS OR MORE [place] [facility] [place] [facility] Jul 12, 2020 08:00 AM VA-TOBACCO FORMER USER [place] [facility] [place] [facility] Jul 12, 2020 08:00 AM VA-TOBACCO QUIT 15 YRS OR MORE [facility] [place] [facility] Feb 19, 2019 08:26 AM VA-TOBACCO FORMER USER [place] [facility] [place] [facility] Feb 19, 2019 08:26 AM VA-TOBACCO QUIT 15 YRS OR MORE [facility] [place] [facility] Advance Directives: All historical and current Section Date Range: From patient's date of to the date document was created. This section includes ALL of a patient's completed or amended [place] Advance and Rescinded Directives. The entries below indicate that a directive exists for the patient, but an actual copy is not included with this document. The data comes from all [place] facilities. Date Advance Directives Provider Source Jan 26, 2020 ADVANCE DIRECTIVE DISCUSSION RIKA BIRD [place] Encounter Notes: All associated encounter notes This section contains the clinical notes associated to the Encounter. Date/Time Encounter Note(s) Provider Source Sep 10, 2023 10:44 AM LETTERS: LOCAL TITLE: PATIENT LETTER (B) STANDARD TITLE: LETTERS DATE OF NOTE: SEP 10, 2023@10:44 ENTRY DATE: SEP 10, 2023@10:44:46 AUTHOR: MAXINE COLLINS EXP COSIGNER: URGENCY: STATUS: COMPLETED NO [place] [address] [place] [id number] Date: SEP 10, 2023 Dear [facility]: Our goal at the [facility] is to provide you with quality medical care. This is a reminder of your appointment scheduled with our Clinical Pharmacist, Francia Spann on: Appointment Date: Oct @ 10:00 Appointment Type: VA video connect If you have any further questions or would like more information regarding [place] health care benefits, please call toll free at [phone]),visit the [place] website at www.[place].gov[place]health[place]its, or contact your local [place] Medical Center. Below please find a listing of ALL of your upcoming appointments. Thank you for your service to our nation, and we look forward to hearing from you soon. Sincerely, MAXINE COLLINS - ADVANCE IMMIGRATION SERVICES OFFICER Office Staff for: Francia Spann - Clinical Pharmacist [facility] [address] [place] [id number] T [phone] F [phone] Upcoming Appointments: 10/18/2023 09:30 CWM/SO/PACT 7 NURSING 10/22/2023 10:00 CWM/SO/VVC/PHARM PACT 1 02/07/2024 08:30 CWM/SO/PACT 1 FACULTY HEAD APPOINTMENT ABBREVIATION SCHULTZ ([facility] SO = [place], [facility]) ([facility] OR GO = [place], [address] [facility]) ([facility] = [facility]) (VVC - Video Call) (Tel-X Telephone Visit) (TH - Telehealth) MAXINE COLLINS [place]
--- OUTSIDE RECORDS SUMMARY | 2024-01-24 11:47 | XMS_ITS | Encounter Summary ---
Author Name [facility] [place] [facility] [place] Organization [place] Address [address] [place] [address] Care Team Providers Care Revenue Liaison Name Role Phone RENNY PEREZ Primary Care Provider Dung e Selected Encounter This section includes the information on record at [place] for the Encounter. Date/Time Encounter Type Encounter Description Reason Provider Source Jul 26, 2023 09:00 AM GROUP BEHAVE COUNS 2-10 WEIGHT MGMT & MOVE! PROG - GRP ICD-10-CM E66.01 Morbid (severe) obesity due to excess calories JUAN M ACOSTA Encounter Template Text not used by [place] Assessments - Encounter Diagnoses This section includes the primary and secondary diagnoses documented for the Encounter. Date/Time Primary/Secondary Diagnosis Diagnosis Name Provider Source Jul 30, 2023 01:13 PM PRIMARY Morbid (severe) obesity due to excess calories JUAN M ACOSTA CBELDER Jul 30, 2023 01:13 PM SECONDARY Body mass index [BMI] 40.0-44.9, [...] Date/Time Appointment Type Appointme nt Facility Name Aug 02, 2023 09:00 AM AMBULATORY - NONE [facility] Sep 03, 2023 09:00 AM AMBULATORY - MEDICINE [facility] Oct 22, 2023 10:00 AM AMBULATORY [facility]ICINE [facility] Oct 23, 2023 09:30 AM AMBULATORY - MEDICINE [facility] Nov 26, 2023 10:00 AM AMBULATORY - MEDICINE [facility] [place] [facility] Jan 24, 2024 12:00 PM AMBULATORY - [place]ICINE [place] [facility] [place] [facility] Active, Pending, and Scheduled Orders This section includes a listing of several types of active, pending, and scheduled orders, including clinic medications orders, diagnostic test orders, procedure orders and consult orders; where the start date of the order is 45 days before the date of the Encounter or 45 days after the date of theEncounter. The data comes from all [place] treatment facilities. Test Date/Time Test Type Test Details Facility Name Aug 20, 2023 12:00 AM Laboratory - Chemi stry Order VITAMIN D (25-OH) BLOOD (SST-SERUM) [facility] Sep 03, 2023 09:31 AM Consult Order COMMUNITY CARE-COLONOSCOPY Cons Dental Biller[facility] Vital Signs: All taken on the encounter date This section contains inpatient and outpatient Vital Signs collected on the date of the Encounter. Date/Time Temperature Pulse Blood Pressure Respiratory Rate SP02 Pain Height Weight Body Mass Index Source Jul 26, 2023 09:00 AM 279.2 40 [facility] Advance Directives: All historical and current Section Date Range: From patient's date of to the date document was created. This section includes ALL of a patient's completed or amended [place] Advance and Rescinded Directives. The entries below indicate that a directive exists for the patient, but an actual copy is not included with this document. The data comes from all [place] facilities. Date Advance Directives Provider Source Jan 26, 2020 ADVANCE DIRECTIVE DISCUSSION RIKA BIRD [place] Encounter Notes: All associated encounter notes This section contains the clinical notes associated to the Encounter. Date/Time Encounter Note(s) Provider Source Jul 26, 2023 09:00 AM MOVE NOTE: LOCAL TITLE: WEIGHT MANAGEMENT/MOVE! OUTPATIENT GROUP NOTE STANDARD TITLE: MOVE NOTE DATE OF NOTE: JUL 26, 2023@09:00 ENTRY DATE: JUL 30, 2023@13:48:02 AUTHOR: FRED ACOSTA COSIGNER: URGENCY: STATUS: COMPLETED Veterans participated in MOVE! Group Counseling via VVC on: 07/26/2023 The was provided with information on VV and has given verbal consent to use group VVC services for their healthcare. The copy of the Group Telehealth Agreement has been mailed to the [place]. The [place]'s location/emergency contact number were confirmed. The Emergency [...] session by reviewing the previous weeks topic (Manage Stress and Find Support). Participants were asked to share their respective progress toward achieving their respective goals and to share their experiences with keeping a food and physical activity log over the past week. Positive feedback was given to the Veterans for their efforts. Session #15 (Fine Tune Your Physical Activity) was then conducted using the MOVE! Workbook. Facilitators discussed how to fine tune physical activity and how to build physical activity into daily routines. Physical activity suggestions were shared for both warm and cold weather conditions. Safety tips were reviewed for being active and safe. Finally, recommendations were provided on how to be active with chronic conditions, chronic pain, or certain medication usage. In addition, the group participants were given the option to complete a program evaluation. The MOVE! Program Evaluation form was provided to each of the participants, who were instructed to complete it either in class today or to turn it in next week during the final class. The objectives accomplished at todays session were: 1. Helped Veterans refine their physical activity plan. 2. Discussed ways to cope with chronic conditions or pain while still being active. 3. Taught Veterans how to stay motivated to be active. Participants were asked to set one healthy eating and physical activity goal to work on this week, continue recording weight daily, to log all food and beverages consumed daily, and to also log all physical activities daily. They were instructed to continue to bring their completed Food and Physical Activity Logs to every session. The next (and last) meeting will be August 02, 2023 Today's Weight: 279.2 lb Weight Loss of -.8 lb from last visit Dx: Morbid Obesity E66.01, Z68.41 /es/ FRED ACOSTA RD, LDN Staff Dietitian Signed: 07/30/2023 13:52 FRED ACOSTA [facility]
--- OUTSIDE RECORDS SUMMARY | 2024-01-24 11:47 | XMS_ITS | Encounter Summary ---
Author Name [facility] [place] Organization [place] Address [address] [place] [address] Care Team Providers Care Medical Technologist Generalist Name Role Phone RENNY PEREZ Primary Care Provider Unavailabl e Selected Encounter This section includes the information on record at [place] for the Encounter. Date/Time Encounter Type Encounter Description Reason Pro vider Source Sep 03, 2023 12:00 AM Outpatient Encounter EVENT (HISTORICAL) IHE Encounter Template Text not used by [place] Plan of Treatment: Future Appointments (+ 6 months) and Future Tests (+/- 45 days) The Plan of Treatment section includes future care activities for the patient from all [place] treatmentfacilities. This section includes future appointments and future orders which are active, pending or scheduled. Future Appointments This section includes appointments that were scheduled to occur 6 months from the date of the Encounter, up to a maximum of 20 appointments. The data comes from all [place] treatment facilities. Appointment Date/Time Appointment Type Appointme nt Facility Name Oct 22, 2023 10:00 AM AMBULATORY [place]ICINE [place] [facility] [place] [facility] Oct 23, 2023 09:30 AM AMBULATORY - MEDICINE [place] [facility] [place] [facility] Nov 26, 2023 10:00 AM AMBULATORY - MEDICINE [place] [facility] [place] [facility] Jan 24, 2024 12:00 PM AMBULATORY - MEDICINE [place] [facility] [place] [facility] Feb 07, 2024 08:30 AM AMBULATORY - MEDICINE [facility] Active, Pending, and Scheduled Orders This section includes a listing of several types of active, pending, and scheduled orders, including clinic medications orders, diagnostic test orders, procedure orders and consult orders; where the start date of the order is 45 days before the date of the Encounter or 45 days after the date of theEncounter. The data comes from all [place] treatment facilities. Test Date/Time Test Type Test Details Facility Name Aug 20, 2023 12:00 AM Laboratory - Chemi stry Order VITAMIN D (25-OH) BLOOD (SST-SERUM) [facility] Sep 03, 2023 09:31 AM Consult Order COMMUNITY CARE-COLONOSCOPY Cons Quarantine Inspector's [facility] Social History: Smoking Status (Most current) and Tobacco Use (All prior to encounter date) This section includes the most current, and the historical, smoking and tobacco- related health factors from the [place] facility where the Encounter took place. Current Smoking Status This section includes the most current smoking, or tobacco-related health factor, from the [place] facility where the Encounter took place. Date/Time Current Smoking Status Comment [place] wise 2023 09:24 AM VA-TOBACCO [facility] Tobacco Use History This section includes a history of the smoking, or tobacco-related health factors, that were collected on or before the date of the Encounter. The data comes from the [place] facility where the Encounter took place. Date/Time Smoking Status/Tobacco Use Comment F acility Mar 24, 2022 11:30 AM VA-TOBACCO FORMER USER [place] [facility] [place] [facility] Mar 24, 2022 11:30 AM VA-TOBACCO QUIT 15 YRS OR MORE [place] [facility] [place] [facility] Jul 12, 2020 08:00 AM VA-TOBACCO FORMER USER [place] [facility] [place] [facility] Jul 12, 2020 08:00 AM VA-TOBACCO QUIT 15 YRS OR MORE [place] [facility] [place] [facility] Feb 19, 2019 08:26 AM VA-TOBACCO FORMER USER [place] [facility] [place] [facility] Feb 19, 2019 08:26 AM VA-TOBACCO QUIT 15 YRS OR MORE [facility] [place] [facility] Advance Directives: All historical and current Section Date Range: From patient's date of to the date document was created. This section includes ALL of a patient's completed or amended [place] Advance and Rescinded Directives. The entries below indicate that a directive exists for the patient, but an actual copy is not included with this document. The data comes from all [place] facilities. Date Advance Directives Provider Source Jan 26, 2020 ADVANCE DIRECTIVE DISCUSSION RIKA BIRD
--- OUTSIDE RECORDS SUMMARY | 2024-01-24 11:47 | XMS_ITS | Encounter Summary ---
Author Name [facility] Address [address] [place] [address] Care Team Providers Care Structural Analyst Name Role Phone RENNY PEREZ Primary Care Provider Unavailabl e Selected Encounter This section includes the information on record at [place] for the Encounter. Date/Time Encounter Type Encounter Description Reason Provider Source Oct 22, 2023 12:13 PM [facility] ASSMT&MGMT 11-20 CLINICAL PHARMACY ICD-10-CM E66.9 Obesity, unspecified MARCELINA CROOK Octavio Encounter Template Text not used by [place] Assessments - Encounter Diagnoses This section includes the primary and secondary diagnoses documented for the Encounter. Date/Time Primary/Secondary Diagnosis Diagnosis Name Provider Source Oct 22, 2023 12:22 PM PRIMARY Obesity, unspecified MARCELINA CROOK [facility] ([id number]) Plan of Treatment: Future Appointments (+ 6 months) and Future Tests (+/- 45 days) The Plan of Treatment section includes future care activities for the patient from all [place] treatmentfacilities. This section includes future appointments and future orders which are active, pending or scheduled. Future Appointments This section includes appointments that were scheduled to occur 6 months from the date of the Encounter, up to a maximum of 20 appointments. The data comes from all [place] treatment facilities. Appointment Date/Time Appointment Type Appointme nt Facility Name Oct 23, 2023 09:30 AM [place] [facility] Nov 26, 2023 10:00 AM [facility]ORY - MEDICINE [facility] Jan 24, 2024 12:00 PM AMBULATORY - MEDICINE [facility] Feb 07, 2024 08:30 AM AMBULATORY - MEDICINE [facility] Advance Directives: All historical and current Section Date Range: From patient's date of to the date document was created. This section includes ALL of a patient's completed or amended [place] Advance and Rescinded Directives. The entries below indicate that a directive exists for the patient, but an actual copy is not included with this document. The data comes from all [place] facilities. Date Advance Directives Provider Source Jan 26, 2020 ADVANCE DIRECTIVE DISCUSSION PELON,LUZ JERONIMO Encounter Notes: All associated encounter notes This section contains the clinical notes associated to the Encounter. Date/Time Encounter Note(s) Provider Source Oct 22, 2023 12:13 PM MEDICATION MGT CONSULT: LOCAL TITLE: CONSULT REPORT/NON FORMULARY PADR STANDARD TITLE: MEDICATION MGT CONSULT DATE OF NOTE: OCT 22, 2023@12:13 ENTRY DATE: OCT 22, 2023@12:13:10 AUTHOR: MARCELINA CROOK EXP COSIGNER: URGENCY: STATUS: COMPLETED The medical record has been reviewed with regard to this restricted drug request. Medication requested: SEMAGLUTIDE (WEGOVY) 0.25MG/0.5ML PEN Medication indication: Obesity Medical history relevant to this request: Exclusion Criteria If the answer to ANY item below is met, then the patient should NOT receive semaglutide (WEGOVY) for chronic weight management. [ ] ^1 [ ] Lactating ^2 [ ] Type 1 diabetes^3 [ ] Personal or family history of medullary thyroid carcinoma or with Multiple Endocrine Neoplasia syndrome type 2 * pt denies per consult comments, no hx in problem list or last PCP note [ ] Severe gastrointestinal dysmotility, including gastroparesis [ ] History of pancreatitis * pt denies per consult comments, no hx in problem list or last PCP note * TG <500, rare EtOH use, no hx of cholelithiases in problem list or last PCP note [ ] The patient has a history of suicidal attempts or active suicidal ideation * C-SSRS negative 10/22/23 [ ] Known PDR, severe NPDR, clinically significant ME, or DME Inclusion Criteria The answers to ALL of the following must be fulfilled in order to meet criteria for semaglutide (WEGOVY). [X] Verifiable participation in a comprehensive lifestyle intervention (CLI) that targets all three aspects of weight management: diet, physical activity, behavioral changes *recently completed MOVE! BMI is greater than or equal to 30 kg/m2 OR BMI is greater than or equal to 27 kg/m2 with at least one weight-related comorbidity ^8^9 *BMI = 41.88 Additional Inclusion Criteria In addition to meeting the above two inclusion criteria, the answer to ONE of the following must be fulfilled to meet criteria for semaglutide (WEGOVY). [X] BMI greater than or equal to 40 The request is approved x 6 mo - No formulary-preferred alternative Time spent: 12 min /es/ Marcelina Crook, PharmD Clinical Phone Technician Signed: 10/22/2023 12:[address] [facility] ([id number]
--- OUTSIDE RECORDS SUMMARY | 2024-01-24 11:47 | XMS_ITS | Encounter Summary ---
Author Name [facility] Organization [facility] Address [address] [place] [address] Care Team Providers Care Glaucoma Specialist Name Role Phone RENNY PEREZ Primary Care Provider Unavailabl e Selected Encounter This section includes the information on record at [place] for the Encounter. Date/Time Encounter Type Encounter Description Reason Provider Source Oct 22, 2023 10:00 AM MTMS BY PHARM ADDL 15 MIN CLINICAL PHARMACY ICD-10-CM E66.9 Obesity, unspecified JOSE,DESIRE IHE Encounter Template Text not used by [place] Assessments - Encounter Diagnoses This section includes the primary and secondary diagnoses documented for the Encounter. Date/Time Primary/Secondary Diagnosis Diagnosis Name Provider Source Oct 22, 2023 10:46 AM PRIMARY Obesity, unspecified JOSE,DESIRE DEERBROOK Plan of Treatment: Future Appointments (+ 6 [...] 23, 2023 09:30 AM AMBULATORY - MEDICINE [facility] [place] [facility] Nov 26, 2023 10:00 AM AMBULATORY - MEDICINE [facility] [place] [facility] Jan 24, 2024 12:00 PM AMBULATORY - MEDICINE [facility] [place] [facility] Feb 07, 2024 08:30 AM AMBULATORY - MEDICINE [facility] Advance Directives: All historical [...] Source Jan 26, 2020 ADVANCE DIRECTIVE DISCUSSION NANCY BIRD Encounter Notes: All associated encounter notes This section contains the clinical notes associated to the Encounter. Date/Time Encounter Note(s) Provider Source Oct 26, 2023 08:28 AM ADDENDUM: LOCAL TITLE: Addendum STANDARD TITLE: ADDENDUM DATE OF NOTE: OCT 26, 2023@08:28:39 ENTRY DATE: OCT 26, 2023@08:28:39 AUTHOR: DESIRE SPANN COSIGNER: URGENCY: STATUS: COMPLETED Will ask filter cloth maker to please notify patient that semaglutide 0.25mg once weekly RX is in the mail. Please wait to receive this to start RX. Thank you! /josé luis/ Desire Spann PharmD Clinical Pharmacy Practitioner Signed: 10/26/2023 08:28 Receipt Acknowledged By: 10/26/2023 11:34 /josé luis/ EFRAIN FERNANDEZ Clinical Cloth Bolt Bander == --- Original Document --- 10/22/23 CONSULT REPORT/PHARMACY: [facility] ([facility]) Standard Documentation [facility] Clinician Resources Only: E911 (Emergency Call Relay Center): [phone] National Veterans Crisis Line - 988 then press #1. EDUARDO Suicide Coordinator [phone], Ext. [phone]; Back-up Ext. [phone] [place] [employer], Afshan CLARK [phone] Introduction: Visit is being conducted by [facility]. identified with 2 identifiers: [X] Full Name [X] Date of [ ] VA ID Card Emergency Plan: confirmed and/or provided the following information in case of emergency or technology failure. PATIENT PHONE - PHONE NUMBER [CELLULAR] - Is patient phone number correct, if not, enter below: 's phone number: NO BURNETT [address], [address] [place]'s present location and address for appointment: As noted above. 's emergency contact name and phone number: Nancy (sister; does not have number) reported that location is private and safe: Yes Informed Consent: informed of the risks and benefits of Telehealth video care. Haynes has the right to refuse video services. If refuses video visit, a bstl-dl-celh visit will be scheduled. Haynes verbalized consent for this video visit: Yes Haynes provided consent for any other persons present for visit: N/A If yes, who and relationship to patient: Secure visit: Visit was locked for security and privacy:Yes = NO BURNETT is a 48 yo MALE referred to pharmacy clinic for weight management. HPI: S: referred to pharmacy clinic for weight management. Pt completed MOVE program ~2 months ago and lost ~12-15lbs. He notes that he has changed diet along with work shifts; instead of overnights, working 3-11pm which has helped with managing lifestyle. He notes hx anxiety; seeing therapist at [place]. Denies SI. Diet: B: skips L: pasta or sandwich D: varies; miso soup + rice or chicken Snacks: limited Drinks: water, coffee Social: Alcohol: occassional, limited Tobacco: denies Other: denies Activity: Limited; getting adjusted to 2nd shift (3-11pm) Plans to join gym Other: Works at [employer] Active problems - Computerized Problem List is the source for the followin. Vitamin D Deficiency ([facility] [id number]) 2. Obesity 3. Hyperlipidemia ([facility] [id number]) 4. Sickle cell trait 5. HTN - Hypertension ([facility] [id number]) 6. Pain of left lower leg 7. Sleep Apnea ([facility] [id number]) - uses CPAP 8. Housing problem Other: Denies personal or fhx thyroid cancer or MENS2 Denies hx pancreatitis Active Outpatient Medications (including Supplies): Active Outpatient Medications Status 1) CHOLECALCIF 10MCG (D3-400UNIT) TAB TAKE ONE TABLET BY ACTIVE MOUTH ONCE DAILY FOR VITAMIN SUPPLEMENTATION 2) LISINOPRIL 20MG TAB TAKE ONE TABLET BY MOUTH ONCE ACTIVE DAILY TO CONTROL BLOOD PRESSURE Pertinent Labs: HEMOGLOBIN A1C TREND Collection DT Spec HGBA1c 04/10/2023 08:10 BLOOD 5.0 08/28/2022 09:17 BLOOD 5.0 03/24/2022 12:01 BLOOD 4.9 LIPID PANEL TREND Collection DT Spec CHOL HDL CHO/HDL LDL-c TRIG 04/10/2023 08:10 SERUM 191 34 L 5.6 130 H 136 08/28/2022 09:17 SERUM 200 H 34 L 5.9 129 185 H 03/24/2022 12:01 SERUM 198 37 L 5.4 135 H 132 CREATININE-EGFR 04/10/23 08:10 1.15 A/P: Obesity: BMI >40. Completed MOVE program. Avoiding Orlistat due to limited weight loss potential and ADRs. Availability concerns with Contrave. Avoiding Qysmia due to HTN. MOA, potential ADRs, dosing and administration of semaglutide (Wegovy) reviewed. Pt interested in therapy. Denies personal or fhx thyroid cancer or MENS2; no hx pancreatitis; no hx DR. TAMEKA tyler; denies SI. Will place NFR for semaglutide (Wegovy) and mail RX if approved. Week 1 through week 4 : 0.25 mg once weekly. Week 5 through week 8: 0.5 mg once weekly. Week 9 through week 12: 1 mg once weekly. Week 13 through week 16: 1.7 mg once weekly. Week 17 and thereafter (maintenance dosage): 2.4 mg once weekly (preferred regimen); if not tolerated, may use an alternative maintenance dosage of 1.7 mg once weekly. Encouraged to continue with LSMs. F/U: 4 weeks ([facility]) Time Spent: 35 minutes Suicide Screen: C-SSRS Screening Forrest-Suicide Severity Rating Scale (C-SSRS Screener) 1. Over [...] required due to responses to other questions. PBM PharmD Pharmacotherapy Rem V12: PHARMACIST INTERVENTIONS: OBESITY/WEIGHT MANAGEMENT Medication Intervention(s) Initiate new medication Medication reconciliation (changes to active VA and non-VA medication lists to reconcile differences) Changes to medication lists made Add or renew medication /josé luis/ Desire Spann PharmD Clinical Pharmacy Practitioner Signed: 10/22/2023 10:45 10/22/2023 ADDENDUM STATUS: COMPLETED Will ask MSA to please schedule patient for: [X] CWM/SO/[facility]/PHARM PACT 1 RTC order placed. Appointent Length: 30 minutes. Thank you! /boris Spann PharmD Clinical Pharmacy Practitioner Signed: 10/22/2023 10:46 Receipt Acknowledged By: 10/23/2023 10:16 /es/ MAXINE COLLINS ADVANCE MOWER OPERATOR 10/22/2023 ADDENDUM STATUS: COMPLETED Will ask filter cloth maker to please notify pt that semaglutide (Wegovy) has been approved and will be mailed. Thank you! /josé luis/ Desire Spann PharmD Clinical Pharmacy Practitioner Signed: 10/22/2023 13:41 Receipt Acknowledged By: 10/22/2023 15:52 /josé luis/ EFRAIN FERNANDEZ Clinical Cloth Bolt Bander DESIRE SPANN Oct 22, 2023 01:40 PM ADDENDUM: LOCAL TITLE: Addendum STANDARD TITLE: ADDENDUM DATE OF NOTE: OCT 22, 2023@13:40:58 ENTRY DATE: OCT 22, 2023@13:40:58 AUTHOR: DESIRE SPANN COSIGNER: URGENCY: STATUS: COMPLETED Will ask filter cloth maker to please notify pt that semaglutide (Wegovy) has been approved and will be mailed. Thank you! /josé luis/ Desire Spann PharmD Clinical Pharmacy Practitioner Signed: 10/22/2023 13:41 Receipt Acknowledged By: 10/22/2023 15:52 /boris FERNANDEZ Clinical Cloth Bolt Bander == --- Original Document --- 10/22/23 CONSULT REPORT/PHARMACY: [facility] ([facility]) Standard Documentation [facility] Clinician Resources Only: E911 (Emergency Call Relay Center): [phone] National Veterans Crisis Line - 988 then press #1. EDUARDO Suicide Coordinator [phone], Ext. [phone]; Back-up Ext. [phone] [place] [employer], Afshan CLARK [phone] Introduction: Visit is being conducted by [employer]. Haynes identified with 2 identifiers: [X] Full Name [X] Date of [ ] VA ID Card Emergency Plan: [place] confirmed and/or provided the following information in case of emergency or technology failure. PATIENT PHONE - PHONE NUMBER [CELLULAR] - Is patient phone number correct, if not, enter below: 's phone number: NO BURNETT [address], [address] 's present location and address for appointment: As noted above. 's emergency contact name and phone number: Nancy (sister; does not have number) Haynes reported that location is private and safe: Yes Informed Consent: informed of the risks and benefits of Telehealth video care. [place] has the right to refuse video services. If refuses video visit, a hlzb-zk-dmbn visit will be scheduled. verbalized consent for this video visit: Yes Haynes provided consent for any other persons present for visit: N/A If yes, who and relationship to patient: Secure visit: Visit was locked for security and privacy:Yes = NO BURNETT is a 48 yo MALE referred to pharmacy clinic for weight management. HPI: S: Haynes referred to pharmacy clinic for weight management. Pt completed MOVE program ~2 months ago and lost ~12-15lbs. He notes that he has changed diet along with work shifts; instead of overnights, working 3-11pm which has helped with managing lifestyle. He notes hx anxiety; seeing therapist at [place]. Denies SI. Diet: B: skips L: pasta or sandwich D: varies; miso soup + rice or chicken Snacks: limited Drinks: water, coffee Social: Alcohol: occassional, limited Tobacco: denies Other: denies Activity: Limited; getting adjusted to 2nd shift (3-11pm) Plans to join gym Other: Works at [employer] Active problems - Computerized Problem List is the source for the followin. Vitamin D Deficiency ([facility] 79382641) 2. Obesity 3. Hyperlipidemia ([facility] 83700082) 4. Sickle cell trait 5. HTN - Hypertension ([facility] 47869248) 6. Pain of left lower leg 7. Sleep Apnea ([facility] [id number]) - uses CPAP 8. Housing problem Other: Denies personal or fhx thyroid cancer or MENS2 Denies hx pancreatitis Active Outpatient Medications (including Supplies): Active Outpatient Medications Status 1) CHOLECALCIF 10MCG (D3-400UNIT) TAB TAKE ONE TABLET BY ACTIVE MOUTH ONCE DAILY FOR VITAMIN SUPPLEMENTATION 2) LISINOPRIL 20MG TAB TAKE ONE TABLET BY MOUTH ONCE ACTIVE DAILY TO CONTROL BLOOD PRESSURE Pertinent Labs: HEMOGLOBIN A1C TREND Collection DT Spec HGBA1c 04/10/2023 08:10 BLOOD 5.0 08/28/2022 09:17 BLOOD 5.0 03/24/2022 12:01 BLOOD 4.9 LIPID PANEL TREND Collection DT Spec CHOL HDL CHO/HDL LDL-c TRIG 04/10/2023 08:10 SERUM 191 34 L 5.6 130 H 136 08/28/2022 09:17 SERUM 200 H 34 L 5.9 129 185 H 03/24/2022 12:01 SERUM 198 37 L 5.4 135 H 132 CREATININE-EGFR 04/10/23 08:10 1.15 A/P: Obesity: BMI >40. Completed MOVE program. Avoiding Orlistat due to limited weight loss potential and ADRs. Availability concerns with Contrave. Avoiding Qysmia due to HTN. MOA, potential ADRs, dosing and administration of semaglutide (Wegovy) reviewed. Pt interested in therapy. Denies personal or fhx thyroid cancer or MENS2; no hx pancreatitis; no hx DR. TAMEKA tyler; denies SI. Will place NFR for semaglutide (Wegovy) and mail RX if approved. Week 1 through week 4 : 0.25 mg once weekly. Week 5 through week 8: 0.5 mg once weekly. Week 9 through week 12: 1 mg once weekly. Week 13 through week 16: 1.7 mg once weekly. Week 17 and thereafter (maintenance dosage): 2.4 mg once weekly (preferred regimen); if not tolerated, may use an alternative maintenance dosage of 1.7 mg once weekly. Encouraged to continue with LSMs. F/U: 4 weeks ([facility]) Time Spent: 35 minutes Suicide Screen: C-SSRS Screening Forrest-Suicide Severity Rating Scale (C-SSRS Screener) 1. Over [...] required due to responses to other questions. PBM PharmD Pharmacotherapy Rem V12: PHARMACIST INTERVENTIONS: OBESITY/WEIGHT MANAGEMENT Medication Intervention(s) Initiate new medication Medication reconciliation (changes to active VA and non-VA medication lists to reconcile differences) Changes to medication lists made Add or renew medication /josé luis/ Desire Spann PharmD Clinical Pharmacy Practitioner Signed: 10/22/2023 10:45 10/22/2023 ADDENDUM STATUS: COMPLETED Will ask MSA to please schedule patient for: [X] CWM/SO/[facility]/PHARM PACT 1 RTC order placed. Appointent Length: 30 minutes. Thank you! /boris Spann PharmD Clinical Pharmacy Practitioner Signed: 10/22/2023 10:46 Receipt Acknowledged By: * AWAITING SIGNATURE * MAXINE COLLINS DEBBIE [place] Oct 22, 2023 10:46 AM ADDENDUM: LOCAL TITLE: Addendum STANDARD TITLE: ADDENDUM DATE OF NOTE: OCT 22, 2023@10:46:31 ENTRY DATE: OCT 22, 2023@10:46:33 AUTHOR: DESIRE SPANN COSIGNER: URGENCY: STATUS: COMPLETED Will ask MSA to please schedule patient for: [X] CWM/SO/[facility]/PHARM PACT 1 RTC order placed. Appointent Length: 30 minutes. Thank you! /josé luis/ Desire Spann PharmD Clinical Pharmacy Practitioner Signed: 10/22/2023 10:46 Receipt Acknowledged By: 10/23/2023 10:16 /es/ MAXINE COLLINS ADVANCE MOWER OPERATOR == --- Original Document --- 10/22/23 CONSULT REPORT/PHARMACY: [place] [employer] ([facility]) Standard Documentation [facility] Clinician Resources Only: E911 (Emergency Call Relay Center): [phone] National Veterans Crisis Line - 988 then press #1. ANAID Suicide Coordinator [phone], Ext. [phone]; Back-up Ext. [phone] [place] [employer], Afshan CLARK [phone] Introduction: Visit is being conducted by [employer]. Haynes identified with 2 identifiers: [X] Full Name [X] Date of [ ] VA ID Card Emergency Plan: [place] confirmed and/or provided the following information in case of emergency or technology failure. PATIENT PHONE - PHONE NUMBER [CELLULAR] - Is patient phone number correct, if not, enter below: Haynes's phone number: NO MEEHAN LEX [address], [address] 's present location and address for appointment: As noted above. 's emergency contact name and phone number: Nancy (sister; does not have number) reported that location is private and safe: Yes Informed Consent: informed of the risks and benefits of Telehealth video care. has the right to refuse video services. If refuses video visit, a mvek-zx-qalo visit will be scheduled. verbalized consent for this video visit: Yes provided consent for any other persons present for visit: N/A If yes, who and relationship to patient: Secure visit: Visit was locked for security and privacy:Yes = LEXNO MEEHAN is a 48 yo MALE referred to pharmacy clinic for weight management. HPI: S: Haynes referred to pharmacy clinic for weight management. Pt completed MOVE program ~2 months ago and lost ~12-15lbs. He notes that he has changed diet along with work shifts; instead of overnights, working 3-11pm which has helped with managing lifestyle. He notes hx anxiety; seeing therapist at [place]. Denies SI. Diet: B: skips L: pasta or sandwich D: varies; miso soup + rice or chicken Snacks: limited Drinks: water, coffee Social: Alcohol: occassional, limited Tobacco: denies Other: denies Activity: Limited; getting adjusted to 2nd shift (3-11pm) Plans to join gym Other: Works at [employer] Active problems - Computerized Problem List is the source for the followin. Vitamin D Deficiency ([facility] [id number]) 2. Obesity 3. Hyperlipidemia ([facility] 21924785) 4. Sickle cell trait 5. HTN - Hypertension ([facility] 15177591) 6. Pain of left lower leg 7. Sleep Apnea ([facility] 70259201) - uses CPAP 8. Housing problem Other: Denies personal or fhx thyroid cancer or MENS2 Denies hx pancreatitis Active Outpatient Medications (including Supplies): Active Outpatient Medications Status 1) CHOLECALCIF 10MCG (D3-400UNIT) TAB TAKE ONE TABLET BY ACTIVE MOUTH ONCE DAILY FOR VITAMIN SUPPLEMENTATION 2) LISINOPRIL 20MG TAB TAKE ONE TABLET BY MOUTH ONCE ACTIVE DAILY TO CONTROL BLOOD PRESSURE Pertinent Labs: HEMOGLOBIN A1C TREND Collection DT Spec HGBA1c 04/10/2023 08:10 BLOOD 5.0 08/28/2022 09:17 BLOOD 5.0 03/24/2022 12:01 BLOOD 4.9 LIPID PANEL TREND Collection DT Spec CHOL HDL CHO/HDL LDL-c TRIG 04/10/2023 08:10 SERUM 191 34 L 5.6 130 H 136 08/28/2022 09:17 SERUM 200 H 34 L 5.9 129 185 H 03/24/2022 12:01 SERUM 198 37 L 5.4 135 H 132 CREATININE-EGFR 04/10/23 08:10 1.15 A/P: Obesity: BMI >40. Completed MOVE program. Avoiding Orlistat due to limited weight loss potential and ADRs. Availability concerns with Contrave. Avoiding Qysmia due to HTN. MOA, potential ADRs, dosing and administration of semaglutide (Wegovy) reviewed. Pt interested in therapy. Denies personal or fhx thyroid cancer or MENS2; no hx pancreatitis; no hx DR. TAMEKA tyler; denies SI. Will place NFR for semaglutide (Wegovy) and mail RX if approved. Week 1 through week 4 : 0.25 mg once weekly. Week 5 through week 8: 0.5 mg once weekly. Week 9 through week 12: 1 mg once weekly. Week 13 through week 16: 1.7 mg once weekly. Week 17 and thereafter (maintenance dosage): 2.4 mg once weekly (preferred regimen); if not tolerated, may use an alternative maintenance dosage of 1.7 mg once weekly. Encouraged to continue with LSMs. F/U: 4 weeks ([facility]) Time Spent: 35 minutes Suicide Screen: C-SSRS Screening Forrest-Suicide Severity Rating Scale (C-SSRS Screener) 1. Over [...] required due to responses to other questions. PBM PharmD Pharmacotherapy Rem V12: PHARMACIST INTERVENTIONS: OBESITY/WEIGHT MANAGEMENT Medication Intervention(s) Initiate new medication Medication reconciliation (changes to active VA and non-VA medication lists to reconcile differences) Changes to medication lists made Add or renew medication /josé luis/ Desire Spann PharmD Clinical Pharmacy Practitioner Signed: 10/22/2023 10:45 10/22/2023 ADDENDUM STATUS: COMPLETED Will ask filter cloth maker to please notify pt that semaglutide (Wegovy) has been approved and will be mailed. Thank you! /josé luis/ Desire Spann PharmD Clinical Pharmacy Practitioner Signed: 10/22/2023 13:41 Receipt Acknowledged By: 10/22/2023 15:52 /josé luis/ EFRAIN FERNANDEZ Clinical Cloth Bolt Bander DESIRE SPANN Oct 22, 2023 09:41 AM PHARMACY CONSULT: LOCAL TITLE: CONSULT REPORT/PHARMACY STANDARD TITLE: PHARMACY CONSULT DATE OF NOTE: OCT 22, 2023@09:41 ENTRY DATE: OCT 22, 2023@09:41:18 AUTHOR: DESIRE SPANN EXP COSIGNER: URGENCY: STATUS: COMPLETED CONSULT REPORT/PHARMACY Has ADDENDA [facility] ([facility]) Standard Documentation [facility] Clinician Resources Only: E911 (Emergency Call Relay Center): [phone] National Veterans Crisis Line - 988 then press #1. EDUARDO Suicide Coordinator [phone], Ext. [phone]; Back-up Ext. [phone] [place] Police, Afshan CLARK [phone] Introduction: Visit is being conducted by [place] [facility]. identified with 2 identifiers: [X] Full Name [X] Date of [ ] VA ID Card Emergency Plan: [place] confirmed and/or provided the following information in case of emergency or technology failure. PATIENT PHONE - PHONE NUMBER [CELLULAR] - Is patient phone number correct, if not, enter below: Haynes's phone number: NO BURNETT [address], [address] Haynes's present location and address for appointment: As noted above. Haynes's emergency contact name and phone number: Nancy (sister; does not have number) reported that location is private and safe: Yes Informed Consent: informed of the risks and benefits of Telehealth video care. has the right to refuse video services. If refuses video visit, a ejyn-up-cpmy visit will be scheduled. Haynes verbalized consent for this video visit: Yes Haynes provided consent for any other persons present for visit: N/A If yes, who and relationship to patient: Secure visit: Visit was locked for security and privacy:Yes = LEXNO is a 48 yo MALE referred to pharmacy clinic for weight management. HPI: S: referred to pharmacy clinic for weight management. Pt completed MOVE program ~2 months ago and lost ~12-15lbs. He notes that he has changed diet along with work shifts; instead of overnights, working 3-11pm which has helped with managing lifestyle. He notes hx anxiety; seeing therapist at [place]. Denies SI. Diet: B: skips L: pasta or sandwich D: varies; miso soup + rice or chicken Snacks: limited Drinks: water, coffee Social: Alcohol: occassional, limited Tobacco: denies Other: denies Activity: Limited; getting adjusted to 2nd shift (3-11pm) Plans to join gym Other: Works at [employer] Active problems - Computerized Problem List is the source for the followin. Vitamin D Deficiency ([facility] [id number]) 2. Obesity 3. Hyperlipidemia ([facility] [id number]) 4. Sickle cell trait 5. HTN - Hypertension ([facility] 09377172) 6. Pain of left lower leg 7. Sleep Apnea ([facility] [id number]) - uses CPAP 8. Housing problem Other: Denies personal or fhx thyroid cancer or MENS2 Denies hx pancreatitis Active Outpatient Medications (including Supplies): Active Outpatient Medications Status 1) CHOLECALCIF 10MCG (D3-400UNIT) TAB TAKE ONE TABLET BY ACTIVE MOUTH ONCE DAILY FOR VITAMIN SUPPLEMENTATION 2) LISINOPRIL 20MG TAB TAKE ONE TABLET BY MOUTH ONCE ACTIVE DAILY TO CONTROL BLOOD PRESSURE Pertinent Labs: HEMOGLOBIN A1C TREND Collection DT Spec HGBA1c 04/10/2023 08:10 BLOOD 5.0 08/28/2022 09:17 BLOOD 5.0 03/24/2022 12:01 BLOOD 4.9 LIPID PANEL TREND Collection DT Spec CHOL HDL CHO/HDL LDL-c TRIG 04/10/2023 08:10 SERUM 191 34 L 5.6 130 H 136 08/28/2022 09:17 SERUM 200 H 34 L 5.9 129 185 H 03/24/2022 12:01 SERUM 198 37 L 5.4 135 H 132 CREATININE-EGFR 04/10/23 08:10 1.15 A/P: Obesity: BMI >40. Completed MOVE program. Avoiding Orlistat due to limited weight loss potential and ADRs. Availability concerns with Contrave. Avoiding Qysmia due to HTN. MOA, potential ADRs, dosing and administration of semaglutide (Wegovy) reviewed. Pt interested in therapy. Denies personal or fhx thyroid cancer or MENS2; no hx pancreatitis; no hx DR. ENGLISH stable; denies SI. Will place NFR for semaglutide (Wegovy) and mail RX if approved. Week 1 through week 4 : 0.25 mg once weekly. Week 5 through week 8: 0.5 mg once weekly. Week 9 through week 12: 1 mg once weekly. Week 13 through week 16: 1.7 mg once weekly. Week 17 and thereafter (maintenance dosage): 2.4 mg once weekly (preferred regimen); if not tolerated, may use an alternative maintenance dosage of 1.7 mg once weekly. Encouraged to continue with LSMs. F/U: 4 weeks ([facility]) Time Spent: 35 minutes Suicide Screen: C-SSRS Screening Forrest-Suicide Severity Rating Scale (C-SSRS Screener) 1. Over [...] required due to responses to other questions. PBM PharmD Pharmacotherapy Rem V12: PHARMACIST INTERVENTIONS: OBESITY/WEIGHT MANAGEMENT Medication Intervention(s) Initiate new medication Medication reconciliation (changes to active VA and non-VA medication lists to reconcile differences) Changes to medication lists made Add or renew medication /es/ Desire Spann PharmD Clinical Pharmacy Practitioner Signed: 10/22/2023 10:45 10/22/2023 ADDENDUM STATUS: COMPLETED Will ask MSA to please schedule patient for: [X] CWM/SO/[facility]/PHARM PACT 1 RTC order placed. Appointent Length: 30 minutes. Thank you! /boris Spann PharmD Clinical Pharmacy Practitioner Signed: 10/22/2023 10:46 Receipt Acknowledged By: 10/23/2023 10:16 /josé luis/ MAXINE COLLINS ADVANCE MOWER OPERATOR 10/22/2023 ADDENDUM STATUS: COMPLETED Will ask filter cloth maker to please notify pt that semaglutide (Wegovy) has been approved and will be mailed. Thank you! /brois Spann PharmD Clinical Pharmacy Practitioner Signed: 10/22/2023 13:41 Receipt Acknowledged By: 10/22/2023 15:52 /josé luis/ EFRAIN FERNANDEZ Clinical Cloth Bolt Bander 10/26/2023 ADDENDUM STATUS: COMPLETED Will ask filter cloth maker to please notify patient that semaglutide 0.25mg once weekly RX is in the mail. Please wait to receive this to start RX. Thank you! /boris Spann PharmD Clinical Pharmacy Practitioner Signed: 10/26/2023 08:28 Receipt Acknowledged By: * AWAITING SIGNATURE * EFRAIN FERNANDEZ DEBBIE [place]
--- OUTSIDE RECORDS SUMMARY | 2024-01-24 11:47 | XMS_ITS | Encounter Summary ---
Author Name [facility] [place] Organization [facility] [place] Address [address] [place] [id number] Care Team Providers Care Supervisor Assembly Name Role Phone RENNY PEREZ Primary Care Provider Unavailabl e Selected Encounter This section includes the information on record at [place] for the Encounter. Date/Time Encounter Type Encounter Description Reason Provider Source Jul 19, 2023 09:00 AM [facility] IVNTJ GRP WEIGHT MGMT & MOVE! PROG - GRP ICD-10-CM E66.01 Morbid (severe) obesity due to excess calories NATI PABON Octavio Encounter Template Text not used by [place] Assessments - Encounter Diagnoses This section includes the primary and secondary diagnoses documented for the Encounter. Date/Time Primary/Secondary Diagnosis Diagnosis Name Provider Source Jul 19, 2023 02:40 PM PRIMARY Morbid (severe) obesity due to excess calories NATI PABON [facility] Jul 19, 2023 02:40 PM SECONDARY Body mass index [BMI] 40.0-44.9, adult [facility] P[facility] Plan of Treatment: Future Appointments (+ 6 months) and Future Tests (+/- 45 days) The Plan of Treatment section includes future care activities for the patient from all [place] treatmentfacilities. This section includes future appointments and future orders which are active, pending or scheduled. Future Appointments This section includes appointments that were scheduled to occur 6 months from the date of the Encounter, up to a maximum of 20 appointments. The data comes from all [place] treatment facilities. Appointment Date/Time Appointment Type Appointme nt Facility Name Jul 26, 2023 09:00 AM AMBULATORY - [...] 26, 2023 10:00 AM AMBULATORY - MEDICINE [place] [facility] [place] [facility] Active, Pending, and Scheduled Orders This section includes a listing of several types of active, pending, and scheduled orders, including clinic medications orders, diagnostic test orders, procedure orders and consult orders; where the start date of the order is 45 days before the date of the Encounter or 45 days after the date of theEncounter. The data comes from all [place] treatment facilities. Test Date/Time Test Type Test Details Facility Name Aug 20, 2023 12:00 AM Laboratory - Chemi stry Order VITAMIN D (25-OH) BLOOD (SST-SERUM) [facility] Vital Signs: All taken on the encounter date This section contains inpatient and outpatient Vital Signs collected on the date of the Encounter. Date/Time Temperature Pulse Blood Pressure Respiratory Rate SP02 Pain Height Weight Body Mass Index Source Jul 19, 2023 01:23 PM 280 40 FITCHBU RG CB Advance Directives: All historical and current Section Date Range: From patient's date of to the date document was created. This section includes ALL of a patient's completed or amended [place] Advance and Rescinded Directives. The entries below indicate that a directive exists for the patient, but an actual copy is not included with this document. The data comes from all [place] facilities. Date Advance Directives Provider Source Jan 26, 2020 ADVANCE DIRECTIVE DISCUSSION RIKA BIRD [place] Encounter Notes: All associated encounter notes This section contains the clinical notes associated to the Encounter. Date/Time Encounter Note(s) Provider Source Jul 19, 2023 09:00 AM MOVE NOTE: LOCAL TITLE: WEIGHT MANAGEMENT/MOVE! OUTPATIENT GROUP NOTE STANDARD TITLE: MOVE NOTE DATE OF NOTE: JUL 19, 2023@09:00 ENTRY DATE: JUL 19, 2023@14:33:13 AUTHOR: WENDORF,NATI R EXP COSIGNER: URGENCY: STATUS: COMPLETED Veterans participated in MOVE! Group Counseling via [facility] on: 07/19/2023 The was provided with information on [facility] and has given verbal consent to use group [facility]VC services for their healthcare. The copy of the Group Telehealth Agreement has been mailed to the . The [place]'s location/emergency contact number were confirmed. The Emergency [...] session by reviewing the previous weeks topic (Dining Out Successfully). Participants were asked to share their respective progress toward achieving their respective goals and to share their experiences with keeping a food and physical activity log over the past week. Positive feedback was given to the Veterans for their efforts. Session #14 (Manage Stress and Find Support) was then conducted using the MOVE! [place] Workbook. Facilitators discussed the role of stress in weight management and overall health. The importance of relaxation and mindfulness for stress management was shared. Several techniques for Mindfulness-Based Stress Reduction were provided to the Veterans. The antique auto museum maintenance worker and Veterans discussed how mindfulness can be applied to eating and how to use a mindful eating approach. The antique auto museum maintenance worker then led the group in a mindful breathing exercise. Finally, Veterans were encouraged to maximize their support system. Veterans shared ideas of who they could ask/use as support, and in what ways they could be supported. The objectives accomplished at todays session were: 1. Discussed stressful situations and plan how to cope with them. 2. Taught Veterans stress management techniques. 3. Helped Veterans recognize how to find and ask for support. 4. Practiced Mindful breathing techniques Participants were asked to set one healthy eating and physical activity goal to work on this week, continue recording weight daily, to log all food and beverages consumed daily, and to also log all physical activities daily. They were instructed to continue to bring their completed Food and Physical Activity Logs to every session. The next MOVE! group meeting will be held on 07/26/23 Individual data: Today's Weight: 280 lb Weight Loss of -.5 lb from last visit Dx: Morbid Obesity E66.01, Z68.41 /es/ NATI PABON, PHD PSYCHOLOGIST Signed: 07/19/2023 14:49 Receipt Acknowledged By: 07/23/2023 16:42 /es/ FRED ACOSTA RD, LDN Staff Dietitian PEPPER,NATI MUJICA [facility]
--- OUTSIDE RECORDS SUMMARY | 2024-01-24 11:47 | XMS_ITS | Encounter Summary ---
Author Name [facility] [facility] [place] Address [address] [place] [id number] Care Team Providers Care School Age Program Teacher Name Role Phone RENNY PEREZ Primary Care Provider Unavailabl e Selected Encounter This section includes the information on record at [place] for the Encounter. Date/Time Encounter Type Encounter Description Reason Provider Source June 21, 2023 09:00 AM GROUP BEHAVE COUNS 2-10 WEIGHT MGMT & MOVE! PROG - GRP ICD-10-CM E66.01 Morbid (severe) obesity due to excess calories DARREN SANDERSON Octavio Encounter Template Text not used by [place] Assessments - Encounter Diagnoses This section includes the primary and secondary diagnoses documented for the Encounter. Date/Time Primary/Secondary Diagnosis Diagnosis Name Provider Source June 22, 2023 08:58 AM PRIMARY Morbid (severe) obesity due to excess calories DARREN SANDERSON [facility] June 22, 2023 08:58 AM SECONDARY Body mass index [BMI] 40.0-44.9, adult DARREN SANDERSON [facility] Plan of Treatment: Future Appointments (+ [...] Appointment Type Appointme nt Facility Name June 28, 2023 09:00 AM AMBULATORY - [...] - MEDICINE [facility] [place] [facility] Vital Signs: All taken on the encounter date This section contains inpatient and outpatient Vital Signs collected on the date of the Encounter. Date/Time Temperature Pulse Blood Pressure Respiratory Rate SP02 Pain Height Weight Body Mass Index Source June 21, 2023 09:35 AM 281.8 41 FITCHBU RG [facility] Advance Directives: All [...] Encounter. Date/Time Encounter Note(s) Provider Source June 21, 2023 09:00 AM MOVE NOTE: LOCAL TITLE: WEIGHT MANAGEMENT/MOVE! OUTPATIENT GROUP NOTE STANDARD TITLE: MOVE NOTE DATE OF NOTE: JUNE 21, 2023@09:00 ENTRY DATE: JUNE 22, 2023@08:59:55 AUTHOR: DARREN SANDERSON EXP COSIGNER: URGENCY: STATUS: COMPLETED Veterans participated in MOVE! Group Counseling via [facility] on: (06/21/23) The was provided with information on [facility] and has given verbal consent to use group VVC services for their healthcare. The copy of the Group Telehealth Agreement has been mailed to the [place]. The [place]'s location/emergency contact number were confirmed. The Emergency Call Relay Center (E911) was available. The visit was locked for security and privacy. [place] identified with 2 identifiers: [x] Full Name [x] Address Time Spent: 60 minutes Participants: 8 Veterans, 1 collateral Nutrition Education Topics: Intro to [facility] HTK, Nutrient content of recipe ingredients Cooking demonstration: Sauteed Garlic Red Cabbage, Big Mac Salad, Microwave Citizen [place] Veterans attended the 60-minute MOVE! group session on this date via [facility]. Veterans submitted their stated weights to staff. The group facilitators began the session by reviewing the previous week's topic. Participants were asked to share their respective progress toward achieving their respective goals and to share their experiences with keeping a food and physical activity log over the past week. Positive feedback was given to the Veterans for their efforts. Today we went over the how HTK via [facility] works, food safety, and creating delicious food by balancing different basic taste and textures. All Veterans were mailed a copy of the recipes created during today's class. The recipes today were reviewed and the nutrients contained within the ingredients were explained. We discussed ways to alter the recipes to customize it to the [place]'s preference. The next MOVE! group meeting will be held on: 06/28/23 Today's Weight: 281.8 lb Weight Gain of + .3 lb from last visit Dx: Morbid Obesity E66.01, Z68.41 /es/ DARREN SANDERSON MS, RDN, LDN Staff Dietitian Signed: 06/22/2023 09:07 Receipt Acknowledged By: 06/28/2023 00:01 /josé luis/ FRED ACOSTA RD, LDN Staff Dietitian [facility]
--- OUTSIDE RECORDS SUMMARY | 2024-01-24 11:47 | XMS_ITS | Encounter Summary ---
Author Name [facility] [place] Organization [facility] [place] [place] Address [address] [place] [id number] Care Team Providers Care Meteorology Instructor Name Role Phone RENNY PEREZ Primary Care Provider Unavailabl e Selected Encounter This section includes the information on record at [place] for the Encounter. Date/Time Encounter Type Encounter Description Reason Provider Source Aug 02, 2023 09:00 AM [facility] IVNTJ GRP EA ADDL WEIGHT MGMT & MOVE! PROG - GRP ICD-10-CM E66.9 Obesity, unspecified NATI PABON Encounter Template Text not used by [place] Assessments - Encounter Diagnoses This section includes the primary and secondary diagnoses documented for the Encounter. Date/Time Primary/Secondary Diagnosis Diagnosis Name Provider Source Aug 03, 2023 09:31 AM PRIMARY Obesity, unspecified [facility] PABON [facility] Aug 03, 2023 09:31 AM SECONDARY Body mass index [BMI] 39.0-39.9, adult [facility] PABON [facility] Plan of Treatment: [...] Date/Time Appointment Type Appointme nt Facility Name Sep 03, 2023 09:00 AM [facility]ATORY - [facility]ICINE [facility] Oct 22, 2023 10:00 AM AMBULATORY - MEDICINE [facility] [place] [place] [place] [facility] Oct 23, 2023 09:30 AM AM[facility]ULATORY - MEDICINE [facility] [place] [facility] Nov 26, 2023 10:00 AM AMBULATORY - MEDICINE [facility] [place] [place] [facility] Jan 24, 2024 12:00 PM AMBULATORY - MEDICINE [facility] [place] [place] [facility] Active, Pending, and Scheduled Orders This [...] stry Order VITAMIN D (25-OH) BLOOD (SST-SERUM) [facility] Sep 03, 2023 09:31 AM Consult Order COMMUNITY CARE-COLONOSCOPY Cons [employer] [facility] Vital Signs: All taken on the encounter date This section contains inpatient and outpatient Vital Signs collected on the date of the Encounter. Date/Time Temperature Pulse Blood Pressure Respiratory Rate SP02 Pain Height Weight Body Mass Index Source Aug 02, 2023 09:50 AM 277.5 40 FITCHBU RG [facility] Advance Directives: All [...] 26, 2020 ADVANCE DIRECTIVE DISCUSSION RIKA BIRD [place] Encounter Notes: All associated encounter notes This section contains the clinical notes associated to the Encounter. Date/Time Encounter Note(s) Provider Source Aug 02, 2023 09:00 AM MOVE NOTE: LOCAL TITLE: WEIGHT MANAGEMENT/MOVE! OUTPATIENT GROUP NOTE STANDARD TITLE: MOVE NOTE DATE OF NOTE: AUG 02, 2023@09:00 ENTRY DATE: AUG 03, 2023@09:23:29 AUTHOR: NATI PABON COSIGNER: URGENCY: STATUS: COMPLETED Veterans participated in MOVE! Group Counseling via [facility] on: 08/02/2023 The [place] was provided with information on [facility] and has given verbal consent to use group VVC services for their healthcare. The copy of the Group Telehealth Agreement has been mailed to the . The [place]'s location/emergency contact number were confirmed. The Emergency Call Relay Center (E911) was available. The visit was locked for security and privacy. [place] identified with 2 identifiers: [x] Full Name [x] Address Veterans attended the 60-minute MOVE! group session on this date via [facility] or by phone. MOVE! is a program designed to provide education about weight management skills to overweight and obese veterans. Veterans submitted their stated weights to staff. The group facilitators began the session by reviewing the previous weeks topic (Fine Tune Your Physical Activity). Participants were asked to share their respective progress toward achieving their respective goals and to share their experiences with keeping a food and physical activity log over the past week. Positive feedback was given to the Veterans for their efforts. Session #16 (Maintain Your Progress) was then conducted using the MOVE! Workbook. Facilitators discussed how Veterans can work to maintain the progress they have made in the MOVE! Program. The core weight management tools from the MOVE! Program were reviewed. Veterans were encouraged to accept their bodies as a crucial step to weight management. Strategies to stay motivated after the program ends were shared. Finally, Veterans set new weight management goals for the six months following the MOVE! Program. The objectives accomplished at todays session were: 1. Discussed how to maintain weight loss. 2. Taught Veterans the eight tips for staying motivated. 3. Encouraged Veterans to be proud of the healthy changes they have made! Group members who attended a majority of the classes were emailed a certificate of participation signed by the facility director. Education was then provided on options for follow-up using the So, Where Do I Go From Here emailed handout. Options for follow- up included an invitation to the ongoing support group, a referral to the individual Nutrition clinic, enrollment in the home TeleMOVE! program, re-enrollment in the regular 16-week MOVE! group program, and self-management on their own or via the MOVE! Race Relations Adviser Mobile annette. Veterans who did not attend a majority of the classes were encouraged to re-enroll in the 16-week MOVE! group program. Veterans were encouraged to share with the facilitators which options they were interested in. Individual data: Today's Weight: 277.5 lb Weight Loss of -1.7 lb from last visit Dx: Obesity E66.09, Z68.39 /es/ NATI PABON, PHD PSYCHOLOGIST Signed: 08/03/2023 09:40 Receipt Acknowledged By: 08/04/2023 01:42 /es/ FRED ACOSTA RD, LDN Staff Dietitian NATI PABON [facility]
--- OUTSIDE RECORDS SUMMARY | 2024-01-24 11:47 | XMS_ITS | Encounter Summary ---
Author Name [facility] [place] Organization [facility] [place] Address [address] [place] [address] Care Team Providers Care Ssis Ssrs Developer Name Role Phone RENNY PEREZ Primary Care Provider Unavailabl e Selected Encounter This section includes the information on record at [place] for the Encounter. Date/Time Encounter Type Encounter Description Reason Provider Source Sep 03, 2023 09:00 AM OFFICE O/P EST MOD 30 MIN PRIMARY CARE/MEDICINE ICD-10-CM I10 Essential (primary) hypertension RENNY PEREZ Octavio Encounter Template Text not used by [place] Assessments - Encounter Diagnoses This section includes the primary and secondary diagnoses documented for the Encounter. Date/Time Primary/Secondary Diagnosis Diagnosis Name Provider Source Sep 03, 2023 09:36 AM PRIMARY Essential (primary) hypertension RENNY PEREZ [place] Sep 03, 2023 09:36 AM SECONDARY Hyperlipidemia, unspecified RENNY PEREZ [place] Sep 03, 2023 09:36 AM SECONDARY Obesity, unspecified RENNY PEREZ JERONIMO Sep 03, 2023 09:36 AM SECONDARY Sleep apnea, unspecified RENNY PEREZ [place] Sep 03, 2023 09:36 AM SECONDARY Vitamin D deficiency, RENNY Maddox JERONIMO Plan of Treatment: Future Appointments (+ [...] 20 appointments. The data comes from all [place] treatment facilities. Appointment Date/Time Appointment Type Appointme nt Facility Name Oct 22, 2023 10:00 AM [place] [facility] [place] [facility] Oct 23, 2023 09:30 AM [place] [facility] [facility] Nov 26, 2023 10:00 AM [place] [facility] [facility] Jan 24, 2024 12:00 PM [place] [facility] [facility] Feb 07, 2024 08:30 AM [facility] Active, Pending, and Scheduled Orders This section includes a listing of several types of active, pending, and scheduled orders, including clinic medications orders, diagnostic test orders, procedure orders and consult orders; where the start date of the order is 45 days before the date of the Encounter or 45 days after the date of theEncounter. The data comes from all [facility]. Test Date/Time Test Type Test Details Facility Name Aug 20, 2023 12:00 AM Laboratory - Chemi stry Order VITAMIN D (25-[place]) BLOOD (SST-SERUM) [facility] Sep 03, 2023 09:31 AM Consult Order COMMUNITY CARE-COLONOSCOPY Cons Dent Remover's Choice [place] Vital Signs: All taken on the encounter date This section contains inpatient and outpatient Vital Signs collected on the date of the Encounter. Date/Time Temperature Pulse Blood Pressure Respiratory Rate SP02 Pain Height Weight Body Mass Index Source Sep 03, 2023 09:07 AM 98.2 88 124/84 17 [address] [facility] IELD Advance Directives: All historical and current Section Date Range: From patient's date of to the date document was created. This section includes ALL of a patient's completed or amended [place] Advance and Rescinded Directives. The entries below indicate that a directive exists for the patient, but an actual copy is not included with this document. The data comes from all [place] facilities. Date Advance Directives Provider Source Jan 26, 2020 ADVANCE DIRECTIVE DISCUSSION RIKA BIRD [place] Encounter Notes: All associated encounter notes This section contains the clinical notes associated to the Encounter. Date/Time Encounter Note(s) Provider Source Sep 03, 2023 09:23 AM PRIMARY CARE NURSE PRACTITIONER OUTPATIENT NOTE: LOCAL TITLE: NURSE PRACTITIONER OUTPATIENT NOTE STANDARD TITLE: PRIMARY CARE NURSE PRACTITIONER OUTPATIENT NOTE DATE OF NOTE: SEP 03, 2023@09:23 ENTRY DATE: SEP 03, 2023@09:23:40 AUTHOR: RENNY PEREZ COSIGNER: URGENCY: STATUS: COMPLETED PRIMARY CARE VISIT NO BURNETT, is a 48 yo RACE UNKNOWN MALE who presents at the [place] [facility]. TYPE OF VISIT: Face to face 48-year-old with HLD, morbid obesity (BMI 40), PACHECO on CPAP, and vitamin D deficiency presented to the outpatient clinic in regular follow-up. He last saw Dr. Keyes 05/29. At that visit, blood pressure was noted to be elevated and lisinopril dose was increased to 20 mg daily. He completed the [place] move program recently and lost 15 pounds. He states he has since gained a few pounds back. His recently returned from [place] and he has been eating more vegetables. Complains of excess gas after eating broccoli and cabbage. He denies any recent illnesses. No UC/ED visits. No exertional dyspnea, shortness of breath, cough, chest discomfort. Recent labs and diagnostic studies were reviewed with the . All medications were reconciled during this visit. HEALTHCARE PROVIDERS: PCP: [place] Social Hx: The patient is and lives with his who recently returned from [place] after 4.5 years. No nicotine; rare alcohol; no MJ. He has been regularly doing exercises learned during the move program. HISTORY: PERIOD OF SERVICE - [facility] FROM Apr TO Oct COMBAT SERVICE INDICATED: No MEDICAL HISTORY Active Problem Vitamin D Deficiency (SCT 50043244) 06/04/2023 SAVAGE KEYES Obesity E66.9 06/04/2023 SAVAGE KEYES Hyperlipidemia (SCT 56297233) E78.5 09/01/2022 JOHANA SUE Sickle cell trait D57.3 04/23/2023 SAVAGE KEYES HTN - Hypertension ([facility] 64611099) I 03/24/2022 RUDI HSU Pain of left lower leg M79.662 03/24/2022 RUDI HSU Sleep Apnea ([facility] 29610707) G47.30, 12/16/2019 JOSE LATHAM Housing problem Z59.8 02/19/2019 LACIE HICKS VITAL SIGNS: Temperature 98.2 F [36.8 C] (09/03/2023 09:07) Blood Pressure 124/84 (09/03/2023 09:07) Pulse 88 (09/03/2023 09:07) Respiration 17 (09/03/2023 09:07) Pain 1 (09/03/2023 09:07) BMI BMI: 41.9 Weight 283 lb [128.37 kg] (09/03/2023 09:07) Pulse Oximetry 96% (09/03/2023 09:07) ASSISTIVE DEVICES: None REVIEW OF SYSTEMS: CONSTITUTIONAL: No fevers, chills, weight loss/gain ENT: No sore throat, sneezing, congestion, rhinorrhea, anosmia, or ageusia. CARDIOVASCULAR: No chest pain, palpitations, or increased pedal edema RESPIRATORY: No SOB, cough, sputum, wheeze. GASTROINTESTINAL: Denies abd pain, N/V/D. No melena or hematochezia. No tenesmus or constipation. GENITOURINARY: No burning micturition. No urinary frequency or urgency. No nocturia. MUSCULOSKELETAL: No myalgias or arthralgias. PSYCHIATRIC: No new anxiety or depression. No sleep disturbance. NEUROLOGIC: No headaches, dizziness, numbness or tingling in the extremities, or unilateral weakness. EXAMINATION General: Obese [place] in no obvious distress. Mental Status: Alert and oriented x4. Head: Normocephalic. Eyes: PERRLA. EOMI. Anicteric sclerae. ENT: Moist oral mucosa. Posterior pharynx unremarkable Neck: Supple. No JVD. No LAD. No bruit. Lungs: CTA. Normal chest excursion. Eupneic respirations. CV: Heart tones S1, S2. Irregular.. No M/G/R. No peripheral edema GI: Abdomen is soft and nontender. No HSM or mass. : No CVA tenderness. Ext: No cyanosis or clubbing. No gross deformities. Neuro: CN II through XII grossly intact. Normal speech. Normal gait. Integument: Skin warm and dry. No rashes or lesions on visible areas. Psych: Normal mood and affect. Normal judgment. ECG: Sinus rhythm with nonspecific STT wave abnormality. Normal intervals. No acute ischemic changes. ALLERGIES: ========= PENICILLIN >> HEALTH MAINTENANCE PREVENTIVE MEDICINE GOALS Info Only: VA Video Connect Capable DUE NOW Medication Reconciliation DUE NOW (Optional) Whole Health Documentation DUE NOW ASSESSMENT/PLAN: Active problems - Computerized Problem List is the source for the followin. Vitamin D Deficiency ([facility] [id number]): Vitamin D level has normalized since starting supplement. 2. Obesity: As noted, completed move program and lost 15 pounds but has gained a few back. Still using the exercises learned during the program and feels his eating is better. Offered nutrition referral which he declined. 3. Hyperlipidemia ([facility] [id number]): Borderline cholesterol 191 with mildly elevated LDL to 130 and low HDL at 34. We discussed these in detail along with heart healthy diet and exercise as nonpharmacologic strategies to reduce overall ASCVD risk. He voiced understanding. Again, he declined nutrition referral. Agrees to referral to clinical pharmacist, Dr. Spann. 4. Sickle cell trait 5. HTN - Hypertension ([facility] 46829524): Blood pressure on target today since increasing lisinopril to 20 mg. Continue lisinopril at current dosing. 6. Pain of left lower leg 7. Sleep Apnea ([facility] 76606065): Endorses using CPAP at least 4 hours nightly. 8. Housing problem FOLLOW UP: RTC Below & sooner PRN UPCOMING APPOINTMENTS: 10/18/2023 09:30 CWM/SO/PACT 7 NURSING 35 minutes spent in patient evaluation, data review, and patient education. All medications were reconciled during this visit. No barriers; Patient understands and agrees to current treatment plan. If pt has any questions, concerns, or changes in current health status he/she will call or come in to the VA. Medication Reconciliation: Outpatient: Has the patient been taking medications as documented in the EMLR? YES: The patient has been taking medications as documented in the EMLR. Essential Medication List for Review used to complete this medication reconciliation. INCLUDED IN THIS LIST: Alphabetical list of active outpatient prescriptions dispensed from this [place] (local) and dispensed from another [place] or [place] facility (remote) as well as inpatient orders [...] whether with a VA or non-VA provider. /josé luis/ RENNY PEREZ NP NURSE PRACTITIONER Signed: 09/03/2023 09:35 RENNY PEREZ [place] Sep 03, 2023 09:08 AM PREVENTIVE MEDICIN E NURSING NOTE: LOCAL TITLE: CLINICAL REMINDERS/NURSING STANDARD TITLE: PREVENTIVE MEDICINE NURSING NOTE DATE OF NOTE: SEP 03, 2023@09:08 ENTRY DATE: SEP 03, 2023@09:08:56 AUTHOR: KHOI MORENO EXP COSIGNER: URGENCY: STATUS: COMPLETED Toxic Exposure Screening: The [place]/caregiver was asked if they believe the experienced any toxic exposure(s), such as Airborne Hazards and Open Burn Pit, [place] War related exposures, Agent Weakley, Radiation, contaminated water at [place] or other such exposures, while serving in the Armed Forces. [place]/caregiver doesn't know of concerns about [place] exposure to harmful substances while serving in the Armed Forces. Printed information was offered and contact information for local resources were provided if requested. No questions at this time [place]/caregiver was informed of local points of contact. Contact information for local resources: Benefits/Claim for Disability Compensation Questions:National [employer] [place] Healthcare Enrollment: [facility] Eligibility direct dialed at [phone] Registry: [facility] Coordinator ext [phone] Avg Risk Colorectal Cancer Screen: AVERAGE RISK colorectal cancer screening is due based on information available to this clinical reminder Screening is due now. Colonoscopy consult has been ordered. See orders tab for details. The Med Rec will be completed by the PCP. Herpes Zoster (Shingles) Vaccine: The patient declines to receive the recommended dose of zoster (shingles) vaccine. Immunization: ZOSTER RECOMBINANT Refusal Reason: PATIENT DECISION Patient refuses all immunization(s) in the ZOSTER group Date Documented: 09/03/23 09:15 /josé luis/ KHOI MORENO LPN LICENSED PRACTICAL NURSE Signed: 09/03/2023 09:15 KHOI MORENO [facility]
--- OUTSIDE RECORDS SUMMARY | 2024-01-24 11:48 | XMS_ITS | Continuity of Care Document ---
Author Organization [facility] As [facility] Address [address] [place] [address] [address] [place] [address]- Care Team Providers Care Apprentice Architect Name Role Phone Not on Staff, PCP Primary Care Physician Unavail able [place] [facility] [place] 12/24/23 - 01/23/[address] [place], [place] [address] Encounter Type: Triage Allergies, Adverse Reactions, Alerts Substance Criticality Severity Reaction Reaction Severity Status penicillin Active Medications lisinopril 20 mg oral tablet 20 mg, 1, tablet, By Mouth, Daily, # 30 tablet, Refills 0, Maintenance, 12/20/23 10:33:00 PM EST, Partial fill upon patient request if the prescription is for a schedule II opioid drug. Start Date: 12/20/23 Status: Ordered Quantity: 30.0 Unit: tablet Repeat number: 1 Problem List Condition Confirmation Course Effective Dates Status Health St atus Informant Severe obesity Confirmed Active Patient Care team information Care Team Personnel Name: Melanie Flores RN Position: S RN Member Role: Primary Care Nurse Name: Not on Staff, PCP Position: S Physician (General Medicine) Member Role: PCP Care Team Related Persons Name: RIKA STILL Insurance Providers Guarantor name: FELIX Health Plan Information #: 1 Payer: [employer] Member Number: NA Policy Number: NA Group Number: NA
--- OUTSIDE RECORDS SUMMARY | 2024-01-24 11:48 | XMS_ITS | Continuity of Care Document ---
Author Organization [address] [place] [address]- Care Team Providers Care Cocoa Room Operator Name Role Phone Not on Staff, PCP Primary Care Physician Unavail able Encounter [facility] Date(s): 01/09/24 - 01/16/[address] [place], [place] [address] Attending Physician: Faisal Davila DO Encounter Type: Office Visit Allergies, Adverse Reactions, Alerts Substance Criticality Severity [...] St atus Informant Severe obesity Confirmed Active Vital Signs Most recent to oldest [Reference Range]: 1 Height 175 cm (01/09/24 3:03 PM) Pulse Rate [55-90 bpm] 96 bpm *H* (01/09/24 3:03 PM) Blood Pressure [90-138/55-84 mm Hg] 148/ 92mm Hg *H* (01/09/24 3:03 PM) Temperature [96.8-100.4 DegF] 97.9 DegF (01/09/24 3:03 PM) Blood pressure sites Arm, left (01/09/24 3:03 PM) Temperature Route Temporal (01/09/24 3:03 PM) Note * Roma Vitale: PERFORM Event Display: Patient Education/Instruction Authored Date: [id number] Ambulatory Adult Visit Summary [facility] [address] [place] [address] Name: NO BURNETT : 1975?? Visit: 01/09/2024 15:02?? Ambulatory Visit Instructions ?? Your Care Team Primary Care Provider Not on Staff, PCP?? This Visit Provider Faisal Davila DO Vitals Signs Temperature: 97.9 DegF Height: 175 cm Pulse Rate:??96 bpm??High ?? Systolic Blood Pressure:??148 mm Hg??High ?? Diastolic Blood Pressure:??92 mm Hg??High ?? Medications The list below reflects the information in our records and provided by you today along with any changes made during this visit. Please continue your medications until treatment is completed or stopped by your provider. If this is different from the information you have or there are other questions,please contact the prescribing provider. What How Much When Instructions Unchanged Acetaminophen (acetaminophen 325 mg oral tablet) 975 Milligram Oral Every 6 hours as needed for Pain , Mild Unchanged Lisinopril (lisinopril 20 mg oral tablet) 1 tab(s) Oral Daily Medications and Immunizations Administered Medications Given During Visit No medications given during this visit.?? Allergies (NKA means No Known Allergies) penicillin Common Emergency Awareness Tips IS IT A STROKE? Act FAST and Check for these signs: FACE Does the face look uneven? ARM Does one arm drift down? SPEECH Does their speech sound strange? TIME Call at any sign of stroke ?? Heart Attack Signs Chest discomfort: Most heart attacks involve discomfort in the center of the chest and lasts more than a few minutes, or goes away and comes back. It can feel like uncomfortable pressure, squeezing, fullness or pain. Discomfort in upper body: Symptoms can include pain or discomfort in one or both arms, back, neck, jaw or stomach. Shortness of breath: With or without discomfort. Other signs: Breaking out in a cold sweat, nausea, or lightheaded. Remember, MINUTES DO MATTER. If you experience any of these heart attack warning signs, call to get immediate medical attention! ?? Smoking can increase your chances of developing chronic health problems and can cause harmful effects to other family members in your house. If you smoke, you are strongly encouraged to quit. Please call [facility] [email or web address] at [phone] or [phone] ([phone]) or log in to [email or web address] for referrals to smoking cessation programs. ?? The National Suicide Prevention Hotline is available 28/08 if you or someone you know needs to find a reason to keep living. By calling 8-455-787-Loopback (2666) you'll be connected to a skilled, trained counselor at a crisis center in your area. [facility] Scuttled[employer] Portal You can view and manage your care through the patient portal or by using a health care annette of your choosing. [employer] is a website that allows you to securely view your medical information including your hospital discharge summary, office visit summaries, medications and follow-up visits. You can also request appointments, renew medications, and request access to your medical information using a health care annette of your choosing, or just ask a question. You can enroll at [email or web address] or register during your next office visit. [facility], in keeping with [facility] guidance, no longer requires face masks for staff, patientsor visitors in most situations. Similiar to time spent indoors at other locations, there is the chance that you were exposed to repiratory viruses during your time with us (such as flu or COVID-19). If you develop symptoms concerning for a viral respiratory infection, please seek testing (and treatment if indicated) from your medical provider or home test kit. ?? Disclaimer: The information provided is of a general nature and is intended to be used in conjunction with the recommendations and advice of your health care practitioner. Every effort has been made to ensure that the information provided is accurate and complete at the time it is provided to you however, as your needs change, or, as new information becomes available, different or additional instructions may be required. ?? If you have questions, please consult with your primary care provider or pharmacist, as appropriate. This information is not intended to serve as substitution for assessment and evaluation by a qualified health care provider. If you do not have a primary care provider, you may find a [facility] provider by calling [facility] at [phone]. Patient Care team information Care Team Personnel Name: Melanie Flores RN Position: S RN Member Role: Primary Care Nurse Name: Not on Staff, PCP Position: [facility] Physician (General Medicine) Member Role: PCP Care Team Related Persons Name: RIKA STILL Insurance Providers Guarantor name: FELIX Health Plan Information #: 1 Payer: [employer] Member Number: [id number] Policy Number: NA Group Number: FELIX Health Plan Information #: 2 Payer: [employer] Member Number: [id number] Policy Number: NA Group Number: NA
--- OUTSIDE RECORDS SUMMARY | 2024-01-24 11:48 | XMS_ITS ---
Author Name [facility] [place] Organization [place] Address [address] [place] [address] Care Team Providers Care Director Of Business Applications Name Role Phone RENNY PEREZ Primary Care Provider Unavailabl e Selected Encounter This section includes the information on record at [place] for the Encounter. Date/Time Encounter Type Encounter Description Reason Pro vider Source Oct 22, 2023 02:46 PM Outpatient Encounter PRIMARY CARE/MEDICINE IHE Encounter [...] AMBULATORY - [place]ICINE [place] [facility] [place] [facility] Nov 26, 2023 10:00 AM AMBULATORY - MEDICINE [facility] [place] [facility] Jan 24, 2024 12:00 PM AMBULATORY - MEDICINE [place] [facility] [place] [facility] Feb 07, 2024 08:30 AM AMBULATORY - MEDICINE [facility] Social History: Smoking Status (Most current) and Tobacco Use (All prior to encounter date) This section includes the most current, and the historical, smoking and tobacco- related health factors from the [facility] facility where the Encounter took place. Current Smoking Status This section includes the most current smoking, or tobacco-related health factor, from the [place] facility where the Encounter took place. Date/Time Current Smoking Status Comment [facility] 2023 09:24 AM VA-TOBACCO NEVER USED [facility] Tobacco Use History This section includes a history of the smoking, or tobacco-related health factors, that were collected on or before the date of the Encounter. The data comes from the [place] facility where the Encounter took place. Date/Time Smoking Status/Tobacco Use Comment F acility Mar 24, 2022 11:30 AM VA-TOBACCO FORMER USER [place] [facility] [place] [facility] Mar 24, 2022 11:30 AM VA-TOBACCO QUIT 15 YRS OR MORE [place] [facility] [place] [facility] Jul 12, 2020 08:00 AM VA-TOBACCO FORMER USER [place] [facility] [place] [facility] Jul 12, 2020 08:00 AM VA-TOBACCO QUIT 15 YRS OR MORE [place] [facility] [place] [facility] Feb 19, 2019 08:26 AM VA-TOBACCO FORMER USER [place] [facility] [place] [facility] Feb 19, 2019 08:26 AM VA-TOBACCO QUIT 15 YRS OR MORE [facility] Advance Directives: All historical and current Section Date Range: From patient's date of to the date document was created. This section includes ALL of a patient's completed or amended [place] Advance and Rescinded Directives. The entries below [...] Encounter Note(s) Provider Source Oct 22, 2023 02:49 PM LETTERS: LOCAL TITLE: PATIENT LETTER (B) STANDARD TITLE: LETTERS DATE OF NOTE: OCT 22, 2023@14:49 ENTRY DATE: OCT 22, 2023@14:49:07 AUTHOR: MAXINE COLLINS COSIGNER: URGENCY: STATUS: [place] [address] [phone] * NO BURNETT [address] [address] Date: OCT 22, 2023 Dear : Thank you for choosing [facility] as your primary choice for health care. As a partner in your health care, we are attempting to contact you because we have been unsuccessful in reaching you by phone. WE ARE TRYING TO REACH TO SCHEDULE YOUR NEXT VIDEO APPOINTMENT WITH DESIRE GARCIA. We want to assure you that we are doing everything possible to schedule veterans for their appointments. Please call us at to speak with a staff member who can assist you with securing an appointment. Thank you for your service and we look forward to hearing from you soon. Sincerely; [facility] [address] [place] [address] [phone] Upcoming Appointments: 10/23/2023 09:30 CWM/SO/PACT 7 NURSING 02/07/2024 08:30 CWM/SO/PACT 1 [facility] MAXINE COLLINS [place] Oct 22, 2023 02:46 PM PRIMARY CARE TELEP ELDER ENCOUNTER NOTE: LOCAL TITLE: TELEPHONE NOTE/PRIMARY CARE STANDARD TITLE: PRIMARY CARE TELEPHONE ENCOUNTER NOTE DATE OF NOTE: OCT 22, 2023@14:46 ENTRY DATE: OCT 22, 2023@14:48:01 AUTHOR: MAXINE COLLINS EXP COSIGNER: URGENCY: STATUS: COMPLETED Talent Acquisition Director called to [X} schedule primary care appt [ ] reschedule primary care appt [ ] schedule COVID vaccine appt [ ] reschedule COVID vaccine appt [ ] Scheduled appt [X} Unable to schedule appt SPOKE WITH: SCHEDULED APPT - TYPE: APPT SCHEDULED ON AT [ ] [facility] APPT SCHEDULED ON AT [ ] NON [facility] APPT SCHED ON AT [X} UNABLE TO REACH : [X} Left voicemail with direct callback number [X} Mailed Letter = /es/ MAXINE COLLINS ADVANCE CERTIFIED ORTHOTIST/PEDORTHIST Signed: 10/22/2023 14:48 MAXINE COLLINSFIELD
--- OUTSIDE RECORDS SUMMARY | 2024-01-24 11:48 | XMS_ITS ---
Author Name [facility] [place] Organization [place] Address [address] [place] [id number] Care Team Providers Care Neon Sign Maker Name Role Phone RENNY PEREZ Primary Care Provider Unavailabl e Selected Encounter This section includes the information on record at [place] for the Encounter. Date/Time Encounter Type Encounter Description Reason Pro vider Source Dec 14, 2023 12:03 PM Outpatient Encounter PRIMARY CARE/MEDICINE IHE Encounter Template Text not used by [place] Plan of Treatment: Future Appointments (+ 6 months) and Future Tests (+/- 45 days) The Plan of Treatment section includes future care activities for the patient from all [place] treatmentfacilities. This section includes future appointments and future orders which are active, pending or scheduled. Future Appointments This section includes appointments that were scheduled to occur 6 months from the date of the Encounter, up to a maximum of 20 appointments. The data comes from all [place] treatment facilities. Appointment Date/Time Appointment Type Appointme nt Facility Name Jan 24, 2024 12:00 PM AMBULATORY - MEDICINE [facility] Feb 07, 2024 08:30 AM AMBULATORY - MEDICINE [facility] Social History: Smoking Status (Most current) and Tobacco Use (All prior to encounter date) This section includes the most current, and the historical, smoking and tobacco- related health factors from the [facility] facility where the Encounter took place. Current Smoking Status This section includes the most current smoking, or tobacco-related health factor, from the [facility] facility where the Encounter took place. Date/Time Current Smoking Status Comment Lewis wise 2023 09:24 AM [facility]-TOBACCO [facility] Tobacco Use History This section includes a history of the smoking, or tobacco-related health factors, that were collected on or before the date of the Encounter. The data comes from the [place] facility where the Encounter took place. Date/Time Smoking Status/Tobacco Use Comment F acility Mar 24, 2022 11:30 AM VA-TOBACCO FORMER USER [place] [facility] [place] [facility] Mar 24, 2022 11:30 AM VA-TOBACCO QUIT 15 YRS [place] MORE [place] [facility] [facility] [facility] Jul 12, 2020 08:00 AM VA-TOBACCO FOR[place] USER [place] [facility] Jul 12, 2020 08:00 AM VA-TOBACCO QUIT 15 YRS [place] MORE [place] [facility] Feb 19, 2019 08:26 AM VA-TOBACCO FORMER USER [place] [facility] Feb 19, 2019 08:26 AM VA-TOBACCO QUIT 15 YRS OR MORE [facility] Advance Directives: All historical and current Section Date Range: From patient's date of to the date document was created. This section includes ALL of a patient's completed or amended [place] Advance and Rescinded Directives. The entries below indicate that a directive exists for the patient, but an actual copy is not included with this document. The data comes from all [place] facilities. Date Advance Directives Provider Source Jan 26, 2020 ADVANCE DIRECTIVE DISCUSSION RIKA BIRD Encounter Notes: All associated encounter notes This section contains the clinical notes associated to the Encounter. Date/Time Encounter Note(s) Provider Source Dec 14, 2023 04:20 PM ADDENDUM: LOCAL TITLE: Addendum STANDARD TITLE: ADDENDUM DATE OF NOTE: DEC 14, 2023@16:20:05 ENTRY DATE: DEC 14, 2023@16:20:05 AUTHOR: RENNY PEREZ COSIGNER: URGENCY: STATUS: COMPLETED I am sorry to hear about the ineffectiveness of the MiraLAX. Lets trial simethicone suspension for gas. It would be available for you at the pharmacy window first thing 12/18/2023. /josé luis/ RENNY PEREZ NP NURSE PRACTITIONER Signed: 12/14/2023 16:20 Receipt Acknowledged By: 12/18/2023 08:56 /boris WORKMAN REGISTERED NURSE 12/18/2023 09:40 /boris SMALL LPN LPN --- Original Document --- 12/14/23 PRIMARY CARE SECURE MESSAGING: ------Original Message ----- Sent: 12/14/2023 08:04 AM ET From: NO BRUNETT To: Igor PEREZ_PRIMARY CARE_[facility] Subject: General:Trapped gas, heavy constipation, vomiting The miralax didn't work. 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 I was told that I would get advice on what to do about that last time someone reached out. Waiting patiently in extreme discomfort. Forgive me if I got the primary doctor wrong. It's changed so not sure who it is now. Thanks in advance /josé luis/ MAXINE COLLINS ADVANCE MACHINE TAILER Signed: 12/14/2023 12:03 Receipt Acknowledged By: 12/14/2023 15:46 /josé luis/ GERALD WORKMAN REGISTERED NURSE * AWAITING SIGNATURE * KRISTIN SMALL 12/14/2023 ADDENDUM STATUS: COMPLETED Forwarded to provider for review. /josé luis/ GERALD WORKMAN REGISTERED NURSE Signed: 12/14/2023 15:47 Receipt Acknowledged By: 12/14/2023 16:18 /josé luis/ RENNY PEREZ NP NURSE PRACTITIONER 12/18/2023 ADDENDUM STATUS: COMPLETED Telephone call to , no answer, left HIPPA compliant voicemail, letting him know new prescription for Simethecone for gas will be ready at pharmacy window for today. RN left clinic telephone number for him to call back if he had any questions or concerns. /boris WORKMAN REGISTERED NURSE Signed: 12/18/2023 08:59 RENNY PEREZ [facility] [place] [facility] Dec 14, 2023 03:46 PM ADDENDUM: LOCAL TITLE: Addendum STANDARD TITLE: ADDENDUM DATE OF NOTE: DEC 14, 2023@15:46:35 ENTRY DATE: DEC 14, 2023@15:46:35 AUTHOR: GERALD WORKMAN EXP COSIGNER: URGENCY: STATUS: COMPLETED Forwarded to provider for review. /boris WORKMAN REGISTERED NURSE Signed: 12/14/2023 15:47 Receipt Acknowledged By: 12/14/2023 16:18 /josé luis/ RENNY PEREZ NP NURSE PRACTITIONER --- Original Document --- 12/14/23 PRIMARY CARE SECURE MESSAGING: ------Original Message ----- Sent: 12/14/2023 08:04 AM ET From: NO BURNETT To: Igor PEREZ_PRIMARY CARE_[facility] Subject: General:Trapped gas, heavy constipation, vomiting The miralax didn't work. 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 I was told that I would get advice on what to do about that last time someone reached out. Waiting patiently in extreme discomfort. Forgive me if I got the primary doctor wrong. It's changed so not sure who it is now. Thanks in advance /josé luis/ MAXINE COLLINS ADVANCE MACHINE TAILER Signed: 12/14/2023 12:03 Receipt Acknowledged By: 12/14/2023 15:46 /boris WORKMAN REGISTERED NURSE * AWAITING SIGNATURE * KRISTIN SMALL [place] [facility] Dec 14, 2023 12:03 PM PRIMARY CARE SECUR E MESSAGING: LOCAL TITLE: PRIMARY CARE SECURE MESSAGING STANDARD TITLE: PRIMARY CARE SECURE MESSAGING DATE OF NOTE: DEC 14, 2023@12:03 ENTRY DATE: DEC 14, 2023@12:03:35 AUTHOR: MAXINE COLLINS EXP COSIGNER: URGENCY: STATUS: COMPLETED PRIMARY CARE SECURE MESSAGING Has ADDENDA ------Original Message ----- Sent: 12/14/2023 08:04 AM ET From: NO BURNETT To: Igor PEREZ_PRIMARY CARE_[facility] Subject: General:Trapped gas, heavy constipation, vomiting The miralax didn't work. 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 I was told that I would get advice on what to do about that last time someone reached out. Waiting patiently in extreme discomfort. Forgive me if I got the primary doctor wrong. It's changed so not sure who it is now. Thanks in advance /josé luis/ MAXINE COLLINS ADVANCE MACHINE TAILER Signed: 12/14/2023 12:03 Receipt Acknowledged By: 12/14/2023 15:46 /josé luis/ GERALD WORKMAN REGISTERED NURSE 12/18/2023 10:12 /boris SMALL LPN LPN 12/14/2023 ADDENDUM STATUS: COMPLETED Forwarded to provider for review. /boris WORKMAN REGISTERED NURSE Signed: 12/14/2023 15:47 Receipt Acknowledged By: 12/14/2023 16:18 /boris PEREZ NP NURSE PRACTITIONER 12/14/2023 ADDENDUM STATUS: COMPLETED I am sorry to hear about the ineffectiveness of the MiraLAX. Lets trial simethicone suspension for gas. It would be available for you at the pharmacy window first thing 12/18/2023. /boris PEREZ NP NURSE PRACTITIONER Signed: 12/14/2023 16:20 Receipt Acknowledged By: 12/18/2023 08:56 /boris WORKMAN REGISTERED NURSE 12/18/2023 09:40 /boris SMALL LPN LPN 12/18/2023 ADDENDUM STATUS: COMPLETED Telephone call to , no answer, left HIPPA compliant voicemail, letting him know new prescription for Simethecone for gas will be ready at pharmacy window for today. RN left clinic telephone number for him to call back if he had any questions or concerns. /josé luis/ GERALD WORKMAN REGISTERED NURSE Signed: 12/18/2023 08:59 MAXINE COLLINS [place] [facility]
--- OUTSIDE RECORDS SUMMARY | 2024-01-24 11:48 | XMS_ITS | Encounter Summary ---
Author Name [facility] [place] [place] [facility] [place] Organization [place] Address [address] [place] [id number] Care Team Providers Care Director Of Recruitment Name Role Phone RENNY PEREZ Primary Care Provider Unavailabl e Selected Encounter This section includes the information on record at [place] for the Encounter. Date/Time Encounter Type Encounter Description Reason Provider Source Oct 23, 2023 09:30 AM OFF/OP EST JUNE X REQ PHY/QHP PRIMARY CARE/MEDICINE ICD-10-CM Z23 Encounter for immunization COOPER MICHEL Encounter Template Text not used by [place] Assessments - Encounter Diagnoses This section includes the primary and secondary diagnoses documented for the Encounter. Date/Time Primary/Secondary Diagnosis Diagnosis Name Provider Source Oct 23, 2023 10:22 AM PRIMARY Encounter for immunization MARY MICHEL Plan of Treatment: Future Appointments (+ 6 months) and Future Tests (+/- 45 days) The Plan of Treatment section includes future care activities for the patient from all [place] treatmentfacilities. This section includes future appointments and future orders which are active, pending or scheduled. Future Appointments This section includes appointments that were scheduled to occur 6 months from the date of the Encounter, up to a maximum of 20 appointments. The data comes from all [place] treatment facilities. Appointment Date/Time Appointment Type Appointme nt Facility Name Nov 26, 2023 10:00 AM [facility] Jan 24, 2024 12:00 PM [facility] Feb 07, 2024 08:30 AM AMBULATORY - MEDICINE [facility] Immunizations: All administered on the encounter date This section contains immunizations associated to the Encounter. Immunization Series Date Issued Reaction Comments HEP B, ADULT 3 Oct 23, 2023 INFLUENZA, SPLIT VIRUS, TRIVALENT, PF Oct 22, 2 024 ZOSTER RECOMBINANT Oct 23, 2023 Advance Directives: All historical and current Section Date Range: From patient's date of to the date document was created. This section includes ALL of a patient's completed or amended [place] Advance and Rescinded Directives. The entries below indicate that a directive exists for the patient, but an actual copy is not included with this document. The data comes from all [place] facilities. Date Advance Directives Provider Source Jan 26, 2020 ADVANCE DIRECTIVE DISCUSSION RIKA BIRD Encounter Notes: All associated encounter notes This section contains the clinical notes associated to the Encounter. Date/Time Encounter Note(s) Provider Source Oct 23, 2023 10:04 AM PREVENTIVE MEDICIN E NURSING NOTE: LOCAL TITLE: CLINICAL REMINDERS/NURSING STANDARD TITLE: PREVENTIVE MEDICINE NURSING NOTE DATE OF NOTE: OCT 23, 2023@10:04 ENTRY DATE: OCT 23, 2023@10:04:52 AUTHOR: ROXANNE MICHEL EXP COSIGNER: URGENCY: STATUS: COMPLETED Advance Directive Screen MH AD: Patient does not have a completed advance directive on file at any facility, [place] or outside. S/he is not interested in completing one at this time. The patient received education about Advance Directives and written notification of his/her rights. Hepatitis B Immunization: Hepatitis B vaccine (3 dose or 4 dose series) Administered: HEP B, ADULT Date Administered: Oct 23, 2023 09:30 Series: Series 3 Contact Assembler: Amprius Lot: [id number] Exp Date: Nov 04, 2025 [facility]: [id number] Admin Route/Site: INTRAMUSCULAR/LEFT DELTOID Dosage: 1.0mL Vaccine Information Statement(s): HEPATITIS B VACCINE VIS June 16, 2022 (SWAZI) Order By: Policy Administered By: Roxanne Michel Vaccine Information Sheet (VIS) was given to the patient/caregiver, education regarding adverse reactions was discussed, as well as barriers to learning, if any, were acknowledged. Influenza Immunization: Influenza, Trivalent, Preservative Free (Fluarix-Syringe) Administered: INFLUENZA, SPLIT VIRUS, TRIVALENT, PF Date Administered: Oct 23, 2023 09:30 Series: Complete Contact Assembler: Amprius Lot: [id number] Exp Date: Aug 04, 2024 [place]: [id number] Admin Route/Site: INTRAMUSCULAR/RIGHT DELTOID Dosage: 0.5mL Vaccine Information Statement(s): INFLUENZA(FLU) VACC(INACTIVATED OR RECOMBINANT)VIS Sep 10, 2020 (SWAZI) Order By: Policy Administered By: Roxanne Michel The Influenza Vaccine Information Statement (VIS) was reviewed with the patient/caregiver which lists the benefits and risks of the vaccine and the risks of not receiving the Influenza vaccine. The patient/caregiver denied any prior severe reaction to this vaccine or its components or a severe allergic reaction, such as anaphylaxis, to any vaccine or any injectable therapy. The patient/caregiver gave verbal consent to receive the vaccine. Herpes Zoster (Shingles) Vaccine: Administered: ZOSTER RECOMBINANT Date Administered: Oct 23, 2023 09:30 Series: Complete Contact Assembler: Amprius Lot: [id number] Exp Date: Nov 13, 2023 [place]: [id number] Admin Route/Site: INTRAMUSCULAR/LEFT DELTOID Dosage: 0.5mL Vaccine Information Statement(s): RECOMBINANT ZOSTER VACCINE VIS Mar 11, 2021 (SWAZI) Order By: Policy Administered By: Roxanne Michel Vaccine Information Sheet (VIS) was given to the patient/caregiver, education regarding adverse reactions was discussed, as well as barriers to learning, if any, were acknowledged. /josé luis/ ROXANNE MICHEL RN REGISTERED NURSE Signed: 10/23/2023 10:22 ROXANNE MICHEL [facility]
--- OUTSIDE RECORDS SUMMARY | 2024-01-24 11:48 | XMS_ITS ---
Author Name [facility] [place] Organization [place] Address [address] [place] [id number] Care Team Providers Care Technical Support Analyst Name Role Phone RENNY PEREZ Primary Care Provider Unavailabl e Selected Encounter This section includes the information on record at [place] for the Encounter. Date/Time Encounter Type Encounter Description Reason Pro vider Source Dec 04, 2023 08:49 AM Outpatient Encounter PRIMARY CARE/MEDICINE IHE Encounter [...] 24, 2024 12:00 PM AMBULATORY - MEDICINE [facility] Feb 07, 2024 08:30 AM AMBULATORY - MEDICINE [facility] Social History: Smoking Status (Most current) [...] wise 2023 09:24 AM [facility]ACCO [facility] Tobacco Use History This section includes a history of the smoking, or tobacco-related health factors, that were collected on or before the date of the Encounter. The data comes from the [place] facility where the Encounter took place. Date/Time Smoking Status/Tobacco Use Comment F acility Mar 24, 2022 11:30 AM VA-TOBACCO FORMER USER [place] [facility] [facility] [place] [facility] Mar 24, 2022 11:30 AM VA-TOBACCO QUIT 15 YRS [place] MORE [place] [facility] [facility] Jul 12, 2020 08:00 AM [place]-TOBACCO [place] [facility] Jul 12, 2020 08:00 AM VA-TOBACCO QUIT 15 YRS [place] MORE [place] [facility] Feb 19, 2019 08:26 AM VA-TOBACCO [place] US[place] [facility] [facility] Feb 19, 2019 08:26 AM VA-TOBACCO QUIT [facility]RS [facility] Advance Directives: All historical and [...] Encounter. Date/Time Encounter Note(s) Provider Source Dec 04, 2023 10:23 AM ADDENDUM: LOCAL TITLE: Addendum STANDARD TITLE: ADDENDUM DATE OF NOTE: DEC 04, 2023@10:23:14 ENTRY DATE: DEC 04, 2023@10:23:15 AUTHOR: FRANCIA SPANN COSIGNER: URGENCY: STATUS: COMPLETED Spoke with Austin. He stopped Wegovy (semaglutide) 3 weeks ago and main concern now is loud gas and some constipation. Denies any severe N/V, abdominal pain, s/sx pancreatitis. He is eating regularly/ healthy food but decreased appetite since semaglutide. Discussed Miralax, which he will purchase OTC: 17 g (~1 heaping tablespoon) dissolved in 120 to 240 mL (4 to 8 ounces) of beverage, once daily. Call back if it does not improve in ~1-2 weeks. Counseled on s/sx and when to seek medical attn. Pt denies need for urgent care evaluation currently but would like PCP to be alerted for review as well/any further recommendations. Thank you. /es/ Francia Spann PharmD Clinical Pharmacy Practitioner Signed: 12/04/2023 10:29 Receipt Acknowledged By: 12/09/2023 11:28 /es/ RENNY PEREZ NP NURSE PRACTITIONER 12/04/2023 10:57 /es/ FRED MICHEL RN REGISTERED NURSE === --- Original Document --- 12/04/23 PRIMARY CARE SECURE MESSAGING: ------Original Message ------ Sent: 12/04/2023 06:42 AM ET From: NO BURNETT To: Igor PEREZ_PRIMARY CARE_[facility] Subject: General:Trapped gas Been having extremely uncomfortable gas issues for almost 2 months. Severe side affects from that diet injection wagovy. I have stopped using it 3 weeks ago but the gasses in my stomach is really awful to deal with. It doesn't help that I've been very constipated as well. I've tried gas x, even exlax but nothing works. What should I do? Sometimes it's a bit painful. Please help. /es/ MAXINE COLLINS ADVANCE BINDER LOCKSTITCH Signed: 12/04/2023 08:49 Receipt Acknowledged By: 12/04/2023 09:07 /es/ SAIDA LOVELACE RD,LDN STAFF DIETITIAN 12/04/2023 11:30 /es/ FRED MICHEL RN REGISTERED NURSE 12/04/2023 ADDENDUM STATUS: COMPLETED This inspector automatic typewriter is not involved in this Austin's care. Forwarding to PharmD and PCP for attention. /boris LOVELACE RD,FREDRICK STAFF DIETITIAN Signed: 12/04/2023 09:06 Receipt Acknowledged By: 12/09/2023 11:27 /josé luis/ RENNY PEREZ NP NURSE PRACTITIONER 12/04/2023 09:44 /josé luis/ Francia Spann PharmD Clinical Pharmacy Practitioner 12/04/2023 ADDENDUM STATUS: COMPLETED Left voice message for pt to contact inspector automatic typewriter at [phone]. /josé luis/ Francia Spann PharmD Clinical Pharmacy Practitioner Signed: 12/04/2023 09:45 FRANCIA SPANN [facility] [place] [facility] Dec 04, 2023 09:05 AM ADDENDUM: LOCAL TITLE: Addendum STANDARD TITLE: ADDENDUM DATE OF NOTE: DEC 04, 2023@09:05:49 ENTRY DATE: DEC 04, 2023@09:05:50 AUTHOR: SAIDA LOVELACE EXP COSIGNER: URGENCY: STATUS: COMPLETED This inspector automatic typewriter is not involved in this [place]'s care. Forwarding to PharmD and PCP for attention. /boris LOVELACE RD,FREDRICK STAFF DIETITIAN Signed: 12/04/2023 09:06 Receipt Acknowledged By: 12/09/2023 11:27 /boris PEREZ NP NURSE PRACTITIONER 12/04/2023 09:44 /boris Spann PharmD Clinical Pharmacy Practitioner === --- Original Document --- 12/04/23 PRIMARY CARE SECURE MESSAGING: ------Original Message ------ Sent: 12/04/2023 06:42 AM ET From: NO BURNETT To: Igor PEREZ_PRIMARY CARE_[facility] Subject: General:Trapped gas Been having extremely uncomfortable gas issues for almost 2 months. Severe side affects from that diet injection wagovy. I have stopped using it 3 weeks ago but the gasses in my stomach is really awful to deal with. It doesn't help that I've been very constipated as well. I've tried gas x, even exlax but nothing works. What should I do? Sometimes it's a bit painful. Please help. /es/ MAXINE COLLINS ADVANCE BINDER LOCKSTITCH Signed: 12/04/2023 08:49 Receipt Acknowledged By: 12/04/2023 09:07 /es/ SAIDA LOVELACE RD,LDN STAFF DIETITIAN 12/04/2023 11:30 /es/ FRED MICHEL, RN REGISTERED NURSE 12/04/2023 ADDENDUM STATUS: COMPLETED Left voice message for pt to contact inspector automatic typewriter at [phone]. /es/ Francia Spann PharmD Clinical Pharmacy Practitioner Signed: 12/04/2023 09:45 12/04/2023 ADDENDUM STATUS: COMPLETED Spoke with Austin. He stopped Wegovy (semaglutide) 3 weeks ago and main concern now is loud gas and some constipation. Denies any severe N/V, abdominal pain, s/sx pancreatitis. He is eating regularly/ healthy food but decreased appetite since semaglutide. Discussed Miralax, which he will purchase OTC: 17 g (~1 heaping tablespoon) dissolved in 120 to 240 mL (4 to 8 ounces) of beverage, once daily. Call back if it does not improve in ~1-2 weeks. Counseled on s/sx and when to seek medical attn. Pt denies need for urgent care evaluation currently but would like PCP to be alerted for review as well/any further recommendations. Thank you. /es/ Francia Spann PharmD Clinical Pharmacy Practitioner Signed: 12/04/2023 10:29 Receipt Acknowledged By: * AWAITING SIGNATURE * RENNY PEREZ 12/04/2023 10:57 /es/ FRED MICHEL, RN REGISTERED NURSE SAIDA LOVELACE [place] [facility] [facility] [place] [facility] Dec 04, 2023 08:49 AM PRIMARY CARE SECUR E MESSAGING: LOCAL TITLE: PRIMARY CARE SECURE MESSAGING STANDARD TITLE: PRIMARY CARE SECURE MESSAGING DATE OF NOTE: DEC 04, 2023@08:49 ENTRY DATE: DEC 04, 2023@08:49:47 AUTHOR: MAXINE COLLINS EXP COSIGNER: URGENCY: STATUS: COMPLETED PRIMARY CARE SECURE MESSAGING Has ADDENDA ------Original Message ------ Sent: 12/04/2023 06:42 AM ET From: NO BURNETT To: Igor PEREZ_PRIMARY CARE_[facility] Subject: General:Trapped gas Been having extremely uncomfortable gas issues for almost 2 months. Severe side affects from that diet injection wagovy. I have stopped using it 3 weeks ago but the gasses in my stomach is really awful to deal with. It doesn't help that I've been very constipated as well. I've tried gas x, even exlax but nothing works. What should I do? Sometimes it's a bit painful. Please help. /josé luis/ MAXINE COLLINS ADVANCE BINDER LOCKSTITCH Signed: 12/04/2023 08:49 Receipt Acknowledged By: 12/04/2023 09:07 /josé luis/ SAIDA LOVELACE RD,FREDRICK STAFF DIETITIAN 12/04/2023 11:30 /es/ FRED MICHEL, RN REGISTERED NURSE 12/04/2023 ADDENDUM STATUS: COMPLETED This inspector automatic typewriter is not involved in this 's care. Forwarding to PharmD and PCP for attention. /boris LOEVLACE RD,FREDRICK STAFF DIETITIAN Signed: 12/04/2023 09:06 Receipt Acknowledged By: * AWAITING SIGNATURE * RENNY PEREZ 12/04/2023 09:44 /es/ Francia Spann PharmD Clinical Pharmacy Practitioner 12/04/2023 ADDENDUM STATUS: COMPLETED Left voice message for pt to contact inspector automatic typewriter at [phone]. /josé luis/ Francia Spann PharmD Clinical Pharmacy Practitioner Signed: 12/04/2023 09:45 12/04/2023 ADDENDUM STATUS: COMPLETED Spoke with . He stopped Wegovy (semaglutide) 3 weeks ago and main concern now is loud gas and some constipation. Denies any severe N/V, abdominal pain, s/sx pancreatitis. He is eating regularly/ healthy food but decreased appetite since semaglutide. Discussed Miralax, which he will purchase OTC: 17 g (~1 heaping tablespoon) dissolved in 120 to 240 mL (4 to 8 ounces) of beverage, once daily. Call back if it does not improve in ~1-2 weeks. Counseled on s/sx and when to seek medical attn. Pt denies need for urgent care evaluation currently but would like PCP to be alerted for review as well/any further recommendations. Thank you. /josé luis/ Francia Spann PharmD Clinical Pharmacy Practitioner Signed: 12/04/2023 10:29 Receipt Acknowledged By: * AWAITING SIGNATURE * RENNY PEREZ 12/04/2023 10:57 /es/ FRED MICHEL RN REGISTERED NURSE MAXINE COLLINS [facility]
--- OUTSIDE RECORDS SUMMARY | 2024-01-24 11:48 | XMS_ITS | Encounter Summary ---
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 Date/Time Encounter Type Encounter Description Reason Provider Source Nov 26, 2023 10:00 AM MTMS BY PHARM ADDL 15 MIN CLINICAL PHARMACY ICD-10-CM E66.9 Obesity, unspecified JOSE,FRANCIA IHE Encounter Template Text not used by [facility] Assessments - Encounter Diagnoses This section includes the primary and secondary diagnoses documented for the Encounter. Date/Time Primary/Secondary Diagnosis Diagnosis Name Provider Source Nov 26, 2023 10:10 AM PRIMARY Obesity, unspecified JOSE,FRANCIA VAN TASSELL Plan of Treatment: Future Appointments (+ 6 months) and Future Tests (+/- 45 days) The Plan of Treatment section includes future care activities for the patient from all [facility] treatmentfacilities. This section includes future appointments and future orders which are active, pending or scheduled. Future Appointments This section includes appointments that were scheduled to occur 6 months from the date of the Encounter, up to a maximum of 20 appointments. The data comes from all [facility] treatment facilities. Appointment Date/Time Appointment Type Appointme nt Facility Name Jan 24, 2024 12:00 PM [facility] Feb 07, 2024 08:30 AM AMBULATORY - MEDICINE [facility] Advance Directives: All historical and current Section Date Range: From patient's date of to the date document was created. This section includes ALL of a patient's completed or amended [facility] Advance and Rescinded Directives. The entries below indicate that a directive exists for the patient, but an actual copy is not included with this document. The data comes from all [facility] facilities. Date Advance Directives Provider Source Jan 26, 2020 ADVANCE DIRECTIVE DISCUSSION NANCY BIRD VAN TASSELL Encounter Notes: All associated encounter notes This section contains the clinical notes associated to the Encounter. Date/Time Encounter Note(s) Provider Source Nov 26, 2023 09:55 AM PHARMACY OUTPATIEN T NOTE: LOCAL TITLE: PHARMACY CLINIC NOTE STANDARD TITLE: PHARMACY OUTPATIENT NOTE DATE OF NOTE: NOV 26, 2023@09:55 ENTRY DATE: NOV 26, 2023@09:55:06 AUTHOR: FRANCIA SPANN COSIGNER: URGENCY: STATUS: COMPLETED [facility] Video Connect (VVC) Standard Documentation VVC Clinician Resources Only: E911 (Emergency Call Relay Center): [phone] [facility] Crisis Line - 988 then press #1. [facility] Suicide Coordinator [phone], Ext. [phone]; Back-up Ext. [phone] [place] Police, Afshan CLARK [phone] Introduction: Visit is being conducted by [facility] [employer] [facility]. identified with 2 identifiers: [X] Full Name [X] Date of [ ] VA ID Card Emergency Plan: confirmed and/or provided the following information in case of emergency or technology failure. PATIENT PHONE - PHONE NUMBER [CELLULAR] - Is patient phone number correct, if not, enter below: [place]'s phone number: TYLER PEREZ [address] [place] [address], [phone] 's present location and address for appointment: As noted above. 's emergency contact name and phone number: Nancy (sister; does not have number) reported that location is private and safe: Yes Informed Consent: [place] informed of the risks and benefits of Telehealth video care. [place] has the right to refuse video services. If refuses video visit, a [id number] visit will be scheduled. [place] verbalized consent for this video visit: Yes provided consent for any other persons present for visit: N/A If yes, who and relationship to patient: Secure visit: Visit was locked for security and privacy:Yes = [place] is a 48 yo MALE referred to pharmacy clinic for weight management. HPI: S: [place] referred to pharmacy clinic for weight management. Pt completed MOVE program ~2 months ago and lost ~12-15lbs. He notes that he has changed diet along with work shifts; instead of overnights, working 3-11pm which has helped with managing lifestyle. He notes hx anxiety; seeing therapist at [facility]. Denies SI. At time of last visit, semaglutide (Wegovy) was initiated. Pt notes that on 0.25mg dose, he had nausea/bloating/vomiting; gained weight due to bloating and never started 0.5mg. Since last dose ~2 weeks ago, s/sx have improved. Does not want to resume/consider any other GLP-1 agonists. is back from [facility] and cooking healthier meals. Weight: 283 lb [128.37 kg] (09/03/2023 09:07) Diet: B: skips L: pasta or sandwich D: varies; miso soup + rice or chicken Snacks: limited Drinks: water, coffee Social: Alcohol: occassional, limited Tobacco: denies Other: denies Activity: Limited; getting adjusted to 2nd shift (3-11pm) Plans to join gym Other: Works at [employer] Active problems - Computerized Problem List is the source for the followin. Vitamin D Deficiency (SCT 26933656) 2. Obesity 3. Hyperlipidemia (SCT 33385395) 4. Sickle cell trait 5. HTN - Hypertension (SCT 56688980) 6. Pain of left lower leg 7. Sleep Apnea (SCT 17866210) - uses CPAP 8. Housing problem Other: Denies personal or fhx thyroid cancer or MENS2 Denies hx pancreatitis Active and Recently Outpatient Medications (including Supplies): Issue Date Status Last Fill Active Outpatient Medications Refills Expiration 1) CHOLECALCIF 10MCG (D3-400UNIT) TAB Qty: ACTIVE Issu:06-04-23 90 for 90 days Sig: TAKE ONE TABLET Refills: 3 Last:06-04-23 BY MOUTH ONCE DAILY FOR VITAMIN Expr:06-04-24 SUPPLEMENTATION 2) LISINOPRIL 20MG TAB Qty: 90 for 90 days ACTIVE Issu:06-04-23 Sig: TAKE ONE TABLET BY MOUTH ONCE Refills: 3 Last:06-04-23 DAILY TO CONTROL BLOOD PRESSURE Expr:06-04-24 Issue Date Status Last Fill Inactive Outpatient Medications Refills Expiration 1) SEMAGLUTIDE WL 0.25MG/0.5ML PEN 0.5ML Issu:10-22-23 Qty: 4 for 28 days Sig: INJECT 0.25MG Refills: 0 Last:10-22-23 SUBCUTANEOUSLY ONCE A WEEK Expr:11-21-23 2) SEMAGLUTIDE WL 0.5MG/0.5ML PEN 0.5ML Issu:10-22-23 Qty: 4 for 28 days Sig: INJECT 0.5MG Refills: 0 Last:10-22-23 SUBCUTANEOUSLY ONCE A WEEK FOR WEIGHT Expr:11-21-23 LOSS START THIS AFTER YOU HAVE COMPLETED 4 WEEKS OF 0.25MG ONCE WEEKLY Pertinent Labs: HEMOGLOBIN A1C TREND Collection DT [...] to limited weight loss potential and ADRs. Avoiding Qysmia and Contrave due to hx HTN. ADR to semaglutide (Wegovy); s/sx improving. Does not want to consider any other GLP-1 agonists. Encouraged to continue with LSMs. F/U: N/A; ADR to GLP-1 agonist and does not want to consider another agent. Will contact clinic as needed. Time Spent: 15 minutes PBM PharmD Pharmacotherapy Rem V12: PHARMACIST INTERVENTIONS: OBESITY/WEIGHT MANAGEMENT Medication Intervention(s) Discontinue and/or change to different medication Medication reconciliation (changes to active VA and non-VA medication lists to reconcile differences) Changes to medication lists made Discontinue or remove medication /es/ Francia Spann PharmD Clinical Pharmacy Practitioner Signed: 11/26/2023 10:10 FRANCIA SPANN VAN TASSELL
== END 2024-01-24 12:13 | disposition home or self-care (01) ==
PROVIDERS: PCP Family Medicine; Visit Provider Nurse Practitioner
DX: Z01.818 Encounter for other preprocedural examination (principal); Z12.11 Encounter for screening for malignant neoplasm of colon; G47.33 Obstructive sleep apnea (adult) (pediatric)
CPT/HCPCS: S0285